=== PATIENT | male | born 1945 | race Caucasian/White ===

== ENCOUNTER 2018-03-19 11:58 | Inpatient (IN) | payer MEDICARE, OTHER ==
[2018-03-19] MEDS ORDERED: HEPARIN SODIUM,PORCINE 5,000 UNIT/ML 1 ML VIAL IV PRN (12:05)
[2018-03-19] MEDS ORDERED: NITROGLYCERIN-D5W PMX 50 MG in DEXTROSE/WATER 1 250ML.BAG IV ONE ×2 (12:06→13:22)
[2018-03-19] MEDS ORDERED: HEPARIN SOD,PORK IN 0.45% NACL 25,000 UNIT in 0.45% NACL 1 500ML.BAG IV SCH (12:15)
[2018-03-19] MEDS ORDERED: MORPHINE SULFATE 4 MG/ML SYRINGE IV PRN (12:24)
[2018-03-19] MEDS ORDERED: NALOXONE 0.4 MG/ML 1 ML VIAL IV PRN (12:24)
--- NOTE | 2018-03-19 12:28 | ED ---
General Adult HPI - General Chief complaint: Chest Pain Stated complaint: Chest pain Time Seen by Provider: 03/19/18 12:01 Source: patient, EMS, RN notes reviewed, old records reviewed Mode of arrival: EMS Limitations: no limitations - History of Present Illness Initial comments: 72-year-old male presenting as transfer from outside hospital with non-ST segment elevated TX. Patient has had intermittent chest pain over the past several weeks, this pain became more severe over the past 12 hours. Was associated with right shoulder pain. Pain was 10 out of 10 at the time of presentation to the outside hospital. Laboratory studies did reveal elevated troponin is 0.95. Patient was initiated on heparin and nitroglycerin and transferred for cardiology evaluation. Patient does have ongoing pain in the time my evaluation, 4 out of 10. No nausea. No history of CAD. Patient has history of diabetes and hypertension. He is a nonsmoker. - Related Data Allergies Allergy/AdvReac Type Severity Reaction Status Date / Time No Known Allergies Allergy Verified 03/19/18 12:11 Review of Systems ROS Statement: Those systems with pertinent positive or pertinent negative responses have been documented in the HPI. ROS Other: All systems not noted in ROS Statement are negative. Past Medical History Past Medical History: Diabetes Mellitus, Hyperlipidemia History of Any Multi-Drug Resistant Organisms: None Reported Past Psychological History: No Psychological Hx Reported Smoking Status: Former smoker Past Alcohol Use History: None Reported Past Drug Use History: None Reported General Exam Limitations: no limitations General appearance: alert, in no apparent distress Head exam: Present: atraumatic, normocephalic Eye exam: Present: normal appearance, PERRL ENT exam: Present: normal exam Neck exam: Present: normal inspection. Absent: tenderness, meningismus Respiratory exam: Present: normal lung sounds bilaterally. Absent: respiratory distress, wheezes Cardiovascular Exam: Present: regular rate, normal rhythm GI/Abdominal exam: Present: soft. Absent: distended, tenderness, guarding Extremities exam: Present: normal inspection, full ROM, normal capillary refill. Absent: calf tenderness Neurological exam: Present: alert, oriented X3, CN II-XII intact. Absent: motor sensory deficit Psychiatric exam: Present: normal affect, normal mood Skin exam: Present: warm, dry, intact. Absent: cyanosis, diaphoretic Course Vital Signs 03/19/18 03/19/18 12:08 12:12 Temperature 97.9 F Pulse Rate 75 Pulse Rate [ 65 Manager Contract ] Respiratory 18 Rate Blood Pressure 166/95 O2 Sat by Pulse 97 Oximetry EKG Findings - EKG Comments: EKG Findings:: EKG: Normal sinus rhythm, left axis deviation, no ST segment elevation ventricular rate 75 WV interval 180, QRS duration 100 QTC 437. Biphasic T wave in V2. Medical Decision Making - Medical Decision Making 72-year-old male presenting with non-ST segment elevated TX from outside hospital. Patient is continued on nitroglycerin and heparin. Repeat blood testing is obtained in the emergency department, including CBC, BMP, and repeat troponin. These laboratory studies are pending. Case discussed with admitting physician. Case discussed with cardiology Dr. Nayak, will evaluate patient in the emergency department. Critical Care Time Critical Care Time: Yes Total Critical Care Time: 35 Disposition Clinical Impression: NSTEMI (non-ST elevated myocardial infarction) Disposition: ADMITTED IP TO THIS [facility] Condition: Stable Is patient prescribed a controlled substance at d/c from ED?: No Referrals: Baljit Shafer MD [Primary Care Provider] - 1-2 days Time of Disposition: 12:31 Decision to Admit Reason: Admit from EC Decision Date: 03/19/18 Decision Time: 12:31
[2018-03-19 12:52] LABS: Basophils % (A) 0 %; Eosinophils # (A) 0.1 k/uL (0-0.7); Eosinophils % (A) 1 %; HCT 40.1 % (39.0-53.0); HGB 13.7 gm/dL (13.0-17.5); Lymphocytes # (A) 1.3 k/uL (1.0-4.8); Lymphocytes % (A) 17 %; MCH 33.7 pg (25.0-35.0); MCHC 34.2 g/dL (31.0-37.0); MCV 98.4 fL (80.0-100.0); Mean Platelet Volume 7.7; Monocytes # (A) 0.4 k/uL (0-1.0); Monocytes % (A) 5 %; Neutrophils # (A) 5.8 k/uL (1.3-7.7); Neutrophils % (A) 75 %; Platelet Count 159 k/uL (150-450); RBC 4.08 m/uL (4.30-5.90); RDW 12.1 % (11.5-15.5); WBC 7.8 k/uL (3.8-10.6)
[2018-03-19] MEDS ORDERED: ALPRAZolam 0.5 MG TAB PO PRN (13:06)
[2018-03-19] MEDS ORDERED: ASPIRIN 325 MG TAB PO STA (13:06)
[2018-03-19] MEDS ORDERED: ALPRAZolam 0.25 MG TAB PO PRN (13:06)
[2018-03-19] MEDS ORDERED: NITROGLYCERIN SL TABS 0.4 MG TAB SUBLINGUAL PRN (13:06)
[2018-03-19] MEDS ORDERED: ATORVASTATIN 80 MG TAB PO STA (13:06)
[2018-03-19] MEDS ORDERED: LIDOCAINE 1% INJ 10MG/ML (20 ML MDV) SQ ONE (13:17)
[2018-03-19 13:18] LABS: Potassium 5.5 mmol/L (3.5-5.1)
[2018-03-19] MEDS ORDERED: IV FLUID CONTINUATION 1,000 ML IV ONE (13:18)
[2018-03-19 13:19] LABS: INR 1.2 (<1.2); Prothrombin Time 11.7 sec (9.0-12.0)
[2018-03-19] MEDS ORDERED: VERAPAMIL SYRINGE (5 MG/10 ML) INTRAARTER ONE (13:19)
[2018-03-19 13:27] LABS: Partial Thromboplastin Time >200.0 sec (22.0-30.0)
[2018-03-19] MEDS ORDERED: IOPAMIDOL-370 125ML BTL INJ ONE (13:30)
[2018-03-19] MEDS ORDERED: RX INFO: IV CONTRAST WAS GIVEN 1 EACH MISC MISCELLANE PRN (13:40)
[2018-03-19] MEDS ORDERED: SODIUM CHLORIDE 0.9% 1,000 ML IV SCH (13:45)
[2018-03-19 13:52] LABS: Creatine Kinase MB 4.2 ng/mL (0.0-2.4)
[2018-03-19 14:03] LABS: Troponin I 1.58 ng/mL (0.000-0.034)
[2018-03-19 14:17] LABS: Glucose,Whole Blood 201 mg/dL (75-99)
--- NOTE | 2018-03-19 14:36 | XR ---
EXAMINATION TYPE: XR chest 1V portable DATE OF EXAM: 03/19/2018 HISTORY: Shortness of breath. COMPARISON: Outside study from 03/19/2018 TECHNIQUE: Single view of the chest is submitted. FINDINGS: Demonstrated are scattered senescent parenchymal change. There is no evidence for focal infiltrate. The heart is stable. Prominence of the paratracheal stripe may reflect underlying adenopathy. Degenerative changes are seen of the dorsal spine. IMPRESSION: 1. Chronic changes without evidence for acute pulmonary disease. 2.Prominence of the paratracheal stripe may reflect underlying adenopathy.
[2018-03-19 14:56] LABS: INR 1.1 (<1.2); Partial Thromboplastin Time 28.2 sec (22.0-30.0); Prothrombin Time 10.3 sec (9.0-12.0)
[2018-03-19 15:02] LABS: Albumin 3.7 g/dL (3.5-5.0); Calcium 8.7 mg/dL (8.4-10.2); Magnesium 1.4 mg/dL (1.6-2.3); Potassium 4.8 mmol/L (3.5-5.1); Total Bilirubin 0.6 mg/dL (0.2-1.3); Total Protein 6.8 g/dL (6.3-8.2)
[2018-03-19 15:05] LABS: Basophils % (A) 0 %; Eosinophils # (A) 0.1 k/uL (0-0.7); Eosinophils % (A) 1 %; HCT 38.3 % (39.0-53.0); HGB 12.6 gm/dL (13.0-17.5); Lymphocytes # (A) 1.5 k/uL (1.0-4.8); Lymphocytes % (A) 22 %; MCH 32.6 pg (25.0-35.0); MCHC 32.9 g/dL (31.0-37.0); MCV 99.2 fL (80.0-100.0); Mean Platelet Volume 7.2; Monocytes # (A) 0.4 k/uL (0-1.0); Monocytes % (A) 5 %; Neutrophils % (A) 70 %; Platelet Count 160 k/uL (150-450); RBC 3.86 m/uL (4.30-5.90); RDW 12.1 % (11.5-15.5); WBC 7.1 k/uL (3.8-10.6)
--- NOTE | 2018-03-19 15:07 | P.GSCN ---
History of Present Illness Consult date: 03/19/18 Reason for Consult: Disease, surgical recommendations. Requesting physician: Benny Nayak History of present illness: This is a 72-year-old gentleman who follows with Dr. Trent Shafer on an outpatient basis. He has a previous medical history of insulin dependent diabetes mellitus, hypertension, hypertriglyceridemia, kidney stones, previous tobacco dependence, near daily EtOH use, and vasectomy. Over the previous few weeks he has been having intermittent chest pain, mostly with eating which he attributed to heartburn and with activity. It was relieved with rest. Last night however he began to have this chest pain with radiation to both his arms, shortness of breath, nausea, diaphoresis, dizziness. He rated the pain and a 10 out of 10 at its worst. It remained unrelieved even with rest and he presented to [facility]. An EKG was completed which demonstrated sinus rhythm. There was elevation in his troponins and the patient was ruled in non-STEMI. He was started on IV heparin and nitro and transported to [facility] for evaluation and treatment. He was taken to the cardiac catheterization lab by Dr. Nayak. The catheterization demonstrated RCA stenosis of 70%, circumflex stenosis 90%, proximal LAD stenosis 99%, mid LAD stenosis 90%, and decreased LV function with an ejection fraction 35%. Dr. Parra from cardiothoracic surgery was consulted for urgent surgical revascularization. Of note, upon further questioning the patient does state that his activity has decreased over the previous 2 years secondary to increasing shortness of breath as well as "old age". Review of Systems Review of systems was completed and was negative except as noted. - Cardiovascular Reports as per HPI, Reports chest pain, Reports decreased exercise tolerance, Reports dyspnea on exertion, Reports high blood pressure Past Medical History Past Medical History: Coronary Artery Disease (CAD), Diabetes Mellitus, Hyperlipidemia, Hypertension History of Any Multi-Drug Resistant Organisms: None Reported Additional Past Surgical History / Comment(s): Vasectomy Past Anesthesia/Blood Transfusion Reactions: No Reported Reaction Past Psychological History: No Psychological Hx Reported Smoking Status: Former smoker Past Alcohol Use History: Occasional Additional Past Alcohol Use History / Comment(s): Patient states he drinks almost daily, has never gone through withdrawal Past Drug Use History: None Reported Medications and Allergies Home Medications Medication Instructions Recorded Confirmed Type Atorvastatin [Lipitor] 40 mg PO HS 03/19/18 03/19/18 History Insulin Aspart [NovoLOG Flexpen] 20 units SQ DAILY 03/19/18 03/19/18 History Insulin Detemir [Levemir Flextouch] 45 units SQ HS 03/19/18 03/19/18 History Lisinopril 40 mg PO DAILY 03/19/18 03/19/18 History Triamcinolone 0.1% Cream [Kenalog 1 applicatio TOPICAL BID 03/19/18 03/19/18 History 0.1% Cream] Triamterene/Hydrochlorothiazid 1 tab PO DAILY 03/19/18 03/19/18 History [Triamterene-Hctz 37.5-25 mg Tb] metFORMIN HCL [metFORMIN HCL ER] 1,000 mg PO BID 03/19/18 03/19/18 History Allergies Allergy/AdvReac Type Severity Reaction Status Date / Time No Known Allergies Allergy Verified 03/19/18 14:12 Surgical - Exam Vital Signs Temp Pulse Resp BP Pulse Ox 97.9 F 75 18 166/95 97 03/19/18 12:08 03/19/18 12:08 03/19/18 12:08 03/19/18 12:08 03/19/18 12:08 - General Complains of chest pain, 2 out of 10. well developed, well nourished, no distress - Eyes PERRL, normal ocular movement - ENT no hearing loss, poor halfway - Neck no masses, no bruits, trachea midline - Respiratory Lungs sounds diminished bilaterally. Respirations even, nonlabored. Currently on 3 L nasal cannula with oxygen saturation 94%. No chest wall deformities. - Cardiovascular S1, S2 present. Regular rate and rhythm, sinus rhythm on telemetry. Palpable peripheral pulses bilaterally. No edema present. No calf pain or tenderness noted. Left radial Brenton's test negative. Right radial heart catheterization site without edema, T band in place. - Abdomen Abdomen: soft, non tender, bowel sounds - Genitourinary Deferred - Rectum Deferred - Integumentary no rash, no growths, no abnormal pigmentation - Neurologic normal coordination, normal sensation - Musculoskeletal normal gait, normal posture - Psychiatric oriented to time, oriented to person, oriented to place, speech is normal, memory intact Results - Labs 03/19/18 12:14 03/19/18 12:14 Abnormal Lab Results - Last 24 Hours (Table) 03/19/18 03/19/18 03/19/18 Range/Units 12:14 12:14 12:14 RBC 4.08 L (4.30-5.90) m/uL INR (<1.2) APTT (22.0-30.0) sec Sodium 136 L (137-145) mmol/L Potassium 5.5 H (3.5-5.1) mmol/L Carbon Dioxide 18 L (22-30) mmol/L Glucose 202 H (74-99) mg/dL POC Glucose (mg/dL) (75-99) mg/dL CK-MB (CK-2) 4.2 H (0.0-2.4) ng/mL Troponin I 1.580 H* (0.000-0.034) ng/mL 03/19/18 03/19/18 Range/Units 12:14 13:56 RBC (4.30-5.90) m/uL INR 1.2 H (<1.2) APTT >200.0 H* (22.0-30.0) sec Sodium (137-145) mmol/L Potassium (3.5-5.1) mmol/L Carbon Dioxide (22-30) mmol/L Glucose (74-99) mg/dL POC Glucose (mg/dL) 201 H (75-99) mg/dL CK-MB (CK-2) (0.0-2.4) ng/mL Troponin I (0.000-0.034) ng/mL Diabetes panel 03/19/18 Range/Units 12:14 Sodium 136 L (137-145) mmol/L Potassium 5.5 H (3.5-5.1) mmol/L Chloride 106 (98-107) mmol/L Carbon Dioxide 18 L (22-30) mmol/L BUN 20 (9-20) mg/dL Creatinine 1.18 (0.66-1.25) mg/dL Glucose 202 H (74-99) mg/dL Calcium 9.0 (8.4-10.2) mg/dL Calcium panel 03/19/18 Range/Units 12:14 Calcium 9.0 (8.4-10.2) mg/dL Pituitary panel 03/19/18 Range/Units 12:14 Sodium 136 L (137-145) mmol/L Potassium 5.5 H (3.5-5.1) mmol/L Chloride 106 (98-107) mmol/L Carbon Dioxide 18 L (22-30) mmol/L BUN 20 (9-20) mg/dL Creatinine 1.18 (0.66-1.25) mg/dL Glucose 202 H (74-99) mg/dL Calcium 9.0 (8.4-10.2) mg/dL Adrenal panel 03/19/18 Range/Units 12:14 Sodium 136 L (137-145) mmol/L Potassium 5.5 H (3.5-5.1) mmol/L Chloride 106 (98-107) mmol/L Carbon Dioxide 18 L (22-30) mmol/L BUN 20 (9-20) mg/dL Creatinine 1.18 (0.66-1.25) mg/dL Glucose 202 H (74-99) mg/dL Calcium 9.0 (8.4-10.2) mg/dL - Imaging EKG: image reviewed Additional studies: Heart catheterization films reviewed. Assessment and Plan (1) Coronary artery disease Current Visit: Yes Status: Chronic Code(s): I25.10 - ATHSCL HEART DISEASE OF [place] CORONARY ARTERY W/O ANG PCTRS SNOMED Code(s): 40409417 (2) Diabetes mellitus Current Visit: Yes Status: Chronic Code(s): E11.9 - TYPE 2 DIABETES MELLITUS WITHOUT COMPLICATIONS SNOMED Code(s): 45591076 (3) Hypertension Current Visit: Yes Status: Chronic Code(s): I10 - ESSENTIAL (PRIMARY) HYPERTENSION SNOMED Code(s): 33663146 (4) Hyperlipidemia Current Visit: Yes Status: Chronic Code(s): E78.5 - HYPERLIPIDEMIA, UNSPECIFIED SNOMED Code(s): 88567238 (5) Tobacco dependence in remission Current Visit: No Status: Resolved Code(s): F17.201 - NICOTINE DEPENDENCE, UNSPECIFIED, IN REMISSION SNOMED Code(s): 602024346 (6) NSTEMI (non-ST elevated myocardial infarction) Current Visit: Yes Status: Acute Code(s): I21.4 - NON-ST ELEVATION (NSTEMI) MYOCARDIAL INFARCTION SNOMED Code(s): 750915900 Plan: The patient was seen and examined at the bedside along with family. Chart/ diagnostics were reviewed. Case will be discussed in detail with Dr. Parra. Preoperative testing was initiated. Preoperative teaching was initiated with the patient and his family. Risks and benefits were discussed in detail, all questions were answered. We will calculate STS risk score once testing has been completed. At this time continue aspirin, statin, beta nica, IV heparin and IV nitro. More recommendations to follow. Thank you Dr. Nayak for this consult. We look forward to working with you in the care of your patient. Time with Patient: Greater than 30
--- NOTE | 2018-03-19 15:30 | P.CNPUL ---
History of Present Illness Consult date: 03/19/18 Requesting physician: Rinku Nixon Reason for consult: chest pain Chief complaint: Chest pain, non-ST segment elevated MA, multivessel CAD History of present illness: This is a 72-year-old white male patient of Dr. Shafer, who was transferred from [facility], where he went for evaluation of severe intermittent chest pain that has been sent for last several weeks. The chest pain became progressively worse, was associated with right shoulder pain. Lab work showed elevated troponins, he was diagnosed with non-ST elevated MA, EKG showed normal sinus rhythm with left axis deviation, and evidence of septal infarct of undetermined age. Past medical history is significant for diabetes mellitus type 2, hypertension, hyperlipidemia, previous nicotine dependence, in remission , daily EtOH use. Patient denies any chronic history of lung disease, but he carries a [id number] smoking history, of 3 packs a day for 20 years. He quit smoking 40 years ago. Not on oxygen at his baseline. Patient was transported to [facility] and he underwent cardiac catheterization by Dr. Nayak which revealed multivessel coronary artery disease, with RCA stenosis of 70%, circumflex stenosis of 90%, proximal LAD with 99% stenosis, mid LAD of 90% and decreased LV function with an ejection fraction of 35%. CT surgery has been consulted and urgent surgical revascularization was recommended. We're consulted in regards to pulmonary/critical care management. Review of Systems All systems: negative Constitutional: Denies chills, Denies fever Eyes: denies blurred vision, denies pain Ears, nose, mouth and throat: Denies headache, Denies sore throat Cardiovascular: Reports chest pain, Denies shortness of breath Respiratory: Denies cough Gastrointestinal: Denies abdominal pain, Denies diarrhea, Denies nausea, Denies vomiting Musculoskeletal: Denies myalgias Integumentary: Denies pruritus, Denies rash Neurological: Denies numbness, Denies weakness Psychiatric: Denies anxiety, Denies depression Endocrine: Denies fatigue, Denies weight change Past Medical History Past Medical History: Coronary Artery Disease (CAD), Diabetes Mellitus, Hyperlipidemia, Hypertension Additional Past Medical History / Comment(s): IDDM type II History of Any Multi-Drug Resistant Organisms: None Reported Past Surgical History: Heart Catheterization Additional Past Surgical History / Comment(s): Vasectomy Past Anesthesia/Blood Transfusion Reactions: No Reported Reaction Past Psychological History: No Psychological Hx Reported Additional Psychological History / Comment(s): Pt resides with his spouse. Heis independent. Smoking Status: Former smoker Past Alcohol Use History: Occasional Additional Past Alcohol Use History / Comment(s): Patient states he drinks almost daily-3 or 4 beers, has never gone through withdrawal. He started smoking in 1 and quit in 1977 Past Drug Use History: None Reported - Past Family History Father Family Medical History: Cancer Additional Family Medical History / Comment(s): Father of lung cancer with metastasis Mother Family Medical History: No Reported History Additional Family Medical History / Comment(s): Mother was healthy and lived to be 86 or 87yrs. Medications and Allergies Home Medications Medication Instructions Recorded Confirmed Type Atorvastatin [Lipitor] 40 mg PO HS 03/19/18 03/19/18 History Insulin Aspart [NovoLOG Flexpen] 20 units SQ DAILY 03/19/18 03/19/18 History Insulin Detemir [Levemir Flextouch] 45 units SQ HS 03/19/18 03/19/18 History Lisinopril 40 mg PO DAILY 03/19/18 03/19/18 History Triamcinolone 0.1% Cream [Kenalog 1 applicatio TOPICAL BID 03/19/18 03/19/18 History 0.1% Cream] Triamterene/Hydrochlorothiazid 1 tab PO DAILY 03/19/18 03/19/18 History [Triamterene-Hctz 37.5-25 mg Tb] metFORMIN HCL [metFORMIN HCL ER] 1,000 mg PO BID 03/19/18 03/19/18 History Allergies Allergy/AdvReac Type Severity Reaction Status Date / Time No Known Allergies Allergy Verified 03/19/18 14:12 Physical Exam Vitals: Vital Signs Temp Pulse Pulse Resp BP Pulse Ox 03/19/18 14:45 81 12 125/82 95 03/19/18 14:30 81 19 132/76 95 03/19/18 14:17 81 13 137/83 96 03/19/18 13:00 65 18 159/98 97 03/19/18 12:12 65 03/19/18 12:08 97.9 F 75 18 166/95 97 Intake and Output 03/19/18 03/19/18 03/19/18 06:59 14:59 22:59 Intake Total 105.1 100 Output Total 0 Balance 105.1 100 Intake: IV 103 100 Sodium Chloride 0.9% 1, 100 000 ml @ 100 mls/hr IV . Q10H [facility] Rx#:[id number] Intake, IV Titration 2.1 Amount Nitroglycerin-D5w Pmx 50 2.1 mg In Dextrose/Water 1 250ml.bag @ 5 MCG/MIN 1.5 mls/hr IV .Q24H [facility] Rx#: [id number] Output: Urine 0 Other: Weight 104.326 kg GENERAL EXAM: Alert, active, comfortable in no apparent distress. HEAD: Normocephalic/atraumatic. EYES: Normal reaction of pupils, equal size. Conjunctiva pink, sclera white. NOSE: Clear with pink turbinates. THROAT: No erythema or exudates. NECK: No masses, no JVD, no thyroid enlargement, no adenopathy. CHEST: No chest wall deformity. Symmetrical expansion. LUNGS: Equal air entry with no crackles, wheeze, rhonchi or dullness. CVS: Regular rate and rhythm, normal S1 and S2, no gallops, no murmurs, no rubs ABDOMEN: Soft, nontender. No hepatosplenomegaly, normal bowel sounds, no guarding or rigidity. EXTREMITIES: No clubbing, no edema, no cyanosis, 2+ pulses and upper and lower extremities. MUSCULOSKELETAL: Muscle strength and tone normal. Right radial puncture is clean dry and intact, soft, TR band is on SPINE: No scoliosis or deformity SKIN: No rashes CENTRAL NERVOUS SYSTEM: Alert and oriented -3. No focal deficits, tone is normal in all 4 extremities. PSYCHIATRIC: Alert and oriented -3. Appropriate affect. Intact judgment and insight. Results - Laboratory Findings CBC and BMP: 03/19/18 12:14 03/19/18 14:07 PT/INR, D-dimer PT 10.3 sec (9.0-12.0) 03/19/18 14:13 INR 1.1 (<1.2) 03/19/18 14:13 Abnormal lab findings: Abnormal Labs 03/19/18 03/19/18 03/19/18 12:14 12:14 12:14 RBC 4.08 L INR APTT Sodium 136 L Potassium 5.5 H Carbon Dioxide 18 L Glucose 202 H POC Glucose (mg/dL) Magnesium CK-MB (CK-2) 4.2 H Troponin I 1.580 H* Triglycerides 03/19/18 03/19/18 03/19/18 12:14 13:56 14:07 RBC INR 1.2 H APTT >200.0 H* Sodium 136 L Potassium Carbon Dioxide 20 L Glucose 174 H POC Glucose (mg/dL) 201 H Magnesium 1.4 L CK-MB (CK-2) Troponin I Triglycerides 246 H - Diagnostic Findings Chest x-ray: report reviewed, image reviewed Additional studies: EKG reviewed Assessment and Plan Plan: Assessment: #1. Non-ST elevated MA #2. Multivessel coronary artery disease, patient underwent cardiac catheterization which showed RCA stenosis of 70%, circumflex was 90%, proximal LAD of 99%, mid LAD of 90% #3. Ischemic cardiomyopathy, cardiac as showed LV function with an ejection fraction of 35% #4. Diabetes mellitus type 2 #5. Hypertension, hyperlipidemia #6. Previous history of nicotine dependence, patient carries [id number] smoking history, quit smoking 40 years ago, but prior to that smoked for 20 years 3 packs a day #7. Daily EtOH use Plan: We will obtain a bedside PFT. Patient's chest x-ray has been reviewed by Dr. Nixon, and was negative for any acute pulmonary process. Patient is currently on nitroglycerin drip, at 20 mics per minute, denies any chest pain, or shortness of breath. Hemodynamically stable. He is undergoing evaluation for urgent revascularization. He denies any chronic history of pulmonary disease. We will follow the patient in the postop period. Patient is increased surgical risk, based on his presentation, chronic comorbid conditions. Continue to follow I performed a history & physical examination of the patient and discussed their management with my nurse practitioner, Rosa Rm. I reviewed the nurse practitioner's note and agree with the documented findings and plan of care. Lung sounds are clear. The findings and the impression was discussed with the patient. I attest to the documentation by the nurse practitioner. Time with Patient: Greater than 30
--- NOTE | 2018-03-19 15:44 | ECHOF ---
Referral Reason:mi MEASUREMENTS -------- HEIGHT: 152.4 cm WEIGHT: 104.3 kg BP: 125/82 IVSd: 1.2 cm (0.6 - 1.1) LVIDd: 2.7 cm (3.9 - 5.3) LVPWd: 1.0 cm (0.6 - 1.1) IVSs: 1.1 cm LVIDs: 2.6 cm LVPWs: 1.0 cm LAESV Index (A-L): 21.25 ml/m Ao Diam: 3.0 cm (2.0 - 3.7) AV Cusp: 1.3 cm (1.5 - 2.6) LA Diam: 2.8 cm (2.7 - 3.8) MV EXCURSION: 18.438 mm (> 18.000) MV EF SLOPE: 95 mm/s (70 - 150) EPSS: 3.5 cm MV E Heraclio: 0.40 m/s MV DecT: 240 ms MV A Heraclio: 0.71 m/s MV E/A Ratio: 0.56 RAP: 5.00 mmHg RVSP: 10.90 mmHg FINDINGS -------- Sinus rhythm. This was a techncally difficult study with suboptimal views, , Lumason utilized for enhancement of im ages. The left ventricular size is normal. There is mild concentric left ventricular hypertrophy. Overa ll left ventricular systolic function is moderate-severely impaired with, an EF between 30 - 35 %. Apical septum LV wall motion is hypokinetic. Anterseptal Hypokinesis Inferior Hypokinesis [place] Hypokinesis. The right ventricle is normal in size. The left atrial size is normal. The right atrial size is normal. 5.0mg OF Lumason UTLIZED: 2 OR MORE WALL SEGMENTS NOT VISUALIZED. There is mild aortic valve sclerosis. There is no evidence of aortic regurgitation. Mild mitral regurgitation is present. Mild tricuspid regurgitation present. There is no evidence of pulmonary hypertension. The right v entricular systolic pressure, as measured by Doppler, is 10.90mmHg. There is no pulmonic regurgitation present. The aortic root size is normal. There is no pericardial effusion. CONCLUSIONS -------- 1. This was a techncally difficult study with suboptimal views, , Lumason utilized for enhancement of images. 2. The left ventricular size is normal. 3. There is mild concentric left ventricular hypertrophy. 4. Overall left ventricular systolic function is moderate-severely impaired with, an EF between 30 - 35 %. 5. Apical septum LV wall motion is hypokinetic. 6. Anterseptal Hypokinesis 7. Inferior Hypokinesis 8. [place] Hypokinesis. 9. The right ventricle is normal in size. 10. The left atrial size is normal. 11. The right atrial size is normal. 12. 5.0mg OF Lumason UTLIZED: 2 OR MORE WALL SEGMENTS NOT VISUALIZED. 13. There is mild aortic valve sclerosis. 14. Mild mitral regurgitation is present. 15. Mild tricuspid regurgitation present. 16. There is no evidence of pulmonary hypertension. 17. The right ventricular systolic pressure, as measured by Doppler, is 10.90mmHg. 18. There is no pulmonic regurgitation present. 19. The aortic root size is normal. 20. There is no pericardial effusion. OPERATING ROOM TECHNICIAN: Hedy Rose RDCS
[2018-03-19 15:59] LABS: Appearance,Urine Clear (Clear); Bilirubin,Urine Negative (Negative); Blood,Urine Negative (Negative); Color,Urine Light Yellow; Glucose,Urine (UA) 1+ (Negative); Ketones,Urine 1+ (Negative); Leukocyte Esterase,Urine Negative (Negative); Nitrite,Urine Negative (Negative); PH, Urine 5.5 (5.0-8.0); Protein,Urine Negative (Negative); Specific Gravity,Urine 1.036 (1.001-1.035); Urobilinogen,Urine <2.0 mg/dL (<2.0)
[2018-03-19] MEDS: PANTOPRAZOLE 40 MG/10 ML VIAL IV SCH (16:01)
[2018-03-19] MEDS: MAGNESIUM SULFATE-D5W PMX 1 GM in DEXTROSE/WATER 1 100ML.BAG IVPB SCH ×2 (16:01→16:53)
--- NOTE | 2018-03-19 16:03 | P.HPIM ---
History of Present Illness H&P Date: 03/19/18 The patient is a 72 yo M with the PMH of HTN, DM, HLD, alcohol abuse, hx of significant smoking (3 PPD x 20 years, quit 40 years ago), and kidney stones who initially presented to [facility] for intermittent chest pain. The patient c/o intermittent L shoulder pressure-like pain occurring over past few weeks which would radiate to the chest and then to R shoulder w/ associated nausea, diaphoresis, and SOB, exacerbated by exertion and relieved w/ rest. He also endorsed a burning component to the sub-sternal pain post-prandially which he attributed to heartburn. He further notes gradually declining exercise tolerance which he attribute to old age. The patient was dx w/ NSTEMI at [place] w/ unremarkable EKG and Troponin elevation of 0.94, started on Heparin and Nitro infusions, and was transferred to [facility] for further cardiology evaluation. In the ED, the patient had an extensive w/u w/ Troponin level 1.580, Na 136, K 5.5, and WBC 7.8. EKG showed normal sinus rhythm @ 75 bpm w/ left axis deviation and poor R-wave progression along w/ TWI in V1-V2. CXR showed scattered parenchymal changes w/ prominence of paratracheal stripe, reflecting possibly underlying adenopathy. Cardiology evaluated the patient and underwent Cardiac catheterization by Dr Nayak which showed 70% stenosis of RCA, 90% stenosis circumflex, 99% stenosis pLAD, and 90% stenosis of mLAD w/ EF 35%. At time of my examination, the patient notes that his pain is almost completely resolved and is a 1/10, substernal, burning-like, w/ no associated symptoms. He denied nausea, vomiting, SOB, palpitations, cough, fever, chills, recent travel , sick contacts, or lower extremity swelling. Review of Systems Pertinent positives and negatives as discussed in HPI, a complete review of systems was performed and all other systems are negative. Past Medical History Past Medical History: Coronary Artery Disease (CAD), Diabetes Mellitus, Hyperlipidemia, Hypertension Additional Past Medical History / Comment(s): IDDM type II History of Any Multi-Drug Resistant Organisms: None Reported Past Surgical History: Heart Catheterization Additional Past Surgical History / Comment(s): Vasectomy Past Anesthesia/Blood Transfusion Reactions: No Reported Reaction Past Psychological History: No Psychological Hx Reported Additional Psychological History / Comment(s): Pt resides with his spouse. Heis independent. Smoking Status: Former smoker Past Alcohol Use History: Occasional Additional Past Alcohol Use History / Comment(s): Patient states he drinks almost daily-3 or 4 beers, has never gone through withdrawal. He started smoking in 1961 and quit in 1977 Past Drug Use History: None Reported - Past Family History Father Family Medical History: Cancer Additional Family Medical History / Comment(s): Father of lung cancer with metastasis Mother Family Medical History: No Reported History Additional Family Medical History / Comment(s): Mother was healthy and lived to be 86 or 87yrs. Medications and Allergies Home Medications Medication Instructions Recorded Confirmed Type Atorvastatin [Lipitor] 40 mg PO HS 03/19/18 03/19/18 History Insulin Aspart [NovoLOG Flexpen] 20 units SQ DAILY 03/19/18 03/19/18 History Insulin Detemir [Levemir Flextouch] 45 units SQ HS 03/19/18 03/19/18 History Lisinopril 40 mg PO DAILY 03/19/18 03/19/18 History Triamcinolone 0.1% Cream [Kenalog 1 applicatio TOPICAL BID 03/19/18 03/19/18 History 0.1% Cream] Triamterene/Hydrochlorothiazid 1 tab PO DAILY 03/19/18 03/19/18 History [Triamterene-Hctz 37.5-25 mg Tb] metFORMIN HCL [metFORMIN HCL ER] 1,000 mg PO BID 03/19/18 03/19/18 History Allergies Allergy/AdvReac Type Severity Reaction Status Date / Time No Known Allergies Allergy Verified 03/19/18 14:12 Physical Exam Vitals: Vital Signs Temp Pulse Pulse Resp BP Pulse Ox 03/19/18 14:45 81 12 125/82 95 03/19/18 14:30 81 19 132/76 95 03/19/18 14:17 81 13 137/83 96 03/19/18 13:00 65 18 159/98 97 03/19/18 12:12 65 03/19/18 12:08 97.9 F 75 18 166/95 97 Intake and Output 03/19/18 03/19/18 03/19/18 06:59 14:59 22:59 Intake Total 105.1 100 Output Total 0 Balance 105.1 100 Intake: IV 103 100 Sodium Chloride 0.9% 1, 100 000 ml @ 100 mls/hr IV . Q10H [facility] Rx#:[id number] Intake, IV Titration 2.1 Amount Nitroglycerin-D5w Pmx 50 2.1 mg In Dextrose/Water 1 250ml.bag @ 5 MCG/MIN 1.5 mls/hr IV .Q24H [facility] Rx#: [id number] Output: Urine 0 Other: Weight 104.326 kg General: [non toxic], [no distress], [appears at stated age], [Obese M] Derm: [no unusual rashes/lesions] [no unusual ecchymoses], [warm], [dry] Head: [atraumatic], [normocephalic], [symmetric] Eyes: [EOMI], [no lid lag], [anicteric sclera], [pupils equal round reactive to light] ENT: [Nose and ears atraumatic], [no thrush], [no pharyngeal erythema] Neck: [No thyromegaly], [no cervical lymphadenopathy], [trachea midline], [ supple] Mouth: [no lip lesion], [mucus membranes moist] Cardiovascular: [S1S2 reg], [no murmur], [positive posterior tibial pulse bilateral], [no edema], [capillary refill less than 2 seconds] Lungs: [Mild crackles at bases sanjeev, no ronchi or coarse breath sounds appreciated], [no accessory muscle use] Abdominal: [soft], [ nontender to palpation], [no guarding], [no appreciable organomegaly], [normal bowel sounds] Ext: [no gross muscle atrophy], [muscle strength 5 out of 5 in all 4 extremities grossly], [no contractures], Neuro: [ CN II-XI grossly intact], [light touch intact all 4 extremities], [ finger to nose within normal limits], Psych: [Alert], [oriented], [appropriate affect] Results CBC & Chem 7: 03/19/18 14:07 03/19/18 14:07 Labs: Abnormal Lab Results - Last 24 Hours (Table) 03/19/18 03/19/18 03/19/18 Range/Units 12:14 12:14 12:14 RBC 4.08 L (4.30-5.90) m/uL Hgb (13.0-17.5) gm/dL Hct (39.0-53.0) % INR (<1.2) APTT (22.0-30.0) sec Sodium 136 L (137-145) mmol/L Potassium 5.5 H (3.5-5.1) mmol/L Carbon Dioxide 18 L (22-30) mmol/L Glucose 202 H (74-99) mg/dL POC Glucose (mg/dL) (75-99) mg/dL Magnesium (1.6-2.3) mg/dL CK-MB (CK-2) 4.2 H (0.0-2.4) ng/mL Troponin I 1.580 H* (0.000-0.034) ng/mL Triglycerides (<150) mg/dL 03/19/18 03/19/18 03/19/18 Range/Units 12:14 13:56 14:07 RBC 3.86 L (4.30-5.90) m/uL Hgb 12.6 L (13.0-17.5) gm/dL Hct 38.3 L (39.0-53.0) % INR 1.2 H (<1.2) APTT >200.0 H* (22.0-30.0) sec Sodium (137-145) mmol/L Potassium (3.5-5.1) mmol/L Carbon Dioxide (22-30) mmol/L Glucose (74-99) mg/dL POC Glucose (mg/dL) 201 H (75-99) mg/dL Magnesium (1.6-2.3) mg/dL CK-MB (CK-2) (0.0-2.4) ng/mL Troponin I (0.000-0.034) ng/mL Triglycerides (<150) mg/dL 03/19/18 Range/Units 14:07 RBC (4.30-5.90) m/uL Hgb (13.0-17.5) gm/dL Hct (39.0-53.0) % INR (<1.2) APTT (22.0-30.0) sec Sodium 136 L (137-145) mmol/L Potassium (3.5-5.1) mmol/L Carbon Dioxide 20 L (22-30) mmol/L Glucose 174 H (74-99) mg/dL POC Glucose (mg/dL) (75-99) mg/dL Magnesium 1.4 L (1.6-2.3) mg/dL CK-MB (CK-2) (0.0-2.4) ng/mL Troponin I (0.000-0.034) ng/mL Triglycerides 246 H (<150) mg/dL Thrombosis Risk Factor Assmnt - Choose All That Apply Any of the Below Risk Factors Present?: Yes Each Factor Represents 1 point: Acute NM, Obesity (BMI >25) Other Risk Factors: Yes Each Risk Factor Represents 3 Points: Age 75 years or older Thrombosis Risk Factor Assessment Total Risk Factor Score: 5 Thrombosis Risk Factor Assessment Level: High Risk Assessment and Plan Plan: CAD w/ multi-vessel disease on cardiac cath w/ ischemic cardiomyopathy, NSTEMI - Scheduled for Cardiac bypass surgery - As per Cardiothoracic surgery - C/w Aspirin 325 mg qd, Lipitor 80 mg qd - C/w Heparin and Nitro infusions Diabetes Mellitus Type 2 - C/w Insulin sliding scale - C/w Levemir 10 U qhs (patient takes 45 U qhs at home) HTN - Currently on Lisinopril 5 mg qd. Will hold remaining home meds since patient on Nitro drip. HLD - C/w Lipitor 80 mg qhs (home dose: 40 mg qd) Tobacco abuse - Nicotine patch Alcohol abuse - Monitor for signs of withdrawal, CIWA The patient is admitted with an anticipated greater than 2 midnight stay for evaluation of NSTEMI Surrogate decision-maker: CODE STATUS:Full-code Discussed with: Patient, , daughter Anticipated discharge date: 03/23/[address]: Home A total of 60 minutes was spent on the care of this complex patient more than 50 % of the time was spent in counseling and care coordination.
[2018-03-19 16:48] LABS: Glucose,Whole Blood 184 mg/dL (75-99)
[2018-03-19] MEDS: INSULIN ASPART 100 UNIT/ML 1 ML 10 ML VIAL SQ SCH ×2 (16:54→21:19)
[2018-03-19] MEDS ORDERED: Magnesium Replacement Protocol 1 EACH MISC MISCELLANE PRN (17:05)
[2018-03-19] MEDS ORDERED: Potassium Replacement Protocol 1 EACH MISC MISCELLANE PRN (17:06)
[2018-03-19] MEDS ORDERED: MD COMMUNICATION TO PHARMACY 1 EACH MISC PO ONE ×4 (17:37)
--- NOTE | 2018-03-19 18:31 | CONS ---
CONSULTATION Mr. Leigh is a 72-year-old male who was transferred from [facility] after being admitted with symptoms of chest discomfort. He has been having the discomfort on and off for the last 2 weeks, but today the discomfort was persistent and quite severe. Patient is not very active physically. He has dyspnea on exertion but no prior documented history of obstructive coronary artery disease. He has no history of peripheral edema. No dizziness. No palpitation. No syncope. No clear PND or orthopnea. His coronary risk factors are remarkable for remote history of smoking. He has history of hypertension and diabetes mellitus. REVIEW OF SYSTEMS: RESPIRATORY SYSTEM: He has no recent wheezing. No cough. No history of documented obstructive lung disease. GI SYSTEM: No recent GI bleed. No peptic ulcer disease. SYSTEM: No dysuria or hematuria. NERVOUS SYSTEM: No history of stroke or seizure. MEDICATIONS: His medications at home included insulin. PHYSICAL EXAMINATION: He is a 72-year-old male, alert, oriented, in no apparent distress. Blood pressure 120/70 with a heart rate in the 70s. HEAD: Normocephalic. Eyes: Sclerae anicteric. NECK: Good carotid upstroke. No jugular venous distention. LUNGS: Clear to auscultation. HEART: Regular rate and rhythm. S1, S2. No S3. No S4. No murmur or rub. ABDOMEN: Soft, nontender. Positive bowel sounds. No megaly. EXTREMITIES: No edema. Intact distal pulses. LAB DATA: EKG is sinus mechanism, rate of 75, left axis deviation, QS in V1 to V2 with poor R- wave progression consistent with anteroseptal myocardial infarction. His troponin is 0.95, potassium 4.7. BUN and creatinine are 21 and 1.3. IMPRESSION: 1. Acute episode of chest discomfort with troponin elevation consistent with non-ST- segment-elevation myocardial infarction. 2. Hyperlipidemia. 3. History of hypertension. RECOMMENDATIONS: I have recommended proceeding with coronary angiography to assess his status and guide his treatment. The rationale behind the procedure, its risks and complications were discussed with the patient, who is in full understanding and agreement. Thank you for this consult. Will follow with you. MMODL / IJN: [id number] /
--- NOTE | 2018-03-19 19:46 | CC ---
CARDIAC CATHETERIZATION REPORT Mr. Leigh is a 72-year-old male with known history of hypertension, hyperlipidemia, history of diabetes mellitus, who presented to [facility] with symptoms of chest discomfort going on for 2 weeks on and off, worse today. He was found to have mild elevation of troponin. In view of that, he was transferred to [facility]. In view of his presentation and his symptoms, recommendation was made regarding cardiac catheterization. The procedure, its risks and complications were discussed with the patient, who was in full understanding and agreement. PROCEDURE: Patient was brought to the fish hatchery laborer in a fasting, semi-sedated state after receiving fentanyl and Benadryl and achieving a moderate conscious sedated state. Using Xylocaine anesthesia and Seldinger technique, a 6-St Lucian sheath was introduced in the right radial artery. Selective right and left angiography was performed using a 5- [place] Lucian 3-1/2 bend right and left Janina catheters. Multiple views were taken of the coronary arteries, including hemiaxial views. Following that, a 5-St Lucian tight pigtail catheter was introduced in the left ventricle and a 30-degree CHEN view of the left ventricle was obtained. Following that, catheter and sheath were removed. Hemostasis was obtained with deployment of a TR band. There was no immediate complication. Patient was returned to his room in stable condition. Of note, the patient received heparin in the emergency room upon his arrival and he received intra-arterial verapamil. FINDINGS: FLUOROSCOPY: There was severe calcification of all the coronary arteries. LEFT MAIN: This is a large-sized vessel trifurcating into left circumflex, left anterior descending artery and ramus intermedius. Left main coronary artery has no evidence of high-grade stenosis. LEFT ANTERIOR DESCENDING ARTERY: This is a large-sized vessel reaching toward the apex with a wrap around the apex segment giving rise to a small diagonal branch. The left anterior descending artery at the ostium has a 95% to 99% stenosis and a heavily calcified segment in the mid distal segment. There is another area of stenosis of about 60%. The rest of the vessel has no high-grade stenosis. RAMUS INTERMEDIUS: This is a large-sized vessel bifurcating; has about a 60% to 70% plaque in the mid segment without any evidence of high-grade stenosis. LEFT CIRCUMFLEX: This is a nondominant vessel giving rise to 4 obtuse marginal branches. In the mid segment after the takeoff of the first obtuse marginal branch, there is a long diffuse area of stenosis up to 85%. The rest of the vessel has no high- grade stenosis. RIGHT CORONARY ARTERY: This is a dominant vessel bifurcating distally into PDA and posterolateral segment and branches. The right coronary artery in the proximal segment has an eccentric 70% plaque. There is another plaque of about 60% distally prior to the bifurcation. The rest of the vessel has intimal disease without any evidence of high-grade stenosis. LEFT VENTRICULOGRAM: Left ventriculogram was performed in 30-degree CHEN view and revealed anteroapical severe hypokinesis to akinesis. Ejection fraction is 35%. There was no significant mitral regurgitation. HEMODYNAMICS: There was no gradient across the aortic valve. The left ventricular end- diastolic pressure was 20 mmHg. CONCLUSION: 1. Heavily calcified coronary arteries. 2. Severe triple-vessel coronary artery disease. 3. Severely impaired left ventricular systolic function. RECOMMENDATIONS: In view of findings and anatomy, I have recommended proceeding with coronary artery bypass grafting. Those findings and recommendation were discussed with the patient and his family, who are in full understanding and agreement. DURATION OF PROCEDURE: 18 minutes. JAVID / NIESHAN: [id number] /
[2018-03-19 20:03] LABS: Creatine Kinase MB 33.1 ng/mL (0.0-2.4)
[2018-03-19 20:04] LABS: Hepatitis A Antibody IgM Non-Reactive (Non-Reactive); Hepatitis B Core IgM Non-Reactive (Non-Reactive)
[2018-03-19 20:05] LABS: Troponin I 19.7 ng/mL (0.000-0.034)
[2018-03-19 20:16] LABS: Hemoglobin A1C 8.1 % (4.0-6.0)
[2018-03-19 20:56] LABS: Glucose,Whole Blood 262 mg/dL (75-99)
[2018-03-19] MEDS ORDERED: INSULIN DETEMIR 100 UNIT/ML 10 ML VIAL SQ SCH (21:00)
[2018-03-19] MEDS ORDERED: LISINOPRIL 5 MG TAB PO SCH (21:00)
[2018-03-19] MEDS: MUPIROCIN 2% OINT 22 GM TUBE TOPICAL SCH (21:20)
[2018-03-19] MEDS: METOPROLOL TARTRATE 25 MG TAB PO SCH (21:20)
--- NOTE | 2018-03-19 21:32 | US ---
EXAMINATION TYPE: US carotid duplex BILAT DATE OF EXAM: 03/19/2018 COMPARISON: NONE CLINICAL HISTORY: preop cardiac surgery. Pre op cardiac surgery EXAM MEASUREMENTS: RIGHT: Peak Systolic Velocity (PSV) cm/sec ----- Right CCA: 122.4 ----- Right ICA: 61.6 ----- Right ECA: 109.3 ICA/CCA ratio: 0.5 RIGHT: End Diastole cm/sec ----- Right CCA: 12.4 ----- Right ICA: 18.7 ----- Right ECA: 13.5 LEFT: Peak Systolic Velocity (PSV) cm/sec ----- Left CCA: 79.8 ----- Left ICA: 85.3 ----- Left ECA: 96.2 ICA/CCA ratio: 1.1 LEFT: End Diastole cm/sec ----- Left CCA: 14.9 ----- Left ICA: 21.0 ----- Left ECA: 0.0 VERTEBRALS (direction of flow): Right Vertebral: Antegrade Left Vertebral: Antegrade Rhythm: Normal Bilateral intimal thickening, plaque bilateral bulb greater on the left, no elevated velocities, no s ignificant stenosis. IMPRESSION: There is antegrade flow in the vertebral arteries. The images and measurements suggest 2 5-40% stenosis in both internal carotid arteries. Criteria for Assigning % of Stenosis / Diameter reduction (Estimation based on the indirect measurements of the internal carotid artery velocities (ICA PSV). 1. Normal (no stenosis)=ICA PSV < 125 cm/s: ratio < 2.0: ICA EDV<40 cm/s. 2. Less than 50% stenosis=ICA PSV < 125 cm/s: ratio < 2.0: ICA EDV<40 cm/s. 3. 50 to 69% stenosis=ICA PSV of 125 to 230 cm/s: ration 2.0 ? 4.0: ICA EDV 40-100 cm/s. 4. Greater than 70% stenosis to near occlusion= ICA PSV > 230 cm/s: ratio > 4.0: ICA EDV > 100 cm/s. 5. Near occlusion= ICA PSV velocities may be low or undetectable: variable ratio and ICA EDV. 6. Total occlusion=unable to detect flow.
[2018-03-20 01:21] LABS: Creatine Kinase MB 27.4 ng/mL (0.0-2.4)
[2018-03-20 01:24] LABS: Troponin I 21.2 ng/mL (0.000-0.034)
[2018-03-20] MEDS ORDERED: METOPROLOL TARTRATE 12.5 MG TAB PO ONE (05:00)
[2018-03-20] MEDS ORDERED: ceFAZolin 2 GM in SODIUM CHLORIDE 0.9% 30 ML IVPB ONE (05:00)
[2018-03-20] MEDS ORDERED: NITROGLYCERIN-D5W PMX 50 MG in DEXTROSE/WATER 1 250ML.BAG IV ONE (05:00)
[2018-03-20] MEDS ORDERED: DEXTROSE 5% IN WATER 1,000 ML with POTASSIUM CHLORIDE 110 MEQ, MAGNESIUM SULFATE 16 MEQ... IV SCH ×5 (05:00)
[2018-03-20] MEDS ORDERED: NITROGLYCERIN-D5W PMX 25 MG/250 ML BTL IV ONE (05:00)
[2018-03-20] MEDS ORDERED: HEPARIN SODIUM,PORCINE 5,000 UNIT in SODIUM CHLORIDE 0.9% 500 ML 500 ML IV ONE (05:00)
[2018-03-20] MEDS ORDERED: ceFAZolin 1,000 MG in SODIUM CHLORIDE 0.9% IRRIGATIO 1,000 ML IRRIGATION ONE (05:00)
[2018-03-20] MEDS ORDERED: ALBUMIN HUMAN 5% 500 ML in EMPTY BAG 1 BAG IVPB ONE ×6 (05:00)
[2018-03-20] MEDS ORDERED: ceFAZolin 2,000 MG in SODIUM CHLORIDE 0.9% 30 ML IVPB ONE (05:00)
[2018-03-20] MEDS ORDERED: MANNITOL 25% 12.5 GM/50 ML VIAL IV ONE ×2 (05:00)
[2018-03-20] MEDS ORDERED: CHLORHEXIDINE GLUCONATE 15 ML CUP MUCOUS MEM ONE (05:00)
[2018-03-20] MEDS ORDERED: PROTAMINE SULFATE 250 MG in EMPTY BAG 1 BAG IV ONE (05:00)
[2018-03-20] MEDS ORDERED: PROPOFOL 1,000 MG in EMPTY BAG 1 BAG IV ONE (05:00)
[2018-03-20] MEDS ORDERED: ATORVASTATIN 10 MG TAB PO ONE (05:00)
[2018-03-20] MEDS ORDERED: PHENYLEPHRINE-0.9% NACL SYG 1 MG/10 ML SYRINGE IV ONE ×4 (05:00)
[2018-03-20] MEDS ORDERED: PROTAMINE SULFATE 10 MG/ML 25 ML VIAL IV ONE ×2 (05:00→08:17)
[2018-03-20] MEDS ORDERED: SODIUM BICARB 8.4% 50 ML SYR (1 MEQ/ML) IV ONE (05:00)
[2018-03-20] MEDS ORDERED: TRANEXAMIC ACID 2,000 MG in SODIUM CHLORIDE 0.9% 180 ML IV ONE ×2 (05:00→09:15)
[2018-03-20] MEDS ORDERED: ASPIRIN 325 MG TAB PO ONE (05:00)
[2018-03-20] MEDS ORDERED: HEPARIN SODIUM 1,000 UN/ML (10ML VL) IV ONE (05:00)
[2018-03-20] MEDS ORDERED: INSULIN REGULAR 100 UNIT in SODIUM CHLORIDE 0.9% 100 ML IV ONE ×2 (05:00→10:45)
[2018-03-20] MEDS ORDERED: PHENYLEPHRINE 40 MG in SODIUM CHLORIDE 0.9% 250 ML IV ONE (05:00)
[2018-03-20] MEDS ORDERED: PAPAVERINE 360 MG in SODIUM CHLORIDE 0.9% 90 ML IV ONE ×2 (05:00→09:18)
[2018-03-20] MEDS ORDERED: LACTATED RINGERS 1,000 ML IV SCH (05:00)
[2018-03-20] MEDS ORDERED: CALCIUM CHLORIDE 100 MG/ML 10 ML SYRINGE IVP ONE (05:00)
[2018-03-20] MEDS ORDERED: NOREPINEPHRINE 4 MG in SODIUM CHLORIDE 0.9% 250 ML IV SCH (05:00)
[2018-03-20] MEDS ORDERED: ALBUMIN HUMAN 25% 50 ML in EMPTY BAG 1 BAG IVPB ONE (05:00)
[2018-03-20] MEDS ORDERED: DEXTROSE 5% IN WATER 1,000 ML with POTASSIUM CHLORIDE 25 MEQ, SODIUM CHLORIDE 2.5MEQ/ML... IV SCH ×6 (05:00)
[2018-03-20] MEDS ORDERED: MAGNESIUM SULFATE SYG 4.06 MEQ/ML SYRINGE IV ONE (05:00)
[2018-03-20 05:28] LABS: Basophils % (A) 0 %; Eosinophils # (A) 0.3 k/uL (0-0.7); Eosinophils % (A) 4 %; HCT 35.8 % (39.0-53.0); HGB 11.7 gm/dL (13.0-17.5); Lymphocytes # (A) 1.4 k/uL (1.0-4.8); Lymphocytes % (A) 19 %; MCH 32.8 pg (25.0-35.0); MCHC 32.6 g/dL (31.0-37.0); MCV 100.3 fL (80.0-100.0); Mean Platelet Volume 7.2; Monocytes # (A) 0.5 k/uL (0-1.0); Monocytes % (A) 7 %; Neutrophils % (A) 67 %; Platelet Count 155 k/uL (150-450); RBC 3.57 m/uL (4.30-5.90); RDW 12.2 % (11.5-15.5); WBC 7.4 k/uL (3.8-10.6)
[2018-03-20 05:38] LABS: Calcium 8.8 mg/dL (8.4-10.2); Magnesium 1.8 mg/dL (1.6-2.3); Potassium 4.5 mmol/L (3.5-5.1)
[2018-03-20 05:50] LABS: Creatine Kinase MB 19.8 ng/mL (0.0-2.4)
[2018-03-20 06:07] LABS: Troponin I 17.5 ng/mL (0.000-0.034)
--- NOTE | 2018-03-20 07:45 | PN ---
PROGRESS NOTE Mr. Leigh is a 72-year-old male who presented with [id number] elevation myocardial infarction, underwent cardiac catheterization, was found to have severely calcified coronary artery with severe triple-vessel coronary disease. He is doing well. This morning, he has no further chest pain. His breathing has been stable. He denies any dizziness. He is scheduled to undergo coronary artery bypass grafting. His left ventricular systolic function showed a severely impaired left ventricular systolic function. He continued be on the IV nitroglycerin, aspirin once a day, Lipitor 80 mg daily, metoprolol tartrate 25 mg twice a day. PHYSICAL EXAMINATION: Blood pressure 126/70 with the heart rate in the 70s. LUNGS: Clear. HEART: Regular rate and rhythm. S1, S2. No S3. No rub appreciated. ABDOMEN: Soft, nontender. EXTREMITIES: No edema. Right radial pulse intact. LAB DATA: Lab data revealed a peak troponin of 21.2, BUN and creatinine 16 and 1.22, hemoglobin of 11.7, white blood cell of 7.4. IMPRESSION: 1. [id number] elevation myocardial infarction with severe triple-vessel coronary artery disease. 2. Severe ischemic cardiomyopathy, hopefully hibernating myocardium. 3. Hypertension. 4. Diabetes mellitus. 5. Hyperlipidemia. RECOMMENDATION: Patient will proceed with coronary artery bypass grafting today. We will continue his medical regimen. MMODL / NIESHAN: [id number] / MERLINE
[2018-03-20] MEDS ORDERED: LIDOCAINE 2% SYG (PF) 100 MG/5 ML ONE (08:17)
[2018-03-20] MEDS ORDERED: POTASSIUM CHLORIDE OPEN HEART 20 MEQ/50 ML BAG IVPB ONE (08:17)
[2018-03-20] MEDS ORDERED: SODIUM CHLORIDE 0.9% IRRIG 1,000 ML BTL IRRIGATION ONE (08:17)
[2018-03-20] MEDS ORDERED: PROPOFOL 10 MG/ML 20 ML VIAL IV ONE (08:17)
[2018-03-20] MEDS ORDERED: MAGNESIUM SULFATE 4 MEQ/ML 10ML VIAL ONE (08:17)
[2018-03-20] MEDS ORDERED: SUCCINYLCHOLINE CHLORIDE 100 MG/5 ML SYR IV ONE (08:17)
[2018-03-20] MEDS ORDERED: SODIUM CHLORIDE 0.9% 250 ML BAG ONE (08:17)
[2018-03-20] MEDS ORDERED: HEPARIN SODIUM,PORCINE 10,000 UNIT/ML 1 ML VIAL ONE (08:17)
[2018-03-20] MEDS ORDERED: ELECTROLYTE-R (PH 7.4) 1,000 ML IV.SOLN IV ONE (08:17)
[2018-03-20] MEDS ORDERED: TRANEXAMIC ACID 1,000 MG/10 ML VIAL ONE (08:17)
[2018-03-20] MEDS ORDERED: MIDAZOLAM 2 MG/2 ML VIAL ONE (08:17)
[2018-03-20] MEDS ORDERED: fentaNYL (PF) 50 MCG/ML 2 ML AMP ONE (08:17)
[2018-03-20] MEDS ORDERED: ALBUMIN HUMAN 5% 500 ML VIAL IVPB ONE (08:17)
[2018-03-20] MEDS ORDERED: VECURONIUM 10 MG VIAL IV ONE (08:17)
[2018-03-20] MEDS ORDERED: fentaNYL (PF) 50 MCG/ML 50 ML VIAL ONE (08:17)
[2018-03-20] MEDS ORDERED: CALCIUM CHLORIDE 100 MG/ML 10 ML SYRINGE ONE (08:17)
[2018-03-20 08:56] LABS: ABG Base Excess -1.1 mmol/L; ABG HCO3 22 mmol/L (21-25); ABG Oxygen Saturation 98.6 % (94-97); ABG PCO2 33 mmHg (35-45); ABG PH 7.44 (7.35-7.45); ABG PO2 115 mmHg (83-108); ABG Potassium Whole Blood 4.8 mmol/L (3.4-4.5); ABG Sodium Whole Blood 136 mmol/L (135-146); ABG TCO2 23 mmol/L (19-24)
[2018-03-20] MEDS ORDERED: ATORVASTATIN 80 MG TAB PO SCH (09:00)
[2018-03-20] MEDS ORDERED: INSULIN DETEMIR 100 UNIT/ML 10 ML VIAL SQ SCH (09:00)
[2018-03-20] MEDS ORDERED: ASPIRIN 81 MG PO SCH (09:00)
[2018-03-20] MEDS: CLEVIDIPINE BUTYRATE 25 MG in EMPTY BAG 1 BAG IV ONE ×3 (09:02→17:21)
[2018-03-20] MEDS: INSULIN ASPART 100 UNIT/ML 1 ML 10 ML VIAL SQ SCH ×2 (09:06→12:29)
[2018-03-20] MEDS: METOPROLOL TARTRATE 25 MG TAB PO SCH (09:06)
[2018-03-20] MEDS: MUPIROCIN 2% OINT 22 GM TUBE TOPICAL SCH (09:06)
[2018-03-20] MEDS: PANTOPRAZOLE 40 MG/10 ML VIAL IV SCH (09:07)
[2018-03-20] MEDS ORDERED: SODIUM CHLORIDE 0.9% 50 ML with ceFAZolin 2,000 MG IV ONE ×2 (09:14)
[2018-03-20] MEDS ORDERED: ceFAZolin 1,000 MG in SODIUM CHLORIDE 0.9% 1,000 ML IRRIGATION ONE ×4 (09:15)
[2018-03-20] MEDS ORDERED: SODIUM CHLORIDE 0.9% 500 ML 500 ML with HEPARIN SODIUM,PORCINE 5,000 UNIT IV ONE ×2 (09:17)
--- NOTE | 2018-03-20 09:54 | XR ---
EXAMINATION TYPE: XR chest 1V DATE OF EXAM: 03/20/2018 COMPARISON: 03/19/2018 INDICATION: Presurgical evaluation TECHNIQUE: Single frontal view of the chest is obtained. FINDINGS: The heart size is normal. The pulmonary vasculature is normal. The lungs are clear. IMPRESSION: 1. No acute pulmonary process.
[2018-03-20 10:16] LABS: ABG Base Excess -2.9 mmol/L; ABG HCO3 24 mmol/L (21-25); ABG Oxygen Saturation 99.1 % (94-97); ABG PCO2 48 mmHg (35-45); ABG PO2 178 mmHg (83-108); ABG Potassium Whole Blood 4.7 mmol/L (3.4-4.5); ABG Sodium Whole Blood 137 mmol/L (135-146); ABG TCO2 25 mmol/L (19-24)
[2018-03-20 10:58] LABS: ABG Base Excess 0.8 mmol/L; ABG HCO3 27 mmol/L (21-25); ABG Oxygen Saturation 99.7 % (94-97); ABG PCO2 50 mmHg (35-45); ABG PH 7.34 (7.35-7.45); ABG PO2 277 mmHg (83-108); ABG Potassium Whole Blood 3.9 mmol/L (3.4-4.5); ABG Sodium Whole Blood 137 mmol/L (135-146); ABG TCO2 29 mmol/L (19-24)
[2018-03-20 11:16] LABS: ABG Base Excess 0.2 mmol/L; ABG HCO3 25 mmol/L (21-25); ABG Oxygen Saturation 99.8 % (94-97); ABG PCO2 42 mmHg (35-45); ABG PH 7.39 (7.35-7.45); ABG PO2 378 mmHg (83-108); ABG Potassium Whole Blood 4.6 mmol/L (3.4-4.5); ABG Sodium Whole Blood 135 mmol/L (135-146); ABG TCO2 27 mmol/L (19-24)
[2018-03-20 11:44] LABS: ABG HCO3 24 mmol/L (21-25); ABG Oxygen Saturation 99.8 % (94-97); ABG PCO2 37 mmHg (35-45); ABG PH 7.42 (7.35-7.45); ABG PO2 269 mmHg (83-108); ABG Potassium Whole Blood 4.1 mmol/L (3.4-4.5); ABG Sodium Whole Blood 136 mmol/L (135-146); ABG TCO2 26 mmol/L (19-24)
[2018-03-20 12:20] LABS: ABG Base Excess -0.1 mmol/L; ABG HCO3 25 mmol/L (21-25); ABG Oxygen Saturation 99.4 % (94-97); ABG PCO2 40 mmHg (35-45); ABG PO2 197 mmHg (83-108); ABG Potassium Whole Blood 4.4 mmol/L (3.4-4.5); ABG Sodium Whole Blood 135 mmol/L (135-146); ABG TCO2 26 mmol/L (19-24)
[2018-03-20 13:27] LABS: ABG Base Excess -0.2 mmol/L; ABG HCO3 25 mmol/L (21-25); ABG Oxygen Saturation 97.5 % (94-97); ABG PCO2 44 mmHg (35-45); ABG PH 7.37 (7.35-7.45); ABG PO2 98 mmHg (83-108); ABG Potassium Whole Blood 3.6 mmol/L (3.4-4.5); ABG Sodium Whole Blood 138 mmol/L (135-146); ABG TCO2 27 mmol/L (19-24)
[2018-03-20] MEDS ORDERED: CALCIUM CHLORIDE 1,000 MG in SODIUM CHLORIDE 0.9% 100 ML IV PRN (14:24)
[2018-03-20] MEDS ORDERED: Phosphorus Replacement Protoco 1 EACH MISC MISCELLANE PRN (14:24)
[2018-03-20] MEDS ORDERED: METOCLOPRAMIDE 5 MG/ML 2 ML VIAL IVP PRN (14:24)
[2018-03-20] MEDS ORDERED: Magnesium Replacement Protocol 1 EACH MISC MISCELLANE PRN (14:24)
[2018-03-20] MEDS ORDERED: INSULIN REGULAR 100 UNIT in SODIUM CHLORIDE 0.9% 100 ML IV SCH (14:24)
[2018-03-20] MEDS ORDERED: PROPOFOL 1,000 MG in EMPTY BAG 1 BAG IV SCH (14:24)
[2018-03-20] MEDS ORDERED: NITROGLYCERIN-D5W PMX 50 MG in DEXTROSE/WATER 1 250ML.BAG IV SCH (14:24)
[2018-03-20] MEDS ORDERED: AMIODARONE 450 MG in DEXTROSE 5% IN WATER 250 ML IV PRN ×2 (14:24)
[2018-03-20] MEDS ORDERED: ONDANSETRON 4 MG/2 ML VIAL IVP PRN (14:24)
[2018-03-20] MEDS ORDERED: IPRATROPIUM-ALBUTEROL 3 ML NEB INHALATION PRN (14:24)
[2018-03-20] MEDS ORDERED: Potassium Replacement Protocol 1 EACH MISC MISCELLANE PRN (14:24)
[2018-03-20] MEDS ORDERED: DEXTROSE 5% IN WATER 100 ML with AMIODARONE 150 MG IV PRN (14:24)
--- NOTE | 2018-03-20 15:09 | P.PN ---
Subjective Progress Note Date: 03/20/18 Principal diagnosis: ICU management, routine postoperative ventilator management Progress note dated 03/20/2018 This is a 72-year-old male seen yesterday in consultation. He has a history of non-ST segment elevation myocardial infarction, multivessel coronary artery disease, ischemic cardiomyopathy, diabetes mellitus, hypertension, hyperlipidemia, and a [id number] history of tobacco use. He also apparently has a history of daily alcohol use. The patient went to the operating room this morning for a LYNN to LAD, SVG to the ramus, and an SVG to RCA. Patient on mechanical ventilator with vent settings SIMV 12, TV 500, FiO2 100%, and PEEP of 10. Will follow rapid wean protocol when patient alert and following commands. Patient has 2 mediastinal chest tubes and one left pleural chest tube intact and draining minimal sanguineous drainage. Patient currently on lactated Ringer at 50 mL an hour, nitroglycerin drip at 5 mcgs per minute, norepinephrine 2 mcgs per minute, and propofol 15 mics per kilogram per minute. Patient's current cardiac index is 2.1 and cardiac output 4.0. Patient appears hemodynamically stable at this time. Awaiting chest x-rays and ABG for review. Objective - Vital Signs Vital signs: Vital Signs Temp 98.7 F 03/20/18 05:00 Pulse 76 03/20/18 06:00 Resp 17 03/20/18 06:00 BP 126/74 03/20/18 06:00 Pulse Ox 95 03/20/18 06:00 Intake & Output 03/19/18 03/20/18 03/20/18 18:59 06:59 18:59 Intake Total 705.1 430 153 Output Total 1450 1900 1600 Balance -744.9 -1470 -1447 Weight 108 kg 106.4 kg Intake: IV 703 430 153 Magnesium Sulfate-D5w Pmx 200 1 gm In Dextrose/Water 1 100ml.bag @ 100 mls/hr IVPB Q1H VENESSA Rx#: [id number] Sodium Chloride 0.9% 1, 400 430 000 ml @ 100 mls/hr IV . Q10H VENESSA Rx#:[id number] Intake, IV Titration 2.1 Amount Nitroglycerin-D5w Pmx 50 2.1 mg In Dextrose/Water 1 250ml.bag @ 5 MCG/MIN 1.5 mls/hr IV .Q24H ONE Rx#: [id number] Output: Urine 1450 1900 600 Estimated Blood Loss 1000 Other: Voiding Method Urinal Urinal # Voids 1 1 - Exam No acute distress, sedated, with an orally placed endotracheal tube and NG tube. The patient appears stable on mechanical ventilator. HEENT examination is grossly unremarkable. Mucous membranes are moist. Neck supple. Full range of motion. No adenopathy thyromegaly or neck vein distention. Cardiovascular examination reveals regular rhythm rate. S1-S2 normal. No S3 or S4. No discernible murmur noted. Distant cardiac rub noted. Lungs reveal bilaterally equal breath sounds. There are scattered coarse rhonchi and wheezes. No crackles.. Abdomen soft bowel sounds are hypoactive. No masses. Extremities are intact. No cyanosis clubbing or edema. Pulses are palpable. Skin is without rash or lesion. Neurologic examination cannot be assessed at this time. - Labs CBC & Chem 7: 03/20/18 05:03 03/20/18 05:03 Labs: Abnormal Lab Results - Last 24 Hours (Table) 03/19/18 03/19/18 03/19/18 Range/Units 14:07 14:07 14:07 RBC 3.86 L (4.30-5.90) m/uL Hgb 12.6 L (13.0-17.5) gm/dL Hct 38.3 L (39.0-53.0) % MCV (80.0-100.0) fL ABG pH (7.35-7.45) ABG pCO2 (35-45) mmHg ABG pO2 (83-108) mmHg ABG HCO3 (21-25) mmol/L ABG Total CO2 (19-24) mmol/L ABG O2 Saturation (94-97) % ABG Hematocrit (34.0-46.0) % ABG Potassium (3.4-4.5) mmol/L ABG Ionized Calcium (4.5-5.3) mg/dL ABG Glucose (75-99) mg/dL ABG Lactic Acid (0.5-1.6) mmol/L Hemoglobin (13.0-17.5) gm/dL Sodium 136 L (137-145) mmol/L Carbon Dioxide 20 L (22-30) mmol/L Glucose 174 H (74-99) mg/dL POC Glucose (mg/dL) (75-99) mg/dL Hemoglobin A1c 8.1 H (4.0-6.0) % Magnesium 1.4 L (1.6-2.3) mg/dL Total Creatine Kinase (55-170) U/L CK-MB (CK-2) (0.0-2.4) ng/mL Troponin I (0.000-0.034) ng/mL Triglycerides 246 H (<150) mg/dL Arterial Blood Potassium (3.4-4.5) mmol/L Arterial Blood Glucose (75-99) mg/dL Ur Specific Lissie (1.001-1.035) Urine Glucose (UA) (Negative) Urine Ketones (Negative) Crossmatch 03/19/18 03/19/18 03/19/18 Range/Units 14:07 15:20 16:46 RBC (4.30-5.90) m/uL Hgb (13.0-17.5) gm/dL Hct (39.0-53.0) % MCV (80.0-100.0) fL ABG pH (7.35-7.45) ABG pCO2 (35-45) mmHg ABG pO2 (83-108) mmHg ABG HCO3 (21-25) mmol/L ABG Total CO2 (19-24) mmol/L ABG O2 Saturation (94-97) % ABG Hematocrit (34.0-46.0) % ABG Potassium (3.4-4.5) mmol/L ABG Ionized Calcium (4.5-5.3) mg/dL ABG Glucose (75-99) mg/dL ABG Lactic Acid (0.5-1.6) mmol/L Hemoglobin (13.0-17.5) gm/dL Sodium (137-145) mmol/L Carbon Dioxide (22-30) mmol/L Glucose (74-99) mg/dL POC Glucose (mg/dL) 184 H (75-99) mg/dL Hemoglobin A1c (4.0-6.0) % Magnesium (1.6-2.3) mg/dL Total Creatine Kinase (55-170) U/L CK-MB (CK-2) (0.0-2.4) ng/mL Troponin I (0.000-0.034) ng/mL Triglycerides (<150) mg/dL Arterial Blood Potassium (3.4-4.5) mmol/L Arterial Blood Glucose (75-99) mg/dL Ur Specific Lissie 1.036 H (1.001-1.035) Urine Glucose (UA) 1+ H (Negative) Urine Ketones 1+ H (Negative) Crossmatch See Detail 03/19/18 03/19/18 03/20/18 Range/Units 19:12 20:54 00:19 RBC (4.30-5.90) m/uL Hgb (13.0-17.5) gm/dL Hct (39.0-53.0) % MCV (80.0-100.0) fL ABG pH (7.35-7.45) ABG pCO2 (35-45) mmHg ABG pO2 (83-108) mmHg ABG HCO3 (21-25) mmol/L ABG Total CO2 (19-24) mmol/L ABG O2 Saturation (94-97) % ABG Hematocrit (34.0-46.0) % ABG Potassium (3.4-4.5) mmol/L ABG Ionized Calcium (4.5-5.3) mg/dL ABG Glucose (75-99) mg/dL ABG Lactic Acid (0.5-1.6) mmol/L Hemoglobin (13.0-17.5) gm/dL Sodium (137-145) mmol/L Carbon Dioxide (22-30) mmol/L Glucose (74-99) mg/dL POC Glucose (mg/dL) 262 H (75-99) mg/dL Hemoglobin A1c (4.0-6.0) % Magnesium (1.6-2.3) mg/dL Total Creatine Kinase 719 H 686 H (55-170) U/L CK-MB (CK-2) 33.1 H 27.4 H (0.0-2.4) ng/mL Troponin I 19.700 H* 21.200 H* (0.000-0.034) ng/mL Triglycerides (<150) mg/dL Arterial Blood Potassium (3.4-4.5) mmol/L Arterial Blood Glucose (75-99) mg/dL Ur Specific Lissie (1.001-1.035) Urine Glucose (UA) (Negative) Urine Ketones (Negative) Crossmatch 03/20/18 03/20/18 03/20/18 Range/Units 05:03 05:03 05:03 RBC 3.57 L (4.30-5.90) m/uL Hgb 11.7 L (13.0-17.5) gm/dL Hct 35.8 L (39.0-53.0) % MCV 100.3 H (80.0-100.0) fL ABG pH (7.35-7.45) ABG pCO2 (35-45) mmHg ABG pO2 (83-108) mmHg ABG HCO3 (21-25) mmol/L ABG Total CO2 (19-24) mmol/L ABG O2 Saturation (94-97) % ABG Hematocrit (34.0-46.0) % ABG Potassium (3.4-4.5) mmol/L ABG Ionized Calcium (4.5-5.3) mg/dL ABG Glucose (75-99) mg/dL ABG Lactic Acid (0.5-1.6) mmol/L Hemoglobin (13.0-17.5) gm/dL Sodium 136 L (137-145) mmol/L Carbon Dioxide (22-30) mmol/L Glucose 209 H (74-99) mg/dL POC Glucose (mg/dL) (75-99) mg/dL Hemoglobin A1c (4.0-6.0) % Magnesium (1.6-2.3) mg/dL Total Creatine Kinase 574 H (55-170) U/L CK-MB (CK-2) 19.8 H (0.0-2.4) ng/mL Troponin I 17.500 H* (0.000-0.034) ng/mL Triglycerides (<150) mg/dL Arterial Blood Potassium (3.4-4.5) mmol/L Arterial Blood Glucose (75-99) mg/dL Ur Specific Lissie (1.001-1.035) Urine Glucose (UA) (Negative) Urine Ketones (Negative) Crossmatch 03/20/18 03/20/18 03/20/18 Range/Units 08:54 10:13 10:56 RBC (4.30-5.90) m/uL Hgb (13.0-17.5) gm/dL Hct (39.0-53.0) % MCV (80.0-100.0) fL ABG pH 7.30 L 7.34 L (7.35-7.45) ABG pCO2 33 L 48 H 50 H (35-45) mmHg ABG pO2 115 H 178 H 277 H (83-108) mmHg ABG HCO3 27 H (21-25) mmol/L ABG Total CO2 25 H 29 H (19-24) mmol/L ABG O2 Saturation 98.6 H 99.1 H 99.7 H (94-97) % ABG Hematocrit 27 L (34.0-46.0) % ABG Potassium 4.8 H 4.7 H (3.4-4.5) mmol/L ABG Ionized Calcium 4.3 L (4.5-5.3) mg/dL ABG Glucose 216 H 191 H 148 H (75-99) mg/dL ABG Lactic Acid (0.5-1.6) mmol/L Hemoglobin 11.8 L 11.3 L 8.8 L (13.0-17.5) gm/dL Sodium (137-145) mmol/L Carbon Dioxide (22-30) mmol/L Glucose (74-99) mg/dL POC Glucose (mg/dL) (75-99) mg/dL Hemoglobin A1c (4.0-6.0) % Magnesium (1.6-2.3) mg/dL Total Creatine Kinase (55-170) U/L CK-MB (CK-2) (0.0-2.4) ng/mL Troponin I (0.000-0.034) ng/mL Triglycerides (<150) mg/dL Arterial Blood Potassium 4.8 H 4.7 H (3.4-4.5) mmol/L Arterial Blood Glucose 216 H 191 H 148 H (75-99) mg/dL Ur Specific Lissie (1.001-1.035) Urine Glucose (UA) (Negative) Urine Ketones (Negative) Crossmatch 03/20/18 03/20/18 03/20/18 Range/Units 11:14 11:42 12:17 RBC (4.30-5.90) m/uL Hgb (13.0-17.5) gm/dL Hct (39.0-53.0) % MCV (80.0-100.0) fL ABG pH (7.35-7.45) ABG pCO2 (35-45) mmHg ABG pO2 378 H 269 H 197 H (83-108) mmHg ABG HCO3 (21-25) mmol/L ABG Total CO2 27 H 26 H 26 H (19-24) mmol/L ABG O2 Saturation 99.8 H 99.8 H 99.4 H (94-97) % ABG Hematocrit 24 L 25 L 25 L (34.0-46.0) % ABG Potassium 4.6 H (3.4-4.5) mmol/L ABG Ionized Calcium 4.3 L 4.3 L 4.0 L (4.5-5.3) mg/dL ABG Glucose 209 H 197 H 221 H (75-99) mg/dL ABG Lactic Acid 1.8 H 2.0 H 2.2 H* (0.5-1.6) mmol/L Hemoglobin 7.9 L 8.3 L 8.0 L (13.0-17.5) gm/dL Sodium (137-145) mmol/L Carbon Dioxide (22-30) mmol/L Glucose (74-99) mg/dL POC Glucose (mg/dL) (75-99) mg/dL Hemoglobin A1c (4.0-6.0) % Magnesium (1.6-2.3) mg/dL Total Creatine Kinase (55-170) U/L CK-MB (CK-2) (0.0-2.4) ng/mL Troponin I (0.000-0.034) ng/mL Triglycerides (<150) mg/dL Arterial Blood Potassium 4.6 H (3.4-4.5) mmol/L Arterial Blood Glucose 209 H 197 H 221 H (75-99) mg/dL Ur Specific Lissie (1.001-1.035) Urine Glucose (UA) (Negative) Urine Ketones (Negative) Crossmatch 03/20/18 Range/Units 13:25 RBC (4.30-5.90) m/uL Hgb (13.0-17.5) gm/dL Hct (39.0-53.0) % MCV (80.0-100.0) fL ABG pH (7.35-7.45) ABG pCO2 (35-45) mmHg ABG pO2 (83-108) mmHg ABG HCO3 (21-25) mmol/L ABG Total CO2 27 H (19-24) mmol/L ABG O2 Saturation 97.5 H (94-97) % ABG Hematocrit 28 L (34.0-46.0) % ABG Potassium (3.4-4.5) mmol/L ABG Ionized Calcium (4.5-5.3) mg/dL ABG Glucose 149 H (75-99) mg/dL ABG Lactic Acid 2.0 H (0.5-1.6) mmol/L Hemoglobin 9.0 L (13.0-17.5) gm/dL Sodium (137-145) mmol/L Carbon Dioxide (22-30) mmol/L Glucose (74-99) mg/dL POC Glucose (mg/dL) (75-99) mg/dL Hemoglobin A1c (4.0-6.0) % Magnesium (1.6-2.3) mg/dL Total Creatine Kinase (55-170) U/L CK-MB (CK-2) (0.0-2.4) ng/mL Troponin I (0.000-0.034) ng/mL Triglycerides (<150) mg/dL Arterial Blood Potassium (3.4-4.5) mmol/L Arterial Blood Glucose 149 H (75-99) mg/dL Ur Specific Lissie (1.001-1.035) Urine Glucose (UA) (Negative) Urine Ketones (Negative) Crossmatch Microbiology - Last 24 Hours (Table) 03/19/18 15:53 Urine Culture - Preliminary Urine,Clean Catch 03/19/18 15:20 Nasal Screen MRSA/MSSA - Preliminary Nasal Swab Assessment and Plan Assessment: Assessment #1 coronary artery disease, postop day 0, CABG 3. #2 routine postoperative ventilatory management. #3 non-ST elevated [place] #4 ischemic cardiomyopathy, LV function with EF 35%. #5 hypertension, hyperlipidemia. #6 history of nicotine dependence, rule out COPD. #7 daily EtOH use. Plan: Plan dated 03/20/2018 Awaiting chest x-ray and ABG to review. We will continue DuoNeb every 4 hours [id number]. We will proceed with rapid weaning protocol once patient is following commands. We will continue to monitor vital signs, urine output, and readiness to wean. Time with Patient: Greater than 30
[2018-03-20 15:11] LABS: Glucose,Whole Blood 107 mg/dL (75-99)
[2018-03-20] MEDS: IPRATROPIUM-ALBUTEROL 3 ML NEB INHALATION SCH ×3 (15:11→20:19)
--- NOTE | 2018-03-20 15:12 | XR ---
EXAMINATION TYPE: XR chest 1V portable DATE OF EXAM: 03/20/2018 COMPARISON: 03/20/2018 earlier exam INDICATION: Post cardiac surgery TECHNIQUE: Single frontal view of the chest is obtained. FINDINGS: The heart size is mildly prominent. The pulmonary vasculature is normal. The lungs are clear. There is been placement of an endotracheal tube with the tip above the emmanuel. Nasogastric tube trans verses the thorax. Mediastinal tube is present. Emmet-Heaven catheter is present with the tip in the devante n pulmonary artery. Left-sided chest tube is present. No pneumothorax is evident. IMPRESSION: 1. No acute pulmonary process. 2. Postsurgical changes. 3. Multiple lines and catheters discussed above
[2018-03-20] MEDS: LACTATED RINGERS 1,000 ML IV SCH (15:27)
[2018-03-20 15:38] LABS: ABG Base Excess 0.3 mmol/L; ABG HCO3 26 mmol/L (21-25); ABG PCO2 46 mmHg (35-45); ABG PH 7.35 (7.35-7.45); ABG PO2 381 mmHg (83-108); ABG TCO2 27 mmol/L (19-24)
[2018-03-20] MEDS: CLEVIDIPINE BUTYRATE 25 MG in EMPTY BAG 1 BAG IV SCH (15:48)
[2018-03-20 16:23] LABS: Glucose,Whole Blood 150 mg/dL (75-99)
[2018-03-20 16:32] LABS: INR 1.2 (<1.2); Partial Thromboplastin Time 30.1 sec (22.0-30.0); Prothrombin Time 11.3 sec (9.0-12.0)
[2018-03-20] MEDS: ceFAZolin IN SWFI 2 GM/20 ML SYRINGE IVP SCH ×2 (16:35→23:36)
[2018-03-20 16:48] LABS: Albumin 2.9 g/dL (3.5-5.0); Calcium 7.9 mg/dL (8.4-10.2); Magnesium 2.5 mg/dL (1.6-2.3); Potassium 4.5 mmol/L (3.5-5.1); Total Bilirubin 0.4 mg/dL (0.2-1.3); Total Protein 5.2 g/dL (6.3-8.2)
[2018-03-20 17:16] LABS: Basophils % (A) 0 %; Eosinophils # (A) 0.1 k/uL (0-0.7); Eosinophils % (A) 1 %; HCT 27.4 % (39.0-53.0); Lymphocytes # (A) 0.9 k/uL (1.0-4.8); Lymphocytes % (A) 16 %; MCH 33.9 pg (25.0-35.0); MCV 99.7 fL (80.0-100.0); Mean Platelet Volume 7.5; Monocytes # (A) 0.4 k/uL (0-1.0); Monocytes % (A) 7 %; Neutrophils # (A) 4.5 k/uL (1.3-7.7); Neutrophils % (A) 74 %; Platelet Count 100 k/uL (150-450); RBC 2.75 m/uL (4.30-5.90); RDW 12.4 % (11.5-15.5)
[2018-03-20 17:19] LABS: HGB 9.3 gm/dL (13.0-17.5)
[2018-03-20 17:25] LABS: Glucose,Whole Blood 206 mg/dL (75-99)
[2018-03-20] MEDS ORDERED: DEXMEDETOMIDINE/0.9% NACL(PMX) 400 MCG in EMPTY BAG 1 BAG IV SCH (17:45)
[2018-03-20 18:15] LABS: Basophils % (A) 0 %; Eosinophils % (A) 0 %; HCT 28.6 % (39.0-53.0); HGB 9.9 gm/dL (13.0-17.5); Lymphocytes # (A) 0.4 k/uL (1.0-4.8); Lymphocytes % (A) 6 %; MCH 34.9 pg (25.0-35.0); MCHC 34.5 g/dL (31.0-37.0); MCV 101.2 fL (80.0-100.0); Mean Platelet Volume 7.2; Monocytes # (A) 0.3 k/uL (0-1.0); Monocytes % (A) 4 %; Neutrophils # (A) 6.4 k/uL (1.3-7.7); Neutrophils % (A) 88 %; Platelet Count 114 k/uL (150-450); RBC 2.83 m/uL (4.30-5.90); RDW 12.4 % (11.5-15.5); WBC 7.3 k/uL (3.8-10.6)
[2018-03-20 18:16] LABS: Glucose,Whole Blood 196 mg/dL (75-99)
[2018-03-20] MEDS: ACETAMINOPHEN IV (For NPO) 1,000 MG in EMPTY BAG 1 BAG IVPB SCH ×2 (18:21→23:58)
[2018-03-20] MEDS: ALBUMIN HUMAN 5% 250 ML in EMPTY BAG 1 BAG IVPB PRN ×2 (19:09→19:43)
[2018-03-20 19:18] LABS: Glucose,Whole Blood 173 mg/dL (75-99)
[2018-03-20 20:19] LABS: Glucose,Whole Blood 155 mg/dL (75-99)
[2018-03-20] MEDS ORDERED: NOREPINEPHRINE 16 MG in SODIUM CHLORIDE 0.9% 250 ML IV SCH (20:30)
[2018-03-20] MEDS ORDERED: METOPROLOL TARTRATE 25 MG TAB PO ONE (21:00)
[2018-03-20 21:02] LABS: Basophils % (A) 0 %; Eosinophils % (A) 0 %; HCT 24.3 % (39.0-53.0); Lymphocytes # (A) 0.3 k/uL (1.0-4.8); Lymphocytes % (A) 5 %; MCH 33.9 pg (25.0-35.0); MCV 99.7 fL (80.0-100.0); Mean Platelet Volume 9.1; Monocytes # (A) 0.3 k/uL (0-1.0); Monocytes % (A) 6 %; Neutrophils % (A) 88 %; RBC 2.44 m/uL (4.30-5.90); RDW 12.4 % (11.5-15.5); WBC 5.7 k/uL (3.8-10.6)
[2018-03-20 21:08] LABS: HGB 8.3 gm/dL (13.0-17.5)
[2018-03-20 21:29] LABS: Glucose,Whole Blood 142 mg/dL (75-99)
[2018-03-20 21:47] LABS: Polychromasia Present
[2018-03-20 21:48] LABS: Platelet Count 88 k/uL (150-450)
[2018-03-20] MEDS: HEPARIN SODIUM,PORCINE 5,000 UNIT/ML 1 ML VIAL SQ SCH ×2 (21:58→23:14)
[2018-03-20 21:59] LABS: Glucose,Whole Blood 143 mg/dL (75-99)
[2018-03-20] MEDS: MUPIROCIN 2% OINT 22 GM TUBE NASAL SCH (22:05)
[2018-03-20 22:58] LABS: Glucose,Whole Blood 130 mg/dL (75-99)
[2018-03-20 23:04] LABS: ABG Base Excess 0.7 mmol/L; ABG HCO3 25 mmol/L (21-25); ABG Oxygen Saturation 99.4 % (94-97); ABG PCO2 41 mmHg (35-45); ABG PH 7.41 (7.35-7.45); ABG PO2 136 mmHg (83-108); ABG TCO2 27 mmol/L (19-24)
[2018-03-20] MEDS ORDERED: MORPHINE SULFATE 2 MG/ML SYRINGE IVP PRN (23:21)
[2018-03-20] MEDS ORDERED: MORPHINE SULFATE 2 MG/ML SYRINGE ONE (23:23)
--- NOTE | 2018-03-20 23:45 | OP ---
OPERATIVE REPORT DATE OF SURGERY: 03/20/2018. PREOPERATIVE DIAGNOSIS: Coronary artery disease. POSTOPERATIVE DIAGNOSIS: Coronary artery disease. PROCEDURE PERFORMED: 1. Coronary bypass grafting x3 vessels (left internal mammary artery to left anterior descending artery, saphenous vein graft to ramus artery, saphenous vein graft to distal right coronary artery). 2. Endoscopic vein harvest bilateral greater saphenous vein. 3. Epiaortic ultrasound. 4. Transesophageal echocardiogram. SURGEON: Jaiden Parra MD. DIRECTOR [employer]CHOOL OF NURSING: 1. KOLBY Chauhan. 2. Daniel Purcell NP. ANESTHESIA: General. SPECIMEN: None. COMPLICATION: None. INDICATION: The patient is a 72-year-old male with a history of multiple medical problems including diabetes mellitus, hyperlipidemia, hypertension, daily alcohol use, and a history of tobacco use who presented to the hospital with intermittent chest pain. Workup revealed a non ST elevation myocardial infarction. Cardiac catheterization revealed multivessel coronary disease including a 99% proximal LAD stenosis. Coronary artery bypass is recommended. The risks, benefits, alternatives to this procedure were discussed at length with the patient and his daughter. All the questions were answered. Consent was obtained. FINDINGS: The left internal mammary artery was good, brisk flow. The saphenous vein was an adequate conduit. The LAD measured 1.3 mm and contained diffuse disease. The posterior descending artery and posterolateral branch of the right coronary artery were extremely small and not amenable for bypass. The distal right coronary artery contained diffuse calcific plaque. The ramus artery measured 1.5 mm. DESCRIPTION OF PROCEDURE: The patient was taken to the operating room, placed supine on the operating table. After induction of general anesthesia, he was prepped and draped in the usual sterile fashion. Preoperative transesophageal echocardiogram revealed ejection fraction about 30%. There was no significant valvular disease. A median sternotomy was performed. The left internal mammary artery was harvested in a standard fashion taking care to clip all branches. Of note, the chest wall and mediastinum contained a large amount of fatty tissue. Intravenous heparin was administered and the vessel was transected distally revealing brisk flow. Simultaneously greater saphenous vein was harvested from the left lower extremity. This vein was uniform in size but was small in diameter. Additional vein was harvested from the right thigh. It was similar in its size. I felt the vein was adequate for use. Both veins were taken out using endoscopic technique. All branches were tied. A pericardial cradle was created. The ascending aorta was palpated. There was no significant calcific plaque noted. Epiaortic ultrasound was then performed on the ascending aorta. Again, there was no significant calcific plaque noted. An arterial cannula was placed in the distal ascending aorta. A venous cannula placed through the right atrial appendage directed into the IVC. Both antegrade and retrograde catheters were placed as well. The patient was then placed on cardiopulmonary bypass with good decompression of the heart. The cross-clamp was applied. Cardioplegia was noted in both antegrade and retrograde fashion to achieve arrest of the heart. Of note, cardioplegia was delivered every 15 to 20 minutes while the patient remained under crossclamp. We began by inspecting the inferior wall. The PDA and posterior lateral branch of the right coronary were both identified. Both vessels were diminutive in size and not amenable for bypass. The right coronary artery was palpated deep within the fat. It was dissected free. It contained diffuse calcific disease. A soft spot amenable for bypass was chosen. Using the saphenous vein in a reverse fashion, end-to-side anastomosis was created. This performed a running 7-0 Prolene suture. The graft was intact and had good flow. Next, lateral inspected. The distal OM artery was extremely small, not amenable for bypass. The ramus artery was identified. It was dissected free. An arteriotomy was created. This vessel accepted a 1.5 mm probe. Using saphenous vein in a reverse fashion, an end-to-side anastomosis was created. This was performed a running 7-0 Prolene suture. The graft was hemostatic and had good flow. Finally, the LAD was identified deep within the fat on the anterior surface of the heart. A small arteriotomy was created. This vessel accepted a 1 mm probe. It appeared to be narrow throughout its course after probing the vessel. Using the left internal mammary artery, an end-to-side anastomosis was created. This was performed using a running 8-0 Prolene suture. The graft was hemostatic. The mammary pedicle was then tacked on the anterior surface of the heart. Attention was then turned to the proximal anastomoses. These were performed in end-to- side fashion using running 6-0 Prolene sutures to the ascending aorta. 1 L of warm blood was delivered in retrograde fashion. Both lidocaine and magnesium were administered as well. The cross-clamp was removed. The vein grafts de-aired in the standard fashion. Temporary atrial ventricular pacing wires were placed and brought through the skin. The retrograde catheter was removed. The patient was then weaned off cardiopulmonary bypass. He with the addition of low-dose milrinone and low-dose Levophed. Followup transesophageal cardiogram revealed improvement of the left ventricular ejection fraction. No change in valvular pathology. Protamine was administered. No adverse reactions. The remaining cannulas were then removed. All surgical sites were inspected, appeared to be hemostatic. Reinforcement sutures were placed as needed. The mediastinum was then copiously irrigated with warm saline solution. Soft tissues reapproximated of the ascending aorta as well as of the apex of the heart. Straight 32-Greek chest tubes were placed and directed into the left pleural space and mediastinum. These were all secured to the skin using sutures. The sternum was thick in nature. The bone was reapproximated using stainless steel wires in a [id number] fashion. At completion of the closure, the sternum was well aligned. The remainder of the wound was closed in layers. Sterile dressing was applied. The patient appeared to tolerate the procedure well. No immediate complications. He returned to the ICU in critical but stable condition. MMODL / IJN: [id number] /
[2018-03-21 00:06] LABS: Glucose,Whole Blood 141 mg/dL (75-99)
[2018-03-21 01:03] LABS: Glucose,Whole Blood 141 mg/dL (75-99)
[2018-03-21 02:06] LABS: Glucose,Whole Blood 138 mg/dL (75-99)
[2018-03-21 03:14] LABS: Glucose,Whole Blood 128 mg/dL (75-99)
[2018-03-21 04:07] LABS: Glucose,Whole Blood 126 mg/dL (75-99)
[2018-03-21 04:26] LABS: Basophils % (A) 0 %; Eosinophils % (A) 0 %; HCT 24.7 % (39.0-53.0); HGB 8.4 gm/dL (13.0-17.5); Lymphocytes # (A) 0.8 k/uL (1.0-4.8); Lymphocytes % (A) 14 %; MCH 33.9 pg (25.0-35.0); MCHC 33.9 g/dL (31.0-37.0); MCV 100.1 fL (80.0-100.0); Mean Platelet Volume 8.8; Monocytes # (A) 0.4 k/uL (0-1.0); Monocytes % (A) 7 %; Neutrophils # (A) 4.3 k/uL (1.3-7.7); Neutrophils % (A) 78 %; RBC 2.47 m/uL (4.30-5.90); RDW 12.3 % (11.5-15.5); WBC 5.5 k/uL (3.8-10.6)
[2018-03-21 04:35] LABS: Platelet Count 88 k/uL (150-450)
[2018-03-21 04:40] LABS: Ionized Calcium 4.6 mg/dL (4.5-5.3)
[2018-03-21 04:48] LABS: Potassium 4.4 mmol/L (3.5-5.1); Total Bilirubin 0.3 mg/dL (0.2-1.3); Total Protein 5.3 g/dL (6.3-8.2)
[2018-03-21 04:51] LABS: INR 1.2 (<1.2); Partial Thromboplastin Time 29.6 sec (22.0-30.0); Prothrombin Time 11.4 sec (9.0-12.0)
[2018-03-21 05:05] LABS: Glucose,Whole Blood 129 mg/dL (75-99)
[2018-03-21] MEDS: ACETAMINOPHEN IV (For NPO) 1,000 MG in EMPTY BAG 1 BAG IVPB SCH ×3 (06:02→17:37)
[2018-03-21 06:11] LABS: Glucose,Whole Blood 152 mg/dL (75-99)
[2018-03-21] MEDS: ALBUMIN HUMAN 5% 250 ML in EMPTY BAG 1 BAG IVPB PRN (06:26)
[2018-03-21 06:58] LABS: Glucose,Whole Blood 143 mg/dL (75-99)
[2018-03-21] MEDS: IPRATROPIUM-ALBUTEROL 3 ML NEB INHALATION SCH ×4 (07:21→19:32)
--- NOTE | 2018-03-21 07:31 | XR ---
EXAMINATION TYPE: XR chest 1V portable DATE OF EXAM: 03/21/2018 COMPARISON: 03/20/2018 HISTORY: SOB, Follow Up FINDINGS: Endotracheal and NG tubes have been removed. The remaining Indwelling tubes and catheters are unchang ed. No change in bibasilar opacities. Stable appearance of the cardio-mediastinal structures at this time. Pleural effusion unchanged. IMPRESSION: 1. Stable portable chest. Clinical correlation and follow up until resolution is recommended.
--- NOTE | 2018-03-21 07:52 | PN ---
PROGRESS NOTE Mr. Leigh is a 72-year-old male who presented with [id number] elevation myocardial infarction, was found to have severe triple-vessel coronary disease, underwent coronary artery bypass grafting yesterday with a LYNN to the LAD, saphenous vein graft to ramus intermedius, saphenous vein graft to the right coronary artery. He is extubated, sitting up in the chair, feeling well. He is denying any chest pain except incisional pain. He is in sinus mechanism. Hemodynamically, he is stable. He has no evidence of ventricular ectopic activity. He continues to be on an aspirin once a day, Lipitor 80 mg daily, Plavix 75 mg daily, metoprolol tartrate 12.5 mg twice a day. PHYSICAL EXAMINATION: Blood pressure is 112/40 with the heart rate in the 90s. LUNGS: With mild decrease in breath sounds, no wheezes. HEART: Regular rate and rhythm. S1, S2. No S3. No rub appreciated. ABDOMEN: Soft, nontender. Positive bowel sounds. No organomegaly. EXTREMITIES: No edema. LAB DATA: revealed no infiltrate. BUN and creatinine 12 and 1.04. Potassium 4.4. Hemoglobin of 8.4. IMPRESSION: 1. Status post coronary artery bypass grafting stable. 2. Ischemic cardiomyopathy. 3. Hyperlipidemia. 4. History of hypertension. 5. Diabetes mellitus. RECOMMENDATION: From the cardiac standpoint, we will continue present therapy. Once his blood pressure stabilized, I will add an ASIA inhibitor to his regimen, adjust the dose of beta nica because of his cardiomyopathy. He will continue incentive spirometry. MMODL / IJN: [id number] /
[2018-03-21 08:28] LABS: Glucose,Whole Blood 133 mg/dL (75-99)
[2018-03-21] MEDS ORDERED: PANTOPRAZOLE 40 MG/10 ML VIAL IVP SCH (09:00)
--- NOTE | 2018-03-21 09:01 | P.PN ---
Subjective Progress Note Date: 03/21/18 Principal diagnosis: Coronary artery disease, status post three-vessel coronary artery bypass grafting, postop day 1 This is a 72-year-old white male patient of Dr. Shafer, who was transferred from [facility], where he went for evaluation of severe intermittent chest pain that has been sent for last several weeks. The chest pain became progressively worse, was associated with right shoulder pain. Lab work showed elevated troponins, he was diagnosed with non-ST elevated PR, EKG showed normal sinus rhythm with left axis deviation, and evidence of septal infarct of undetermined age. Past medical history is significant for diabetes mellitus type 2, hypertension, hyperlipidemia, previous nicotine dependence, in remission , daily EtOH use. Patient denies any chronic history of lung disease, but he carries a [id number] smoking history, of 3 packs a day for 20 years. He quit smoking 40 years ago. Not on oxygen at his baseline. Patient was transported to [facility] and he underwent cardiac catheterization by Dr. Nayak which revealed multivessel coronary artery disease, with RCA stenosis of 70%, circumflex stenosis of 90%, proximal LAD with 99% stenosis, mid LAD of 90% and decreased LV function with an ejection fraction of 35%. CT surgery has been consulted and urgent surgical revascularization was recommended. We're consulted in regards to pulmonary/critical care management. Progress note dated 03/20/2018 This is a 72-year-old male seen yesterday in consultation. He has a history of non-ST segment elevation myocardial infarction, multivessel coronary artery disease, ischemic cardiomyopathy, diabetes mellitus, hypertension, hyperlipidemia, and a [id number] history of tobacco use. He also apparently has a history of daily alcohol use. The patient went to the operating room this morning for a LYNN to LAD, SVG to the ramus, and an SVG to RCA. Patient on mechanical ventilator with vent settings SIMV 12, TV 500, FiO2 100%, and PEEP of 10. Will follow rapid wean protocol when patient alert and following commands. Patient has 2 mediastinal chest tubes and one left pleural chest tube intact and draining minimal sanguineous drainage. Patient currently on lactated Ringer at 50 mL an hour, nitroglycerin drip at 5 mcgs per minute, norepinephrine 2 mcgs per minute, and propofol 15 mics per kilogram per minute. Patient's current cardiac index is 2.1 and cardiac output 4.0. Patient appears hemodynamically stable at this time. Awaiting chest x-rays and ABG for review. On 03/21/2018 patient seen in follow-up in the intensive care unit, this is postop day day 1, status post three-vessel coronary artery bypass grafting, and patient had LYNN to LAD, SVG to the RCA and SVG to the ramus. He was extubated at 2317 last night, 8 hours and 17 minutes after OR exit time. When initial weaning was attempted patient was agitated, and he had to be placed on Precedex for short at a time, and subsequently was successfully extubated. This morning he sitting up in the recliner, he is in no acute distress, he is awake and alert , oriented 3, currently on 2 L per nasal cannula, warranting on his incentive spirometry, maintenance IV fluids is LR at 50 ML per hour, insulin is at 2.5 units per hour. No other drips. Cardiac output and cardiac index of 5.8 and 2.6. Lung sounds are positive for some scattered crackles, wheezes. Today's chest x-ray has been reviewed, shows left lower lobe atelectasis. His labs have been reviewed, diabetes he is 5.5, hemoglobin is 8.4, INR is 1.2, sodium was 136, the rest of electrolytes and renal profile are within normal limits. Patient has 2 mediastinal and left pleural chest tubes with small amount of serosanguineous output, to continuous wall suction. He is nonoliguric. Got a set of AV epicardial wires that are currently not connected to the pacemaker, patient has not required pacemaker support. He is in sinus mechanism. With a rate of 90 BPM. Objective - Vital Signs Vital signs: Vital Signs Temp 98.1 F 03/21/18 04:00 Pulse 89 03/21/18 07:36 Resp 10 L 03/21/18 07:00 BP 107/62 03/21/18 07:00 Pulse Ox 97 03/21/18 07:00 Intake & Output 03/20/18 03/21/18 03/21/18 18:59 06:59 18:59 Intake Total 885.537 4806.842 59 Output Total 2370 914 45 Balance -1728.926 866.842 14 Weight 107.6 kg Intake: IV 153 569 59 CO/CI 120 Lactated Ringers 1,000 ml 350 50 @ 50 mls/hr IV .Q20H [facility] Rx#:[id number] pressure bag 99 9 Intake, IV Titration 791.831 1791.842 Amount ACETAMINOPHEN IV (For NPO 100 100 ) 1,000 mg In Empty Bag 1 bag @ 400 mls/hr IVPB Q6HR [facility] Rx#:[id number] Albumin Human 5% 500 ml 750 In Empty Bag 1 bag @ 250 mls/hr IVPB ONCE ONE Rx#: [id number] Clevidipine Butyrate 25 13.233 7.583 mg In Empty Bag 1 bag @ 1 MG/HR 2 mls/hr IV .Q24H [facility] Rx#:[id number] Clevidipine Butyrate 25 60.767 mg In Empty Bag 1 bag @ 1 MG/HR 2 mls/hr IV .Q24H [facility] Rx#:[id number] Dexmedetomidine/0.9% NaCl 16.552 20.083 (Pmx) 400 mcg In Empty Bag 1 bag @ Titrate IV . Q0M [facility] Rx#:[id number] Insulin Regular 100 unit 5.858 34.627 In Sodium Chloride 0.9% 100 ml @ Per Protocol IV .Q0M [facility] Rx#:[id number] Lactated Ringers 1,000 ml 200 250 @ 50 mls/hr IV .Q20H [facility] Rx#:[id number] Nitroglycerin-D5w Pmx 50 1.5 mg In Dextrose/Water 1 250ml.bag @ 5 MCG/MIN 1.5 mls/hr IV .Q24H [facility] Rx#: [id number] Nitroglycerin-D5w Pmx 50 4.5 1.5 mg In Dextrose/Water 1 250ml.bag @ 5 MCG/MIN 1.5 mls/hr IV .Q24H [facility] Rx#: [id number] Norepinephrine 16 mg In 28.049 Sodium Chloride 0.9% 250 ml @ Titrate IV .Q0M [facility] Rx#:[id number] Propofol 1,000 mg In 18.7 Empty Bag 1 bag @ Titrate IV .Q0M [facility] Rx#: [id number] Propofol 1,000 mg In 66.964 Empty Bag 1 bag @ Titrate IV .Q0M [facility] Rx#: [id number] TPN/PPN 20 CO/CI 20 Output: Chest Tube Drainage 195 204 0 Chest Tube Bilateral 150 127 0 Mediastinal lt pleural 45 77 0 Urine 1175 710 45 Estimated Blood Loss 1000 Other: Voiding Method Indwelling Catheter Indwelling Catheter ABP, PAP, CO, CI - Last Documented Arterial Blood Pressure 112/43 Pulmonary Artery Pressure 28/8 Cardiac Output 5.8 Cardiac Index 2.6 - Exam GENERAL EXAM: Alert, pleasant 72-year-old white male, comfortable in no apparent distress. Sitting up in the recliner, he has a heart harness on HEAD: Normocephalic/atraumatic. EYES: Normal reaction of pupils, equal size. Conjunctiva pink, sclera white. NOSE: Clear with pink turbinates. THROAT: No erythema or exudates. NECK: No masses, no JVD, no thyroid enlargement, no adenopathy. CHEST: No chest wall deformity. Symmetrical expansion. Midsternal incision is clean dry and intact, approximated, sternum is stable, 2 mediastinal and left pleural chest tube are in place, with small amount of serosanguineous drainage in the Pleur-evac, no air leak noted. Epicardial wires are not connected to the external pacemaker, patient's intrinsic rhythm is sinus rhythm with a rate of 80-90 BPM. LUNGS: Equal air entry with diffuse crackles CVS: Regular rate and rhythm, normal S1 and S2, no gallops, no murmurs, no rubs ABDOMEN: Soft, nontender. No hepatosplenomegaly, normal bowel sounds, no guarding or rigidity. EXTREMITIES: No clubbing, no cyanosis, 2+ pulses and upper and lower extremities. Mild nonpitting edema noted in upper and lower extremities. Bilateral lower extremities are a prescription, and SCDs on, DESTINY drain is in place in left lower extremity, patent, and draining small amount of serosanguineous drainage MUSCULOSKELETAL: Muscle strength and tone normal. Right radial puncture is clean dry and intact, soft. SPINE: No scoliosis or deformity SKIN: No rashes CENTRAL NERVOUS SYSTEM: Alert and oriented -3. No focal deficits, tone is normal in all 4 extremities. PSYCHIATRIC: Alert and oriented -3. Appropriate affect. Intact judgment and insight. - Labs CBC & Chem 7: 03/21/18 04:05 03/21/18 04:05 Labs: Abnormal Lab Results - Last 24 Hours (Table) 03/19/18 03/20/18 03/20/18 Range/Units 14:07 08:54 10:13 RBC (4.30-5.90) m/uL Hgb (13.0-17.5) gm/dL Hct (39.0-53.0) % MCV (80.0-100.0) fL Plt Count (150-450) k/uL Lymphocytes # (1.0-4.8) k/uL INR (<1.2) APTT (22.0-30.0) sec ABG pH 7.30 L (7.35-7.45) ABG pCO2 33 L 48 H (35-45) mmHg ABG pO2 115 H 178 H (83-108) mmHg ABG HCO3 (21-25) mmol/L ABG Total CO2 25 H (19-24) mmol/L ABG O2 Saturation 98.6 H 99.1 H (94-97) % ABG Hematocrit (34.0-46.0) % ABG Potassium 4.8 H 4.7 H (3.4-4.5) mmol/L ABG Ionized Calcium (4.5-5.3) mg/dL ABG Glucose 216 H 191 H (75-99) mg/dL ABG Lactic Acid (0.5-1.6) mmol/L Hemoglobin 11.8 L 11.3 L (13.0-17.5) gm/dL Sodium (137-145) mmol/L Chloride (98-107) mmol/L Glucose (74-99) mg/dL POC Glucose (mg/dL) (75-99) mg/dL Calcium (8.4-10.2) mg/dL Magnesium (1.6-2.3) mg/dL AST (17-59) U/L Total Protein (6.3-8.2) g/dL Albumin (3.5-5.0) g/dL Arterial Blood Potassium 4.8 H 4.7 H (3.4-4.5) mmol/L Arterial Blood Glucose 216 H 191 H (75-99) mg/dL Crossmatch See Detail 03/20/18 03/20/18 03/20/18 Range/Units 10:56 11:14 11:42 RBC (4.30-5.90) m/uL Hgb (13.0-17.5) gm/dL Hct (39.0-53.0) % MCV (80.0-100.0) fL Plt Count (150-450) k/uL Lymphocytes # (1.0-4.8) k/uL INR (<1.2) APTT (22.0-30.0) sec ABG pH 7.34 L (7.35-7.45) ABG pCO2 50 H (35-45) mmHg ABG pO2 277 H 378 H 269 H (83-108) mmHg ABG HCO3 27 H (21-25) mmol/L ABG Total CO2 29 H 27 H 26 H (19-24) mmol/L ABG O2 Saturation 99.7 H 99.8 H 99.8 H (94-97) % ABG Hematocrit 27 L 24 L 25 L (34.0-46.0) % ABG Potassium 4.6 H (3.4-4.5) mmol/L ABG Ionized Calcium 4.3 L 4.3 L 4.3 L (4.5-5.3) mg/dL ABG Glucose 148 H 209 H 197 H (75-99) mg/dL ABG Lactic Acid 1.8 H 2.0 H (0.5-1.6) mmol/L Hemoglobin 8.8 L 7.9 L 8.3 L (13.0-17.5) gm/dL Sodium (137-145) mmol/L Chloride (98-107) mmol/L Glucose (74-99) mg/dL POC Glucose (mg/dL) (75-99) mg/dL Calcium (8.4-10.2) mg/dL Magnesium (1.6-2.3) mg/dL AST (17-59) U/L Total Protein (6.3-8.2) g/dL Albumin (3.5-5.0) g/dL Arterial Blood Potassium 4.6 H (3.4-4.5) mmol/L Arterial Blood Glucose 148 H 209 H 197 H (75-99) mg/dL Crossmatch 03/20/18 03/20/18 03/20/18 Range/Units 12:17 13:25 15:07 RBC (4.30-5.90) m/uL Hgb (13.0-17.5) gm/dL Hct (39.0-53.0) % MCV (80.0-100.0) fL Plt Count (150-450) k/uL Lymphocytes # (1.0-4.8) k/uL INR (<1.2) APTT (22.0-30.0) sec ABG pH (7.35-7.45) ABG pCO2 (35-45) mmHg ABG pO2 197 H (83-108) mmHg ABG HCO3 (21-25) mmol/L ABG Total CO2 26 H 27 H (19-24) mmol/L ABG O2 Saturation 99.4 H 97.5 H (94-97) % ABG Hematocrit 25 L 28 L (34.0-46.0) % ABG Potassium (3.4-4.5) mmol/L ABG Ionized Calcium 4.0 L (4.5-5.3) mg/dL ABG Glucose 221 H 149 H (75-99) mg/dL ABG Lactic Acid 2.2 H* 2.0 H (0.5-1.6) mmol/L Hemoglobin 8.0 L 9.0 L (13.0-17.5) gm/dL Sodium (137-145) mmol/L Chloride (98-107) mmol/L Glucose (74-99) mg/dL POC Glucose (mg/dL) 107 H (75-99) mg/dL Calcium (8.4-10.2) mg/dL Magnesium (1.6-2.3) mg/dL AST (17-59) U/L Total Protein (6.3-8.2) g/dL Albumin (3.5-5.0) g/dL Arterial Blood Potassium (3.4-4.5) mmol/L Arterial Blood Glucose 221 H 149 H (75-99) mg/dL Crossmatch 03/20/18 03/20/18 03/20/18 Range/Units 15:14 15:14 15:14 RBC 2.75 L (4.30-5.90) m/uL Hgb 9.3 L D (13.0-17.5) gm/dL Hct 27.4 L (39.0-53.0) % MCV (80.0-100.0) fL Plt Count 100 L (150-450) k/uL Lymphocytes # 0.9 L (1.0-4.8) k/uL INR 1.2 H (<1.2) APTT 30.1 H (22.0-30.0) sec ABG pH (7.35-7.45) ABG pCO2 (35-45) mmHg ABG pO2 (83-108) mmHg ABG HCO3 (21-25) mmol/L ABG Total CO2 (19-24) mmol/L ABG O2 Saturation (94-97) % ABG Hematocrit (34.0-46.0) % ABG Potassium (3.4-4.5) mmol/L ABG Ionized Calcium (4.5-5.3) mg/dL ABG Glucose (75-99) mg/dL ABG Lactic Acid (0.5-1.6) mmol/L Hemoglobin (13.0-17.5) gm/dL Sodium (137-145) mmol/L Chloride 108 H (98-107) mmol/L Glucose 103 H (74-99) mg/dL POC Glucose (mg/dL) (75-99) mg/dL Calcium 7.9 L (8.4-10.2) mg/dL Magnesium 2.5 H (1.6-2.3) mg/dL AST 76 H (17-59) U/L Total Protein 5.2 L (6.3-8.2) g/dL Albumin 2.9 L (3.5-5.0) g/dL Arterial Blood Potassium (3.4-4.5) mmol/L Arterial Blood Glucose (75-99) mg/dL Crossmatch 03/20/18 03/20/18 03/20/18 Range/Units 15:35 16:07 17:11 RBC (4.30-5.90) m/uL Hgb (13.0-17.5) gm/dL Hct (39.0-53.0) % MCV (80.0-100.0) fL Plt Count (150-450) k/uL Lymphocytes # (1.0-4.8) k/uL INR (<1.2) APTT (22.0-30.0) sec ABG pH (7.35-7.45) ABG pCO2 46 H (35-45) mmHg ABG pO2 381 H (83-108) mmHg ABG HCO3 26 H (21-25) mmol/L ABG Total CO2 27 H (19-24) mmol/L ABG O2 Saturation 100.0 H (94-97) % ABG Hematocrit (34.0-46.0) % ABG Potassium (3.4-4.5) mmol/L ABG Ionized Calcium (4.5-5.3) mg/dL ABG Glucose (75-99) mg/dL ABG Lactic Acid (0.5-1.6) mmol/L Hemoglobin (13.0-17.5) gm/dL Sodium (137-145) mmol/L Chloride (98-107) mmol/L Glucose (74-99) mg/dL POC Glucose (mg/dL) 150 H 206 H (75-99) mg/dL Calcium (8.4-10.2) mg/dL Magnesium (1.6-2.3) mg/dL AST (17-59) U/L Total Protein (6.3-8.2) g/dL Albumin (3.5-5.0) g/dL Arterial Blood Potassium (3.4-4.5) mmol/L Arterial Blood Glucose (75-99) mg/dL Crossmatch 03/20/18 03/20/18 03/20/18 Range/Units 18:00 18:02 19:15 RBC 2.83 L (4.30-5.90) m/uL Hgb 9.9 L (13.0-17.5) gm/dL Hct 28.6 L (39.0-53.0) % MCV 101.2 H (80.0-100.0) fL Plt Count 114 L (150-450) k/uL Lymphocytes # 0.4 L (1.0-4.8) k/uL INR (<1.2) APTT (22.0-30.0) sec ABG pH (7.35-7.45) ABG pCO2 (35-45) mmHg ABG pO2 (83-108) mmHg ABG HCO3 (21-25) mmol/L ABG Total CO2 (19-24) mmol/L ABG O2 Saturation (94-97) % ABG Hematocrit (34.0-46.0) % ABG Potassium (3.4-4.5) mmol/L ABG Ionized Calcium (4.5-5.3) mg/dL ABG Glucose (75-99) mg/dL ABG Lactic Acid (0.5-1.6) mmol/L Hemoglobin (13.0-17.5) gm/dL Sodium (137-145) mmol/L Chloride (98-107) mmol/L Glucose (74-99) mg/dL POC Glucose (mg/dL) 196 H 173 H (75-99) mg/dL Calcium (8.4-10.2) mg/dL Magnesium (1.6-2.3) mg/dL AST (17-59) U/L Total Protein (6.3-8.2) g/dL Albumin (3.5-5.0) g/dL Arterial Blood Potassium (3.4-4.5) mmol/L Arterial Blood Glucose (75-99) mg/dL Crossmatch 03/20/18 03/20/18 03/20/18 Range/Units 20:05 20:45 21:03 RBC 2.44 L (4.30-5.90) m/uL Hgb 8.3 L D (13.0-17.5) gm/dL Hct 24.3 L (39.0-53.0) % MCV (80.0-100.0) fL Plt Count 88 L (150-450) k/uL Lymphocytes # 0.3 L (1.0-4.8) k/uL INR (<1.2) APTT (22.0-30.0) sec ABG pH (7.35-7.45) ABG pCO2 (35-45) mmHg ABG pO2 (83-108) mmHg ABG HCO3 (21-25) mmol/L ABG Total CO2 (19-24) mmol/L ABG O2 Saturation (94-97) % ABG Hematocrit (34.0-46.0) % ABG Potassium (3.4-4.5) mmol/L ABG Ionized Calcium (4.5-5.3) mg/dL ABG Glucose (75-99) mg/dL ABG Lactic Acid (0.5-1.6) mmol/L Hemoglobin (13.0-17.5) gm/dL Sodium (137-145) mmol/L Chloride (98-107) mmol/L Glucose (74-99) mg/dL POC Glucose (mg/dL) 155 H 142 H (75-99) mg/dL Calcium (8.4-10.2) mg/dL Magnesium (1.6-2.3) mg/dL AST (17-59) U/L Total Protein (6.3-8.2) g/dL Albumin (3.5-5.0) g/dL Arterial Blood Potassium (3.4-4.5) mmol/L Arterial Blood Glucose (75-99) mg/dL Crossmatch 03/20/18 03/20/18 03/20/18 Range/Units 21:56 22:54 23:02 RBC (4.30-5.90) m/uL Hgb (13.0-17.5) gm/dL Hct (39.0-53.0) % MCV (80.0-100.0) fL Plt Count (150-450) k/uL Lymphocytes # (1.0-4.8) k/uL INR (<1.2) APTT (22.0-30.0) sec ABG pH (7.35-7.45) ABG pCO2 (35-45) mmHg ABG pO2 136 H (83-108) mmHg ABG HCO3 (21-25) mmol/L ABG Total CO2 27 H (19-24) mmol/L ABG O2 Saturation 99.4 H (94-97) % ABG Hematocrit (34.0-46.0) % ABG Potassium (3.4-4.5) mmol/L ABG Ionized Calcium (4.5-5.3) mg/dL ABG Glucose (75-99) mg/dL ABG Lactic Acid (0.5-1.6) mmol/L Hemoglobin (13.0-17.5) gm/dL Sodium (137-145) mmol/L Chloride (98-107) mmol/L Glucose (74-99) mg/dL POC Glucose (mg/dL) 143 H 130 H (75-99) mg/dL Calcium (8.4-10.2) mg/dL Magnesium (1.6-2.3) mg/dL AST (17-59) U/L Total Protein (6.3-8.2) g/dL Albumin (3.5-5.0) g/dL Arterial Blood Potassium (3.4-4.5) mmol/L Arterial Blood Glucose (75-99) mg/dL Crossmatch 03/21/18 03/21/18 03/21/18 Range/Units 00:03 00:59 02:03 RBC (4.30-5.90) m/uL Hgb (13.0-17.5) gm/dL Hct (39.0-53.0) % MCV (80.0-100.0) fL Plt Count (150-450) k/uL Lymphocytes # (1.0-4.8) k/uL INR (<1.2) APTT (22.0-30.0) sec ABG pH (7.35-7.45) ABG pCO2 (35-45) mmHg ABG pO2 (83-108) mmHg ABG HCO3 (21-25) mmol/L ABG Total CO2 (19-24) mmol/L ABG O2 Saturation (94-97) % ABG Hematocrit (34.0-46.0) % ABG Potassium (3.4-4.5) mmol/L ABG Ionized Calcium (4.5-5.3) mg/dL ABG Glucose (75-99) mg/dL ABG Lactic Acid (0.5-1.6) mmol/L Hemoglobin (13.0-17.5) gm/dL Sodium (137-145) mmol/L Chloride (98-107) mmol/L Glucose (74-99) mg/dL POC Glucose (mg/dL) 141 H 141 H 138 H (75-99) mg/dL Calcium (8.4-10.2) mg/dL Magnesium (1.6-2.3) mg/dL AST (17-59) U/L Total Protein (6.3-8.2) g/dL Albumin (3.5-5.0) g/dL Arterial Blood Potassium (3.4-4.5) mmol/L Arterial Blood Glucose (75-99) mg/dL Crossmatch 03/21/18 03/21/18 03/21/18 Range/Units 03:00 04:05 04:05 RBC 2.47 L (4.30-5.90) m/uL Hgb 8.4 L (13.0-17.5) gm/dL Hct 24.7 L (39.0-53.0) % MCV 100.1 H (80.0-100.0) fL Plt Count 88 L (150-450) k/uL Lymphocytes # 0.8 L (1.0-4.8) k/uL INR 1.2 H (<1.2) APTT (22.0-30.0) sec ABG pH (7.35-7.45) ABG pCO2 (35-45) mmHg ABG pO2 (83-108) mmHg ABG HCO3 (21-25) mmol/L ABG Total CO2 (19-24) mmol/L ABG O2 Saturation (94-97) % ABG Hematocrit (34.0-46.0) % ABG Potassium (3.4-4.5) mmol/L ABG Ionized Calcium (4.5-5.3) mg/dL ABG Glucose (75-99) mg/dL ABG Lactic Acid (0.5-1.6) mmol/L Hemoglobin (13.0-17.5) gm/dL Sodium (137-145) mmol/L Chloride (98-107) mmol/L Glucose (74-99) mg/dL POC Glucose (mg/dL) 128 H (75-99) mg/dL Calcium (8.4-10.2) mg/dL Magnesium (1.6-2.3) mg/dL AST (17-59) U/L Total Protein (6.3-8.2) g/dL Albumin (3.5-5.0) g/dL Arterial Blood Potassium (3.4-4.5) mmol/L Arterial Blood Glucose (75-99) mg/dL Crossmatch 03/21/18 03/21/18 03/21/18 Range/Units 04:05 04:05 05:02 RBC (4.30-5.90) m/uL Hgb (13.0-17.5) gm/dL Hct (39.0-53.0) % MCV (80.0-100.0) fL Plt Count (150-450) k/uL Lymphocytes # (1.0-4.8) k/uL INR (<1.2) APTT (22.0-30.0) sec ABG pH (7.35-7.45) ABG pCO2 (35-45) mmHg ABG pO2 (83-108) mmHg ABG HCO3 (21-25) mmol/L ABG Total CO2 (19-24) mmol/L ABG O2 Saturation (94-97) % ABG Hematocrit (34.0-46.0) % ABG Potassium (3.4-4.5) mmol/L ABG Ionized Calcium (4.5-5.3) mg/dL ABG Glucose (75-99) mg/dL ABG Lactic Acid (0.5-1.6) mmol/L Hemoglobin (13.0-17.5) gm/dL Sodium 136 L (137-145) mmol/L Chloride (98-107) mmol/L Glucose 119 H (74-99) mg/dL POC Glucose (mg/dL) 126 H 129 H (75-99) mg/dL Calcium 8.0 L (8.4-10.2) mg/dL Magnesium (1.6-2.3) mg/dL AST 65 H (17-59) U/L Total Protein 5.3 L (6.3-8.2) g/dL Albumin 3.0 L (3.5-5.0) g/dL Arterial Blood Potassium (3.4-4.5) mmol/L Arterial Blood Glucose (75-99) mg/dL Crossmatch 03/21/18 03/21/18 03/21/18 Range/Units 06:08 06:55 08:02 RBC (4.30-5.90) m/uL Hgb (13.0-17.5) gm/dL Hct (39.0-53.0) % MCV (80.0-100.0) fL Plt Count (150-450) k/uL Lymphocytes # (1.0-4.8) k/uL INR (<1.2) APTT (22.0-30.0) sec ABG pH (7.35-7.45) ABG pCO2 (35-45) mmHg ABG pO2 (83-108) mmHg ABG HCO3 (21-25) mmol/L ABG Total CO2 (19-24) mmol/L ABG O2 Saturation (94-97) % ABG Hematocrit (34.0-46.0) % ABG Potassium (3.4-4.5) mmol/L ABG Ionized Calcium (4.5-5.3) mg/dL ABG Glucose (75-99) mg/dL ABG Lactic Acid (0.5-1.6) mmol/L Hemoglobin (13.0-17.5) gm/dL Sodium (137-145) mmol/L Chloride (98-107) mmol/L Glucose (74-99) mg/dL POC Glucose (mg/dL) 152 H 143 H 133 H (75-99) mg/dL Calcium (8.4-10.2) mg/dL Magnesium (1.6-2.3) mg/dL AST (17-59) U/L Total Protein (6.3-8.2) g/dL Albumin (3.5-5.0) g/dL Arterial Blood Potassium (3.4-4.5) mmol/L Arterial Blood Glucose (75-99) mg/dL Crossmatch Microbiology - Last 24 Hours (Table) 03/19/18 15:53 Urine Culture - Final Urine,Clean Catch 03/19/18 15:20 Nasal Screen MRSA/MSSA - Final Nasal Swab Staphylococcus aureus,Not MRSA Assessment and Plan Plan: Assessment: #1. Non-ST elevated PR #2. Multivessel coronary artery disease, patient underwent cardiac catheterization which showed RCA stenosis of 70%, circumflex was 90%, proximal LAD of 99%, mid LAD of 90%, status post three-vessel coronary artery bypass grafting, with LYNN to LAD, SVG to the RCA, and SVG to the ramus, postop day 1 #3. Ischemic cardiomyopathy, ejection fraction of 35% #4. Diabetes mellitus type 2 #5. Hypertension, hyperlipidemia #6. Previous history of nicotine dependence, patient carries [id number] smoking history, quit smoking 40 years ago, but prior to that smoked for 20 years 3 packs a day #7. Daily EtOH use Plan: Continue incentive spirometry use, deep breathing and coughing, today's chest x- ray was been reviewed by Dr. Nixon, just showed left lower lobe atelectasis. Hemodynamically stable, maintain pain control. We'll continue close monitoring in the intensive care unit. I performed a history & physical examination of the patient and discussed their management with my nurse practitioner, Rosa Rm. I reviewed the nurse practitioner's note and agree with the documented findings and plan of care. Lung sounds are few crackles. The findings and the impression was discussed with the patient. I attest to the documentation by the nurse practitioner. Time with Patient: Greater than 30
[2018-03-21 09:04] LABS: Glucose,Whole Blood 120 mg/dL (75-99)
[2018-03-21] MEDS: KETOROLAC 30 MG/ML 1 ML VIAL IVP SCH ×4 (09:10→23:33)
[2018-03-21] MEDS: CLOPIDOGREL 75 MG TAB PO SCH (09:10)
[2018-03-21] MEDS: ASPIRIN 325 MG TAB PO SCH (09:10)
[2018-03-21] MEDS: ATORVASTATIN 80 MG TAB PO SCH (09:10)
[2018-03-21] MEDS: METOPROLOL TARTRATE 12.5 MG TAB PO SCH ×2 (09:11→20:24)
[2018-03-21] MEDS: HEPARIN SODIUM,PORCINE 5,000 UNIT/ML 1 ML VIAL SQ SCH ×3 (09:11→23:33)
[2018-03-21] MEDS: ceFAZolin IN SWFI 2 GM/20 ML SYRINGE IVP SCH (09:12)
[2018-03-21] MEDS: MUPIROCIN 2% OINT 22 GM TUBE NASAL SCH ×2 (09:12→20:24)
[2018-03-21] MEDS: BENZOCAINE/MENTHOL LOZENG 1 EACH LOZENGE MUCOUS MEM PRN (09:22)
--- NOTE | 2018-03-21 10:34 | P.PN ---
Subjective Progress Note Date: 03/21/18 Principal diagnosis: Coronary artery disease, current non-STEMI. Previous medical history of uncontrolled insulin-dependent diabetes mellitus with preoperative hemoglobin A1c 8.1%, hypertension, hypertriglyceridemia, obesity, kidney stones, previous tobacco dependence, mild COPD with preoperative FEV1 72% of predicted, near daily EtOH use, and vasectomy. POD #1 urgent coronary bypass grafting 3 vessels, left internal mammary artery to the left anterior descending artery, reverse saphenous vein graft to the ramus artery, reverse saphenous vein graft to the distal right coronary artery. Endoscopic vein harvest bilateral greater saphenous veins. Epi-aortic ultrasound. Intraoperative transesophageal echocardiogram. Postoperative acute blood loss anemia, an expected postprocedure condition. The patient is currently sitting up in a recliner in no acute distress. He was successfully extubated last night at 23:18. He remains in normal sinus rhythm, he is hemodynamically stable on no inotropes or pressors. He does complain of postsurgical pain, denies shortness of breath. No new complaints. Objective - Vital Signs Vital signs: Vital Signs Temp 98.1 F 03/21/18 04:00 Pulse 89 03/21/18 07:36 Resp 10 L 03/21/18 07:00 BP 107/62 03/21/18 07:00 Pulse Ox 97 03/21/18 07:00 Intake & Output 03/20/18 03/21/18 03/21/18 18:59 06:59 18:59 Intake Total 766.979 9480.842 59 Output Total 2370 914 45 Balance -1728.926 866.842 14 Weight 107.6 kg Intake: IV 153 569 59 CO/CI 120 Lactated Ringers 1,000 ml 350 50 @ 50 mls/hr IV .Q20H [facility] Rx#:[id number] pressure bag 99 9 Intake, IV Titration 453.718 0361.842 Amount ACETAMINOPHEN IV (For NPO 100 100 ) 1,000 mg In Empty Bag 1 bag @ 400 mls/hr IVPB Q6HR [facility] Rx#:[id number] Albumin Human 5% 500 ml 750 In Empty Bag 1 bag @ 250 mls/hr IVPB ONCE [facility] Rx#: [id number] Clevidipine Butyrate 25 13.233 7.583 mg In Empty Bag 1 bag @ 1 MG/HR 2 mls/hr IV .Q24H [facility] Rx#:[id number] Clevidipine Butyrate 25 60.767 mg In Empty Bag 1 bag @ 1 MG/HR 2 mls/hr IV .Q24H [facility] Rx#:[id number] Dexmedetomidine/0.9% NaCl 16.552 20.083 (Pmx) 400 mcg In Empty Bag 1 bag @ Titrate IV . Q0M [facility] Rx#:[id number] Insulin Regular 100 unit 5.858 34.627 In Sodium Chloride 0.9% 100 ml @ Per Protocol IV .Q0M [facility] Rx#:[id number] Lactated Ringers 1,000 ml 200 250 @ 50 mls/hr IV .Q20H [facility] Rx#:[id number] Nitroglycerin-D5w Pmx 50 1.5 mg In Dextrose/Water 1 250ml.bag @ 5 MCG/MIN 1.5 mls/hr IV .Q24H [facility] Rx#: [id number] Nitroglycerin-D5w Pmx 50 4.5 1.5 mg In Dextrose/Water 1 250ml.bag @ 5 MCG/MIN 1.5 mls/hr IV .Q24H [facility] Rx#: [id number] Norepinephrine 16 mg In 28.049 Sodium Chloride 0.9% 250 ml @ Titrate IV .Q0M [facility] Rx#:[id number] Propofol 1,000 mg In 18.7 Empty Bag 1 bag @ Titrate IV .Q0M [facility] Rx#: [id number] Propofol 1,000 mg In 66.964 Empty Bag 1 bag @ Titrate IV .Q0M [facility] Rx#: [id number] TPN/PPN 20 CO/CI 20 Output: Chest Tube Drainage 195 204 0 Chest Tube Bilateral 150 127 0 Mediastinal lt pleural 45 77 0 Urine 1175 710 45 Estimated Blood Loss 1000 Other: Voiding Method Indwelling Catheter Indwelling Catheter ABP, PAP, CO, CI - Last Documented Arterial Blood Pressure 112/43 Pulmonary Artery Pressure 28/8 Cardiac Output 5.8 Cardiac Index 2.6 - Constitutional General appearance: Present: cooperative, no acute distress, obese - Respiratory Details: Lungs sounds diminished bilaterally. Respirations even, nonlabored. Currently on 2 L nasal cannula with oxygen saturation 97%. Unable to use incentive spirometry at this time. Weak cough. Mediastinal chest tube to continuous wall suction, 85 mL serous and was drainage overnight, 300 mL since surgery. Left pleural chest tube to continuous wall suction, 55 mL serosanguineous drainage overnight, 110 mL since surgery. No air leaks present. - Cardiovascular Details: S1, S2 present. Regular rate and rhythm, sinus rhythm on telemetry. Sternum stable. A/V epicardial pacemaker wires present, grounded. Palpable peripheral pulses bilaterally. No edema present. No calf pain or tenderness noted. Right internal jugular [place], right radial arterial line present. Last CO /CI 5.8/2.6 on no inotropes or pressors. Heart hugger in place with patient not using appropriately, antiembolism stockings, SCDs present. - Gastrointestinal Gastrointestinal Comment(s): Abdomen soft, nontender, nondistended. Hypoactive bowel sounds present 4 quadrants. Tolerating liquids. Negative flatus. - Genitourinary Genitourinary Comment(s): Valdovinos present draining clear, yellow urine. Outputs 45-90 mL/h overnight, 480 mL last 8 hours. - Integumentary Integumentary Comment(s): Skin is warm and dry with evidence of good perfusion. Anterior chest incision well approximated and covered with dry intact dressing. Bilateral lower extremity EVH sites well approximated. - Neurologic Neurologic: Present: CNII-XII intact - Musculoskeletal Musculoskeletal: Present: generalized weakness, strength equal bilaterally - Psychiatric Psychiatric: Present: A&O x's 3, appropriate affect, intact judgment & insight - Allied health notes Allied health notes reviewed: nursing - Labs CBC & Chem 7: 03/21/18 04:05 03/21/18 04:05 Labs: Abnormal Lab Results - Last 24 Hours (Table) 03/19/18 03/20/18 03/20/18 Range/Units 14:07 08:54 10:13 RBC (4.30-5.90) m/uL Hgb (13.0-17.5) gm/dL Hct (39.0-53.0) % MCV (80.0-100.0) fL Plt Count (150-450) k/uL Lymphocytes # (1.0-4.8) k/uL INR (<1.2) APTT (22.0-30.0) sec ABG pH 7.30 L (7.35-7.45) ABG pCO2 33 L 48 H (35-45) mmHg ABG pO2 115 H 178 H (83-108) mmHg ABG HCO3 (21-25) mmol/L ABG Total CO2 25 H (19-24) mmol/L ABG O2 Saturation 98.6 H 99.1 H (94-97) % ABG Hematocrit (34.0-46.0) % ABG Potassium 4.8 H 4.7 H (3.4-4.5) mmol/L ABG Ionized Calcium (4.5-5.3) mg/dL ABG Glucose 216 H 191 H (75-99) mg/dL ABG Lactic Acid (0.5-1.6) mmol/L Hemoglobin 11.8 L 11.3 L (13.0-17.5) gm/dL Sodium (137-145) mmol/L Chloride (98-107) mmol/L Glucose (74-99) mg/dL POC Glucose (mg/dL) (75-99) mg/dL Calcium (8.4-10.2) mg/dL Magnesium (1.6-2.3) mg/dL AST (17-59) U/L Total Protein (6.3-8.2) g/dL Albumin (3.5-5.0) g/dL Arterial Blood Potassium 4.8 H 4.7 H (3.4-4.5) mmol/L Arterial Blood Glucose 216 H 191 H (75-99) mg/dL Crossmatch See Detail 03/20/18 03/20/18 03/20/18 Range/Units 10:56 11:14 11:42 RBC (4.30-5.90) m/uL Hgb (13.0-17.5) gm/dL Hct (39.0-53.0) % MCV (80.0-100.0) fL Plt Count (150-450) k/uL Lymphocytes # (1.0-4.8) k/uL INR (<1.2) APTT (22.0-30.0) sec ABG pH 7.34 L (7.35-7.45) ABG pCO2 50 H (35-45) mmHg ABG pO2 277 H 378 H 269 H (83-108) mmHg ABG HCO3 27 H (21-25) mmol/L ABG Total CO2 29 H 27 H 26 H (19-24) mmol/L ABG O2 Saturation 99.7 H 99.8 H 99.8 H (94-97) % ABG Hematocrit 27 L 24 L 25 L (34.0-46.0) % ABG Potassium 4.6 H (3.4-4.5) mmol/L ABG Ionized Calcium 4.3 L 4.3 L 4.3 L (4.5-5.3) mg/dL ABG Glucose 148 H 209 H 197 H (75-99) mg/dL ABG Lactic Acid 1.8 H 2.0 H (0.5-1.6) mmol/L Hemoglobin 8.8 L 7.9 L 8.3 L (13.0-17.5) gm/dL Sodium (137-145) mmol/L Chloride (98-107) mmol/L Glucose (74-99) mg/dL POC Glucose (mg/dL) (75-99) mg/dL Calcium (8.4-10.2) mg/dL Magnesium (1.6-2.3) mg/dL AST (17-59) U/L Total Protein (6.3-8.2) g/dL Albumin (3.5-5.0) g/dL Arterial Blood Potassium 4.6 H (3.4-4.5) mmol/L Arterial Blood Glucose 148 H 209 H 197 H (75-99) mg/dL Crossmatch 03/20/18 03/20/18 03/20/18 Range/Units 12:17 13:25 15:07 RBC (4.30-5.90) m/uL Hgb (13.0-17.5) gm/dL Hct (39.0-53.0) % MCV (80.0-100.0) fL Plt Count (150-450) k/uL Lymphocytes # (1.0-4.8) k/uL INR (<1.2) APTT (22.0-30.0) sec ABG pH (7.35-7.45) ABG pCO2 (35-45) mmHg ABG pO2 197 H (83-108) mmHg ABG HCO3 (21-25) mmol/L ABG Total CO2 26 H 27 H (19-24) mmol/L ABG O2 Saturation 99.4 H 97.5 H (94-97) % ABG Hematocrit 25 L 28 L (34.0-46.0) % ABG Potassium (3.4-4.5) mmol/L ABG Ionized Calcium 4.0 L (4.5-5.3) mg/dL ABG Glucose 221 H 149 H (75-99) mg/dL ABG Lactic Acid 2.2 H* 2.0 H (0.5-1.6) mmol/L Hemoglobin 8.0 L 9.0 L (13.0-17.5) gm/dL Sodium (137-145) mmol/L Chloride (98-107) mmol/L Glucose (74-99) mg/dL POC Glucose (mg/dL) 107 H (75-99) mg/dL Calcium (8.4-10.2) mg/dL Magnesium (1.6-2.3) mg/dL AST (17-59) U/L Total Protein (6.3-8.2) g/dL Albumin (3.5-5.0) g/dL Arterial Blood Potassium (3.4-4.5) mmol/L Arterial Blood Glucose 221 H 149 H (75-99) mg/dL Crossmatch 03/20/18 03/20/18 03/20/18 Range/Units 15:14 15:14 15:14 RBC 2.75 L (4.30-5.90) m/uL Hgb 9.3 L D (13.0-17.5) gm/dL Hct 27.4 L (39.0-53.0) % MCV (80.0-100.0) fL Plt Count 100 L (150-450) k/uL Lymphocytes # 0.9 L (1.0-4.8) k/uL INR 1.2 H (<1.2) APTT 30.1 H (22.0-30.0) sec ABG pH (7.35-7.45) ABG pCO2 (35-45) mmHg ABG pO2 (83-108) mmHg ABG HCO3 (21-25) mmol/L ABG Total CO2 (19-24) mmol/L ABG O2 Saturation (94-97) % ABG Hematocrit (34.0-46.0) % ABG Potassium (3.4-4.5) mmol/L ABG Ionized Calcium (4.5-5.3) mg/dL ABG Glucose (75-99) mg/dL ABG Lactic Acid (0.5-1.6) mmol/L Hemoglobin (13.0-17.5) gm/dL Sodium (137-145) mmol/L Chloride 108 H (98-107) mmol/L Glucose 103 H (74-99) mg/dL POC Glucose (mg/dL) (75-99) mg/dL Calcium 7.9 L (8.4-10.2) mg/dL Magnesium 2.5 H (1.6-2.3) mg/dL AST 76 H (17-59) U/L Total Protein 5.2 L (6.3-8.2) g/dL Albumin 2.9 L (3.5-5.0) g/dL Arterial Blood Potassium (3.4-4.5) mmol/L Arterial Blood Glucose (75-99) mg/dL Crossmatch 03/20/18 03/20/18 03/20/18 Range/Units 15:35 16:07 17:11 RBC (4.30-5.90) m/uL Hgb (13.0-17.5) gm/dL Hct (39.0-53.0) % MCV (80.0-100.0) fL Plt Count (150-450) k/uL Lymphocytes # (1.0-4.8) k/uL INR (<1.2) APTT (22.0-30.0) sec ABG pH (7.35-7.45) ABG pCO2 46 H (35-45) mmHg ABG pO2 381 H (83-108) mmHg ABG HCO3 26 H (21-25) mmol/L ABG Total CO2 27 H (19-24) mmol/L ABG O2 Saturation 100.0 H (94-97) % ABG Hematocrit (34.0-46.0) % ABG Potassium (3.4-4.5) mmol/L ABG Ionized Calcium (4.5-5.3) mg/dL ABG Glucose (75-99) mg/dL ABG Lactic Acid (0.5-1.6) mmol/L Hemoglobin (13.0-17.5) gm/dL Sodium (137-145) mmol/L Chloride (98-107) mmol/L Glucose (74-99) mg/dL POC Glucose (mg/dL) 150 H 206 H (75-99) mg/dL Calcium (8.4-10.2) mg/dL Magnesium (1.6-2.3) mg/dL AST (17-59) U/L Total Protein (6.3-8.2) g/dL Albumin (3.5-5.0) g/dL Arterial Blood Potassium (3.4-4.5) mmol/L Arterial Blood Glucose (75-99) mg/dL Crossmatch 03/20/18 03/20/18 03/20/18 Range/Units 18:00 18:02 19:15 RBC 2.83 L (4.30-5.90) m/uL Hgb 9.9 L (13.0-17.5) gm/dL Hct 28.6 L (39.0-53.0) % MCV 101.2 H (80.0-100.0) fL Plt Count 114 L (150-450) k/uL Lymphocytes # 0.4 L (1.0-4.8) k/uL INR (<1.2) APTT (22.0-30.0) sec ABG pH (7.35-7.45) ABG pCO2 (35-45) mmHg ABG pO2 (83-108) mmHg ABG HCO3 (21-25) mmol/L ABG Total CO2 (19-24) mmol/L ABG O2 Saturation (94-97) % ABG Hematocrit (34.0-46.0) % ABG Potassium (3.4-4.5) mmol/L ABG Ionized Calcium (4.5-5.3) mg/dL ABG Glucose (75-99) mg/dL ABG Lactic Acid (0.5-1.6) mmol/L Hemoglobin (13.0-17.5) gm/dL Sodium (137-145) mmol/L Chloride (98-107) mmol/L Glucose (74-99) mg/dL POC Glucose (mg/dL) 196 H 173 H (75-99) mg/dL Calcium (8.4-10.2) mg/dL Magnesium (1.6-2.3) mg/dL AST (17-59) U/L Total Protein (6.3-8.2) g/dL Albumin (3.5-5.0) g/dL Arterial Blood Potassium (3.4-4.5) mmol/L Arterial Blood Glucose (75-99) mg/dL Crossmatch 03/20/18 03/20/18 03/20/18 Range/Units 20:05 20:45 21:03 RBC 2.44 L (4.30-5.90) m/uL Hgb 8.3 L D (13.0-17.5) gm/dL Hct 24.3 L (39.0-53.0) % MCV (80.0-100.0) fL Plt Count 88 L (150-450) k/uL Lymphocytes # 0.3 L (1.0-4.8) k/uL INR (<1.2) APTT (22.0-30.0) sec ABG pH (7.35-7.45) ABG pCO2 (35-45) mmHg ABG pO2 (83-108) mmHg ABG HCO3 (21-25) mmol/L ABG Total CO2 (19-24) mmol/L ABG O2 Saturation (94-97) % ABG Hematocrit (34.0-46.0) % ABG Potassium (3.4-4.5) mmol/L ABG Ionized Calcium (4.5-5.3) mg/dL ABG Glucose (75-99) mg/dL ABG Lactic Acid (0.5-1.6) mmol/L Hemoglobin (13.0-17.5) gm/dL Sodium (137-145) mmol/L Chloride (98-107) mmol/L Glucose (74-99) mg/dL POC Glucose (mg/dL) 155 H 142 H (75-99) mg/dL Calcium (8.4-10.2) mg/dL Magnesium (1.6-2.3) mg/dL AST (17-59) U/L Total Protein (6.3-8.2) g/dL Albumin (3.5-5.0) g/dL Arterial Blood Potassium (3.4-4.5) mmol/L Arterial Blood Glucose (75-99) mg/dL Crossmatch 03/20/18 03/20/18 03/20/18 Range/Units 21:56 22:54 23:02 RBC (4.30-5.90) m/uL Hgb (13.0-17.5) gm/dL Hct (39.0-53.0) % MCV (80.0-100.0) fL Plt Count (150-450) k/uL Lymphocytes # (1.0-4.8) k/uL INR (<1.2) APTT (22.0-30.0) sec ABG pH (7.35-7.45) ABG pCO2 (35-45) mmHg ABG pO2 136 H (83-108) mmHg ABG HCO3 (21-25) mmol/L ABG Total CO2 27 H (19-24) mmol/L ABG O2 Saturation 99.4 H (94-97) % ABG Hematocrit (34.0-46.0) % ABG Potassium (3.4-4.5) mmol/L ABG Ionized Calcium (4.5-5.3) mg/dL ABG Glucose (75-99) mg/dL ABG Lactic Acid (0.5-1.6) mmol/L Hemoglobin (13.0-17.5) gm/dL Sodium (137-145) mmol/L Chloride (98-107) mmol/L Glucose (74-99) mg/dL POC Glucose (mg/dL) 143 H 130 H (75-99) mg/dL Calcium (8.4-10.2) mg/dL Magnesium (1.6-2.3) mg/dL AST (17-59) U/L Total Protein (6.3-8.2) g/dL Albumin (3.5-5.0) g/dL Arterial Blood Potassium (3.4-4.5) mmol/L Arterial Blood Glucose (75-99) mg/dL Crossmatch 03/21/18 03/21/18 03/21/18 Range/Units 00:03 00:59 02:03 RBC (4.30-5.90) m/uL Hgb (13.0-17.5) gm/dL Hct (39.0-53.0) % MCV (80.0-100.0) fL Plt Count (150-450) k/uL Lymphocytes # (1.0-4.8) k/uL INR (<1.2) APTT (22.0-30.0) sec ABG pH (7.35-7.45) ABG pCO2 (35-45) mmHg ABG pO2 (83-108) mmHg ABG HCO3 (21-25) mmol/L ABG Total CO2 (19-24) mmol/L ABG O2 Saturation (94-97) % ABG Hematocrit (34.0-46.0) % ABG Potassium (3.4-4.5) mmol/L ABG Ionized Calcium (4.5-5.3) mg/dL ABG Glucose (75-99) mg/dL ABG Lactic Acid (0.5-1.6) mmol/L Hemoglobin (13.0-17.5) gm/dL Sodium (137-145) mmol/L Chloride (98-107) mmol/L Glucose (74-99) mg/dL POC Glucose (mg/dL) 141 H 141 H 138 H (75-99) mg/dL Calcium (8.4-10.2) mg/dL Magnesium (1.6-2.3) mg/dL AST (17-59) U/L Total Protein (6.3-8.2) g/dL Albumin (3.5-5.0) g/dL Arterial Blood Potassium (3.4-4.5) mmol/L Arterial Blood Glucose (75-99) mg/dL Crossmatch 03/21/18 03/21/18 03/21/18 Range/Units 03:00 04:05 04:05 RBC 2.47 L (4.30-5.90) m/uL Hgb 8.4 L (13.0-17.5) gm/dL Hct 24.7 L (39.0-53.0) % MCV 100.1 H (80.0-100.0) fL Plt Count 88 L (150-450) k/uL Lymphocytes # 0.8 L (1.0-4.8) k/uL INR 1.2 H (<1.2) APTT (22.0-30.0) sec ABG pH (7.35-7.45) ABG pCO2 (35-45) mmHg ABG pO2 (83-108) mmHg ABG HCO3 (21-25) mmol/L ABG Total CO2 (19-24) mmol/L ABG O2 Saturation (94-97) % ABG Hematocrit (34.0-46.0) % ABG Potassium (3.4-4.5) mmol/L ABG Ionized Calcium (4.5-5.3) mg/dL ABG Glucose (75-99) mg/dL ABG Lactic Acid (0.5-1.6) mmol/L Hemoglobin (13.0-17.5) gm/dL Sodium (137-145) mmol/L Chloride (98-107) mmol/L Glucose (74-99) mg/dL POC Glucose (mg/dL) 128 H (75-99) mg/dL Calcium (8.4-10.2) mg/dL Magnesium (1.6-2.3) mg/dL AST (17-59) U/L Total Protein (6.3-8.2) g/dL Albumin (3.5-5.0) g/dL Arterial Blood Potassium (3.4-4.5) mmol/L Arterial Blood Glucose (75-99) mg/dL Crossmatch 03/21/18 03/21/18 03/21/18 Range/Units 04:05 04:05 05:02 RBC (4.30-5.90) m/uL Hgb (13.0-17.5) gm/dL Hct (39.0-53.0) % MCV (80.0-100.0) fL Plt Count (150-450) k/uL Lymphocytes # (1.0-4.8) k/uL INR (<1.2) APTT (22.0-30.0) sec ABG pH (7.35-7.45) ABG pCO2 (35-45) mmHg ABG pO2 (83-108) mmHg ABG HCO3 (21-25) mmol/L ABG Total CO2 (19-24) mmol/L ABG O2 Saturation (94-97) % ABG Hematocrit (34.0-46.0) % ABG Potassium (3.4-4.5) mmol/L ABG Ionized Calcium (4.5-5.3) mg/dL ABG Glucose (75-99) mg/dL ABG Lactic Acid (0.5-1.6) mmol/L Hemoglobin (13.0-17.5) gm/dL Sodium 136 L (137-145) mmol/L Chloride (98-107) mmol/L Glucose 119 H (74-99) mg/dL POC Glucose (mg/dL) 126 H 129 H (75-99) mg/dL Calcium 8.0 L (8.4-10.2) mg/dL Magnesium (1.6-2.3) mg/dL AST 65 H (17-59) U/L Total Protein 5.3 L (6.3-8.2) g/dL Albumin 3.0 L (3.5-5.0) g/dL Arterial Blood Potassium (3.4-4.5) mmol/L Arterial Blood Glucose (75-99) mg/dL Crossmatch 03/21/18 03/21/18 03/21/18 Range/Units 06:08 06:55 08:02 RBC (4.30-5.90) m/uL Hgb (13.0-17.5) gm/dL Hct (39.0-53.0) % MCV (80.0-100.0) fL Plt Count (150-450) k/uL Lymphocytes # (1.0-4.8) k/uL INR (<1.2) APTT (22.0-30.0) sec ABG pH (7.35-7.45) ABG pCO2 (35-45) mmHg ABG pO2 (83-108) mmHg ABG HCO3 (21-25) mmol/L ABG Total CO2 (19-24) mmol/L ABG O2 Saturation (94-97) % ABG Hematocrit (34.0-46.0) % ABG Potassium (3.4-4.5) mmol/L ABG Ionized Calcium (4.5-5.3) mg/dL ABG Glucose (75-99) mg/dL ABG Lactic Acid (0.5-1.6) mmol/L Hemoglobin (13.0-17.5) gm/dL Sodium (137-145) mmol/L Chloride (98-107) mmol/L Glucose (74-99) mg/dL POC Glucose (mg/dL) 152 H 143 H 133 H (75-99) mg/dL Calcium (8.4-10.2) mg/dL Magnesium (1.6-2.3) mg/dL AST (17-59) U/L Total Protein (6.3-8.2) g/dL Albumin (3.5-5.0) g/dL Arterial Blood Potassium (3.4-4.5) mmol/L Arterial Blood Glucose (75-99) mg/dL Crossmatch 03/21/18 Range/Units 09:01 RBC (4.30-5.90) m/uL Hgb (13.0-17.5) gm/dL Hct (39.0-53.0) % MCV (80.0-100.0) fL Plt Count (150-450) k/uL Lymphocytes # (1.0-4.8) k/uL INR (<1.2) APTT (22.0-30.0) sec ABG pH (7.35-7.45) ABG pCO2 (35-45) mmHg ABG pO2 (83-108) mmHg ABG HCO3 (21-25) mmol/L ABG Total CO2 (19-24) mmol/L ABG O2 Saturation (94-97) % ABG Hematocrit (34.0-46.0) % ABG Potassium (3.4-4.5) mmol/L ABG Ionized Calcium (4.5-5.3) mg/dL ABG Glucose (75-99) mg/dL ABG Lactic Acid (0.5-1.6) mmol/L Hemoglobin (13.0-17.5) gm/dL Sodium (137-145) mmol/L Chloride (98-107) mmol/L Glucose (74-99) mg/dL POC Glucose (mg/dL) 120 H (75-99) mg/dL Calcium (8.4-10.2) mg/dL Magnesium (1.6-2.3) mg/dL AST (17-59) U/L Total Protein (6.3-8.2) g/dL Albumin (3.5-5.0) g/dL Arterial Blood Potassium (3.4-4.5) mmol/L Arterial Blood Glucose (75-99) mg/dL Crossmatch Microbiology - Last 24 Hours (Table) 03/19/18 15:53 Urine Culture - Final Urine,Clean Catch 03/19/18 15:20 Nasal Screen MRSA/MSSA - Final Nasal Swab Staphylococcus aureus,Not MRSA - Imaging and Cardiology Chest x-ray: report reviewed, image reviewed Assessment and Plan (1) NSTEMI (non-ST elevated myocardial infarction) Current Visit: Yes Status: Acute Code(s): I21.4 - NON-ST ELEVATION (NSTEMI) MYOCARDIAL INFARCTION SNOMED Code(s): 163446734 (2) Coronary artery disease Current Visit: Yes Status: Chronic Code(s): I25.10 - ATHSCL HEART DISEASE OF [place] CORONARY ARTERY W/O ANG PCTRS SNOMED Code(s): 11607481 (3) Hypertension Current Visit: Yes Status: Chronic Code(s): I10 - ESSENTIAL (PRIMARY) HYPERTENSION SNOMED Code(s): 50216713 (4) Hyperlipidemia Current Visit: Yes Status: Chronic Code(s): E78.5 - HYPERLIPIDEMIA, UNSPECIFIED SNOMED Code(s): 76927162 (5) COPD (chronic obstructive pulmonary disease) Current Visit: Yes Status: Chronic Code(s): J44.9 - CHRONIC OBSTRUCTIVE PULMONARY DISEASE, UNSPECIFIED SNOMED Code(s): 26564349 (6) Tobacco dependence in remission Current Visit: No Status: Resolved Code(s): F17.201 - NICOTINE DEPENDENCE, UNSPECIFIED, IN REMISSION SNOMED Code(s): 747055527 (7) EtOH dependence Current Visit: Yes Status: Chronic Code(s): F10.20 - ALCOHOL DEPENDENCE, UNCOMPLICATED SNOMED Code(s): 94229361 (8) Diabetes mellitus Current Visit: Yes Status: Chronic Code(s): E11.9 - TYPE 2 DIABETES MELLITUS WITHOUT COMPLICATIONS SNOMED Code(s): 16970749 (9) Obesity (BMI 30-39.9) Current Visit: Yes Status: Chronic Code(s): E66.9 - OBESITY, UNSPECIFIED SNOMED Code(s): 264459188 Plan: 1. Continue aspirin, statin, Plavix, beta nica. Will increase beta nica therapy as tolerated. Discontinue nitro drip. 2. Wean O2 as tolerated. Encourage incentive spirometry 10 times every hour while awake. 3. Increase activity, ambulate as tolerated. PT/OT/cardiac rehab following. 4. Will discontinue mediastinal chest tube. 5. Discontinue [place]. Correct [place] to continuous CVP monitoring. 6. Will monitor daily labs and x-rays. 7. Bronchodilators per pulmonology. 8. Insulin management per primary care service. 9. Pain management with current medication regimen. Will add Toradol. 10. Will add CIWA protocol and monitor for alcohol withdrawal. 11. More recommendations to follow. Time with Patient: Greater than 30
[2018-03-21] MEDS ORDERED: LORazepam 2 MG/ML INJ IV PRN ×3 (10:35)
[2018-03-21] MEDS: THIAMINE 100 MG TAB PO SCH ×2 (11:41→17:36)
[2018-03-21] MEDS: MULTIVITAMINS, THERA 1 EACH TAB PO SCH (11:41)
[2018-03-21] MEDS: INSULIN ASPART 100 UNIT/ML 1 ML 10 ML VIAL SQ SCH ×3 (11:44→20:28)
[2018-03-21 11:57] LABS: Glucose,Whole Blood 166 mg/dL (75-99)
[2018-03-21] MEDS: LACTATED RINGERS 1,000 ML IV SCH ×2 (13:32→20:31)
[2018-03-21] MEDS ORDERED: HYDROcodone/APAP 5-325MG 1 EACH TAB PO PRN (14:17)
[2018-03-21] MEDS ORDERED: MAGNESIUM HYDROXIDE 2,400 MG/10 ML CUP PO PRN (14:18)
[2018-03-21] MEDS ORDERED: BISACODYL 10 MG SUPP RECTAL PRN (14:18)
--- NOTE | 2018-03-21 14:53 | P.VSCSTY ---
Greater Saphenous Vein Mapping This is bilateral lower extremity greater saphenous vein mapping. Date of service 03/19/2018 Vein quality and ultrasound appearance no obvious wall changes or thrombosis is seen. Vein size groin right 6.8 x 7.3 groin left 5.9 x 6.5 High thigh right 7.5 x 6.6 high thigh left 5.2 x 5.1 Mid thigh right 4.1 x 4.2 mid thigh left 2.6 x 2.6 Above-knee right 2.1 x 1.7 above- knee left 2.2 x 1.9 Below knee right 2.0 x 1.4 below-knee left to 0.1 x 2.1 Mid calf right [] mid calf left 1.8 x 1.4 Ankle right [] ankle left to 0.1 x 1.6 Impression some usable vein in both eyes. Bilateral lower legs probably too small for use as conduit. Lesser saphenous veins are too small for use as conduit..
[2018-03-21 17:09] LABS: Glucose,Whole Blood 213 mg/dL (75-99)
--- NOTE | 2018-03-21 19:03 | P.PN ---
Subjective Progress Note Date: 03/21/18 Principal diagnosis: chest pain Patient is a 72-year-old male past medical history of hypertension, diabetes, dyslipidemia, alcohol use, and significant prior smoking history who presented initially to the [facility] with intermittent chest pain. He was admitted to our facility for further evaluation. He underwent a cardiac catheterization by Dr. Nayak showed a 70% stenosis of RCA, 90% stenosis of the circumflex, and 99% stenosis of the proximal LAD associated with 90% stenosis of the mid LAD and an EF of 35%. The patient ultimately underwent triple vessel cardiac bypass surgery on 03/20. Patient seen and examined at bedside. He complains of chest discomfort at the incisional site. He still having decreased appetite. No nausea, no vomiting, no shortness of breath. Overall just feeling ill. We discussed his current insulin regimen. He states that he normally takes Levemir 45 units at night and NovoLog 20 units once daily in the evening. He reports no hypoglycemic events at home. Objective - Vital Signs Vital signs: Vital Signs Temp 98.3 F 03/21/18 12:00 Pulse 90 03/21/18 16:51 Resp 19 03/21/18 12:00 BP 110/63 03/21/18 11:30 Pulse Ox 96 03/21/18 12:00 Intake & Output 03/20/18 03/21/18 03/21/18 18:59 06:59 18:59 Intake Total 230.169 1674.842 324.208 Output Total 2370 914 115 Balance -1728.926 866.842 209.208 Weight 107.6 kg Intake: IV 153 569 319 ACETAMINOPHEN IV (For NPO 100 ) 1,000 mg In Empty Bag 1 bag @ 400 mls/hr IVPB Q6HR [facility] Rx#:[id number] CO/CI 120 Lactated Ringers 1,000 ml 350 180 @ 20 mls/hr IV .Q24H [facility] Rx#:[id number] pressure bag 99 39 Intake, IV Titration 610.931 2730.842 5.208 Amount ACETAMINOPHEN IV (For NPO 100 100 ) 1,000 mg In Empty Bag 1 bag @ 400 mls/hr IVPB Q6HR [facility] Rx#:[id number] Albumin Human 5% 500 ml 750 In Empty Bag 1 bag @ 250 mls/hr IVPB ONCE [facility] Rx#: [id number] Clevidipine Butyrate 25 13.233 7.583 mg In Empty Bag 1 bag @ 1 MG/HR 2 mls/hr IV .Q24H [facility] Rx#:[id number] Clevidipine Butyrate 25 60.767 mg In Empty Bag 1 bag @ 1 MG/HR 2 mls/hr IV .Q24H [facility] Rx#:[id number] Dexmedetomidine/0.9% NaCl 16.552 20.083 (Pmx) 400 mcg In Empty Bag 1 bag @ Titrate IV . Q0M [facility] Rx#:[id number] Insulin Regular 100 unit 5.858 34.627 5.208 In Sodium Chloride 0.9% 100 ml @ Per Protocol IV .Q0M [facility] Rx#:[id number] Lactated Ringers 1,000 ml 200 250 @ 20 mls/hr IV .Q24H [facility] Rx#:[id number] Nitroglycerin-D5w Pmx 50 1.5 mg In Dextrose/Water 1 250ml.bag @ 5 MCG/MIN 1.5 mls/hr IV .Q24H [facility] Rx#: [id number] Nitroglycerin-D5w Pmx 50 4.5 1.5 mg In Dextrose/Water 1 250ml.bag @ 5 MCG/MIN 1.5 mls/hr IV .Q24H [facility] Rx#: [id number] Norepinephrine 16 mg In 28.049 Sodium Chloride 0.9% 250 ml @ Titrate IV .Q0M [facility] Rx#:[id number] Propofol 1,000 mg In 18.7 Empty Bag 1 bag @ Titrate IV .Q0M [facility] Rx#: [id number] Propofol 1,000 mg In 66.964 Empty Bag 1 bag @ Titrate IV .Q0M [facility] Rx#: [id number] TPN/PPN 20 CO/CI 20 Output: Chest Tube Drainage 195 204 70 Chest Tube Bilateral 150 127 20 Mediastinal lt pleural 45 77 50 Urine 1175 710 45 Estimated Blood Loss 1000 Other: Voiding Method Indwelling Catheter Indwelling Catheter ABP, PAP, CO, CI - Last Documented Arterial Blood Pressure 106/47 Pulmonary Artery Pressure 35/10 Cardiac Output 5.8 Cardiac Index 2.6 - Exam General: Ill-appearing, mild distress, appears at stated age Derm: warm, dry Head: atraumatic, normocephalic, symmetric Eyes: EOMI, no lid lag, anicteric sclera Mouth: no lip lesion, mucus membranes moist Cardiovascular: S1S2 reg, no murmur, positive posterior tibial pulse bilateral, Lungs: Breath sounds bilateral bases, no rhonchi, no rales , no accessory muscle use, mediastinal and chest tubes in place Abdominal: soft, nontender to palpation, no guarding, no appreciable organomegaly Ext: no gross muscle atrophy, no edema, no contractures Neuro: CN II-XI grossly intact, no focal neuro deficits Psych: Alert, oriented, appropriate affect - Labs CBC & Chem 7: 03/21/18 04:05 03/21/18 04:05 Labs: Abnormal Lab Results - Last 24 Hours (Table) 03/19/18 03/20/18 03/20/18 Range/Units 14:07 19:15 20:05 RBC (4.30-5.90) m/uL Hgb (13.0-17.5) gm/dL Hct (39.0-53.0) % MCV (80.0-100.0) fL Plt Count (150-450) k/uL Lymphocytes # (1.0-4.8) k/uL INR (<1.2) ABG pO2 (83-108) mmHg ABG Total CO2 (19-24) mmol/L ABG O2 Saturation (94-97) % Sodium (137-145) mmol/L Glucose (74-99) mg/dL POC Glucose (mg/dL) 173 H 155 H (75-99) mg/dL Calcium (8.4-10.2) mg/dL AST (17-59) U/L Total Protein (6.3-8.2) g/dL Albumin (3.5-5.0) g/dL Crossmatch See Detail 03/20/18 03/20/18 03/20/18 Range/Units 20:45 21:03 21:56 RBC 2.44 L (4.30-5.90) m/uL Hgb 8.3 L D (13.0-17.5) gm/dL Hct 24.3 L (39.0-53.0) % MCV (80.0-100.0) fL Plt Count 88 L (150-450) k/uL Lymphocytes # 0.3 L (1.0-4.8) k/uL INR (<1.2) ABG pO2 (83-108) mmHg ABG Total CO2 (19-24) mmol/L ABG O2 Saturation (94-97) % Sodium (137-145) mmol/L Glucose (74-99) mg/dL POC Glucose (mg/dL) 142 H 143 H (75-99) mg/dL Calcium (8.4-10.2) mg/dL AST (17-59) U/L Total Protein (6.3-8.2) g/dL Albumin (3.5-5.0) g/dL Crossmatch 03/20/18 03/20/18 03/21/18 Range/Units 22:54 23:02 00:03 RBC (4.30-5.90) m/uL Hgb (13.0-17.5) gm/dL Hct (39.0-53.0) % MCV (80.0-100.0) fL Plt Count (150-450) k/uL Lymphocytes # (1.0-4.8) k/uL INR (<1.2) ABG pO2 136 H (83-108) mmHg ABG Total CO2 27 H (19-24) mmol/L ABG O2 Saturation 99.4 H (94-97) % Sodium (137-145) mmol/L Glucose (74-99) mg/dL POC Glucose (mg/dL) 130 H 141 H (75-99) mg/dL Calcium (8.4-10.2) mg/dL AST (17-59) U/L Total Protein (6.3-8.2) g/dL Albumin (3.5-5.0) g/dL Crossmatch 03/21/18 03/21/18 03/21/18 Range/Units 00:59 02:03 03:00 RBC (4.30-5.90) m/uL Hgb (13.0-17.5) gm/dL Hct (39.0-53.0) % MCV (80.0-100.0) fL Plt Count (150-450) k/uL Lymphocytes # (1.0-4.8) k/uL INR (<1.2) ABG pO2 (83-108) mmHg ABG Total CO2 (19-24) mmol/L ABG O2 Saturation (94-97) % Sodium (137-145) mmol/L Glucose (74-99) mg/dL POC Glucose (mg/dL) 141 H 138 H 128 H (75-99) mg/dL Calcium (8.4-10.2) mg/dL AST (17-59) U/L Total Protein (6.3-8.2) g/dL Albumin (3.5-5.0) g/dL Crossmatch 03/21/18 03/21/18 03/21/18 Range/Units 04:05 04:05 04:05 RBC 2.47 L (4.30-5.90) m/uL Hgb 8.4 L (13.0-17.5) gm/dL Hct 24.7 L (39.0-53.0) % MCV 100.1 H (80.0-100.0) fL Plt Count 88 L (150-450) k/uL Lymphocytes # 0.8 L (1.0-4.8) k/uL INR 1.2 H (<1.2) ABG pO2 (83-108) mmHg ABG Total CO2 (19-24) mmol/L ABG O2 Saturation (94-97) % Sodium 136 L (137-145) mmol/L Glucose 119 H (74-99) mg/dL POC Glucose (mg/dL) (75-99) mg/dL Calcium 8.0 L (8.4-10.2) mg/dL AST 65 H (17-59) U/L Total Protein 5.3 L (6.3-8.2) g/dL Albumin 3.0 L (3.5-5.0) g/dL Crossmatch 03/21/18 03/21/18 03/21/18 Range/Units 04:05 05:02 06:08 RBC (4.30-5.90) m/uL Hgb (13.0-17.5) gm/dL Hct (39.0-53.0) % MCV (80.0-100.0) fL Plt Count (150-450) k/uL Lymphocytes # (1.0-4.8) k/uL INR (<1.2) ABG pO2 (83-108) mmHg ABG Total CO2 (19-24) mmol/L ABG O2 Saturation (94-97) % Sodium (137-145) mmol/L Glucose (74-99) mg/dL POC Glucose (mg/dL) 126 H 129 H 152 H (75-99) mg/dL Calcium (8.4-10.2) mg/dL AST (17-59) U/L Total Protein (6.3-8.2) g/dL Albumin (3.5-5.0) g/dL Crossmatch 03/21/18 03/21/18 03/21/18 Range/Units 06:55 08:02 09:01 RBC (4.30-5.90) m/uL Hgb (13.0-17.5) gm/dL Hct (39.0-53.0) % MCV (80.0-100.0) fL Plt Count (150-450) k/uL Lymphocytes # (1.0-4.8) k/uL INR (<1.2) ABG pO2 (83-108) mmHg ABG Total CO2 (19-24) mmol/L ABG O2 Saturation (94-97) % Sodium (137-145) mmol/L Glucose (74-99) mg/dL POC Glucose (mg/dL) 143 H 133 H 120 H (75-99) mg/dL Calcium (8.4-10.2) mg/dL AST (17-59) U/L Total Protein (6.3-8.2) g/dL Albumin (3.5-5.0) g/dL Crossmatch 03/21/18 03/21/18 Range/Units 11:43 17:06 RBC (4.30-5.90) m/uL Hgb (13.0-17.5) gm/dL Hct (39.0-53.0) % MCV (80.0-100.0) fL Plt Count (150-450) k/uL Lymphocytes # (1.0-4.8) k/uL INR (<1.2) ABG pO2 (83-108) mmHg ABG Total CO2 (19-24) mmol/L ABG O2 Saturation (94-97) % Sodium (137-145) mmol/L Glucose (74-99) mg/dL POC Glucose (mg/dL) 166 H 213 H (75-99) mg/dL Calcium (8.4-10.2) mg/dL AST (17-59) U/L Total Protein (6.3-8.2) g/dL Albumin (3.5-5.0) g/dL Crossmatch Microbiology - Last 24 Hours (Table) 03/19/18 15:53 Urine Culture - Final Urine,Clean Catch 03/19/18 15:20 Nasal Screen MRSA/MSSA - Final Nasal Swab Staphylococcus aureus,Not MRSA Assessment and Plan Assessment: Non-STEMI, atherosclerotic coronary artery disease -Management per cardiovascular team -On aspirin, Plavix, statin, and beta nica -Pain control -PT/OT -Cardiology recommendations Diabetes mellitus type 2, insulin requiring -Continue to hold metformin -Transition off of insulin drip and onto sliding scale, add back half of his normal Levemir dose secondary to decreased appetite -Change Accu-Cheks to every before meals, at bedtime, and 2 AM -Hemoglobin A1c 8.1. -We will need adjustment to his home insulin regimen prior to discharge, would benefit from continual outpatient endocrinology evaluation Hypertension, controlled -Management as per cardiology and cardiovascular thoracic Dyslipidemia -Continue statin COPD -Without exacerbation -Continue with scheduled and when necessary bronchodilators Alcohol dependency -On CIVT protocol -Thiamine supplementation DVT prophylaxis: Heparin Discussed with: Patient, nursing, Gracy Patterson [employer] TECH[employer]OLOGIST A total of 45 minutes was spent on the care of this complex patient more than 50 % of the time was spent in counseling and care coordination.
[2018-03-21] MEDS: CLEVIDIPINE BUTYRATE 25 MG in EMPTY BAG 1 BAG IV SCH (19:29)
[2018-03-21 19:54] LABS: Glucose,Whole Blood 251 mg/dL (75-99)
[2018-03-21] MEDS: SENNOSIDES-DOCUSATE SODIUM 1 EACH TAB PO SCH (20:24)
[2018-03-21] MEDS ORDERED: INSULIN DETEMIR 100 UNIT/ML 10 ML VIAL SQ SCH ×2 (21:00)
[2018-03-21] MEDS: HYDROcodone/APAP 5-325MG 1 EACH TAB PO PRN (23:33)
[2018-03-22 04:57] LABS: Basophils % (A) 0 %; Eosinophils # (A) 0.2 k/uL (0-0.7); Eosinophils % (A) 3 %; HCT 23.5 % (39.0-53.0); HGB 8.1 gm/dL (13.0-17.5); Lymphocytes # (A) 0.8 k/uL (1.0-4.8); Lymphocytes % (A) 15 %; MCH 35.2 pg (25.0-35.0); MCHC 34.6 g/dL (31.0-37.0); MCV 101.7 fL (80.0-100.0); Mean Platelet Volume 8.8; Monocytes # (A) 0.3 k/uL (0-1.0); Monocytes % (A) 6 %; Neutrophils % (A) 73 %; RBC 2.31 m/uL (4.30-5.90); RDW 12.4 % (11.5-15.5); WBC 5.4 k/uL (3.8-10.6)
[2018-03-22 05:06] LABS: Platelet Count 94 k/uL (150-450)
[2018-03-22 05:09] LABS: Ionized Calcium 4.6 mg/dL (4.5-5.3)
[2018-03-22 05:18] LABS: Albumin 2.8 g/dL (3.5-5.0); Potassium 4.2 mmol/L (3.5-5.1); Total Bilirubin 0.4 mg/dL (0.2-1.3); Total Protein 5.2 g/dL (6.3-8.2)
--- NOTE | 2018-03-22 06:13 | XR ---
EXAMINATION TYPE: XR chest 1V portable DATE OF EXAM: 03/22/2018 CLINICAL HISTORY: Post open cardiac surgery progress study. TECHNIQUE: Single AP portable upright view of the chest is obtained. COMPARISON: Chest x-ray from one day earlier and older studies. FINDINGS: There is interval removal of right internal jugular [place] catheter. Cordis sheath alfredo ins in place. There is stable left apical chest tube. There is interval removal of mediastinal draina ge catheter. Post CABG changes with mediastinal clips and sternal wires remains present. Cardiac silhouette size i s stable and enlarged. Diffuse tracheal narrowing is redemonstrated. There is persistent left greater than right bibasilar atelectasis and/or infiltrate with suspected tiny bilateral pleural effusions. No sizable pneumothorax is noted. Osseous structures are intact. IMPRESSION: Interval removal of [place] catheter and mediastinal drainage catheter. Other findings stable as there is cardiomegaly with left greater than right bibasilar atelectasis and/or infiltrate and tiny bilateral pleural effusions all redemonstrated.
[2018-03-22] MEDS: KETOROLAC 30 MG/ML 1 ML VIAL IVP SCH (06:49)
[2018-03-22] MEDS: PANTOPRAZOLE 40 MG TABLET PO SCH (06:57)
--- NOTE | 2018-03-22 07:23 | P.PN ---
Subjective Progress Note Date: 03/22/18 Principal diagnosis: Coronary artery disease, status post three-vessel coronary artery bypass grafting, postop day 1 This is a 72-year-old white male patient of Dr. Shafer, who was transferred from [facility], where he went for evaluation of severe intermittent chest pain that has been sent for last several weeks. The chest pain became progressively worse, was associated with right shoulder pain. Lab work showed elevated troponins, he was diagnosed with non-ST elevated HI, EKG showed normal sinus rhythm with left axis deviation, and evidence of septal infarct of undetermined age. Past medical history is significant for diabetes mellitus type 2, hypertension, hyperlipidemia, previous nicotine dependence, in remission , daily EtOH use. Patient denies any chronic history of lung disease, but he carries a [id number] smoking history, of 3 packs a day for 20 years. He quit smoking 40 years ago. Not on oxygen at his baseline. Patient was transported to [facility] and he underwent cardiac catheterization by Dr. Nayak which revealed multivessel coronary artery disease, with RCA stenosis of 70%, circumflex stenosis of 90%, proximal LAD with 99% stenosis, mid LAD of 90% and decreased LV function with an ejection fraction of 35%. CT surgery has been consulted and urgent surgical revascularization was recommended. We're consulted in regards to pulmonary/critical care management. Progress note dated 03/20/2018 This is a 72-year-old male seen yesterday in consultation. He has a history of non-ST segment elevation myocardial infarction, multivessel coronary artery disease, ischemic cardiomyopathy, diabetes mellitus, hypertension, hyperlipidemia, and a [id number] history of tobacco use. He also apparently has a history of daily alcohol use. The patient went to the operating room this morning for a LYNN to LAD, SVG to the ramus, and an SVG to RCA. Patient on mechanical ventilator with vent settings SIMV 12, TV 500, FiO2 100%, and PEEP of 10. Will follow rapid wean protocol when patient alert and following commands. Patient has 2 mediastinal chest tubes and one left pleural chest tube intact and draining minimal sanguineous drainage. Patient currently on lactated Ringer at 50 mL an hour, nitroglycerin drip at 5 mcgs per minute, norepinephrine 2 mcgs per minute, and propofol 15 mics per kilogram per minute. Patient's current cardiac index is 2.1 and cardiac output 4.0. Patient appears hemodynamically stable at this time. Awaiting chest x-rays and ABG for review. On 03/21/2018 patient seen in follow-up in the intensive care unit, this is postop day day 1, status post three-vessel coronary artery bypass grafting, and patient had LYNN to LAD, SVG to the RCA and SVG to the ramus. He was extubated at 2317 last night, 8 hours and 17 minutes after OR exit time. When initial weaning was attempted patient was agitated, and he had to be placed on Precedex for short at a time, and subsequently was successfully extubated. This morning he sitting up in the recliner, he is in no acute distress, he is awake and alert , oriented 3, currently on 2 L per nasal cannula, warranting on his incentive spirometry, maintenance IV fluids is LR at 50 ML per hour, insulin is at 2.5 units per hour. No other drips. Cardiac output and cardiac index of 5.8 and 2.6. Lung sounds are positive for some scattered crackles, wheezes. Today's chest x-ray has been reviewed, shows left lower lobe atelectasis. His labs have been reviewed, diabetes he is 5.5, hemoglobin is 8.4, INR is 1.2, sodium was 136, the rest of electrolytes and renal profile are within normal limits. Patient has 2 mediastinal and left pleural chest tubes with small amount of serosanguineous output, to continuous wall suction. He is nonoliguric. Got a set of AV epicardial wires that are currently not connected to the pacemaker, patient has not required pacemaker support. He is in sinus mechanism. With a rate of 90 BPM. On 2017 patient seen in follow-up in the intensive care unit, he sitting up in the recliner, early on room air, he is awake and alert, oriented 3, denies any acute distress, he states his pain is under control, he is in sinus mechanism, at a rate of 98 DPM. His maintenance IV fluids as lactated Ringer's at a rate of 30 ML per hour, no other drips. This is postop day 3 three-vessel coronary artery bypass grafting, patient is doing well, his incentive spirometer effort is 1500 ML. His PA catheter and 2 mediastinal chest tubes were discontinued yesterday. His chest x-ray has been reviewed by Dr. Mendez, showed cardiomegaly and basilar atelectasis. No other acute pulmonary process. Today's blood work was reviewed, WBC is 5.4, hemoglobin is 8.1, sodium is 136, pressor electrolytes are within normal limits, BUN is 18 and creatinine is 1.48. Objective - Vital Signs Vital signs: Vital Signs Temp 98.7 F 03/22/18 04:00 Pulse 98 03/22/18 06:00 Resp 13 03/22/18 06:00 BP 117/69 03/22/18 06:30 Pulse Ox 93 L 03/22/18 06:00 Intake & Output 03/21/18 03/22/18 03/22/18 18:59 06:59 18:59 Intake Total 786.208 286 Output Total 480 310 Balance 306.208 -24 Weight 107.6 kg 111.6 kg Intake: IV 541 286 ACETAMINOPHEN IV (For NPO 200 ) 1,000 mg In Empty Bag 1 bag @ 400 mls/hr IVPB Q6HR [facility] Rx#:[id number] Lactated Ringers 1,000 ml 260 220 @ 20 mls/hr IV .Q24H [facility] Rx#:[id number] pressure bag 81 66 Intake, IV Titration 5.208 Amount Insulin Regular 100 unit 5.208 In Sodium Chloride 0.9% 100 ml @ Per Protocol IV .Q0M [facility] Rx#:[id number] Oral 240 Output: Chest Tube Drainage 140 20 Chest Tube Bilateral 20 Mediastinal lt pleural 120 20 Urine 340 290 Other: Voiding Method Indwelling Catheter Indwelling Catheter # Voids 1 1 ABP, PAP, CO, CI - Last Documented Arterial Blood Pressure 147/35 Pulmonary Artery Pressure 35/10 Cardiac Output 5.8 Cardiac Index 2.6 - Exam GENERAL EXAM: Alert, pleasant 72-year-old white male, comfortable in no apparent distress. Sitting up in the recliner, he has a heart harness on HEAD: Normocephalic/atraumatic. EYES: Normal reaction of pupils, equal size. Conjunctiva pink, sclera white. NOSE: Clear with pink turbinates. THROAT: No erythema or exudates. NECK: No masses, no JVD, no thyroid enlargement, no adenopathy. CHEST: No chest wall deformity. Symmetrical expansion. Midsternal incision is clean dry and intact, approximated, sternum is stable, interval removal of 2 mediastinal chest tubes and left pleural chest tube remains in place, with small amount of serosanguineous drainage in the Pleur-evac, no air leak noted. Epicardial wires are not connected to the external pacemaker, patient's intrinsic rhythm is sinus rhythm with a rate of 80-90 BPM. LUNGS: Diminished breath sounds bilaterally, crackles, no wheezes or rhonchi noted CVS: Regular rate and rhythm, normal S1 and S2, no gallops, no murmurs, no rubs ABDOMEN: Soft, nontender. No hepatosplenomegaly, normal bowel sounds, no guarding or rigidity. EXTREMITIES: No clubbing, no cyanosis, 2+ pulses and upper and lower extremities. Mild nonpitting edema noted in upper and lower extremities. Bilateral lower extremities are a prescription, and SCDs on, DESTINY drain is in place in left lower extremity, patent, and draining small amount of serosanguineous drainage MUSCULOSKELETAL: Muscle strength and tone normal. Right radial puncture is clean dry and intact, soft. SPINE: No scoliosis or deformity SKIN: No rashes CENTRAL NERVOUS SYSTEM: Alert and oriented -3. No focal deficits, tone is normal in all 4 extremities. PSYCHIATRIC: Alert and oriented -3. Appropriate affect. Intact judgment and insight. - Labs CBC & Chem 7: 03/22/18 04:50 03/22/18 04:50 Labs: Abnormal Lab Results - Last 24 Hours (Table) 03/21/18 03/21/18 03/21/18 Range/Units 08:02 09:01 11:43 RBC (4.30-5.90) m/uL Hgb (13.0-17.5) gm/dL Hct (39.0-53.0) % MCV (80.0-100.0) fL MCH (25.0-35.0) pg Plt Count (150-450) k/uL Lymphocytes # (1.0-4.8) k/uL Sodium (137-145) mmol/L Creatinine (0.66-1.25) mg/dL Glucose (74-99) mg/dL POC Glucose (mg/dL) 133 H 120 H 166 H (75-99) mg/dL Calcium (8.4-10.2) mg/dL Total Protein (6.3-8.2) g/dL Albumin (3.5-5.0) g/dL 03/21/18 03/21/18 03/22/18 Range/Units 17:06 19:33 04:50 RBC (4.30-5.90) m/uL Hgb (13.0-17.5) gm/dL Hct (39.0-53.0) % MCV (80.0-100.0) fL MCH (25.0-35.0) pg Plt Count (150-450) k/uL Lymphocytes # (1.0-4.8) k/uL Sodium 136 L (137-145) mmol/L Creatinine 1.48 H (0.66-1.25) mg/dL Glucose 183 H (74-99) mg/dL POC Glucose (mg/dL) 213 H 251 H (75-99) mg/dL Calcium 8.0 L (8.4-10.2) mg/dL Total Protein 5.2 L (6.3-8.2) g/dL Albumin 2.8 L (3.5-5.0) g/dL 03/22/18 Range/Units 04:50 RBC 2.31 L (4.30-5.90) m/uL Hgb 8.1 L (13.0-17.5) gm/dL Hct 23.5 L (39.0-53.0) % MCV 101.7 H (80.0-100.0) fL MCH 35.2 H (25.0-35.0) pg Plt Count 94 L (150-450) k/uL Lymphocytes # 0.8 L (1.0-4.8) k/uL Sodium (137-145) mmol/L Creatinine (0.66-1.25) mg/dL Glucose (74-99) mg/dL POC Glucose (mg/dL) (75-99) mg/dL Calcium (8.4-10.2) mg/dL Total Protein (6.3-8.2) g/dL Albumin (3.5-5.0) g/dL Microbiology - Last 24 Hours (Table) 03/19/18 15:53 Urine Culture - Final Urine,Clean Catch Assessment and Plan Plan: Assessment: #1. Non-ST elevated HI #2. Multivessel coronary artery disease, patient underwent cardiac catheterization which showed RCA stenosis of 70%, circumflex was 90%, proximal LAD of 99%, mid LAD of 90%, status post three-vessel coronary artery bypass grafting, with LYNN to LAD, SVG to the RCA, and SVG to the ramus, postop day 3 #3. Postoperative acute blood loss anemia, an expected outcome of cardiothoracic surgery #4. Acute klidney injury #5. Ischemic cardiomyopathy, ejection fraction of 35% #6. Diabetes mellitus type 2 #7. Hypertension, hyperlipidemia #8. Previous history of nicotine dependence, patient carries [id number] smoking history, quit smoking 40 years ago, but prior to that smoked for 20 years 3 packs a day #9. Daily EtOH use Plan: It is chest x-ray has been reviewed by Dr. Nixon, shows some bibasilar atelectasis, cardiomegaly, no other acute pulmonary process, continue encouraging the deep breathing and coughing, incentive spirometry, ambulation. Patient is doing well, hemodynamically stable. Maintain pain control. There has been slight worsening of patient's renal profile. continue to follow I performed a history & physical examination of the patient and discussed their management with my nurse practitioner, Rosa Rm. I reviewed the nurse practitioner's note and agree with the documented findings and plan of care. Lung sounds are diminished. The findings and the impression was discussed with the patient. I attest to the documentation by the nurse practitioner. Time with Patient: Greater than 30
[2018-03-22 07:43] LABS: Glucose,Whole Blood 206 mg/dL (75-99)
[2018-03-22] MEDS: INSULIN ASPART 100 UNIT/ML 1 ML 10 ML VIAL SQ SCH ×4 (07:44→20:26)
--- NOTE | 2018-03-22 08:14 | PN ---
PROGRESS NOTE Mr. Leigh is a 72-year-old male who has underwent coronary bypass grafting after presenting with non ST-segment elevation myocardial infarction. He is doing well this morning. Hemodynamically stable. His blood pressure is stable. He is in sinus mechanism. He has some soreness in the chest and a sore throat, but no anginal pain. His urine output has been stable. There is no evidence of tachycardia or bradycardia. He continues to be on aspirin once a day, Lipitor 80 mg daily, metoprolol tartrate 12.5 mg twice a day. PHYSICAL EXAMINATION: Blood pressure 129/70 with a heart rate in the 90s. LUNGS: Clear with a few crackles at the bases. HEART: Regular rate and rhythm. 0S1, S2. No S3. No rub appreciated. ABDOMEN: Soft nontender. EXTREMITIES: No edema. LAB: BUN creatinine of 18 1.48, hemoglobin of 8.1. IMPRESSION: 1. Status post bypass grafting, stable. 2. Ischemic cardiomyopathy. 3. Hyperlipidemia. 4. Hypertension. 5. History of diabetes mellitus. RECOMMENDATION: Will follow his renal function. Depending on that, ASIA inhibitor will be adjusted in his regimen because of the cardiomyopathy. Depending on his heart rate and blood pressure, the dose of the dose of his beta nica will be further adjusted. MMODL / IJN: [id number] /
[2018-03-22] MEDS: ATORVASTATIN 80 MG TAB PO SCH (08:45)
[2018-03-22] MEDS: CLOPIDOGREL 75 MG TAB PO SCH (08:45)
[2018-03-22] MEDS: ASPIRIN 325 MG TAB PO SCH (08:46)
[2018-03-22] MEDS: METOPROLOL TARTRATE 25 MG TAB PO SCH ×2 (08:46→20:26)
[2018-03-22] MEDS: HEPARIN SODIUM,PORCINE 5,000 UNIT/ML 1 ML VIAL SQ SCH ×2 (08:46→19:27)
[2018-03-22] MEDS: MUPIROCIN 2% OINT 22 GM TUBE NASAL SCH ×2 (08:46→20:29)
[2018-03-22] MEDS: IPRATROPIUM-ALBUTEROL 3 ML NEB INHALATION SCH ×4 (09:30→19:53)
[2018-03-22] MEDS ORDERED: ATROPINE SULFATE 0.1 MG/ML 10ML SYRINGE ONE (09:37)
[2018-03-22] MEDS ORDERED: FUROSEMIDE 10 MG/ML 2 ML VIAL IV ONE (09:44)
[2018-03-22 10:11] LABS: Glucose,Whole Blood 293 mg/dL (75-99)
[2018-03-22] MEDS ORDERED: INSULIN ASPART 100 UNIT/ML 1 ML 10 ML VIAL SQ ONE (10:30)
[2018-03-22] MEDS ORDERED: INSULIN DETEMIR 100 UNIT/ML 10 ML VIAL SQ ONE (10:45)
[2018-03-22 11:26] VITALS: BMI 35.3
[2018-03-22] MEDS: MULTIVITAMINS, THERA 1 EACH TAB PO SCH (11:56)
[2018-03-22] MEDS: THIAMINE 100 MG TAB PO SCH ×2 (11:56→19:27)
[2018-03-22 11:58] LABS: Glucose,Whole Blood 224 mg/dL (75-99)
--- NOTE | 2018-03-22 12:26 | P.PN ---
Subjective Progress Note Date: 03/22/18 Principal diagnosis: Coronary artery disease, current non-STEMI. Previous medical history of uncontrolled insulin-dependent diabetes mellitus with preoperative hemoglobin A1c 8.1%, hypertension, hypertriglyceridemia, obesity, kidney stones, previous tobacco dependence, mild COPD with preoperative FEV1 72% of predicted, near daily EtOH use, and vasectomy. POD #2 urgent coronary bypass grafting 3 vessels, left internal mammary artery to the left anterior descending artery, reverse saphenous vein graft to the ramus artery, reverse saphenous vein graft to the distal right coronary artery. Endoscopic vein harvest bilateral greater saphenous veins. Epi-aortic ultrasound. Intraoperative transesophageal echocardiogram. Postoperative acute blood loss anemia, an expected postprocedure condition. The patient is currently sitting up in a recliner in no acute distress. He remains in normal sinus rhythm, he is hemodynamically stable on no inotropes or pressors. He states his pain is much better controlled, denies shortness of breath. No new complaints. Objective - Vital Signs Vital signs: Vital Signs Temp 97.7 F 03/22/18 08:00 Pulse 84 03/22/18 10:48 Resp 24 03/22/18 10:30 BP 104/62 03/22/18 10:30 Pulse Ox 97 03/22/18 10:30 Intake & Output 03/21/18 03/22/18 03/22/18 18:59 06:59 18:59 Intake Total 786.208 286 318 Output Total 480 460 165 Balance 306.208 -174 153 Weight 107.6 kg 111.6 kg 111.6 kg Intake: IV 541 286 78 ACETAMINOPHEN IV (For NPO 200 ) 1,000 mg In Empty Bag 1 bag @ 400 mls/hr IVPB Q6HR [facility] Rx#:[id number] Lactated Ringers 1,000 ml 260 220 60 @ 20 mls/hr IV .Q24H [facility] Rx#:[id number] pressure bag 81 66 18 Intake, IV Titration 5.208 Amount Insulin Regular 100 unit 5.208 In Sodium Chloride 0.9% 100 ml @ Per Protocol IV .Q0M [facility] Rx#:[id number] Oral 240 240 Output: Chest Tube Drainage 140 170 70 Chest Tube Bilateral 20 Mediastinal lt pleural 120 170 70 Urine 340 290 95 Other: Voiding Method Indwelling Catheter Indwelling Catheter # Voids 1 1 ABP, PAP, CO, CI - Last Documented Arterial Blood Pressure 118/48 Pulmonary Artery Pressure 35/10 Cardiac Output 5.8 Cardiac Index 2.6 - Constitutional General appearance: Present: cooperative, no acute distress, obese - Respiratory Details: Lungs sounds diminished bilaterally. Respirations even, nonlabored. Currently on room air with oxygen saturation 92%. Able to achieve 1500 mL on his incentive spirometry. Weak cough. Left pleural chest tube to continuous wall suction, 140 mL serosanguineous drainage overnight, 290 mL in the last 24 hours. No air leaks present. - Cardiovascular Details: S1, S2 present. Regular rate and rhythm, sinus rhythm on telemetry. Sternum stable. A/V epicardial pacemaker wires present, grounded. Palpable peripheral pulses bilaterally. No edema present. No calf pain or tenderness noted. Right internal jugular Cordis, right radial arterial line present. Heart hugger in place with patient using appropriately, antiembolism stockings, SCDs present. - Gastrointestinal Gastrointestinal Comment(s): Abdomen soft, nontender, nondistended. Hypoactive bowel sounds present 4 quadrants. Tolerating diet. Negative flatus. - Genitourinary Genitourinary Comment(s): Valdovinos discontinued this morning. Patient due to void. - Integumentary Integumentary Comment(s): Skin is warm and dry with evidence of good perfusion. Anterior chest incision well approximated and covered with dry intact dressing. Bilateral lower extremity EVH sites well approximated. - Neurologic Neurologic: Present: CNII-XII intact - Musculoskeletal Musculoskeletal: Present: gait normal, strength equal bilaterally - Psychiatric Psychiatric: Present: A&O x's 3, appropriate affect, intact judgment & insight - Allied health notes Allied health notes reviewed: nursing - Labs CBC & Chem 7: 03/22/18 04:50 03/22/18 04:50 Labs: Abnormal Lab Results - Last 24 Hours (Table) 03/21/18 03/21/18 03/21/18 Range/Units 11:43 17:06 19:33 RBC (4.30-5.90) m/uL Hgb (13.0-17.5) gm/dL Hct (39.0-53.0) % MCV (80.0-100.0) fL MCH (25.0-35.0) pg Plt Count (150-450) k/uL Lymphocytes # (1.0-4.8) k/uL Sodium (137-145) mmol/L Creatinine (0.66-1.25) mg/dL Glucose (74-99) mg/dL POC Glucose (mg/dL) 166 H 213 H 251 H (75-99) mg/dL Calcium (8.4-10.2) mg/dL Total Protein (6.3-8.2) g/dL Albumin (3.5-5.0) g/dL 03/22/18 03/22/18 03/22/18 Range/Units 04:50 04:50 07:29 RBC 2.31 L (4.30-5.90) m/uL Hgb 8.1 L (13.0-17.5) gm/dL Hct 23.5 L (39.0-53.0) % MCV 101.7 H (80.0-100.0) fL MCH 35.2 H (25.0-35.0) pg Plt Count 94 L (150-450) k/uL Lymphocytes # 0.8 L (1.0-4.8) k/uL Sodium 136 L (137-145) mmol/L Creatinine 1.48 H (0.66-1.25) mg/dL Glucose 183 H (74-99) mg/dL POC Glucose (mg/dL) 206 H (75-99) mg/dL Calcium 8.0 L (8.4-10.2) mg/dL Total Protein 5.2 L (6.3-8.2) g/dL Albumin 2.8 L (3.5-5.0) g/dL 03/22/18 Range/Units 09:56 RBC (4.30-5.90) m/uL Hgb (13.0-17.5) gm/dL Hct (39.0-53.0) % MCV (80.0-100.0) fL MCH (25.0-35.0) pg Plt Count (150-450) k/uL Lymphocytes # (1.0-4.8) k/uL Sodium (137-145) mmol/L Creatinine (0.66-1.25) mg/dL Glucose (74-99) mg/dL POC Glucose (mg/dL) 293 H (75-99) mg/dL Calcium (8.4-10.2) mg/dL Total Protein (6.3-8.2) g/dL Albumin (3.5-5.0) g/dL - Imaging and Cardiology Chest x-ray: report reviewed, image reviewed Assessment and Plan (1) NSTEMI (non-ST elevated myocardial infarction) Current Visit: Yes Status: Acute Code(s): I21.4 - NON-ST ELEVATION (NSTEMI) MYOCARDIAL INFARCTION SNOMED Code(s): 172518701 (2) Coronary artery disease Current Visit: Yes Status: Chronic Code(s): I25.10 - ATHSCL HEART DISEASE OF [place] CORONARY ARTERY W/O ANG PCTRS SNOMED Code(s): 66320361 (3) Hypertension Current Visit: Yes Status: Chronic Code(s): I10 - ESSENTIAL (PRIMARY) HYPERTENSION SNOMED Code(s): 53175729 (4) Hyperlipidemia Current Visit: Yes Status: Chronic Code(s): E78.5 - HYPERLIPIDEMIA, UNSPECIFIED SNOMED Code(s): 66167182 (5) COPD (chronic obstructive pulmonary disease) Current Visit: Yes Status: Chronic Code(s): J44.9 - CHRONIC OBSTRUCTIVE PULMONARY DISEASE, UNSPECIFIED SNOMED Code(s): 18143982 (6) Tobacco dependence in remission Current Visit: No Status: Resolved Code(s): F17.201 - NICOTINE DEPENDENCE, UNSPECIFIED, IN REMISSION SNOMED Code(s): 316355082 (7) EtOH dependence Current Visit: Yes Status: Chronic Code(s): F10.20 - ALCOHOL DEPENDENCE, UNCOMPLICATED SNOMED Code(s): 50656361 (8) Diabetes mellitus Current Visit: Yes Status: Chronic Code(s): E11.9 - TYPE 2 DIABETES MELLITUS WITHOUT COMPLICATIONS SNOMED Code(s): 76758200 (9) Obesity (BMI 30-39.9) Current Visit: Yes Status: Chronic Code(s): E66.9 - OBESITY, UNSPECIFIED SNOMED Code(s): 440034818 Plan: 1. Continue aspirin, statin, Plavix, beta nica. Will increase beta nica therapy as tolerated. Will add ASIA inhibitor when able. 2. Encourage incentive spirometry 10 times every hour while awake. 3. Increase activity, ambulate as tolerated. PT/OT/cardiac rehab following. 4. Will discontinue left pleural chest tube. 5. Discontinue Cordis, arterial line. 6. Will monitor daily labs and x-rays. 7. Bronchodilators per pulmonology. 8. Insulin management per primary care service. 9. Pain management with current medication regimen. 10. Continue CIWA protocol and monitor for alcohol withdrawal. 11. Will place transfer orders for 3 S. cardiac stepdown unit. 12. More recommendations to follow. Time with Patient: Greater than 30
--- NOTE | 2018-03-22 14:48 | P.PN ---
Subjective Progress Note Date: 03/22/18 Principal diagnosis: chest pain Patient is a 72-year-old male past medical history of hypertension, diabetes, dyslipidemia, alcohol use, and significant prior smoking history who presented initially to the [facility] with intermittent chest pain. He was admitted to our facility for further evaluation. He underwent a cardiac catheterization by Dr. Nayak showed a 70% stenosis of RCA, 90% stenosis of the circumflex, and 99% stenosis of the proximal LAD associated with 90% stenosis of the mid LAD and an EF of 35%. The patient ultimately underwent triple vessel cardiac bypass surgery on 03/20. He was able to be aspirated after the procedure and has done well. Patient seen and examined at bedside. His pain is better controlled than yesterday. No nausea or vomiting. Overall is feeling better. No shortness of breath but feels like he can't take a deep breath still. We discussed his diet and his diabetic medications. He is still not fully hungry but sugars have been increasing. I again explained to him that his A1c needs to be lowered his regimen will need to be modified on discharge. I also let him know his creatinine was slightly elevated today and we'll need to modify his pain regimen a slightly. Objective - Vital Signs Vital signs: Vital Signs Temp 98.3 F 03/22/18 12:00 Pulse 93 03/22/18 14:00 Resp 24 03/22/18 14:00 BP 118/59 03/22/18 14:00 Pulse Ox 92 L 03/22/18 14:00 Intake & Output 03/21/18 03/22/18 03/22/18 18:59 06:59 18:59 Intake Total 786.208 286 558 Output Total 480 460 165 Balance 306.208 -174 393 Weight 107.6 kg 111.6 kg 111.6 kg Intake: IV 541 286 78 ACETAMINOPHEN IV (For NPO 200 ) 1,000 mg In Empty Bag 1 bag @ 400 mls/hr IVPB Q6HR [facility] Rx#:[id number] Lactated Ringers 1,000 ml 260 220 60 @ 20 mls/hr IV .Q24H [facility] Rx#:[id number] pressure bag 81 66 18 Intake, IV Titration 5.208 0 Amount Insulin Regular 100 unit 5.208 In Sodium Chloride 0.9% 100 ml @ Per Protocol IV .Q0M [facility] Rx#:[id number] Lactated Ringers 1,000 ml 0 @ 20 mls/hr IV .Q24H [facility] Rx#:[id number] Oral 240 480 Output: Chest Tube Drainage 140 170 70 Chest Tube Bilateral 20 Mediastinal lt pleural 120 170 70 Urine 340 290 95 Other: Voiding Method Indwelling Catheter Indwelling Catheter Indwelling Catheter # Voids 1 1 1 ABP, PAP, CO, CI - Last Documented Arterial Blood Pressure 118/48 Pulmonary Artery Pressure 35/10 Cardiac Output 5.8 Cardiac Index 2.6 - Exam General: Ill-appearing, no distress, appears at stated age Derm: warm, dry Head: atraumatic, normocephalic, symmetric Eyes: EOMI, no lid lag, anicteric sclera Mouth: no lip lesion, mucus membranes moist Cardiovascular: S1S2 reg, no murmur, positive posterior tibial pulse bilateral, Lungs: Breath sounds decreased bilateral bases, no rhonchi, no rales , no accessory muscle use, left chest tube in place Abdominal: soft, nontender to palpation, no guarding, no appreciable organomegaly Ext: no gross muscle atrophy, trace edema, no contractures Neuro: CN II-XI grossly intact, no focal neuro deficits Psych: Alert, oriented, appropriate affect - Labs CBC & Chem 7: 03/22/18 04:50 03/22/18 04:50 Labs: Abnormal Lab Results - Last 24 Hours (Table) 03/21/18 03/21/18 03/22/18 Range/Units 17:06 19:33 04:50 RBC (4.30-5.90) m/uL Hgb (13.0-17.5) gm/dL Hct (39.0-53.0) % MCV (80.0-100.0) fL MCH (25.0-35.0) pg Plt Count (150-450) k/uL Lymphocytes # (1.0-4.8) k/uL Sodium 136 L (137-145) mmol/L Creatinine 1.48 H (0.66-1.25) mg/dL Glucose 183 H (74-99) mg/dL POC Glucose (mg/dL) 213 H 251 H (75-99) mg/dL Calcium 8.0 L (8.4-10.2) mg/dL Total Protein 5.2 L (6.3-8.2) g/dL Albumin 2.8 L (3.5-5.0) g/dL 03/22/18 03/22/18 03/22/18 Range/Units 04:50 07:29 09:56 RBC 2.31 L (4.30-5.90) m/uL Hgb 8.1 L (13.0-17.5) gm/dL Hct 23.5 L (39.0-53.0) % MCV 101.7 H (80.0-100.0) fL MCH 35.2 H (25.0-35.0) pg Plt Count 94 L (150-450) k/uL Lymphocytes # 0.8 L (1.0-4.8) k/uL Sodium (137-145) mmol/L Creatinine (0.66-1.25) mg/dL Glucose (74-99) mg/dL POC Glucose (mg/dL) 206 H 293 H (75-99) mg/dL Calcium (8.4-10.2) mg/dL Total Protein (6.3-8.2) g/dL Albumin (3.5-5.0) g/dL 03/22/18 Range/Units 11:55 RBC (4.30-5.90) m/uL Hgb (13.0-17.5) gm/dL Hct (39.0-53.0) % MCV (80.0-100.0) fL MCH (25.0-35.0) pg Plt Count (150-450) k/uL Lymphocytes # (1.0-4.8) k/uL Sodium (137-145) mmol/L Creatinine (0.66-1.25) mg/dL Glucose (74-99) mg/dL POC Glucose (mg/dL) 224 H (75-99) mg/dL Calcium (8.4-10.2) mg/dL Total Protein (6.3-8.2) g/dL Albumin (3.5-5.0) g/dL Assessment and Plan Assessment: Non-STEMI, atherosclerotic coronary artery disease -Management per cardiovascular team -On aspirin, Plavix, statin, and beta nica -Pain control -PT/OT -Cardiology recommendations Elevated Creatinine - stop toradol - repeat BMP in AM - Hold off on starting lisinopril today - avoid additional nephrotoxic agents Anticipated acute blood loss anemia and thrombocytopenia - stable no indication for transfusion - Follow CBC in AM - Consider Iron testing as outpatient Diabetes mellitus type 2, insulin requiring -Continue to hold metformin -Transition off of insulin drip and onto sliding scale, add back half of his normal Levemir dose secondary to decreased appetite -Change Accu-Cheks to every before meals, at bedtime, and 2 AM -Hemoglobin A1c 8.1. -We will need adjustment to his home insulin regimen prior to discharge, would benefit from continual outpatient endocrinology evaluation Hypertension, controlled -Management as per cardiology and cardiovascular thoracic Dyslipidemia -Continue statin COPD -Without exacerbation -Continue with scheduled and when necessary bronchodilators Alcohol dependency -On [facility] protocol -Thiamine supplementation DVT prophylaxis: Heparin Discussed with: Patient, nursing, Gracy Patterson NP A total of 25 minutes was spent on the care of this complex patient more than 50 % of the time was spent in counseling and care coordination.
[2018-03-22 17:07] LABS: Glucose,Whole Blood 210 mg/dL (75-99)
[2018-03-22] MEDS: HYDROcodone/APAP 5-325MG 1 EACH TAB PO PRN (20:25)
[2018-03-22] MEDS: BENZOCAINE/MENTHOL LOZENG 1 EACH LOZENGE MUCOUS MEM PRN (20:25)
[2018-03-22] MEDS: SENNOSIDES-DOCUSATE SODIUM 1 EACH TAB PO SCH (20:26)
[2018-03-22 20:38] LABS: Glucose,Whole Blood 255 mg/dL (75-99)
[2018-03-22] MEDS ORDERED: INSULIN DETEMIR 100 UNIT/ML 10 ML VIAL SQ SCH (21:00)
[2018-03-23] MEDS: HEPARIN SODIUM,PORCINE 5,000 UNIT/ML 1 ML VIAL SQ SCH ×3 (00:36→16:10)
[2018-03-23 03:05] LABS: Glucose,Whole Blood 129 mg/dL (75-99)
[2018-03-23] MEDS: BENZOCAINE/MENTHOL LOZENG 1 EACH LOZENGE MUCOUS MEM PRN (05:07)
[2018-03-23 06:08] LABS: Basophils % (A) 0 %; Eosinophils # (A) 0.3 k/uL (0-0.7); Eosinophils % (A) 5 %; HCT 25.9 % (39.0-53.0); HGB 8.5 gm/dL (13.0-17.5); Lymphocytes # (A) 1.3 k/uL (1.0-4.8); Lymphocytes % (A) 21 %; MCH 33.6 pg (25.0-35.0); MCHC 32.8 g/dL (31.0-37.0); MCV 102.5 fL (80.0-100.0); Macrocytosis Slight; Mean Platelet Volume 8.2; Monocytes # (A) 0.4 k/uL (0-1.0); Monocytes % (A) 6 %; Neutrophils # (A) 4.1 k/uL (1.3-7.7); Neutrophils % (A) 65 %; RBC 2.53 m/uL (4.30-5.90); RDW 12.4 % (11.5-15.5); WBC 6.3 k/uL (3.8-10.6)
[2018-03-23 06:12] LABS: Platelet Count 147 k/uL (150-450)
[2018-03-23 06:39] LABS: Glucose,Whole Blood 151 mg/dL (75-99)
[2018-03-23 06:39] LABS: Albumin 2.9 g/dL (3.5-5.0); Calcium 8.3 mg/dL (8.4-10.2); Potassium 3.9 mmol/L (3.5-5.1); Total Bilirubin 0.5 mg/dL (0.2-1.3); Total Protein 5.6 g/dL (6.3-8.2)
[2018-03-23] MEDS: PANTOPRAZOLE 40 MG TABLET PO SCH (06:39)
[2018-03-23] MEDS: INSULIN ASPART 100 UNIT/ML 1 ML 10 ML VIAL SQ SCH ×6 (06:39→21:19)
--- NOTE | 2018-03-23 07:21 | XR ---
EXAMINATION TYPE: XR chest 2V DATE OF EXAM: 03/23/2018 COMPARISON: 03/22/2018 INDICATION: Post cardiac surgery TECHNIQUE: Frontal and lateral views of the chest are obtained. FINDINGS: The heart size is mildly prominent. The pulmonary vasculature is normal. Bibasilar streak atelectasis is present. Minimal right pleural effusion is likely present. Right-side d sheath has been removed. Sternotomy wires are in the midline. IMPRESSION: 1. Developing small right pleural effusion. 2. Developing bibasilar streak atelectasis.
[2018-03-23] MEDS ORDERED: POTASSIUM CHLORIDE ER 20 MEQ TAB.ER PO ONE (08:00)
--- NOTE | 2018-03-23 08:17 | PN ---
PROGRESS NOTE Mr. Leigh is a 72-year-old male who presented with xih-[id number] elevation myocardial infarction underwent cardiac catheterization and subsequently coronary artery bypass grafting. He is awake and alert, sitting up in the chair, feeling well. He has continued to be in sinus mechanism. He had no symptoms of chest discomfort. No dizziness. No palpitation. He continued be on Plavix 75 mg daily, aspirin once a day, metoprolol tartrate 25 mg twice a day. PHYSICAL EXAMINATION: Blood pressure 144/60 with the heart rate in the 80s. LUNGS: With few crackles, no wheezes. HEART: Regular rate and rhythm. S1, S2. No S3. No rub. ABDOMEN: Soft, nontender. EXTREMITIES: No significant edema. LAB DATA: Lab data revealed BUN and creatinine 19 and 1.34. Hemoglobin of 8.5. IMPRESSION: 1. Status post coronary artery bypass grafting, stable. 2. Ischemic cardiomyopathy, could be hibernating myocardium. 3. Hyperlipidemia. 4. Hypertension. 5. Diabetes mellitus. RECOMMENDATION: From the cardiac standpoint, I will add a low-dose of ASIA inhibitor because of his cardiomyopathy. Continue on the beta nica. Continue to follow his renal function closely. Increase his level of activity gradually and depending on his progress, further recommendation will be made. MMODL / IJN: [id number] /
--- NOTE | 2018-03-23 09:32 | P.PN ---
Subjective Progress Note Date: 03/23/18 Principal diagnosis: Coronary artery disease, status post three-vessel coronary artery bypass grafting, postop day 1 This is a 72-year-old white male patient of Dr. Shafer, who was transferred from [facility], where he went for evaluation of severe intermittent chest pain that has been sent for last several weeks. The chest pain became progressively worse, was associated with right shoulder pain. Lab work showed elevated troponins, he was diagnosed with non-ST elevated NH, EKG showed normal sinus rhythm with left axis deviation, and evidence of septal infarct of undetermined age. Past medical history is significant for diabetes mellitus type 2, hypertension, hyperlipidemia, previous nicotine dependence, in remission , daily EtOH use. Patient denies any chronic history of lung disease, but he carries a [id number] smoking history, of 3 packs a day for 20 years. He quit smoking 40 years ago. Not on oxygen at his baseline. Patient was transported to [facility] and he underwent cardiac catheterization by Dr. Nayak which revealed multivessel coronary artery disease, with RCA stenosis of 70%, circumflex stenosis of 90%, proximal LAD with 99% stenosis, mid LAD of 90% and decreased LV function with an ejection fraction of 35%. CT surgery has been consulted and urgent surgical revascularization was recommended. We're consulted in regards to pulmonary/critical care management. Progress note dated 03/20/2018 This is a 72-year-old male seen yesterday in consultation. He has a history of non-ST segment elevation myocardial infarction, multivessel coronary artery disease, ischemic cardiomyopathy, diabetes mellitus, hypertension, hyperlipidemia, and a 93-[id number]-sycv history of tobacco use. He also apparently has a history of daily alcohol use. The patient went to the operating room this morning for a LYNN to LAD, SVG to the ramus, and an SVG to RCA. Patient on mechanical ventilator with vent settings SIMV 12, TV 500, FiO2 100%, and PEEP of 10. Will follow rapid wean protocol when patient alert and following commands. Patient has 2 mediastinal chest tubes and one left pleural chest tube intact and draining minimal sanguineous drainage. Patient currently on lactated Ringer at 50 mL an hour, nitroglycerin drip at 5 mcgs per minute, norepinephrine 2 mcgs per minute, and propofol 15 mics per kilogram per minute. Patient's current cardiac index is 2.1 and cardiac output 4.0. Patient appears hemodynamically stable at this time. Awaiting chest x-rays and ABG for review. On 03/21/2018 patient seen in follow-up in the intensive care unit, this is postop day day 1, status post three-vessel coronary artery bypass grafting, and patient had LYNN to LAD, SVG to the RCA and SVG to the ramus. He was extubated at 2317 last night, 8 hours and 17 minutes after OR exit time. When initial weaning was attempted patient was agitated, and he had to be placed on Precedex for short at a time, and subsequently was successfully extubated. This morning he sitting up in the recliner, he is in no acute distress, he is awake and alert , oriented 3, currently on 2 L per nasal cannula, warranting on his incentive spirometry, maintenance IV fluids is LR at 50 ML per hour, insulin is at 2.5 units per hour. No other drips. Cardiac output and cardiac index of 5.8 and 2.6. Lung sounds are positive for some scattered crackles, wheezes. Today's chest x-ray has been reviewed, shows left lower lobe atelectasis. His labs have been reviewed, diabetes he is 5.5, hemoglobin is 8.4, INR is 1.2, sodium was 136, the rest of electrolytes and renal profile are within normal limits. Patient has 2 mediastinal and left pleural chest tubes with small amount of serosanguineous output, to continuous wall suction. He is nonoliguric. Got a set of AV epicardial wires that are currently not connected to the pacemaker, patient has not required pacemaker support. He is in sinus mechanism. With a rate of 90 BPM. On 03/22/2018 patient seen in follow-up in the intensive care unit, he sitting up in the recliner, early on room air, he is awake and alert, oriented 3, denies any acute distress, he states his pain is under control, he is in sinus mechanism, at a rate of 98 DPM. His maintenance IV fluids as lactated Ringer's at a rate of 30 ML per hour, no other drips. This is postop day 3 three-vessel coronary artery bypass grafting, patient is doing well, his incentive spirometer effort is 1500 ML. His PA catheter and 2 mediastinal chest tubes were discontinued yesterday. His chest x-ray has been reviewed by Dr. Mendez, showed cardiomegaly and basilar atelectasis. No other acute pulmonary process. Today's blood work was reviewed, WBC is 5.4, hemoglobin is 8.1, sodium is 136 , pressor electrolytes are within normal limits, BUN is 18 and creatinine is 1.48. On 03/23/2018 patient seen in follow-up in the intensive care unit, he is a selective overflow, suspicious postop day 4, post three-vessel coronary artery bypass grafting, patient doing well, room air pulse ox 96%, hemodynamically stable, no fever, no chills, no shortness of breath, his pain is well controlled. Showed small right pleural effusion, and bibasilar streaky atelectasis. Patient's nasal swab was positive for MSSA, and patient is on Bactrim intranasally. Urine culture was negative. Patient is working incentive spirometry, lung sounds are clear to auscultation, his chest tubes have been discontinued, epicardial wires are grown up. Today's labs have been reviewed, WBC 6.3, hemoglobin is 8.5, electrolytes are within normal limits, BUN is 19, creatinine is 1.34, renal profile is slightly improved. Objective - Vital Signs Vital signs: Vital Signs Temp 98.7 F 03/23/18 00:00 Pulse 85 03/23/18 06:00 Resp 18 03/23/18 06:00 BP 144/63 03/23/18 06:00 Pulse Ox 94 L 03/22/18 18:00 Intake & Output 03/22/18 03/23/18 03/23/18 18:59 06:59 18:59 Intake Total 798 100 780 Output Total 165 800 Balance 633 -700 780 Weight 111.6 kg 113 kg Intake: IV 78 Lactated Ringers 1,000 ml 60 @ 20 mls/hr IV .Q24H VENESSA Rx#:[id number] pressure bag 18 Intake, IV Titration 0 Amount Lactated Ringers 1,000 ml 0 @ 20 mls/hr IV .Q24H VENESSA Rx#:[id number] Oral 720 100 780 Output: Chest Tube Drainage 70 lt pleural 70 Urine 95 800 Other: Voiding Method Indwelling Catheter # Voids 1 ABP, PAP, CO, CI - Last Documented Arterial Blood Pressure 118/48 Pulmonary Artery Pressure 35/10 Cardiac Output 5.8 Cardiac Index 2.6 - Exam GENERAL EXAM: Alert, pleasant 72-year-old white male, comfortable in no apparent distress. Sitting up in the recliner, he has a heart harness on HEAD: Normocephalic/atraumatic. EYES: Normal reaction of pupils, equal size. Conjunctiva pink, sclera white. NOSE: Clear with pink turbinates. THROAT: No erythema or exudates. NECK: No masses, no JVD, no thyroid enlargement, no adenopathy. CHEST: No chest wall deformity. Symmetrical expansion. Midsternal incision is clean dry and intact, approximated, sternum is stable, interval removal of 2 mediastinal chest tubes and left pleural chest tube epicardial wires are grounded LUNGS: Diminished breath sounds bilaterally, no crackles, no wheezes or rhonchi noted CVS: Regular rate and rhythm, normal S1 and S2, no gallops, no murmurs, no rubs ABDOMEN: Soft, nontender. No hepatosplenomegaly, normal bowel sounds, no guarding or rigidity. EXTREMITIES: No clubbing, no cyanosis, 2+ pulses and upper and lower extremities. Mild nonpitting edema noted in upper and lower extremities. Bilateral lower extremities are a prescription, and SCDs on, DESTINY drain is in place in left lower extremity, patent, and draining small amount of serosanguineous drainage MUSCULOSKELETAL: Muscle strength and tone normal. Right radial puncture is clean dry and intact, soft. SPINE: No scoliosis or deformity SKIN: No rashes CENTRAL NERVOUS SYSTEM: Alert and oriented -3. No focal deficits, tone is normal in all 4 extremities. PSYCHIATRIC: Alert and oriented -3. Appropriate affect. Intact judgment and insight. - Labs CBC & Chem 7: 03/23/18 05:55 03/23/18 05:55 Labs: Abnormal Lab Results - Last 24 Hours (Table) 03/22/18 03/22/18 03/22/18 Range/Units 09:56 11:55 17:03 RBC (4.30-5.90) m/uL Hgb (13.0-17.5) gm/dL Hct (39.0-53.0) % MCV (80.0-100.0) fL Plt Count (150-450) k/uL Creatinine (0.66-1.25) mg/dL Glucose (74-99) mg/dL POC Glucose (mg/dL) 293 H 224 H 210 H (75-99) mg/dL Calcium (8.4-10.2) mg/dL Total Protein (6.3-8.2) g/dL Albumin (3.5-5.0) g/dL 03/22/18 03/23/18 03/23/18 Range/Units 20:12 02:39 05:55 RBC (4.30-5.90) m/uL Hgb (13.0-17.5) gm/dL Hct (39.0-53.0) % MCV (80.0-100.0) fL Plt Count (150-450) k/uL Creatinine 1.34 H (0.66-1.25) mg/dL Glucose 130 H (74-99) mg/dL POC Glucose (mg/dL) 255 H 129 H (75-99) mg/dL Calcium 8.3 L (8.4-10.2) mg/dL Total Protein 5.6 L (6.3-8.2) g/dL Albumin 2.9 L (3.5-5.0) g/dL 03/23/18 03/23/18 Range/Units 05:55 06:36 RBC 2.53 L (4.30-5.90) m/uL Hgb 8.5 L (13.0-17.5) gm/dL Hct 25.9 L (39.0-53.0) % MCV 102.5 H (80.0-100.0) fL Plt Count 147 L D (150-450) k/uL Creatinine (0.66-1.25) mg/dL Glucose (74-99) mg/dL POC Glucose (mg/dL) 151 H (75-99) mg/dL Calcium (8.4-10.2) mg/dL Total Protein (6.3-8.2) g/dL Albumin (3.5-5.0) g/dL Assessment and Plan Plan: Assessment: #1. Non-ST elevated NH #2. Multivessel coronary artery disease, patient underwent cardiac catheterization which showed RCA stenosis of 70%, circumflex was 90%, proximal LAD of 99%, mid LAD of 90%, status post three-vessel coronary artery bypass grafting, with LYNN to LAD, SVG to the RCA, and SVG to the ramus, postop day 4 #3. Postoperative acute blood loss anemia, an expected outcome of cardiothoracic surgery #4. Acute klidney injury #5. Ischemic cardiomyopathy, ejection fraction of 35% #6. Diabetes mellitus type 2 #7. Hypertension, hyperlipidemia #8. Previous history of nicotine dependence, patient carries [id number] smoking history, quit smoking 40 years ago, but prior to that smoked for 20 years 3 packs a day #9. Daily EtOH use Plan: Chest x-ray has been reviewed by Dr. Nixon, shows small right pleural effusion, and bibasilar atelectasis, continue encouraging incentive spirometry use, deep breathing and coughing, ambulation. Patient is doing well, hemodynamically stable, chest tubes have been discontinued, will profile is improving, no fever , no chills, his pain is well controlled, are essentially clear to auscultation , issues overnight. Patient anticipated to transfer to [facility] care today. I performed a history & physical examination of the patient and discussed their management with my nurse practitioner, Rosa Rm. I reviewed the nurse practitioner's note and agree with the documented findings and plan of care. Lung sounds are diminished. The findings and the impression was discussed with the patient. I attest to the documentation by the nurse practitioner. Time with Patient: Less than 30
[2018-03-23] MEDS: CLOPIDOGREL 75 MG TAB PO SCH (09:37)
[2018-03-23] MEDS: ATORVASTATIN 80 MG TAB PO SCH (09:37)
[2018-03-23] MEDS: METOPROLOL TARTRATE 25 MG TAB PO SCH ×2 (09:37→21:18)
[2018-03-23] MEDS: TAMSULOSIN 0.4 MG CAP.ER.24H PO SCH (09:37)
[2018-03-23] MEDS: LISINOPRIL 2.5 MG TAB PO SCH (09:37)
[2018-03-23] MEDS: ASPIRIN 325 MG TAB PO SCH (09:37)
[2018-03-23] MEDS: MUPIROCIN 2% OINT 22 GM TUBE NASAL SCH ×2 (09:38→21:20)
[2018-03-23] MEDS: IPRATROPIUM-ALBUTEROL 3 ML NEB INHALATION SCH ×4 (09:52→20:45)
[2018-03-23] MEDS ORDERED: FUROSEMIDE 10 MG/ML 2 ML VIAL IV ONE (11:28)
[2018-03-23] MEDS: MULTIVITAMINS, THERA 1 EACH TAB PO SCH (11:53)
[2018-03-23] MEDS: THIAMINE 100 MG TAB PO SCH ×2 (11:53→16:10)
[2018-03-23] MEDS: KETOROLAC 30 MG/ML 1 ML VIAL IVP SCH ×2 (11:53→17:20)
[2018-03-23 12:15] LABS: Glucose,Whole Blood 206 mg/dL (75-99)
--- NOTE | 2018-03-23 14:21 | P.PN ---
Subjective Progress Note Date: 03/23/18 Principal diagnosis: chest pain Patient is a 72-year-old male past medical history of hypertension, diabetes, dyslipidemia, alcohol use, and significant prior smoking history who presented initially to the [facility] with intermittent chest pain. He was admitted to our facility for further evaluation. He underwent a cardiac catheterization by Dr. Nayak showed a 70% stenosis of RCA, 90% stenosis of the circumflex, and 99% stenosis of the proximal LAD associated with 90% stenosis of the mid LAD and an EF of 35%. The patient ultimately underwent triple vessel cardiac bypass surgery on 03/20. He was able to be extubated after the procedure and has done well. We have been having difficulties controlling his sugars. Patient seen and examined at bedside. Chest pain is getting better, breathing is still slightly heavy but more manageable, no nausea, still no bowel movement , complains about food. Did go up and ambulate yesterday. Again discussed with patient need for home health care and he is reluctant. Objective - Vital Signs Vital signs: Vital Signs Temp 98.7 F 03/23/18 00:00 Pulse 85 03/23/18 06:00 Resp 18 03/23/18 06:00 BP 144/63 03/23/18 06:00 Pulse Ox 94 L 03/22/18 18:00 Intake & Output 03/22/18 03/23/18 03/23/18 18:59 06:59 18:59 Intake Total 245 710 9342 Output Total 165 800 0 Balance 633 -700 1020 Weight 111.6 kg 113 kg Intake: IV 78 Lactated Ringers 1,000 ml 60 @ 20 mls/hr IV .Q24H VENESSA Rx#:[id number] pressure bag 18 Intake, IV Titration 0 Amount Lactated Ringers 1,000 ml 0 @ 20 mls/hr IV .Q24H VENESSA Rx#:[id number] Oral 548 265 7963 Output: Chest Tube Drainage 70 lt pleural 70 Urine 95 800 0 Other: Voiding Method Indwelling Catheter # Voids 1 ABP, PAP, CO, CI - Last Documented Arterial Blood Pressure 118/48 Pulmonary Artery Pressure 35/10 Cardiac Output 5.8 Cardiac Index 2.6 - Exam General: non toxic, no distress, appears at stated age Derm: warm, dry Head: atraumatic, normocephalic, symmetric Eyes: EOMI, no lid lag, anicteric sclera Mouth: no lip lesion, mucus membranes moist Cardiovascular: S1S2 reg, no murmur, positive posterior tibial pulse bilateral, Lungs: Breath sounds decreased bilateral bases, no rhonchi, no rales , no accessory muscle use, Abdominal: soft, nontender to palpation, no guarding, no appreciable organomegaly Ext: no gross muscle atrophy, trace edema, no contractures Neuro: CN II-XI grossly intact, no focal neuro deficits Psych: Alert, oriented, appropriate affect - Labs CBC & Chem 7: 03/23/18 05:55 03/23/18 05:55 Labs: Abnormal Lab Results - Last 24 Hours (Table) 03/22/18 03/22/18 03/22/18 Range/Units 09:56 11:55 17:03 RBC (4.30-5.90) m/uL Hgb (13.0-17.5) gm/dL Hct (39.0-53.0) % MCV (80.0-100.0) fL Plt Count (150-450) k/uL Creatinine (0.66-1.25) mg/dL Glucose (74-99) mg/dL POC Glucose (mg/dL) 293 H 224 H 210 H (75-99) mg/dL Calcium (8.4-10.2) mg/dL Total Protein (6.3-8.2) g/dL Albumin (3.5-5.0) g/dL 03/22/18 03/23/18 03/23/18 Range/Units 20:12 02:39 05:55 RBC (4.30-5.90) m/uL Hgb (13.0-17.5) gm/dL Hct (39.0-53.0) % MCV (80.0-100.0) fL Plt Count (150-450) k/uL Creatinine 1.34 H (0.66-1.25) mg/dL Glucose 130 H (74-99) mg/dL POC Glucose (mg/dL) 255 H 129 H (75-99) mg/dL Calcium 8.3 L (8.4-10.2) mg/dL Total Protein 5.6 L (6.3-8.2) g/dL Albumin 2.9 L (3.5-5.0) g/dL 03/23/18 03/23/18 Range/Units 05:55 06:36 RBC 2.53 L (4.30-5.90) m/uL Hgb 8.5 L (13.0-17.5) gm/dL Hct 25.9 L (39.0-53.0) % MCV 102.5 H (80.0-100.0) fL Plt Count 147 L D (150-450) k/uL Creatinine (0.66-1.25) mg/dL Glucose (74-99) mg/dL POC Glucose (mg/dL) 151 H (75-99) mg/dL Calcium (8.4-10.2) mg/dL Total Protein (6.3-8.2) g/dL Albumin (3.5-5.0) g/dL Assessment and Plan Assessment: Non-STEMI, atherosclerotic coronary artery disease -Management per cardiovascular team -On aspirin, Plavix, statin, and beta nica -Pain control -PT/OT -Cardiology recommendations Elevated Creatinine - repeat BMP in AM - Hold off on starting lisinopril today - avoid additional nephrotoxic agents Anticipated acute blood loss anemia and thrombocytopenia, improved - stable no indication for transfusion - Follow CBC in AM - Consider Iron testing as outpatient Diabetes mellitus type 2, insulin requiring -Continue to hold metformin -Levemir 42 units tonight, and add fixed dose to his sliding scale -Accu-Cheks to every before meals, at bedtime, and 2 AM -Hemoglobin A1c 8.1. -We will need adjustment to his home insulin regimen prior to discharge, would benefit from continual outpatient endocrinology evaluation Hypertension, controlled -Management as per cardiology and cardiovascular thoracic Dyslipidemia -Continue statin COPD -Without exacerbation -Continue with scheduled and when necessary bronchodilators Alcohol dependency -On [facility] protocol -Thiamine supplementation DVT prophylaxis: Heparin Discussed with: Patient, nursing A total of 25 minutes was spent on the care of this complex patient more than 50 % of the time was spent in counseling and care coordination.
--- NOTE | 2018-03-23 16:56 | P.PN ---
Subjective Progress Note Date: 03/23/18 Principal diagnosis: Coronary artery disease, current non-STEMI. Previous medical history of uncontrolled insulin-dependent diabetes mellitus with preoperative hemoglobin A1c 8.1%, hypertension, hypertriglyceridemia, obesity, kidney stones, previous tobacco dependence, mild COPD with preoperative FEV1 72% of predicted, near daily EtOH use, and vasectomy. POD #3 urgent coronary bypass grafting 3 vessels, left internal mammary artery to the left anterior descending artery, a reverse greater saphenous vein graft to the ramus coronary artery, a reverse greater saphenous vein graft to the distal right coronary artery. Endoscopic vein harvest bilateral greater saphenous veins. Epi-aortic ultrasound. Intraoperative transesophageal echocardiogram. Postoperative acute blood loss anemia, an expected postprocedure condition. The patient is currently sitting up in a recliner in no acute distress. Currently he denies any complaints of pain or shortness of breath. The patient' s nurse reports that he did have some urinary retention throughout the night and was straight cathed for 800 mL of urine this morning. The patient also reports that he does have some frequency during the evenings at home. No new complaints. Objective - Vital Signs Vital signs: Vital Signs Temp 98.4 F 03/23/18 16:00 Pulse 88 03/23/18 16:03 Resp 14 03/23/18 16:00 BP 100/61 03/23/18 16:00 Pulse Ox 95 03/23/18 16:00 Intake & Output 03/22/18 03/23/18 03/23/18 18:59 06:59 18:59 Intake Total 822 532 3621 Output Total 250 275 0860 Balance 633 -700 490 Weight 111.6 kg 113 kg Intake: IV 78 Lactated Ringers 1,000 ml 60 @ 20 mls/hr IV .Q24H VENESSA Rx#:[id number] pressure bag 18 Intake, IV Titration 0 Amount Lactated Ringers 1,000 ml 0 @ 20 mls/hr IV .Q24H VENESSA Rx#:[id number] Oral 386 591 6512 Output: Chest Tube Drainage 70 lt pleural 70 Urine 95 800 1050 Other: Voiding Method Indwelling Catheter # Voids 1 1 ABP, PAP, CO, CI - Last Documented Arterial Blood Pressure 118/48 Pulmonary Artery Pressure 35/10 Cardiac Output 5.8 Cardiac Index 2.6 - Constitutional General appearance: Present: cooperative, no acute distress, obese - Respiratory Details: Lung sounds are essentially clear throughout, diminished to his bilateral bases. Respirations are symmetrical and nonlabored. Oxygen saturation are 96% on room air. He is achieving 1500 mL on his incentive spirometry with encouragement. - Cardiovascular Details: Regular rhythm and rate. S1 and S2 present, negative for S3, gallop or murmur. Sternum is stable. Bedside telemetry showing normal sinus rhythm heart rate 83. Heart hugger is in place and he is demonstrating appropriate use. Atrial and ventricular epicardial pacemaker wires in place and grounded. Knee-high RAYMUNDO hose and Sequential compression devices in place to his bilateral lower extremities. - Gastrointestinal Gastrointestinal Comment(s): Abdomen is soft, nontender and nondistended. Hypoactive bowel sounds all 4 abdominal quadrants. Tolerating oral intake. Passing flatus. - Genitourinary Genitourinary Comment(s): Urinary retention. Straight cathed for 800 mL clear yellow urine. - Integumentary Integumentary Comment(s): Skin is warm and dry. No clubbing or cyanosis present. Midline sternal incision clean dry and approximated. No drainage or redness present. Bilateral lower extremity EVH sites clean dry and approximated. Ecchymosis to his bilateral thighs soft to touch and nontender. - Neurologic Neurologic: Present: CNII-XII intact - Musculoskeletal Musculoskeletal: Present: gait normal, strength equal bilaterally - Psychiatric Psychiatric: Present: A&O x's 3, appropriate affect, intact judgment & insight - Allied health notes Allied health notes reviewed: nursing - Labs CBC & Chem 7: 03/23/18 05:55 03/23/18 05:55 Labs: Abnormal Lab Results - Last 24 Hours (Table) 03/22/18 03/22/18 03/23/18 Range/Units 17:03 20:12 02:39 RBC (4.30-5.90) m/uL Hgb (13.0-17.5) gm/dL Hct (39.0-53.0) % MCV (80.0-100.0) fL Plt Count (150-450) k/uL Creatinine (0.66-1.25) mg/dL Glucose (74-99) mg/dL POC Glucose (mg/dL) 210 H 255 H 129 H (75-99) mg/dL Calcium (8.4-10.2) mg/dL Total Protein (6.3-8.2) g/dL Albumin (3.5-5.0) g/dL 03/23/18 03/23/18 03/23/18 Range/Units 05:55 05:55 06:36 RBC 2.53 L (4.30-5.90) m/uL Hgb 8.5 L (13.0-17.5) gm/dL Hct 25.9 L (39.0-53.0) % MCV 102.5 H (80.0-100.0) fL Plt Count 147 L D (150-450) k/uL Creatinine 1.34 H (0.66-1.25) mg/dL Glucose 130 H (74-99) mg/dL POC Glucose (mg/dL) 151 H (75-99) mg/dL Calcium 8.3 L (8.4-10.2) mg/dL Total Protein 5.6 L (6.3-8.2) g/dL Albumin 2.9 L (3.5-5.0) g/dL 03/23/18 Range/Units 12:14 RBC (4.30-5.90) m/uL Hgb (13.0-17.5) gm/dL Hct (39.0-53.0) % MCV (80.0-100.0) fL Plt Count (150-450) k/uL Creatinine (0.66-1.25) mg/dL Glucose (74-99) mg/dL POC Glucose (mg/dL) 206 H (75-99) mg/dL Calcium (8.4-10.2) mg/dL Total Protein (6.3-8.2) g/dL Albumin (3.5-5.0) g/dL - Imaging and Cardiology Chest x-ray: report reviewed, image reviewed Assessment and Plan (1) NSTEMI (non-ST elevated myocardial infarction) Current Visit: Yes Status: Acute Code(s): I21.4 - NON-ST ELEVATION (NSTEMI) MYOCARDIAL INFARCTION SNOMED Code(s): 689535290 (2) COPD (chronic obstructive pulmonary disease) Current Visit: Yes Status: Chronic Code(s): J44.9 - CHRONIC OBSTRUCTIVE PULMONARY DISEASE, UNSPECIFIED SNOMED Code(s): 08758997 (3) Coronary artery disease Current Visit: Yes Status: Chronic Code(s): I25.10 - ATHSCL HEART DISEASE OF [place] CORONARY ARTERY W/O ANG PCTRS SNOMED Code(s): 82646982 (4) Diabetes mellitus Current Visit: Yes Status: Chronic Code(s): E11.9 - TYPE 2 DIABETES MELLITUS WITHOUT COMPLICATIONS SNOMED Code(s): 08494583 (5) EtOH dependence Current Visit: Yes Status: Chronic Code(s): F10.20 - ALCOHOL DEPENDENCE, UNCOMPLICATED SNOMED Code(s): 24326229 (6) Hyperlipidemia Current Visit: Yes Status: Chronic Code(s): E78.5 - HYPERLIPIDEMIA, UNSPECIFIED SNOMED Code(s): 56461893 (7) Hypertension Current Visit: Yes Status: Chronic Code(s): I10 - ESSENTIAL (PRIMARY) HYPERTENSION SNOMED Code(s): 68161686 (8) Obesity (BMI 30-39.9) Current Visit: Yes Status: Chronic Code(s): E66.9 - OBESITY, UNSPECIFIED SNOMED Code(s): 929590081 (9) Tobacco dependence in remission Current Visit: No Status: Resolved Code(s): F17.201 - NICOTINE DEPENDENCE, UNSPECIFIED, IN REMISSION SNOMED Code(s): 569073160 (10) Postoperative urinary retention Current Visit: Yes Status: Acute Code(s): N99.89 - OTH POSTPROCEDURAL COMPLICATIONS AND DISORDERS OF SYS; R33.8 - OTHER RETENTION OF URINE SNOMED Code(s): 323088761 Plan: 1. Continue aspirin, statin, Plavix, beta nica. Will increase beta nica therapy as tolerated. WE will add ASIA inhibitor when able. 2. Encourage incentive spirometry 10 times every hour while awake. 3. Increase activity, ambulate as tolerated. PT/OT/cardiac rehab following. 4. Will pull atrial and ventricular epicardial pacemaker wires. Bed rest for 1 hour post pacemaker wire removal. 5. We will start the patient on Flomax 0.4 mg by mouth daily for urinary retention. 6. Will monitor daily labs and chest x-rays. 7. Bronchodilators per pulmonology management. 8. Insulin management per primary care service. 9. Pain management with current medication regimen. We will add Toradol to his pain management regimen. 10. Continue CIWA protocol and monitor for alcohol withdrawal. 11. Transfer to 3 S. cardiac stepdown unit when there is a bed available. 12. Lasix 20 mg IV [address] Valdovinos catheter for further urinary retention. He may need a urology consult if further urinary retention. 14. More recommendations to follow based on patient's clinical course. Time with Patient: Greater than 30
[2018-03-23 17:16] LABS: Glucose,Whole Blood 228 mg/dL (75-99)
[2018-03-23] MEDS: INSULIN DETEMIR 100 UNIT/ML 10 ML VIAL SQ SCH (21:18)
[2018-03-23] MEDS: SENNOSIDES-DOCUSATE SODIUM 1 EACH TAB PO SCH (21:18)
[2018-03-23 21:29] LABS: Glucose,Whole Blood 310 mg/dL (75-99)
[2018-03-24 02:23] LABS: Glucose,Whole Blood 141 mg/dL (75-99)
[2018-03-24] MEDS: HEPARIN SODIUM,PORCINE 5,000 UNIT/ML 1 ML VIAL SQ SCH ×3 (02:37→15:59)
[2018-03-24] MEDS: KETOROLAC 30 MG/ML 1 ML VIAL IVP SCH ×2 (02:37→06:09)
[2018-03-24 05:17] LABS: Basophils % (A) 0 %; Eosinophils # (A) 0.3 k/uL (0-0.7); Eosinophils % (A) 6 %; HCT 23.9 % (39.0-53.0); HGB 8.2 gm/dL (13.0-17.5); Lymphocytes # (A) 1.5 k/uL (1.0-4.8); Lymphocytes % (A) 26 %; MCH 34.4 pg (25.0-35.0); MCHC 34.2 g/dL (31.0-37.0); MCV 100.4 fL (80.0-100.0); Mean Platelet Volume 7.5; Monocytes # (A) 0.4 k/uL (0-1.0); Monocytes % (A) 6 %; Neutrophils # (A) 3.4 k/uL (1.3-7.7); Neutrophils % (A) 59 %; Platelet Count 179 k/uL (150-450); RBC 2.38 m/uL (4.30-5.90); RDW 12.2 % (11.5-15.5); WBC 5.8 k/uL (3.8-10.6)
[2018-03-24 05:25] LABS: Albumin 2.7 g/dL (3.5-5.0); Calcium 8.2 mg/dL (8.4-10.2); Potassium 3.8 mmol/L (3.5-5.1); Total Bilirubin 0.5 mg/dL (0.2-1.3); Total Protein 5.3 g/dL (6.3-8.2)
[2018-03-24] MEDS: BENZOCAINE/MENTHOL LOZENG 1 EACH LOZENGE MUCOUS MEM PRN ×2 (06:03→18:57)
--- NOTE | 2018-03-24 06:20 | XR ---
EXAMINATION TYPE: XR chest 2V DATE OF EXAM: 03/24/2018 HISTORY: post cardiac surgery. REFERENCE: Previous study dated 03/23/2018. FINDINGS: Lung volumes are prominent. The heart is enlarged. There is continuing bibasilar atelectasi s. I could not exclude small effusions. IMPRESSION: 1. MILD CARDIOMEGALY. 2. BIBASILAR AIRSPACE DISEASE. 3. I COULD NOT EXCLUDE SMALL, BILATERAL EFFUSIONS.
[2018-03-24] MEDS ORDERED: POTASSIUM CHLORIDE ER 20 MEQ TAB.ER PO SCH (07:00)
[2018-03-24] MEDS: PANTOPRAZOLE 40 MG TABLET PO SCH (07:21)
[2018-03-24 07:28] LABS: Glucose,Whole Blood 113 mg/dL (75-99)
[2018-03-24] MEDS: INSULIN ASPART 100 UNIT/ML 1 ML 10 ML VIAL SQ SCH ×6 (07:32→21:21)
[2018-03-24] MEDS: IPRATROPIUM-ALBUTEROL 3 ML NEB INHALATION SCH ×4 (07:53→20:26)
[2018-03-24] MEDS: LISINOPRIL 2.5 MG TAB PO SCH (09:11)
[2018-03-24] MEDS: ASPIRIN 325 MG TAB PO SCH (09:11)
[2018-03-24] MEDS: ATORVASTATIN 80 MG TAB PO SCH (09:11)
[2018-03-24] MEDS: TAMSULOSIN 0.4 MG CAP.ER.24H PO SCH (09:11)
[2018-03-24] MEDS: METOPROLOL TARTRATE 25 MG TAB PO SCH ×2 (09:11→21:20)
[2018-03-24] MEDS: CLOPIDOGREL 75 MG TAB PO SCH (09:11)
[2018-03-24 10:01] LABS: Glucose,Whole Blood 244 mg/dL (75-99)
--- NOTE | 2018-03-24 10:39 | P.PN ---
Subjective Progress Note Date: 03/24/18 Principal diagnosis: Coronary artery disease, status post three-vessel coronary bypass grafting This is a 72-year-old white male patient of Dr. Shafer, who was transferred from [facility], where he went for evaluation of severe intermittent chest pain that has been sent for last several weeks. The chest pain became progressively worse, was associated with right shoulder pain. Lab work showed elevated troponins, he was diagnosed with non-ST elevated NC, EKG showed normal sinus rhythm with left axis deviation, and evidence of septal infarct of undetermined age. Past medical history is significant for diabetes mellitus type 2, hypertension, hyperlipidemia, previous nicotine dependence, in remission , daily EtOH use. Patient denies any chronic history of lung disease, but he carries a [id number] smoking history, of 3 packs a day for 20 years. He quit smoking 40 years ago. Not on oxygen at his baseline. Patient was transported to [facility] and he underwent cardiac catheterization by Dr. Nayak which revealed multivessel coronary artery disease, with RCA stenosis of 70%, circumflex stenosis of 90%, proximal LAD with 99% stenosis, mid LAD of 90% and decreased LV function with an ejection fraction of 35%. CT surgery has been consulted and urgent surgical revascularization was recommended. We're consulted in regards to pulmonary/critical care management. Progress note dated 03/20/2018 This is a 72-year-old male seen yesterday in consultation. He has a history of non-ST segment elevation myocardial infarction, multivessel coronary artery disease, ischemic cardiomyopathy, diabetes mellitus, hypertension, hyperlipidemia, and a 95-[id number] history of tobacco use. He also apparently has a history of daily alcohol use. The patient went to the operating room this morning for a LYNN to LAD, SVG to the ramus, and an SVG to RCA. Patient on mechanical ventilator with vent settings SIMV 12, TV 500, FiO2 100%, and PEEP of 10. Will follow rapid wean protocol when patient alert and following commands. Patient has 2 mediastinal chest tubes and one left pleural chest tube intact and draining minimal sanguineous drainage. Patient currently on lactated Ringer at 50 mL an hour, nitroglycerin drip at 5 mcgs per minute, norepinephrine 2 mcgs per minute, and propofol 15 mics per kilogram per minute. Patient's current cardiac index is 2.1 and cardiac output 4.0. Patient appears hemodynamically stable at this time. Awaiting chest x-rays and ABG for review. On 03/21/2018 patient seen in follow-up in the intensive care unit, this is postop day day 1, status post three-vessel coronary artery bypass grafting, and patient had LYNN to LAD, SVG to the RCA and SVG to the ramus. He was extubated at 2317 last night, 8 hours and 17 minutes after OR exit time. When initial weaning was attempted patient was agitated, and he had to be placed on Precedex for short at a time, and subsequently was successfully extubated. This morning he sitting up in the recliner, he is in no acute distress, he is awake and alert , oriented 3, currently on 2 L per nasal cannula, warranting on his incentive spirometry, maintenance IV fluids is LR at 50 ML per hour, insulin is at 2.5 units per hour. No other drips. Cardiac output and cardiac index of 5.8 and 2.6. Lung sounds are positive for some scattered crackles, wheezes. Today's chest x-ray has been reviewed, shows left lower lobe atelectasis. His labs have been reviewed, diabetes he is 5.5, hemoglobin is 8.4, INR is 1.2, sodium was 136, the rest of electrolytes and renal profile are within normal limits. Patient has 2 mediastinal and left pleural chest tubes with small amount of serosanguineous output, to continuous wall suction. He is nonoliguric. Got a set of AV epicardial wires that are currently not connected to the pacemaker, patient has not required pacemaker support. He is in sinus mechanism. With a rate of 90 BPM. On 03/22/2018 patient seen in follow-up in the intensive care unit, he sitting up in the recliner, early on room air, he is awake and alert, oriented 3, denies any acute distress, he states his pain is under control, he is in sinus mechanism, at a rate of 98 DPM. His maintenance IV fluids as lactated Ringer's at a rate of 30 ML per hour, no other drips. This is postop day 3 three-vessel coronary artery bypass grafting, patient is doing well, his incentive spirometer effort is 1500 ML. His PA catheter and 2 mediastinal chest tubes were discontinued yesterday. His chest x-ray has been reviewed by Dr. Mendez, showed cardiomegaly and basilar atelectasis. No other acute pulmonary process. Today's blood work was reviewed, WBC is 5.4, hemoglobin is 8.1, sodium is 136 , pressor electrolytes are within normal limits, BUN is 18 and creatinine is 1.48. On 03/23/2018 patient seen in follow-up in the intensive care unit, he is a selective overflow, suspicious postop day 4, post three-vessel coronary artery bypass grafting, patient doing well, room air pulse ox 96%, hemodynamically stable, no fever, no chills, no shortness of breath, his pain is well controlled. Showed small right pleural effusion, and bibasilar streaky atelectasis. Patient's nasal swab was positive for MSSA, and patient is on Bactrim intranasally. Urine culture was negative. Patient is working incentive spirometry, lung sounds are clear to auscultation, his chest tubes have been discontinued, epicardial wires are grown up. Today's labs have been reviewed, WBC 6.3, hemoglobin is 8.5, electrolytes are within normal limits, BUN is 19, creatinine is 1.34, renal profile is slightly improved. The patient is seen today 03/24/2018 in follow-up in the intensive care unit. He is currently resting quite comfortably in bed. He is awake and alert in no acute distress. He denies any shortness of breath, cough or congestion. He is maintaining good O2 saturations in the mid 90s on room air. He's been afebrile. Hemodynamically stable. No IVs currently. Chest x-ray shows some atelectasis of the lung bases. He continues to work well with the incentive spirometer. White count 5.8. Hemoglobin 8.2. Creatinine 1.40. Objective - Vital Signs Vital signs: Vital Signs Temp 98.0 F 03/24/18 08:00 Pulse 96 03/24/18 08:10 Resp 14 03/24/18 08:00 BP 119/58 03/24/18 08:00 Pulse Ox 95 03/24/18 08:00 Intake & Output 03/23/18 03/24/18 03/24/18 18:59 06:59 18:59 Intake Total 1895 705 Output Total 1050 Balance 845 705 Weight 111.2 kg Intake: Oral 1895 705 Output: Urine 1050 Other: Voiding Method Indwelling Catheter Toilet Urinal # Voids 1 1 # Bowel Movements 1 ABP, PAP, CO, CI - Last Documented Arterial Blood Pressure 118/48 Pulmonary Artery Pressure 35/10 Cardiac Output 5.8 Cardiac Index 2.6 - Exam GENERAL EXAM: Alert, pleasant 72-year-old white male, comfortable in no apparent distress. HEAD: Normocephalic/atraumatic. EYES: Normal reaction of pupils, equal size. Conjunctiva pink, sclera white. NOSE: Clear with pink turbinates. THROAT: No erythema or exudates. NECK: No masses, no JVD, no thyroid enlargement, no adenopathy. CHEST: No chest wall deformity. Symmetrical expansion. Midsternal incision is clean dry and intact, approximated, sternum is stable LUNGS: Diminished breath sounds bilaterally, faint crackles in the posterior bases CVS: Regular rate and rhythm, normal S1 and S2, no gallops, no murmurs, no rubs ABDOMEN: Soft, nontender. No hepatosplenomegaly, normal bowel sounds, no guarding or rigidity. EXTREMITIES: No clubbing, no cyanosis, 2+ pulses and upper and lower extremities. Mild nonpitting edema noted in upper and lower extremities. Bilateral lower extremities are a prescription, and SCDs on. MUSCULOSKELETAL: Muscle strength and tone normal. Right radial puncture is clean dry and intact, soft. SPINE: No scoliosis or deformity SKIN: No rashes CENTRAL NERVOUS SYSTEM: Alert and oriented -3. No focal deficits, tone is normal in all 4 extremities. PSYCHIATRIC: Alert and oriented -3. Appropriate affect. Intact judgment and insight. - Labs CBC & Chem 7: 03/24/18 04:41 03/24/18 04:41 Labs: Abnormal Lab Results - Last 24 Hours (Table) 03/23/18 03/23/18 03/23/18 Range/Units 12:14 17:05 21:09 RBC (4.30-5.90) m/uL Hgb (13.0-17.5) gm/dL Hct (39.0-53.0) % MCV (80.0-100.0) fL Sodium (137-145) mmol/L BUN (9-20) mg/dL Creatinine (0.66-1.25) mg/dL Glucose (74-99) mg/dL POC Glucose (mg/dL) 206 H 228 H 310 H (75-99) mg/dL Calcium (8.4-10.2) mg/dL Total Protein (6.3-8.2) g/dL Albumin (3.5-5.0) g/dL 03/24/18 03/24/18 03/24/18 Range/Units 02:21 04:41 04:41 RBC 2.38 L (4.30-5.90) m/uL Hgb 8.2 L (13.0-17.5) gm/dL Hct 23.9 L (39.0-53.0) % MCV 100.4 H (80.0-100.0) fL Sodium 134 L (137-145) mmol/L BUN 23 H (9-20) mg/dL Creatinine 1.40 H (0.66-1.25) mg/dL Glucose 113 H (74-99) mg/dL POC Glucose (mg/dL) 141 H (75-99) mg/dL Calcium 8.2 L (8.4-10.2) mg/dL Total Protein 5.3 L (6.3-8.2) g/dL Albumin 2.7 L (3.5-5.0) g/dL 03/24/18 03/24/18 Range/Units 07:01 09:58 RBC (4.30-5.90) m/uL Hgb (13.0-17.5) gm/dL Hct (39.0-53.0) % MCV (80.0-100.0) fL Sodium (137-145) mmol/L BUN (9-20) mg/dL Creatinine (0.66-1.25) mg/dL Glucose (74-99) mg/dL POC Glucose (mg/dL) 113 H 244 H (75-99) mg/dL Calcium (8.4-10.2) mg/dL Total Protein (6.3-8.2) g/dL Albumin (3.5-5.0) g/dL Assessment and Plan Assessment: Assessment: #1. Non-ST elevated NC #2. Multivessel coronary artery disease, patient underwent cardiac catheterization which showed RCA stenosis of 70%, circumflex was 90%, proximal LAD of 99%, mid LAD of 90%, status post three-vessel coronary artery bypass grafting, with LYNN to LAD, SVG to the RCA, and SVG to the ramus. #3. Postoperative acute blood loss anemia, an expected outcome of cardiothoracic surgery, current hemoglobin 8.2. #4. Acute klidney injury, current creatinine 1.40. #5. Ischemic cardiomyopathy, ejection fraction of 35% #6. Diabetes mellitus type 2 #7. Hypertension, hyperlipidemia #8. Previous history of nicotine dependence, patient carries [id number] smoking history, quit smoking 40 years ago, but prior to that smoked for 20 years 3 packs a day #9. Daily EtOH use Plan: The patient was seen and evaluated by Dr. Nixon. Chest x-ray and labs reviewed. He is currently stable from the pulmonary and critical care standpoint. He is working well with the incentive spirometer. The plan is for probable discharge to home tomorrow. We'll increase his activity as tolerated. We'll continue to follow. I, the cosigning physician, performed a history & physical examination of the patient. Lungs sounds with faint crackles in the posterior bases. Maintaining good O2 saturations in the 90s on room air. I discussed the assessment and plan of care with my nurse practitioner, Katia Parikh. I attest to the above note as dictated by her.
[2018-03-24] MEDS ORDERED: ACETAMINOPHEN TAB 325 MG TAB PO PRN ×2 (11:47)
--- NOTE | 2018-03-24 11:58 | P.PN ---
Subjective Progress Note Date: 03/24/18 Principal diagnosis: Coronary artery disease, current non-STEMI. Previous medical history of uncontrolled insulin-dependent diabetes mellitus with preoperative hemoglobin A1c 8.1%, hypertension, hypertriglyceridemia, obesity, kidney stones, previous tobacco dependence, mild COPD with preoperative FEV1 72% of predicted, near daily EtOH use, and vasectomy. POD #4 urgent coronary bypass grafting 3 vessels, left internal mammary artery to the left anterior descending artery, reverse saphenous vein graft to the ramus artery, reverse saphenous vein graft to the distal right coronary artery. Endoscopic vein harvest bilateral greater saphenous veins. Epi-aortic ultrasound. Intraoperative transesophageal echocardiogram. Postoperative acute blood loss anemia, an expected postprocedure condition. The patient is currently sitting up in a recliner in no acute distress. He remains in normal sinus rhythm, he is hemodynamically stable on no inotropes or pressors. He states his pain is well-controlled and he is not taking any narcotic pain medication, denies shortness of breath. No new complaints. He has ambulated in the hallway without difficulty. Objective - Vital Signs Vital signs: Vital Signs Temp 98.0 F 03/24/18 08:00 Pulse 96 03/24/18 08:10 Resp 14 03/24/18 08:00 BP 119/58 03/24/18 08:00 Pulse Ox 95 03/24/18 08:00 Intake & Output 03/23/18 03/24/18 03/24/18 18:59 06:59 18:59 Intake Total 1895 705 115 Output Total 1050 Balance 845 705 115 Weight 111.2 kg Intake: Oral 1895 705 115 Output: Urine 1050 Other: Voiding Method Indwelling Catheter Toilet Urinal # Voids 1 1 0 # Bowel Movements 1 ABP, PAP, CO, CI - Last Documented Arterial Blood Pressure 118/48 Pulmonary Artery Pressure 35/10 Cardiac Output 5.8 Cardiac Index 2.6 - Constitutional General appearance: Present: cooperative, no acute distress, obese - Respiratory Details: Lungs sounds diminished bilaterally. Respirations even, nonlabored. Currently on room air with oxygen saturation 95%. Able to achieve 3867-9907 mL on his incentive spirometry. Strong cough. - Cardiovascular Details: S1, S2 present. Regular rate and rhythm, sinus rhythm on telemetry. Sternum stable. Palpable peripheral pulses bilaterally. No edema present. No calf pain or tenderness noted. Heart hugger in place with patient using appropriately, antiembolism stockings, SCDs present. - Gastrointestinal Gastrointestinal Comment(s): Abdomen soft, nontender, nondistended. Active bowel sounds present 4 quadrants. Tolerating diet. Positive bowel movement yesterday. - Genitourinary Genitourinary Comment(s): Patient was voiding yesterday, however he has not voided since 10 PM last night. Bladder scan continues to demonstrate less than 300 mL, patient does not feel the sensation that he needs to void. - Integumentary Integumentary Comment(s): Skin is warm and dry with evidence of good perfusion. Anterior chest incision well approximated and covered with dry intact dressing. Bilateral lower extremity EVH sites well approximated. - Neurologic Neurologic: Present: CNII-XII intact - Musculoskeletal Musculoskeletal: Present: gait normal, strength equal bilaterally - Psychiatric Psychiatric: Present: A&O x's 3, appropriate affect, intact judgment & insight - Allied health notes Allied health notes reviewed: nursing - Labs CBC & Chem 7: 03/24/18 04:41 03/24/18 04:41 Labs: Abnormal Lab Results - Last 24 Hours (Table) 03/23/18 03/23/18 03/23/18 Range/Units 12:14 17:05 21:09 RBC (4.30-5.90) m/uL Hgb (13.0-17.5) gm/dL Hct (39.0-53.0) % MCV (80.0-100.0) fL Sodium (137-145) mmol/L BUN (9-20) mg/dL Creatinine (0.66-1.25) mg/dL Glucose (74-99) mg/dL POC Glucose (mg/dL) 206 H 228 H 310 H (75-99) mg/dL Calcium (8.4-10.2) mg/dL Total Protein (6.3-8.2) g/dL Albumin (3.5-5.0) g/dL 03/24/18 03/24/18 03/24/18 Range/Units 02:21 04:41 04:41 RBC 2.38 L (4.30-5.90) m/uL Hgb 8.2 L (13.0-17.5) gm/dL Hct 23.9 L (39.0-53.0) % MCV 100.4 H (80.0-100.0) fL Sodium 134 L (137-145) mmol/L BUN 23 H (9-20) mg/dL Creatinine 1.40 H (0.66-1.25) mg/dL Glucose 113 H (74-99) mg/dL POC Glucose (mg/dL) 141 H (75-99) mg/dL Calcium 8.2 L (8.4-10.2) mg/dL Total Protein 5.3 L (6.3-8.2) g/dL Albumin 2.7 L (3.5-5.0) g/dL 03/24/18 03/24/18 Range/Units 07:01 09:58 RBC (4.30-5.90) m/uL Hgb (13.0-17.5) gm/dL Hct (39.0-53.0) % MCV (80.0-100.0) fL Sodium (137-145) mmol/L BUN (9-20) mg/dL Creatinine (0.66-1.25) mg/dL Glucose (74-99) mg/dL POC Glucose (mg/dL) 113 H 244 H (75-99) mg/dL Calcium (8.4-10.2) mg/dL Total Protein (6.3-8.2) g/dL Albumin (3.5-5.0) g/dL - Imaging and Cardiology Chest x-ray: report reviewed, image reviewed Assessment and Plan (1) NSTEMI (non-ST elevated myocardial infarction) Current Visit: Yes Status: Acute Code(s): I21.4 - NON-ST ELEVATION (NSTEMI) MYOCARDIAL INFARCTION SNOMED Code(s): 470986160 (2) Coronary artery disease Current Visit: Yes Status: Chronic Code(s): I25.10 - ATHSCL HEART DISEASE OF [place] CORONARY ARTERY W/O ANG PCTRS SNOMED Code(s): 29300883 (3) Hypertension Current Visit: Yes Status: Chronic Code(s): I10 - ESSENTIAL (PRIMARY) HYPERTENSION SNOMED Code(s): 50825127 (4) Hyperlipidemia Current Visit: Yes Status: Chronic Code(s): E78.5 - HYPERLIPIDEMIA, UNSPECIFIED SNOMED Code(s): 79026264 (5) COPD (chronic obstructive pulmonary disease) Current Visit: Yes Status: Chronic Code(s): J44.9 - CHRONIC OBSTRUCTIVE PULMONARY DISEASE, UNSPECIFIED SNOMED Code(s): 80504629 (6) Tobacco dependence in remission Current Visit: No Status: Resolved Code(s): F17.201 - NICOTINE DEPENDENCE, UNSPECIFIED, IN REMISSION SNOMED Code(s): 964597364 (7) EtOH dependence Current Visit: Yes Status: Chronic Code(s): F10.20 - ALCOHOL DEPENDENCE, UNCOMPLICATED SNOMED Code(s): 40116695 (8) Diabetes mellitus Current Visit: Yes Status: Chronic Code(s): E11.9 - TYPE 2 DIABETES MELLITUS WITHOUT COMPLICATIONS SNOMED Code(s): 16824280 (9) Obesity (BMI 30-39.9) Current Visit: Yes Status: Chronic Code(s): E66.9 - OBESITY, UNSPECIFIED SNOMED Code(s): 694905560 Plan: 1. Continue aspirin, statin, Plavix, beta nica, Durga. Will increase beta nica therapy as tolerated. 2. Encourage incentive spirometry 10 times every hour while awake. 3. Increase activity, ambulate as tolerated. PT/OT/cardiac rehab following. 4. Will straight cath times one. If output greater than 400 Will leave Valdovinos catheter and consult urology. Patient did receive a second dose of Flomax this morning. 5. Will monitor daily labs and x-rays. 6. Bronchodilators per pulmonology. 7. Insulin management per primary care service. 8. Pain management with current medication regimen. Toradol discontinued. 9. Continue CIWA protocol and monitor for alcohol withdrawal. 10. Transfer orders for 3 S. cardiac stepdown unit, May transfer when bed available. 11. Discharge planning in progress. Anticipate discharge to home tomorrow versus Monday with home care. 12. More recommendations to follow. Time with Patient: Greater than 30
[2018-03-24] MEDS: THIAMINE 100 MG TAB PO SCH ×2 (12:04→17:23)
[2018-03-24] MEDS: MULTIVITAMINS, THERA 1 EACH TAB PO SCH (12:05)
[2018-03-24 12:11] LABS: Glucose,Whole Blood 218 mg/dL (75-99)
[2018-03-24] MEDS ORDERED: INSULIN ASPART 100 UNIT/ML 1 ML 10 ML VIAL SQ SCH (12:30)
--- NOTE | 2018-03-24 14:30 | P.PN ---
Subjective Progress Note Date: 03/24/18 Principal diagnosis: chest pain Patient is a 72-year-old male past medical history of hypertension, diabetes, dyslipidemia, alcohol use, and significant prior smoking history who presented initially to the [facility] with intermittent chest pain. He was admitted to our facility for further evaluation. He underwent a cardiac catheterization by Dr. Nayak showed a 70% stenosis of RCA, 90% stenosis of the circumflex, and 99% stenosis of the proximal LAD associated with 90% stenosis of the mid LAD and an EF of 35%. The patient ultimately underwent triple vessel cardiac bypass surgery on 03/20. He was able to be extubated after the procedure and has done well. We have been having difficulties controlling his sugars. Has been having difficulty with urinary retention. Patient seen and examined at bedside. States his pain is well controlled. Still slightly short of breath when up and moving around. No nausea or vomiting. States his appetite is coming back. Still not having the urge to be. Nurse present at bedside and updated. Discussed with patient that he will have to go home on a multidose insulin regimen. We are going to attempt to convert him to fixed dose insulin at home. Objective - Vital Signs Vital signs: Vital Signs Temp 98.2 F 03/24/18 12:00 Pulse 91 03/24/18 12:00 Resp 14 03/24/18 12:00 BP 127/69 03/24/18 12:00 Pulse Ox 97 03/24/18 12:00 Intake & Output 03/23/18 03/24/18 03/24/18 18:59 06:59 18:59 Intake Total 1895 705 115 Output Total 1050 Balance 845 705 115 Weight 111.2 kg Intake: Oral 1895 705 115 Output: Urine 1050 Other: Voiding Method Indwelling Catheter Toilet Urinal # Voids 1 1 0 # Bowel Movements 1 ABP, PAP, CO, CI - Last Documented Arterial Blood Pressure 118/48 Pulmonary Artery Pressure 35/10 Cardiac Output 5.8 Cardiac Index 2.6 - Exam General: non toxic, no distress, appears at stated age Derm: warm, dry Head: atraumatic, normocephalic, symmetric Eyes: EOMI, no lid lag, anicteric sclera Mouth: no lip lesion, mucus membranes moist Cardiovascular: S1S2 reg, no murmur, positive posterior tibial pulse bilateral, Lungs: Breath sounds decreased bilateral bases, no rhonchi, no rales , no accessory muscle use, Abdominal: soft, nontender to palpation, no guarding, no appreciable organomegaly Ext: no gross muscle atrophy, no edema, no contractures Neuro: CN II-XI grossly intact, no focal neuro deficits Psych: Alert, oriented, appropriate affect - Labs CBC & Chem 7: 03/24/18 04:41 03/24/18 04:41 Labs: Abnormal Lab Results - Last 24 Hours (Table) 03/23/18 03/23/18 03/24/18 Range/Units 17:05 21:09 02:21 RBC (4.30-5.90) m/uL Hgb (13.0-17.5) gm/dL Hct (39.0-53.0) % MCV (80.0-100.0) fL Sodium (137-145) mmol/L BUN (9-20) mg/dL Creatinine (0.66-1.25) mg/dL Glucose (74-99) mg/dL POC Glucose (mg/dL) 228 H 310 H 141 H (75-99) mg/dL Calcium (8.4-10.2) mg/dL Total Protein (6.3-8.2) g/dL Albumin (3.5-5.0) g/dL 03/24/18 03/24/18 03/24/18 Range/Units 04:41 04:41 07:01 RBC 2.38 L (4.30-5.90) m/uL Hgb 8.2 L (13.0-17.5) gm/dL Hct 23.9 L (39.0-53.0) % MCV 100.4 H (80.0-100.0) fL Sodium 134 L (137-145) mmol/L BUN 23 H (9-20) mg/dL Creatinine 1.40 H (0.66-1.25) mg/dL Glucose 113 H (74-99) mg/dL POC Glucose (mg/dL) 113 H (75-99) mg/dL Calcium 8.2 L (8.4-10.2) mg/dL Total Protein 5.3 L (6.3-8.2) g/dL Albumin 2.7 L (3.5-5.0) g/dL 03/24/18 03/24/18 Range/Units 09:58 11:57 RBC (4.30-5.90) m/uL Hgb (13.0-17.5) gm/dL Hct (39.0-53.0) % MCV (80.0-100.0) fL Sodium (137-145) mmol/L BUN (9-20) mg/dL Creatinine (0.66-1.25) mg/dL Glucose (74-99) mg/dL POC Glucose (mg/dL) 244 H 218 H (75-99) mg/dL Calcium (8.4-10.2) mg/dL Total Protein (6.3-8.2) g/dL Albumin (3.5-5.0) g/dL Assessment and Plan Assessment: Non-STEMI, atherosclerotic coronary artery disease -Management per cardiovascular team -On aspirin, Plavix, statin, ACEI and beta nica -Pain control -PT/OT -Cardiology recommendations Elevated Creatinine - repeat BMP in AM - avoid additional nephrotoxic agents Anticipated acute blood loss anemia- stable - stable no indication for transfusion - Follow CBC in AM - Consider Iron testing as outpatient Diabetes mellitus type 2, insulin requiring -Continue to hold metformin -Levemir 42 units tonight, increase fixed dose, sliding scale -Accu-Cheks to every before meals, at bedtime, and 2 AM -Hemoglobin A1c 8.1. -We will need adjustment to his home insulin regimen prior to discharge, would benefit from continual outpatient endocrinology evaluation Hypertension, controlled -Management as per cardiology and cardiovascular thoracic Dyslipidemia -Continue statin COPD -Without exacerbation -Continue with scheduled and when necessary bronchodilators Alcohol dependency -On [facility] protocol -Thiamine supplementation thrombocytopenia- resolved DVT prophylaxis: Heparin Discussed with: Patient, nursing A total of 25 minutes was spent on the care of this complex patient more than 50 % of the time was spent in counseling and care coordination.
[2018-03-24 17:33] LABS: Glucose,Whole Blood 204 mg/dL (75-99)
[2018-03-24 20:43] LABS: Glucose,Whole Blood 315 mg/dL (75-99)
[2018-03-24] MEDS: INSULIN DETEMIR 100 UNIT/ML 10 ML VIAL SQ SCH (21:20)
[2018-03-24] MEDS: SENNOSIDES-DOCUSATE SODIUM 1 EACH TAB PO SCH (21:20)
[2018-03-25] MEDS: HEPARIN SODIUM,PORCINE 5,000 UNIT/ML 1 ML VIAL SQ SCH ×3 (00:06→18:04)
[2018-03-25] MEDS: INSULIN ASPART 100 UNIT/ML 1 ML 10 ML VIAL SQ SCH ×7 (01:32→21:23)
[2018-03-25 01:56] LABS: Glucose,Whole Blood 158 mg/dL (75-99)
[2018-03-25 06:13] LABS: Glucose,Whole Blood 132 mg/dL (75-99)
[2018-03-25 06:34] LABS: Basophils % (A) 0 %; Eosinophils # (A) 0.3 k/uL (0-0.7); Eosinophils % (A) 6 %; HCT 27.2 % (39.0-53.0); HGB 8.7 gm/dL (13.0-17.5); Lymphocytes # (A) 1.5 k/uL (1.0-4.8); Lymphocytes % (A) 27 %; MCH 32.2 pg (25.0-35.0); MCHC 31.8 g/dL (31.0-37.0); MCV 101.4 fL (80.0-100.0); Mean Platelet Volume 7.1; Monocytes # (A) 0.5 k/uL (0-1.0); Monocytes % (A) 9 %; Neutrophils # (A) 3.1 k/uL (1.3-7.7); Neutrophils % (A) 54 %; Platelet Count 239 k/uL (150-450); RBC 2.69 m/uL (4.30-5.90); RDW 12.4 % (11.5-15.5); WBC 5.6 k/uL (3.8-10.6)
[2018-03-25 06:40] LABS: Albumin 3.2 g/dL (3.5-5.0); Calcium 8.7 mg/dL (8.4-10.2); Magnesium 1.9 mg/dL (1.6-2.3); Potassium 4.4 mmol/L (3.5-5.1); Total Bilirubin 0.6 mg/dL (0.2-1.3)
--- NOTE | 2018-03-25 06:44 | XR ---
EXAMINATION TYPE: XR chest 2V DATE OF EXAM: 03/25/2018 HISTORY: post cardiac surgery. REFERENCE: Previous study dated 03/24/2018. FINDINGS: The heart is mildly enlarged. There is platelike atelectasis at the left lung base. There i s a small left effusion. IMPRESSION: NO SIGNIFICANT INTERVAL CHANGE IN THE APPEARANCE OF THE CHEST.
[2018-03-25] MEDS: PANTOPRAZOLE 40 MG TABLET PO SCH (07:18)
--- NOTE | 2018-03-25 08:03 | P.PN ---
Subjective Progress Note Date: 03/25/18 Principal diagnosis: Coronary artery disease, current non-STEMI. Previous medical history of uncontrolled insulin-dependent diabetes mellitus with preoperative hemoglobin A1c 8.1%, hypertension, hypertriglyceridemia, obesity, kidney stones, previous tobacco dependence, mild COPD with preoperative FEV1 72% of predicted, near daily EtOH use, and vasectomy. POD #5 urgent coronary bypass grafting 3 vessels, left internal mammary artery to the left anterior descending artery, reverse saphenous vein graft to the ramus artery, reverse saphenous vein graft to the distal right coronary artery. Endoscopic vein harvest bilateral greater saphenous veins. Epi-aortic ultrasound. Intraoperative transesophageal echocardiogram. Postoperative acute blood loss anemia, an expected postprocedure condition. Postoperative urinary retention requiring reinsertion of Valdovinos, an unexpected outcome. The patient is currently sitting up in a recliner in no acute distress. He remains in normal sinus rhythm, he is hemodynamically stable. He states he did have some incisional pain last night but did not ask for pain medication, denies shortness of breath. No new complaints. He has ambulated in the hallway without difficulty. He did have urinary retention despite multiple attempts at voiding, Valdovinos was reinserted and consult was placed to urology. Objective - Vital Signs Vital signs: Vital Signs Temp 99.2 F 03/25/18 00:30 Pulse 94 03/25/18 03:52 Resp 18 03/25/18 03:52 BP 125/66 03/25/18 03:52 Pulse Ox 98 03/25/18 03:52 Intake & Output 03/24/18 03/25/18 03/25/18 18:59 06:59 18:59 Intake Total 630 380 Output Total 1165 1525 Balance -535 -1145 Weight 105.9 kg Intake: Oral 630 380 Output: Urine 1165 1525 Other: Voiding Method Indwelling Catheter Indwelling Catheter # Voids 0 ABP, PAP, CO, CI - Last Documented Arterial Blood Pressure 118/48 Pulmonary Artery Pressure 35/10 Cardiac Output 5.8 Cardiac Index 2.6 - Constitutional General appearance: Present: cooperative, no acute distress, obese - Respiratory Details: Lungs sounds diminished bilaterally. Respirations even, nonlabored. Currently on room air with oxygen saturation 98%. Able to achieve 2000 mL on his incentive spirometry. Strong cough. - Cardiovascular Details: S1, S2 present. Regular rate and rhythm, sinus rhythm on telemetry. Sternum stable. Palpable peripheral pulses bilaterally. No edema present. No calf pain or tenderness noted. Heart hugger in place with patient using appropriately, antiembolism stockings, SCDs present. - Gastrointestinal Gastrointestinal Comment(s): Abdomen soft, nontender, nondistended. Active bowel sounds present 4 quadrants. Tolerating diet. Positive bowel movement 03/23. - Genitourinary Genitourinary Comment(s): Valdovinos present, drained 1200 mL overnight. - Integumentary Integumentary Comment(s): Skin is warm and dry with evidence of good perfusion. Anterior chest incision well approximated and covered with dry intact dressing. Bilateral lower extremity EVH sites well approximated. - Neurologic Neurologic: Present: CNII-XII intact - Musculoskeletal Musculoskeletal: Present: gait normal, strength equal bilaterally - Psychiatric Psychiatric: Present: A&O x's 3, appropriate affect, intact judgment & insight - Allied health notes Allied health notes reviewed: nursing - Labs CBC & Chem 7: 03/25/18 05:47 03/25/18 05:47 Labs: Abnormal Lab Results - Last 24 Hours (Table) 03/24/18 03/24/18 03/24/18 Range/Units 09:58 11:57 17:08 RBC (4.30-5.90) m/uL Hgb (13.0-17.5) gm/dL Hct (39.0-53.0) % MCV (80.0-100.0) fL Creatinine (0.66-1.25) mg/dL Glucose (74-99) mg/dL POC Glucose (mg/dL) 244 H 218 H 204 H (75-99) mg/dL Total Protein (6.3-8.2) g/dL Albumin (3.5-5.0) g/dL 03/24/18 03/25/18 03/25/18 Range/Units 20:40 01:54 05:47 RBC 2.69 L (4.30-5.90) m/uL Hgb 8.7 L (13.0-17.5) gm/dL Hct 27.2 L (39.0-53.0) % MCV 101.4 H (80.0-100.0) fL Creatinine (0.66-1.25) mg/dL Glucose (74-99) mg/dL POC Glucose (mg/dL) 315 H 158 H (75-99) mg/dL Total Protein (6.3-8.2) g/dL Albumin (3.5-5.0) g/dL 03/25/18 03/25/18 Range/Units 05:47 06:12 RBC (4.30-5.90) m/uL Hgb (13.0-17.5) gm/dL Hct (39.0-53.0) % MCV (80.0-100.0) fL Creatinine 1.26 H (0.66-1.25) mg/dL Glucose 129 H (74-99) mg/dL POC Glucose (mg/dL) 132 H (75-99) mg/dL Total Protein 6.0 L (6.3-8.2) g/dL Albumin 3.2 L (3.5-5.0) g/dL - Imaging and Cardiology Chest x-ray: report reviewed, image reviewed Assessment and Plan (1) NSTEMI (non-ST elevated myocardial infarction) Current Visit: Yes Status: Acute Code(s): I21.4 - NON-ST ELEVATION (NSTEMI) MYOCARDIAL INFARCTION SNOMED Code(s): 222758880 (2) Coronary artery disease Current Visit: Yes Status: Chronic Code(s): I25.10 - ATHSCL HEART DISEASE OF [place] CORONARY ARTERY W/O ANG PCTRS SNOMED Code(s): 60198310 (3) Hypertension Current Visit: Yes Status: Chronic Code(s): I10 - ESSENTIAL (PRIMARY) HYPERTENSION SNOMED Code(s): 95905702 (4) Hyperlipidemia Current Visit: Yes Status: Chronic Code(s): E78.5 - HYPERLIPIDEMIA, UNSPECIFIED SNOMED Code(s): 02094210 (5) COPD (chronic obstructive pulmonary disease) Current Visit: Yes Status: Chronic Code(s): J44.9 - CHRONIC OBSTRUCTIVE PULMONARY DISEASE, UNSPECIFIED SNOMED Code(s): 31035122 (6) Tobacco dependence in remission Current Visit: No Status: Resolved Code(s): F17.201 - NICOTINE DEPENDENCE, UNSPECIFIED, IN REMISSION SNOMED Code(s): 786152118 (7) EtOH dependence Current Visit: Yes Status: Chronic Code(s): F10.20 - ALCOHOL DEPENDENCE, UNCOMPLICATED SNOMED Code(s): 46932052 (8) Diabetes mellitus Current Visit: Yes Status: Chronic Code(s): E11.9 - TYPE 2 DIABETES MELLITUS WITHOUT COMPLICATIONS SNOMED Code(s): 74632077 (9) Obesity (BMI 30-39.9) Current Visit: Yes Status: Chronic Code(s): E66.9 - OBESITY, UNSPECIFIED SNOMED Code(s): 324637083 Plan: 1. Continue aspirin, statin, Plavix, beta nica, Durga. Will increase beta nica therapy as tolerated. 2. Encourage incentive spirometry 10 times every hour while awake. 3. Increase activity, ambulate as tolerated. PT/OT/cardiac rehab following. 4. Continue Valdovinos, change to a leg bag. Continue Flomax. Will have patient follow up with urology outpatient, trial remove Valdovinos in one week. 5. Bronchodilators per pulmonology. 6. Insulin management per primary care service. 7. Pain management with current medication regimen. 8. Discharge planning in progress. Anticipate discharge to home today with home care. 9. More recommendations to follow. Time with Patient: Greater than 30
[2018-03-25] MEDS: CLOPIDOGREL 75 MG TAB PO SCH (08:28)
[2018-03-25] MEDS: LISINOPRIL 2.5 MG TAB PO SCH (08:28)
[2018-03-25] MEDS: ASPIRIN 325 MG TAB PO SCH (08:28)
[2018-03-25] MEDS: METOPROLOL TARTRATE 25 MG TAB PO SCH ×2 (08:28→21:22)
[2018-03-25] MEDS: TAMSULOSIN 0.4 MG CAP.ER.24H PO SCH (08:28)
[2018-03-25] MEDS: ATORVASTATIN 80 MG TAB PO SCH (08:29)
--- NOTE | 2018-03-25 09:21 | P.PN ---
Subjective Progress Note Date: 03/25/18 Principal diagnosis: chest pain Patient is a 72-year-old male past medical history of hypertension, diabetes, dyslipidemia, alcohol use, and significant prior smoking history who presented initially to the [facility] with intermittent chest pain. He was admitted to our facility for further evaluation. He underwent a cardiac catheterization by Dr. Nayak showed a 70% stenosis of RCA, 90% stenosis of the circumflex, and 99% stenosis of the proximal LAD associated with 90% stenosis of the mid LAD and an EF of 35%. The patient ultimately underwent triple vessel cardiac bypass surgery on 03/20. He was able to be extubated after the procedure and has done well. We have been having difficulties controlling his sugars. Has been having difficulty with urinary retention and required cali cath to be restarted and was placed on flomax. Patient seen and examined at bedside. Feeling tired today. No chest pain or shortness of breath. Had some chest discomfort last night which is now resolved. no nausea. No vomiting. At home he uses insulin pens to inject his insulin. Objective - Vital Signs Vital signs: Vital Signs Temp 97.8 F 03/25/18 08:00 Pulse 98 03/25/18 08:00 Resp 18 03/25/18 08:00 BP 146/67 03/25/18 08:00 Pulse Ox 98 03/25/18 08:00 Intake & Output 03/24/18 03/25/18 03/25/18 18:59 06:59 18:59 Intake Total 630 380 Output Total 1165 1525 Balance -535 -1145 Weight 105.9 kg Intake: Oral 630 380 Output: Urine 1165 1525 Other: Voiding Method Indwelling Catheter Indwelling Catheter # Voids 0 ABP, PAP, CO, CI - Last Documented Arterial Blood Pressure 118/48 Pulmonary Artery Pressure 35/10 Cardiac Output 5.8 Cardiac Index 2.6 - Exam General: non toxic, no distress, appears at stated age Derm: warm, dry Head: atraumatic, normocephalic, symmetric Eyes: EOMI, no lid lag, anicteric sclera Mouth: no lip lesion, mucus membranes moist Cardiovascular: S1S2 reg, no murmur, positive posterior tibial pulse bilateral, Lungs: decreased breath bilateral bases, no rhonchi, no rales , no accessory muscle use, Abdominal: soft, nontender to palpation, no guarding, no appreciable organomegaly Ext: no gross muscle atrophy, no edema, no contractures Neuro: CN II-XI grossly intact, no focal neuro deficits Psych: Alert, oriented, appropriate affect - Labs CBC & Chem 7: 03/25/18 05:47 03/25/18 05:47 Labs: Abnormal Lab Results - Last 24 Hours (Table) 03/24/18 03/24/18 03/24/18 Range/Units 09:58 11:57 17:08 RBC (4.30-5.90) m/uL Hgb (13.0-17.5) gm/dL Hct (39.0-53.0) % MCV (80.0-100.0) fL Creatinine (0.66-1.25) mg/dL Glucose (74-99) mg/dL POC Glucose (mg/dL) 244 H 218 H 204 H (75-99) mg/dL Total Protein (6.3-8.2) g/dL Albumin (3.5-5.0) g/dL 03/24/18 03/25/18 03/25/18 Range/Units 20:40 01:54 05:47 RBC 2.69 L (4.30-5.90) m/uL Hgb 8.7 L (13.0-17.5) gm/dL Hct 27.2 L (39.0-53.0) % MCV 101.4 H (80.0-100.0) fL Creatinine (0.66-1.25) mg/dL Glucose (74-99) mg/dL POC Glucose (mg/dL) 315 H 158 H (75-99) mg/dL Total Protein (6.3-8.2) g/dL Albumin (3.5-5.0) g/dL 03/25/18 03/25/18 Range/Units 05:47 06:12 RBC (4.30-5.90) m/uL Hgb (13.0-17.5) gm/dL Hct (39.0-53.0) % MCV (80.0-100.0) fL Creatinine 1.26 H (0.66-1.25) mg/dL Glucose 129 H (74-99) mg/dL POC Glucose (mg/dL) 132 H (75-99) mg/dL Total Protein 6.0 L (6.3-8.2) g/dL Albumin 3.2 L (3.5-5.0) g/dL Assessment and Plan Assessment: Non-STEMI, atherosclerotic coronary artery disease -Management per cardiovascular team -On aspirin, Plavix, statin, ACEI and beta nica -Pain control -PT/OT -Cardiology recommendations Anticipated acute blood loss anemia- stable - outpatient follow-up CBC Diabetes mellitus type 2, insulin requiring -Levemir 45 units, home on novolog 10 with breakfast and lunch and 15 units with dinner -Accu-Cheks to every before meals, at bedtime, and 2 AM -Hemoglobin A1c 8.1. -out patient endocrine evaluation. May benefit from SGLT2 inhibitor ( empagliflozin or invokana) in addition to insulin therapy which have been shown to reduce CV deaths in type 2 DM. However, Insulin likely will need to be drecreased. - Resume metformin on discharge. - Make a log of blood sugars for home health and PCP to review. Hypertension, controlled -Management as per cardiology and cardiovascular thoracic Dyslipidemia -Continue statin COPD -Without exacerbation -Continue with scheduled and when necessary bronchodilators Alcohol dependency -On [facility] protocol -Thiamine supplementation thrombocytopenia- resolved Elevated Creatinine, improved RX for novolog and instruction added to discharge plan. DVT prophylaxis: Heparin Discussed with: Patient, nursing, Gracy Dailey NP A total of 25 minutes was spent on the care of this complex patient more than 50 % of the time was spent in counseling and care coordination.
--- NOTE | 2018-03-25 10:48 | P.GSCN ---
History of Present Illness Consult date: 03/25/18 Reason for Consult: Urinary retention History of present illness: The patient is a 72-year-old male admitted as a transfer from [facility] for evaluation of chest pain which had begun earlier in the day. He underwent emergency coronary arteriogram on 03/19 and was confirmed to have triple-vessel disease. CABG was performed on 03/20. The patient's catheter was removed on 03/22. He was unable to void and was initially in and out cathed for 800 mL. He was started on Flomax 0.4 mg daily. He remained unable to void and a Valdovinos catheter was inserted yesterday. The catheter has remained in place. The patient has no previous history of urinary retention. He usually voids every 1- 3 hours during the day and 2-4 times at night. He complains of urgency and has experienced at least one episode of urge incontinence. He says that he does not strain to void and usually feels he voids completely. His urine flow is not as strong as it was several years ago. He has no history of gross hematuria or urinary tract infection. He says his bowels normally move on a regular basis but he did have some difficulty with constipation following his CABG and has had an enema but is moving his bowels again. Review of Systems - Constitutional Denies fever - Cardiovascular Reports shortness of breath - Gastrointestinal Denies abdominal pain - Genitourinary Reports as per HPI Past Medical History Past Medical History: Coronary Artery Disease (CAD), Diabetes Mellitus, Hyperlipidemia, Hypertension Additional Past Medical History / Comment(s): IDDM type II History of Any Multi-Drug Resistant Organisms: None Reported Past Surgical History: Heart Catheterization (And CABG) Additional Past Surgical History / Comment(s): Vasectomy Past Anesthesia/Blood Transfusion Reactions: No Reported Reaction Past Psychological History: No Psychological Hx Reported Additional Psychological History / Comment(s): Pt resides with his spouse. Heis independent. Smoking Status: Former smoker Past Alcohol Use History: Occasional Additional Past Alcohol Use History / Comment(s): Patient states he drinks almost daily-3 or 4 beers, has never gone through withdrawal. He started smoking in 1961 and quit in 1977 Past Drug Use History: None Reported - Past Family History Father Family Medical History: Cancer Additional Family Medical History / Comment(s): Father of lung cancer with metastasis Mother Family Medical History: No Reported History Additional Family Medical History / Comment(s): Mother was healthy and lived to be 86 or 87yrs. Medications and Allergies Home Medications Medication Instructions Recorded Confirmed Type Insulin Detemir [Levemir Flextouch] 45 units SQ HS 03/19/18 03/19/18 History Triamcinolone 0.1% Cream [Kenalog 1 applicatio TOPICAL BID 03/19/18 03/19/18 History 0.1% Cream] metFORMIN HCL [metFORMIN HCL ER] 1,000 mg PO BID 03/19/18 03/19/18 History Acetaminophen Tab [Tylenol] 325 mg PO Q4HR PRN tab 03/25/18 Rx Acetaminophen Tab [Tylenol] 650 mg PO Q4HR PRN tab 03/25/18 Rx Aspirin 325 mg PO DAILY #30 tab 03/25/18 Rx Atorvastatin [Lipitor] 80 mg PO HS #30 tab 03/25/18 Rx Clopidogrel [Plavix] 75 mg PO DAILY #30 tab 03/25/18 Rx Insulin Aspart [NovoLOG Flexpen] See Protocol SQ TID-W/MEALS #1 box 03/25/18 Rx Lisinopril [Zestril] 2.5 mg PO DAILY #30 tab 03/25/18 Rx Metoprolol Tartrate [Lopressor] 25 mg PO BID #60 tab 03/25/18 Rx Pantoprazole [Protonix] 40 mg PO AC-BRKFST #30 tablet.dr 03/25/18 Rx Sennosides-Docusate Sodium 2 each PO HS PRN tab 03/25/18 Rx [Senokot-S] Tamsulosin [Flomax] 0.4 mg PO PC-BRKFST #30 cap.er.24h 03/25/18 Rx Allergies Allergy/AdvReac Type Severity Reaction Status Date / Time No Known Allergies Allergy Verified 03/19/18 14:12 Surgical - Exam Vital Signs Temp Pulse Resp BP Pulse Ox 97.9 F 75 18 166/95 97 03/19/18 12:08 03/19/18 12:08 03/19/18 12:08 03/19/18 12:08 03/19/18 12:08 - General well developed, well nourished, no distress, obese - ENT no hearing loss - Neck no masses, no lymphadectomy - Respiratory normal respiratory effort - Abdomen Abdomen: soft, non tender, no organomegaly Hernia: none - Genitourinary normal penis with no external lesions, testicles non-tender (A Valdovinos catheter is in place and is draining clear urine.) - Rectum Rectum: normal sphincter tone, no hemorrhoids, other (Prostate is 1-2+ enlarged and benign in consistency) Results - Labs 03/25/18 05:47 03/25/18 05:47 Abnormal Lab Results - Last 24 Hours (Table) 03/24/18 03/24/18 03/24/18 Range/Units 11:57 17:08 20:40 RBC (4.30-5.90) m/uL Hgb (13.0-17.5) gm/dL Hct (39.0-53.0) % MCV (80.0-100.0) fL Creatinine (0.66-1.25) mg/dL Glucose (74-99) mg/dL POC Glucose (mg/dL) 218 H 204 H 315 H (75-99) mg/dL Total Protein (6.3-8.2) g/dL Albumin (3.5-5.0) g/dL 03/25/18 03/25/18 03/25/18 Range/Units 01:54 05:47 05:47 RBC 2.69 L (4.30-5.90) m/uL Hgb 8.7 L (13.0-17.5) gm/dL Hct 27.2 L (39.0-53.0) % MCV 101.4 H (80.0-100.0) fL Creatinine 1.26 H (0.66-1.25) mg/dL Glucose 129 H (74-99) mg/dL POC Glucose (mg/dL) 158 H (75-99) mg/dL Total Protein 6.0 L (6.3-8.2) g/dL Albumin 3.2 L (3.5-5.0) g/dL 03/25/18 Range/Units 06:12 RBC (4.30-5.90) m/uL Hgb (13.0-17.5) gm/dL Hct (39.0-53.0) % MCV (80.0-100.0) fL Creatinine (0.66-1.25) mg/dL Glucose (74-99) mg/dL POC Glucose (mg/dL) 132 H (75-99) mg/dL Total Protein (6.3-8.2) g/dL Albumin (3.5-5.0) g/dL Diabetes panel 03/25/18 Range/Units 05:47 Sodium 138 (137-145) mmol/L Potassium 4.4 (3.5-5.1) mmol/L Chloride 107 (98-107) mmol/L Carbon Dioxide 24 (22-30) mmol/L BUN 19 (9-20) mg/dL Creatinine 1.26 H (0.66-1.25) mg/dL Glucose 129 H (74-99) mg/dL Calcium 8.7 (8.4-10.2) mg/dL AST 26 (17-59) U/L ALT 34 (21-72) U/L Alkaline Phosphatase 60 (38-126) U/L Total Protein 6.0 L (6.3-8.2) g/dL Albumin 3.2 L (3.5-5.0) g/dL Calcium panel 03/25/18 Range/Units 05:47 Calcium 8.7 (8.4-10.2) mg/dL Albumin 3.2 L (3.5-5.0) g/dL Pituitary panel 03/25/18 Range/Units 05:47 Sodium 138 (137-145) mmol/L Potassium 4.4 (3.5-5.1) mmol/L Chloride 107 (98-107) mmol/L Carbon Dioxide 24 (22-30) mmol/L BUN 19 (9-20) mg/dL Creatinine 1.26 H (0.66-1.25) mg/dL Glucose 129 H (74-99) mg/dL Calcium 8.7 (8.4-10.2) mg/dL Adrenal panel 03/25/18 Range/Units 05:47 Sodium 138 (137-145) mmol/L Potassium 4.4 (3.5-5.1) mmol/L Chloride 107 (98-107) mmol/L Carbon Dioxide 24 (22-30) mmol/L BUN 19 (9-20) mg/dL Creatinine 1.26 H (0.66-1.25) mg/dL Glucose 129 H (74-99) mg/dL Calcium 8.7 (8.4-10.2) mg/dL Total Bilirubin 0.6 (0.2-1.3) mg/dL AST 26 (17-59) U/L ALT 34 (21-72) U/L Alkaline Phosphatase 60 (38-126) U/L Total Protein 6.0 L (6.3-8.2) g/dL Albumin 3.2 L (3.5-5.0) g/dL Assessment and Plan (1) Postoperative urinary retention Narrative/Plan: The source of the patient's urinary retention is probably underlying bladder outflow obstruction. The patient was started on Flomax and this should be continued at a dose of 0.4 mg daily. He can be discharged with a Valdovinos catheter. My office will contact him on 03/26 to set up an appointment for follow-up on 03/28 in the afternoon. The patient will remove his Valdovinos catheter 6 hours prior to the appointment. I instructed the patient in Valdovinos catheter removal. Current Visit: Yes Status: Acute Code(s): N99.89 - OTH POSTPROCEDURAL COMPLICATIONS AND DISORDERS OF SYS; R33.8 - OTHER RETENTION OF URINE SNOMED Code(s): 500435177
--- NOTE | 2018-03-25 11:29 | PN ---
PROGRESS NOTE This patient is status post coronary artery bypass surgery x3 vessels. The patient remains stable. He is sitting in a recliner without any respiratory distress. The patient is being ambulated in the hallway without any difficulty and is being maintained in the normal sinus rhythm. Blood pressure is 119/58 mmHg. Temperature is normal. Heart rate is 90 per minute. First and second heart sounds are heard. Lungs reveal good air entry on both sides. Abdomen is soft. The patient's hemoglobin is 8.2. Electrolytes are normal. Creatinine is 1.2. The patient's blood sugar remains still elevated in the range of 200-250. Patient is currently getting insulin. RECOMMENDATIONS: We will continue the current cardiac medications. I would recommend to add Jardiance 10 mg daily in addition to the insulin. MMROBERTL / IJN: [id number] /
[2018-03-25 11:48] LABS: Glucose,Whole Blood 181 mg/dL (75-99)
[2018-03-25] MEDS: IPRATROPIUM-ALBUTEROL 3 ML NEB INHALATION SCH ×4 (11:50→20:52)
[2018-03-25] MEDS ORDERED: INSULIN ASPART 100 UNIT/ML 1 ML 10 ML VIAL SQ SCH (12:30)
[2018-03-25] MEDS: THIAMINE 100 MG TAB PO SCH ×2 (13:03→17:59)
[2018-03-25] MEDS: MULTIVITAMINS, THERA 1 EACH TAB PO SCH (13:03)
--- NOTE | 2018-03-25 14:56 | P.PN ---
Subjective Progress Note Date: 03/25/18 Principal diagnosis: ICU management, routine postoperative ventilator management Progress note dated 03/20/2018 This is a 72-year-old male seen yesterday in consultation. He has a history of non-ST segment elevation myocardial infarction, multivessel coronary artery disease, ischemic cardiomyopathy, diabetes mellitus, hypertension, hyperlipidemia, and a 69-[id number]-[id number] history of tobacco use. He also apparently has a history of daily alcohol use. The patient went to the operating room this morning for a LYNN to LAD, SVG to the ramus, and an SVG to RCA. Patient on mechanical ventilator with vent settings SIMV 12, TV 500, FiO2 100%, and PEEP of 10. Will follow rapid wean protocol when patient alert and following commands. Patient has 2 mediastinal chest tubes and one left pleural chest tube intact and draining minimal sanguineous drainage. Patient currently on lactated Ringer at 50 mL an hour, nitroglycerin drip at 5 mcgs per minute, norepinephrine 2 mcgs per minute, and propofol 15 mics per kilogram per minute. Patient's current cardiac index is 2.1 and cardiac output 4.0. Patient appears hemodynamically stable at this time. Awaiting chest x-rays and ABG for review. Progress note dated 03/25/2018 72-year-old male seen in consultation initially with a non-ST segment elevation myocardial infarction multivessel coronary artery disease ischemic cardiomyopathy diabetes mellitus hypertension hyperlipidemia and a 48-[id number]-[id number] history of tobacco use. The patient underwent a four-vessel bypass grafting. He did well postoperatively. He was eventually moved out to the floor. He did develop some urinary retention which required improved by urology. The patient is doing well from the pulmonary standpoint. Denies any shortness of breath chest tightness wheezing cough phlegm production fever chills nausea vomiting or diarrhea. He is not having any chest pain or chest discomfort either. The chest x-ray is currently stable. Microbiologic screen is positive for non-MRSA staph aureus in the nasal prep. White count is 5.6, hemoglobin 8.7, hematocrit 27.2 and platelet count is normal. Likewise electrolytes are relatively normal. Creatinine is a bit high at 1.26. Objective - Vital Signs Vital signs: Vital Signs Temp 98.1 F 03/25/18 11:56 Pulse 96 03/25/18 12:16 Resp 18 03/25/18 11:56 BP 101/57 11/11/18 11:56 Pulse Ox 97 03/25/18 11:56 Intake & Output 03/24/18 03/25/18 03/25/18 18:59 06:59 18:59 Intake Total 630 380 Output Total 1165 1525 Balance -535 -1145 Weight 105.9 kg Intake: Oral 630 380 Output: Urine 1165 1525 Other: Voiding Method Indwelling Catheter Indwelling Catheter Indwelling Catheter # Voids 0 ABP, PAP, CO, CI - Last Documented Arterial Blood Pressure 118/48 Pulmonary Artery Pressure 35/10 Cardiac Output 5.8 Cardiac Index 2.6 - Labs CBC & Chem 7: 03/25/18 05:47 03/25/18 05:47 Labs: Abnormal Lab Results - Last 24 Hours (Table) 03/24/18 03/24/18 03/25/18 Range/Units 17:08 20:40 01:54 RBC (4.30-5.90) m/uL Hgb (13.0-17.5) gm/dL Hct (39.0-53.0) % MCV (80.0-100.0) fL Creatinine (0.66-1.25) mg/dL Glucose (74-99) mg/dL POC Glucose (mg/dL) 204 H 315 H 158 H (75-99) mg/dL Total Protein (6.3-8.2) g/dL Albumin (3.5-5.0) g/dL 03/25/18 03/25/18 03/25/18 Range/Units 05:47 05:47 06:12 RBC 2.69 L (4.30-5.90) m/uL Hgb 8.7 L (13.0-17.5) gm/dL Hct 27.2 L (39.0-53.0) % MCV 101.4 H (80.0-100.0) fL Creatinine 1.26 H (0.66-1.25) mg/dL Glucose 129 H (74-99) mg/dL POC Glucose (mg/dL) 132 H (75-99) mg/dL Total Protein 6.0 L (6.3-8.2) g/dL Albumin 3.2 L (3.5-5.0) g/dL 03/25/18 Range/Units 11:46 RBC (4.30-5.90) m/uL Hgb (13.0-17.5) gm/dL Hct (39.0-53.0) % MCV (80.0-100.0) fL Creatinine (0.66-1.25) mg/dL Glucose (74-99) mg/dL POC Glucose (mg/dL) 181 H (75-99) mg/dL Total Protein (6.3-8.2) g/dL Albumin (3.5-5.0) g/dL Assessment and Plan Assessment: Assessment #1 coronary artery disease, postop day 4, CABG 3. #2 routine postoperative ventilatory management. #3 non-ST elevated LA #4 ischemic cardiomyopathy, LV function with EF 35%. #5 hypertension, hyperlipidemia. #6 history of nicotine dependence, rule out COPD. #7 daily EtOH use. Plan: Plan dated 03/20/2018 Awaiting chest x-ray and ABG to review. We will continue DuoNeb every 4 hours [id number]. We will proceed with rapid weaning protocol once patient is following commands. We will continue to monitor vital signs, urine output, and readiness to wean. Plan dated 03/25/2018 The patient continues to show improvement. The biggest issue is now related to his urinary retention. He's been weaned off of oxygen therapy. The patient's labs x-rays a medications are all reviewed. Hopefully discharge in the near future. No additional recommendations are made. Prognosis is generally good. We will continue to follow. We will also see him post discharge in the office. Time with Patient: Less than 30
[2018-03-25 16:47] LABS: Glucose,Whole Blood 198 mg/dL (75-99)
[2018-03-25 20:47] LABS: Glucose,Whole Blood 261 mg/dL (75-99)
[2018-03-25] MEDS: SENNOSIDES-DOCUSATE SODIUM 1 EACH TAB PO SCH (21:22)
[2018-03-25] MEDS: INSULIN DETEMIR 100 UNIT/ML 10 ML VIAL SQ SCH (21:23)
[2018-03-26 01:32] VITALS: RESP 18
--- NOTE | 2018-03-26 01:47 | PN ---
PROGRESS NOTE DATE OF SERVICE: 03/25/2018. HISTORY: The patient is status post coronary artery bypass surgery. Patient is doing fairly well. The patient had an episode of dizziness this morning, but is feeling better now. Denies any chest pain or shortness of breath. PHYSICAL EXAM: Blood pressure is 114/63 mmHg. Patient is afebrile. Heart rate is 96 per minute. First and second heart sounds are normal. Lungs are clinically clear to auscultation and percussion. Electrolytes are normal. Creatinine 1.36. ASSESSMENT AND PLAN: The exact etiology of the patient's dizziness is unclear. No dysrhythmias are noted. The patient will be monitored for the next 24 hours. Continue the current medications. MMODL / IJN: [id number] /
[2018-03-26 05:57] LABS: Glucose,Whole Blood 104 mg/dL (75-99)
[2018-03-26] MEDS: INSULIN ASPART 100 UNIT/ML 1 ML 10 ML VIAL SQ SCH ×3 (06:22→13:11)
[2018-03-26] MEDS: PANTOPRAZOLE 40 MG TABLET PO SCH (07:08)
[2018-03-26] MEDS: IPRATROPIUM-ALBUTEROL 3 ML NEB INHALATION SCH ×3 (08:08→16:10)
[2018-03-26 08:43] LABS: HCT 28.8 % (39.0-53.0); HGB 9.5 gm/dL (13.0-17.5); Hypochromasia Slight; MCH 33.3 pg (25.0-35.0); MCHC 32.9 g/dL (31.0-37.0); MCV 101.4 fL (80.0-100.0); Mean Platelet Volume 7.2; Platelet Count 323 k/uL (150-450); RBC 2.84 m/uL (4.30-5.90); RDW 12.5 % (11.5-15.5); WBC 7.6 k/uL (3.8-10.6)
[2018-03-26 08:51] LABS: Calcium 9.1 mg/dL (8.4-10.2); Potassium 4.8 mmol/L (3.5-5.1)
[2018-03-26] MEDS: METOPROLOL TARTRATE 25 MG TAB PO SCH (09:27)
[2018-03-26] MEDS: MULTIVITAMINS, THERA 1 EACH TAB PO SCH (09:27)
[2018-03-26] MEDS: TAMSULOSIN 0.4 MG CAP.ER.24H PO SCH (09:27)
[2018-03-26] MEDS: THIAMINE 100 MG TAB PO SCH (09:27)
[2018-03-26] MEDS: CLOPIDOGREL 75 MG TAB PO SCH (09:27)
[2018-03-26] MEDS: LISINOPRIL 2.5 MG TAB PO SCH (09:27)
[2018-03-26] MEDS: ASPIRIN 325 MG TAB PO SCH (09:27)
[2018-03-26] MEDS: ATORVASTATIN 80 MG TAB PO SCH (09:27)
[2018-03-26] MEDS: HEPARIN SODIUM,PORCINE 5,000 UNIT/ML 1 ML VIAL SQ SCH ×2 (09:27)
--- NOTE | 2018-03-26 10:09 | P.PN ---
Subjective Progress Note Date: 03/26/18 Principal diagnosis: chest pain Patient is a 72-year-old male past medical history of hypertension, diabetes, dyslipidemia, alcohol use, and significant prior smoking history who presented initially to the [facility] with intermittent chest pain. He was admitted to our facility for further evaluation. He underwent a cardiac catheterization by Dr. Nayak showed a 70% stenosis of RCA, 90% stenosis of the circumflex, and 99% stenosis of the proximal LAD associated with 90% stenosis of the mid LAD and an EF of 35%. The patient ultimately underwent triple vessel cardiac bypass surgery on 03/20. He was able to be extubated after the procedure and has done well. We have been having difficulties controlling his sugars. Has been having difficulty with urinary retention and required cali cath to be restarted and was placed on flomax. Seen by urology and plam is for D /C home with cath in place and voiding trial later this week. Patient seen and examined at bedside. Still feeling tired. No chest pain or shortness of breath. No nausea and appetite is back to normal. D/W patient plan for TID with meals inject and levemir 45 at night plus keeping track of sugar . Discussed possibility of coming of some insulin if able but he needs to track closely and consider SGLT2 inhibitor. Objective - Vital Signs Vital signs: Vital Signs Temp 97.6 F 03/26/18 09:32 Pulse 99 03/26/18 09:32 Resp 18 03/26/18 09:32 BP 122/72 03/26/18 09:32 Pulse Ox 97 03/26/18 09:32 Intake & Output 03/25/18 03/26/18 03/26/18 18:59 06:59 18:59 Output Total 1000 5400 Balance -1000 -5400 Weight 104 kg Output: Urine 1000 5400 Other: Voiding Method Indwelling Catheter Indwelling Catheter Indwelling Catheter # Voids 0 ABP, PAP, CO, CI - Last Documented Arterial Blood Pressure 118/48 Pulmonary Artery Pressure 35/10 Cardiac Output 5.8 Cardiac Index 2.6 - Exam General: non toxic, no distress, appears at stated age Derm: warm, dry Head: atraumatic, normocephalic, symmetric Eyes: EOMI, no lid lag, anicteric sclera Mouth: no lip lesion, mucus membranes moist Cardiovascular: S1S2 reg, no murmur, positive posterior tibial pulse bilateral, Lungs: decreased breath bilateral bases, no rhonchi, no rales , no accessory muscle use, Abdominal: soft, nontender to palpation, no guarding, no appreciable organomegaly Ext: no gross muscle atrophy, no edema, no contractures Neuro: CN II-XI grossly intact, no focal neuro deficits Psych: Alert, oriented, appropriate affect - Labs CBC & Chem 7: 03/26/18 08:19 03/26/18 08:19 Labs: Abnormal Lab Results - Last 24 Hours (Table) 03/25/18 03/25/18 03/25/18 Range/Units 11:46 16:41 20:40 RBC (4.30-5.90) m/uL Hgb (13.0-17.5) gm/dL Hct (39.0-53.0) % MCV (80.0-100.0) fL Glucose (74-99) mg/dL POC Glucose (mg/dL) 181 H 198 H 261 H (75-99) mg/dL 03/26/18 03/26/18 03/26/18 Range/Units 05:56 08:19 08:19 RBC 2.84 L (4.30-5.90) m/uL Hgb 9.5 L (13.0-17.5) gm/dL Hct 28.8 L (39.0-53.0) % MCV 101.4 H (80.0-100.0) fL Glucose 128 H (74-99) mg/dL POC Glucose (mg/dL) 104 H (75-99) mg/dL Assessment and Plan Assessment: Non-STEMI, atherosclerotic coronary artery disease with ischemic cardiomyopathy and EF of 30-35% -Management per cardiovascular team -On aspirin, Plavix, statin, ACEI and beta nica -Pain control -PT/OT -Cardiology recommendations Diabetes mellitus type 2, insulin requiring -Levemir 45 units, home on novolog 10 with breakfast and lunch and 15 units with dinner -Accu-Cheks to every before meals, at bedtime, and 2 AM -Hemoglobin A1c 8.1. -out patient endocrine evaluation. May benefit from SGLT2 inhibitor ( empagliflozin or invokana) in addition to insulin therapy which have been shown to reduce CV deaths in type 2 DM. However, Insulin likely will need to be drecreased. - Resume metformin on discharge. - Make a log of blood sugars for home health and PCP to review. Anticipated acute blood loss anemia- stable - outpatient follow-up CBC Hypertension, controlled -Management as per cardiology and cardiovascular thoracic Dyslipidemia -Continue statin COPD -Without exacerbation -Continue with scheduled and when necessary bronchodilators Alcohol dependency -On [facility] protocol -Thiamine supplementation thrombocytopenia- resolved Elevated Creatinine, improved RX for novolog and instruction added to discharge plan. DVT prophylaxis: Heparin Discussed with: Patient, nursing, Gracy Dailey NP A total of 25 minutes was spent on the care of this complex patient more than 50 % of the time was spent in counseling and care coordination.
[2018-03-26 11:23] LABS: Glucose,Whole Blood 196 mg/dL (75-99)
[2018-03-26 12:08] VITALS: BP 119/73; TEMP 97.8
[2018-03-26] MEDS ORDERED: INSULIN ASPART 100 UNIT/ML 1 ML 10 ML VIAL SQ SCH ×2 (12:30→17:30)
--- NOTE | 2018-03-26 14:47 | PN ---
PROGRESS NOTE Mr. Leigh is status post coronary artery bypass surgery. He is doing well. Patient is ambulating in the hallway. He did not had any more episodes of dizziness. The patient's vital signs remained stable. Blood pressure is 119/73 mmHg. First and second heart sounds are normal. The first and second heart sounds are normal. Lungs are clinically clear to auscultation and percussion. The patient's medications are reviewed. Patient is going to be discharged home today. MMODL / IJN: [id number] /
[2018-03-26 16:21] VITALS: PULSE 90
--- NOTE | 2018-03-26 16:37 | P.PN ---
Subjective Progress Note Date: 03/26/18 Principal diagnosis: Coronary artery disease, status post three-vessel coronary artery bypass grafting, postop day 1 This is a 72-year-old white male patient of Dr. Shafer, who was transferred from [facility], where he went for evaluation of severe intermittent chest pain that has been sent for last several weeks. The chest pain became progressively worse, was associated with right shoulder pain. Lab work showed elevated troponins, he was diagnosed with non-ST elevated MN, EKG showed normal sinus rhythm with left axis deviation, and evidence of septal infarct of undetermined age. Past medical history is significant for diabetes mellitus type 2, hypertension, hyperlipidemia, previous nicotine dependence, in remission , daily EtOH use. Patient denies any chronic history of lung disease, but he carries a 98-[id number]-[id number] smoking history, of 3 packs a day for 20 years. He quit smoking 40 years ago. Not on oxygen at his baseline. Patient was transported to [facility] and he underwent cardiac catheterization by Dr. Nayak which revealed multivessel coronary artery disease, with RCA stenosis of 70%, circumflex stenosis of 90%, proximal LAD with 99% stenosis, mid LAD of 90% and decreased LV function with an ejection fraction of 35%. CT surgery has been consulted and urgent surgical revascularization was recommended. We're consulted in regards to pulmonary/critical care management. Progress note dated 03/20/2018 This is a 72-year-old male seen yesterday in consultation. He has a history of non-ST segment elevation myocardial infarction, multivessel coronary artery disease, ischemic cardiomyopathy, diabetes mellitus, hypertension, hyperlipidemia, and a 08-[id number]-wwup history of tobacco use. He also apparently has a history of daily alcohol use. The patient went to the operating room this morning for a LYNN to LAD, SVG to the ramus, and an SVG to RCA. Patient on mechanical ventilator with vent settings SIMV 12, TV 500, FiO2 100%, and PEEP of 10. Will follow rapid wean protocol when patient alert and following commands. Patient has 2 mediastinal chest tubes and one left pleural chest tube intact and draining minimal sanguineous drainage. Patient currently on lactated Ringer at 50 mL an hour, nitroglycerin drip at 5 mcgs per minute, norepinephrine 2 mcgs per minute, and propofol 15 mics per kilogram per minute. Patient's current cardiac index is 2.1 and cardiac output 4.0. Patient appears hemodynamically stable at this time. Awaiting chest x-rays and ABG for review. On 03/21/2018 patient seen in follow-up in the intensive care unit, this is postop day day 1, status post three-vessel coronary artery bypass grafting, and patient had LYNN to LAD, SVG to the RCA and SVG to the ramus. He was extubated at 2317 last night, 8 hours and 17 minutes after OR exit time. When initial weaning was attempted patient was agitated, and he had to be placed on Precedex for short at a time, and subsequently was successfully extubated. This morning he sitting up in the recliner, he is in no acute distress, he is awake and alert , oriented 3, currently on 2 L per nasal cannula, warranting on his incentive spirometry, maintenance IV fluids is LR at 50 ML per hour, insulin is at 2.5 units per hour. No other drips. Cardiac output and cardiac index of 5.8 and 2.6. Lung sounds are positive for some scattered crackles, wheezes. Today's chest x-ray has been reviewed, shows left lower lobe atelectasis. His labs have been reviewed, diabetes he is 5.5, hemoglobin is 8.4, INR is 1.2, sodium was 136, the rest of electrolytes and renal profile are within normal limits. Patient has 2 mediastinal and left pleural chest tubes with small amount of serosanguineous output, to continuous wall suction. He is nonoliguric. Got a set of AV epicardial wires that are currently not connected to the pacemaker, patient has not required pacemaker support. He is in sinus mechanism. With a rate of 90 BPM. On 03/22/2018 patient seen in follow-up in the intensive care unit, he sitting up in the recliner, early on room air, he is awake and alert, oriented 3, denies any acute distress, he states his pain is under control, he is in sinus mechanism, at a rate of 98 DPM. His maintenance IV fluids as lactated Ringer's at a rate of 30 ML per hour, no other drips. This is postop day 3 three-vessel coronary artery bypass grafting, patient is doing well, his incentive spirometer effort is 1500 ML. His PA catheter and 2 mediastinal chest tubes were discontinued yesterday. His chest x-ray has been reviewed by Dr. Mendez, showed cardiomegaly and basilar atelectasis. No other acute pulmonary process. Today's blood work was reviewed, WBC is 5.4, hemoglobin is 8.1, sodium is 136 , pressor electrolytes are within normal limits, BUN is 18 and creatinine is 1.48. On 03/23/2018 patient seen in follow-up in the intensive care unit, he is a selective overflow, suspicious postop day 4, post three-vessel coronary artery bypass grafting, patient doing well, room air pulse ox 96%, hemodynamically stable, no fever, no chills, no shortness of breath, his pain is well controlled. Showed small right pleural effusion, and bibasilar streaky atelectasis. Patient's nasal swab was positive for MSSA, and patient is on Bactrim intranasally. Urine culture was negative. Patient is working incentive spirometry, lung sounds are clear to auscultation, his chest tubes have been discontinued, epicardial wires are grown up. Today's labs have been reviewed, WBC 6.3, hemoglobin is 8.5, electrolytes are within normal limits, BUN is 19, creatinine is 1.34, renal profile is slightly improved. On 03/26/2018 patient seen in follow-up on selective care unit, this is postop day 6 status post three-vessel coronary artery bypass grafting, patient is doing very well, no acute complaints, he is on room air, his pulse ox at 98%, no fever, no chills, hemodynamically stable. Tolerating ambulation, work in his incentive spirometry, his last chest x-ray was done yesterday on 03/25/2018 , and showed some platelike atelectasis at the left lung base, and small left pleural effusion, no other acute pulmonary process. It is lab work has been reviewed, WBC 7.6, hemoglobin is 9.5, electrolytes and renal profile within normal limits. The catheter has remained in place nurse to urinary retention, urology is following. Upon my perspective patient remains stable, and CT surgery is planned on discharging him home today. Objective - Vital Signs Vital signs: Vital Signs Temp 97.8 F 03/26/18 12:00 Pulse 90 03/26/18 16:21 Resp 18 03/26/18 12:00 BP 119/73 03/26/18 12:00 Pulse Ox 98 11/12/18 12:00 Intake & Output 03/25/18 03/26/18 03/26/18 18:59 06:59 18:59 Output Total 1000 5400 Balance -1000 -5400 Weight 104 kg Output: Urine 1000 5400 Other: Voiding Method Indwelling Catheter Indwelling Catheter Indwelling Catheter # Voids 0 ABP, PAP, CO, CI - Last Documented Arterial Blood Pressure 118/48 Pulmonary Artery Pressure 35/10 Cardiac Output 5.8 Cardiac Index 2.6 - Exam GENERAL EXAM: Alert, pleasant 72-year-old white male, comfortable in no apparent distress. Sitting up in the recliner, he has a heart harness on HEAD: Normocephalic/atraumatic. EYES: Normal reaction of pupils, equal size. Conjunctiva pink, sclera white. NOSE: Clear with pink turbinates. THROAT: No erythema or exudates. NECK: No masses, no JVD, no thyroid enlargement, no adenopathy. CHEST: No chest wall deformity. Symmetrical expansion. Midsternal incision is clean dry and intact, approximated, sternum is stable, interval removal of 2 mediastinal chest tubes and left pleural chest tube epicardial wires are grounded LUNGS: Diminished breath sounds bilaterally, no crackles, no wheezes or rhonchi noted CVS: Regular rate and rhythm, normal S1 and S2, no gallops, no murmurs, no rubs ABDOMEN: Soft, nontender. No hepatosplenomegaly, normal bowel sounds, no guarding or rigidity. EXTREMITIES: No clubbing, no cyanosis, 2+ pulses and upper and lower extremities. Mild nonpitting edema noted in upper and lower extremities. Bilateral lower extremities are a prescription, and SCDs on, DESTINY drain is in place in left lower extremity, patent, and draining small amount of serosanguineous drainage MUSCULOSKELETAL: Muscle strength and tone normal. Right radial puncture is clean dry and intact, soft. SPINE: No scoliosis or deformity SKIN: No rashes CENTRAL NERVOUS SYSTEM: Alert and oriented -3. No focal deficits, tone is normal in all 4 extremities. PSYCHIATRIC: Alert and oriented -3. Appropriate affect. Intact judgment and insight. - Labs CBC & Chem 7: 03/26/18 08:19 03/26/18 08:19 Labs: Abnormal Lab Results - Last 24 Hours (Table) 03/25/18 03/25/18 03/26/18 Range/Units 16:41 20:40 05:56 RBC (4.30-5.90) m/uL Hgb (13.0-17.5) gm/dL Hct (39.0-53.0) % MCV (80.0-100.0) fL Glucose (74-99) mg/dL POC Glucose (mg/dL) 198 H 261 H 104 H (75-99) mg/dL 03/26/18 03/26/18 03/26/18 Range/Units 08:19 08:19 11:19 RBC 2.84 L (4.30-5.90) m/uL Hgb 9.5 L (13.0-17.5) gm/dL Hct 28.8 L (39.0-53.0) % MCV 101.4 H (80.0-100.0) fL Glucose 128 H (74-99) mg/dL POC Glucose (mg/dL) 196 H (75-99) mg/dL Assessment and Plan Plan: Assessment: #1. Non-ST elevated MN #2. Multivessel coronary artery disease, patient underwent cardiac catheterization which showed RCA stenosis of 70%, circumflex was 90%, proximal LAD of 99%, mid LAD of 90%, status post three-vessel coronary artery bypass grafting, with LYNN to LAD, SVG to the RCA, and SVG to the ramus, postop day 7 #3. Postoperative acute blood loss anemia, an expected outcome of cardiothoracic surgery #4. Acute klidney injury, improved #5. Ischemic cardiomyopathy, ejection fraction of 35% #6. Diabetes mellitus type 2 #7. Hypertension, hyperlipidemia #8. Previous history of nicotine dependence, patient carries [id number] smoking history, quit smoking 40 years ago, but prior to that smoked for 20 years 3 packs a day #9. Daily EtOH use Plan: Continue encouraging deep breathing and coughing, ambulation, no new chest x- ray today, yesterday's chest x-ray was reviewed by Dr. Randolph, just showed some platelike atelectasis at the left lung base. No other acute pulmonary process. Patient is on room air, tolerating ambulation. Dynamically stable. From pulmonary perspective patient stable for discharge home today. Follow-up after Dr. Nixon in the office and one week I performed a history & physical examination of the patient and discussed their management with my nurse practitioner, Rosa Rm. I reviewed the nurse practitioner's note and agree with the documented findings and plan of care. Lung sounds are diminished. The findings and the impression was discussed with the patient. I attest to the documentation by the nurse practitioner. Time with Patient: Less than 30
--- NOTE | 2018-03-26 16:50 | P.DS ---
Providers Date of admission: 03/19/18 12:24 Expected date of discharge: 03/25/18 Attending physician: Jaiden Parra Consults: 03/19/18 12:24 Consult Physician Routine Consulting Provider: Antoine Arce Consult Reason/Comments: NSTEMI Do you want consulting provider notified?: Yes 03/19/18 13:43 Consult Physician Routine Consulting Provider: Jaiden Parra Consult Reason/Comments: cabg Do you want consulting provider notified?: Already Contacted 03/19/18 13:55 Consult Physician Routine Consulting Provider: Rinku Nixon Consult Reason/Comments: preop open heart Do you want consulting provider notified?: Yes 03/19/18 17:37 Consult to Anesthesia Routine Consulting Provider: Anesthesia,Services Consult Reason/Comments: Cardiac Surgery Pre-Op 03/21/18 08:53 Consult Physician Routine Consulting Provider: Raya Huizar Consult Reason/Comments: med managment Do you want consulting provider notified?: Already Contacted 03/24/18 13:21 Consult Physician Routine Consulting Provider: Kurt Ellsworth Consult Reason/Comments: retention Do you want consulting provider notified?: Yes Primary care physician: Stated None - Discharge Diagnosis(es) (1) NSTEMI (non-ST elevated myocardial infarction) Current Visit: Yes Status: Acute (2) Coronary artery disease Current Visit: Yes Status: Chronic (3) Hypertension Current Visit: Yes Status: Chronic (4) Hyperlipidemia Current Visit: Yes Status: Chronic (5) COPD (chronic obstructive pulmonary disease) Current Visit: Yes Status: Chronic (6) Tobacco dependence in remission Current Visit: No Status: Resolved (7) EtOH dependence Current Visit: Yes Status: Chronic (8) Diabetes mellitus Current Visit: Yes Status: Chronic (9) Obesity (BMI 30-39.9) Current Visit: Yes Status: Chronic Hospital Course: FINAL DIAGNOSIS: 1. Coronary artery disease, non-STEMI 2. Uncontrolled insulin-dependent diabetes mellitus with preoperative hemoglobin A1c 8.1% 3. Hypertension 4. Hypertriglyceridemia 5. Obesity 6. Kidney stones 7. Previous tobacco dependence 8. Mild COPD with preoperative FEV1 72% of predicted 9. Near daily EtOH use 10. Postoperative acute blood loss anemia 11. Postoperative urinary retention requiring reinsertion of Valdovinos PRINCIPAL PROCEDURE: 1. Left heart catheterization 2. Urgent coronary bypass grafting 3 vessels, left internal mammary artery to the left anterior descending artery, reverse saphenous vein graft to the ramus artery, reverse saphenous vein graft to the distal right coronary artery 3. Endoscopic vein harvest bilateral greater saphenous veins 4. Epi-aortic ultrasound 5. Intraoperative transesophageal echocardiogram HISTORY OF PRESENT ILLNESS: This is a 72-year-old gentleman who follows with Dr. Trent Shafer on an outpatient basis. Over the preceding weeks he's been having intermittent chest pain, mostly with eating which he attributed to heartburn, and with activity. It was relieved with rest. Prior to admission he developed chest pain with radiation to both arms, shortness of breath, nausea , diaphoresis, and dizziness which remained unrelieved even with rest and he presented to [facility]. An EKG was completed which demonstrated normal sinus rhythm. There was elevation in his troponins and the patient was ruled in for non-STEMI. He was started on IV heparin and nitroglycerin and transported to [facility] for evaluation and treatment. He was taken to the cardiac catheterization lab by Dr. Nayak which demonstrated RCA stenosis of 70%, circumflex stenosis 90%, proximal LAD stenosis 95%, mid LAD stenosis 90%, and decreased LV function with an ejection fraction of 35%. Dr. Parra from cardiothoracic surgery was consulted. The patient was recommended to undergo urgent myocardial revascularization. The usual perioperative course was discussed in detail with the patient and his family, all risks and benefits were explained, all questions were answered, and consent was obtained to proceed with surgery. He was kept inpatient due to the nature of his disease. HOSPITAL COURSE: The patient was taken to the preoperative area on 03/20/2018, prepared in the usual fashion, and subsequently taken to the operating room where Dr. Parra performed urgent coronary bypass grafting 3 vessels, left internal mammary artery to the left anterior descending artery, reverse saphenous vein graft to the ramus artery, reverse saphenous vein graft to the distal right coronary artery, endoscopic vein harvest bilateral greater saphenous veins, epi-aortic ultrasound, and intraoperative transesophageal echocardiogram. Upon completion of surgery the patient was transferred to the cardiovascular intensive care unit where he was recovered, monitored hemodynamically, and where he progressed to cardiac rehabilitation phase 1. He was extubated, all lines, tubes, and drips were discontinued when appropriate, and he was transferred to 3S cardiac stepdown unit for further monitoring and rehabilitation. He did experience acute blood loss anemia requiring no transfusion as well as postoperative urinary retention requiring reinsertion of his Valdovinos. His oxygen was titrated down, he continued to work with physical and occupational therapy, he was tolerating oral diet, his pain was controlled, and he was ready to be discharged to home with [facility] on postoperative day #6. He received written and verbal instruction regarding his medications, activity restrictions, signs and symptoms requiring physician notification, and follow-up appointments. COMPLICATIONS: The patient experienced postoperative anemia and urinary retention which were treated accordingly. Patient Condition at Discharge: Stable Plan - Discharge Summary Discharge Rx Participant: No New Discharge Prescriptions: New Insulin Aspart [NovoLOG Flexpen] See Protocol SQ TID-W/MEALS #1 box Acetaminophen Tab [Tylenol] 650 mg PO Q4HR PRN tab PRN Reason: Fever and/ or Mild to Mod Pain Acetaminophen Tab [Tylenol] 325 mg PO Q4HR PRN tab PRN Reason: Fever and/ or Mild Pain Aspirin 325 mg PO DAILY #30 tab Clopidogrel [Plavix] 75 mg PO DAILY #30 tab Lisinopril [Zestril] 2.5 mg PO DAILY #30 tab Metoprolol Tartrate [Lopressor] 25 mg PO BID #60 tab Pantoprazole [Protonix] 40 mg PO AC-BRKFST #30 tablet. Sennosidenghia-Docusate Sodium [Senokot-S] 2 each PO HS PRN tab PRN Reason: Constipation Tamsulosin [Flomax] 0.4 mg PO PC-BRKFST #30 cap.er.24h Continue Triamcinolone 0.1% Cream [Kenalog 0.1% Cream] 1 applicatio TOPICAL BID metFORMIN HCL [metFORMIN HCL ER] 1,000 mg PO BID Insulin Detemir [Levemir Flextouch] 45 units SQ HS Changed Atorvastatin [Lipitor] 80 mg PO HS #30 tab Discontinued Triamterene/Hydrochlorothiazid [Triamterene-Hctz 37.5-25 mg Tb] 1 tab PO DAILY Insulin Aspart [NovoLOG Flexpen] 20 units SQ DAILY Lisinopril 40 mg PO DAILY Discharge Medication List Insulin Detemir [Levemir Flextouch] 45 units SQ HS 03/19/18 [History] Triamcinolone 0.1% Cream [Kenalog 0.1% Cream] 1 applicatio TOPICAL BID 03/19/18 [History] metFORMIN HCL [metFORMIN HCL ER] 1,000 mg PO BID 03/19/18 [History] Acetaminophen Tab [Tylenol] 325 mg PO Q4HR PRN tab 03/25/18 [Rx] Acetaminophen Tab [Tylenol] 650 mg PO Q4HR PRN tab 03/25/18 [Rx] Aspirin 325 mg PO DAILY #30 tab 03/25/18 [Rx] Atorvastatin [Lipitor] 80 mg PO HS #30 tab 03/25/18 [Rx] Clopidogrel [Plavix] 75 mg PO DAILY #30 tab 03/25/18 [Rx] Insulin Aspart [NovoLOG Flexpen] See Protocol SQ TID-W/MEALS #1 box 03/25/18 [Rx ] Lisinopril [Zestril] 2.5 mg PO DAILY #30 tab 03/25/18 [Rx] Metoprolol Tartrate [Lopressor] 25 mg PO BID #60 tab 03/25/18 [Rx] Pantoprazole [Protonix] 40 mg PO AC-BRKFST #30 tablet.dr 03/25/18 [Rx] Sennosides-Docusate Sodium [Senokot-S] 2 each PO HS PRN tab 03/25/18 [Rx] Tamsulosin [Flomax] 0.4 mg PO PC-BRKFST #30 cap.er.24h 03/25/18 [Rx] Follow up Appointment(s)/Referral(s): Benny Nayak MD [STAFF PHYSICIAN] - 04/09/18 3:00 pm () Rinku Nixon DO [Doctor of Osteopathic Medicine] - 04/17/18 10:15 am () [facility], [NON-STAFF] - 1-2 Days () Kurt Ellsworth MD [STAFF PHYSICIAN] - 03/28/18 () Blajit Shafer MD [REFERRING] - 04/10/18 2:00 pm () Jaiden Parra MD [STAFF PHYSICIAN] - 04/20/18 3:00 pm () Brianna Monreal MD [STAFF PHYSICIAN] - 04/04/18 9:45 am () Ambulatory/Diagnostic Orders: Complete Blood Count w/diff [LAB.AMB] Time Frame: 3 Days, Location: None Selected Comprehensive Metabolic Panel [LAB.AMB] Time Frame: 3 Days, Location: None Selected Patient Instructions/Handouts: Valdovinos Catheter Placement and Care (DC), What to Do if Your Blood Sugar is Low (ED), How to Check your Blood Sugar (ED) Activity/Diet/Wound Care/Special Instructions: DISCHARGE INSTRUCTIONS: 1. No driving for 4 weeks, or until physician gives their ok. 2. The patient should sleep in their own bed, no medical bed needed. 3. Stairs are not an issue. If the bedroom is upstairs, it is advised that the patient go up at night and down in the morning for the first week. Go slowly, using handrail and take 1 step at a time. 4. RAYMUNDO hose are to be worn for 30 days or until physician discontinues. 5. Heart hugger is to be worn 100% of the time until physician discontinues.( except when showering) 6. No lifting, pushing, or pulling more than 10 pounds for 12 weeks. The physician will advise of any restriction changes. 7. The patient is expected to continue the prescribed walking program. 8. Continue pain control per as needed orders. 9. Continue with incentive spirometry and splinting/heart hugger until otherwise directed by the physician. 10. Must shower daily using liquid antibacterial soap and a separate white washcloth for each individual incision. 11. Routine sternal incision care. No powders, lotions, ointments on incisions. 12. Please call surgeon/DIRECTOR OF OFFICIATING for temp greater than 101 F or purulent drainage from incisions. 13. All prescriptions given by surgeon for 30 days. Refills need to be filled through rn transitional/primary care physician. 14. A Red armband has been placed on the patient. It should be worn for 30 days post surgery and will be removed by the cardiac surgeons. If an ER visit is necessary, please make sure the number on the Red armband is called. 15. NovoLog 10 units with breakfast and lunch, 15 units with dinner. 16. Check blood sugar 3 times daily. Before breakfast, before lunch and 2 hours after dinner, make a log on form provided to bring to your follow-up appointment with Dr. Shafer and Dr. Monreal. HOME HEALTH SERVICES TO PROVIDE: RN SKILLED HOME CARE SERVICES FOR POST-OP SURGICAL PATIENTS WITH THE FOLLOWING: Coronary Artery Bypass Surgery (CABG), Mitral Valve Replacement/ Repair ( MVR), Aortic Valve Replacement/Repair (AVR) RN TO CONTINUE EDUCATION FROM ``ROAD TO A HEALTH HEART PATIENT EDUCATION MANUAL (GIVEN TO PATIENT IN THE HOSPITAL) MEDICATION RECONCILIATION WITH EDUCATION NEEDED ON FIRST HOME VISIT EMPHASIZE IMPORTANCE OF WEARING BREAST SUPPORT/HEART HUGGER ENCOURAGE USE OF INCENTIVE SPIROMETER 10 X EVERY HOUR WHILE AWAKE ENCOURAGE UTILIZATION OF LOWER EXTREMITY COMPRESSION STOCKINGS/RAYMUNDO HOSE and ELEVATE LEGS ABOVE LEVEL OF HEART WHILE AT REST. ENCOURAGE AMBULATION 3-5x/day INCREASING TOLERATES, WHILE AVOID EXTREMES IN TEMPERATURE FREQUENCY: RN TO OPEN THE PATIENT WITHIN 24 HOURS OF DISCHARGE FROM THE HOSPITAL WITH TELEHEALTH INSTALLED AT [facility] [place] RN TO VISIT 2-3 X A WEEK FOR 4 WEEKS ESTABLISHED BY PATIENT NEEDS. Valdovinos catheter to be discontinued one week after discharge for trial void. If patient unable to void he needs to follow up with urology. LABORATORY: CBC, CMP TO BE DRAWN ON THE THIRD DAY HOME, 03/28/2018, (RAN STAT) FAX RESULTS TO [phone]. TELEHEALTH PARAMETERS: WEIGHT: NOTIFY MD OF WEIGHT GAIN OF 2 LBS IN 24 HOURS OR 5 LBS IN ONE WEEK HR: NOTIFY MD OF HR <55 BPM OR HR>100 BPM BP: NOTIFY MD IF BP <90/55 OR BP>140/100 O2 SAT: NOTIFY MD IF PO2<93% ON ROOM AIR SEND TELEHEALTH REPORT TO PHARMACY CARE COORDINATOR AND CARDIOVASCULAR SURGEON THE FIRST WEEK OF CARE AND THEN BI-WEEKLY. PLEASE ADDITIONALLY COMMUNICATE ANY ABNORMALS AND NEW FINDINGS TO THE SURGEONS OFFICE. Per Dr. Ellsworth (plumber gasfitter please add or edit instructions as needed) Office will call Monday to make appointment tentatively for Monday. Catheter needs to be removed 6 hours before the appointment. Instructions to remove catheter: Gather supplies needed. This may be a syringe or scissors. Wash hands. Find smaller tube close to penis not draining into leg bag With syringe, connect to small tube and pull back plunger. Saline, a clear liquid should come out (8-10ml) this is done to deflate the balloon that sits at the top of the bladder. With scissors, carefully cut tube above access hub, below penis, small amount of Saline will come out. The balloon will deflate. Once the solution is removed and the balloon is deflated, the catheter is ready to be removed. Grab tube close to penis. Ask patient to breath in and breath out. Have patient take another breath in and when patient breathes out pull gently with control. If resistance is felt stop. If no resistance, pull out entire tube and dispose of in trash. Wash hands afterwards. Note time catheter was removed. This should be 6 hours before scheduled appointment. Discharge Disposition: HOME WITH HOME HEALTH SERVICES
--- NOTE | 2018-03-26 16:54 | P.PN ---
Subjective Progress Note Date: 03/26/18 Principal diagnosis: Coronary artery disease, current non-STEMI. Previous medical history of uncontrolled insulin-dependent diabetes mellitus with preoperative hemoglobin A1c 8.1%, hypertension, hypertriglyceridemia, obesity, kidney stones, previous tobacco dependence, mild COPD with preoperative FEV1 72% of predicted, near daily EtOH use, and vasectomy. POD #6 urgent coronary bypass grafting 3 vessels, left internal mammary artery to the left anterior descending artery, reverse saphenous vein graft to the ramus artery, reverse saphenous vein graft to the distal right coronary artery. Endoscopic vein harvest bilateral greater saphenous veins. Epi-aortic ultrasound. Intraoperative transesophageal echocardiogram. Postoperative acute blood loss anemia, an expected postprocedure condition. Postoperative urinary retention requiring reinsertion of Valdovinos, an unexpected outcome. The patient is currently sitting up in a recliner in no acute distress. He remains in normal sinus rhythm, he is hemodynamically stable. He states his pain is controlled on current medication regimen, denies shortness of breath. No new complaints. He has ambulated in the hallway without difficulty. Objective - Vital Signs Vital signs: Vital Signs Temp 97.8 F 03/26/18 12:00 Pulse 90 03/26/18 16:21 Resp 18 03/26/18 12:00 BP 119/73 03/26/18 12:00 Pulse Ox 98 03/26/18 12:00 Intake & Output 03/25/18 03/26/18 03/26/18 18:59 06:59 18:59 Output Total 1000 5400 Balance -1000 -5400 Weight 104 kg Output: Urine 1000 5400 Other: Voiding Method Indwelling Catheter Indwelling Catheter Indwelling Catheter # Voids 0 ABP, PAP, CO, CI - Last Documented Arterial Blood Pressure 118/48 Pulmonary Artery Pressure 35/10 Cardiac Output 5.8 Cardiac Index 2.6 - Constitutional General appearance: Present: cooperative, no acute distress, obese - Respiratory Details: Lungs sounds diminished bilaterally. Respirations even, nonlabored. Currently on room air with oxygen saturation 98%. Able to achieve 2000 mL on his incentive spirometry. Strong cough. - Cardiovascular Details: S1, S2 present. Regular rate and rhythm, sinus rhythm on telemetry. Sternum stable. Palpable peripheral pulses bilaterally. No edema present. No calf pain or tenderness noted. Heart hugger in place with patient using appropriately, antiembolism stockings, SCDs present. - Gastrointestinal Gastrointestinal Comment(s): Abdomen soft, nontender, nondistended. Active bowel sounds present 4 quadrants. Tolerating diet. Positive bowel movement. - Genitourinary Genitourinary Comment(s): Valdovinos present draining clear yellow urine. - Integumentary Integumentary Comment(s): Skin is warm and dry with evidence of good perfusion. Anterior chest incision well approximated and covered with dry intact dressing. Bilateral lower extremity EVH sites well approximated. - Neurologic Neurologic: Present: CNII-XII intact - Musculoskeletal Musculoskeletal: Present: gait normal, strength equal bilaterally - Psychiatric Psychiatric: Present: A&O x's 3, appropriate affect, intact judgment & insight - Allied health notes Allied health notes reviewed: nursing - Labs CBC & Chem 7: 03/26/18 08:19 03/26/18 08:19 Labs: Abnormal Lab Results - Last 24 Hours (Table) 03/25/18 03/26/18 03/26/18 Range/Units 20:40 05:56 08:19 RBC 2.84 L (4.30-5.90) m/uL Hgb 9.5 L (13.0-17.5) gm/dL Hct 28.8 L (39.0-53.0) % MCV 101.4 H (80.0-100.0) fL Glucose (74-99) mg/dL POC Glucose (mg/dL) 261 H 104 H (75-99) mg/dL 03/26/18 03/26/18 Range/Units 08:19 11:19 RBC (4.30-5.90) m/uL Hgb (13.0-17.5) gm/dL Hct (39.0-53.0) % MCV (80.0-100.0) fL Glucose 128 H (74-99) mg/dL POC Glucose (mg/dL) 196 H (75-99) mg/dL Assessment and Plan (1) NSTEMI (non-ST elevated myocardial infarction) Current Visit: Yes Status: Acute Code(s): I21.4 - NON-ST ELEVATION (NSTEMI) MYOCARDIAL INFARCTION SNOMED Code(s): 843491208 (2) Coronary artery disease Current Visit: Yes Status: Chronic Code(s): I25.10 - ATHSCL HEART DISEASE OF [place] CORONARY ARTERY W/O ANG PCTRS SNOMED Code(s): 99341323 (3) Hypertension Current Visit: Yes Status: Chronic Code(s): I10 - ESSENTIAL (PRIMARY) HYPERTENSION SNOMED Code(s): 98315442 (4) Hyperlipidemia Current Visit: Yes Status: Chronic Code(s): E78.5 - HYPERLIPIDEMIA, UNSPECIFIED SNOMED Code(s): 19435562 (5) COPD (chronic obstructive pulmonary disease) Current Visit: Yes Status: Chronic Code(s): J44.9 - CHRONIC OBSTRUCTIVE PULMONARY DISEASE, UNSPECIFIED SNOMED Code(s): 16510801 (6) Tobacco dependence in remission Current Visit: No Status: Resolved Code(s): F17.201 - NICOTINE DEPENDENCE, UNSPECIFIED, IN REMISSION SNOMED Code(s): 272283808 (7) EtOH dependence Current Visit: Yes Status: Chronic Code(s): F10.20 - ALCOHOL DEPENDENCE, UNCOMPLICATED SNOMED Code(s): 84827314 (8) Diabetes mellitus Current Visit: Yes Status: Chronic Code(s): E11.9 - TYPE 2 DIABETES MELLITUS WITHOUT COMPLICATIONS SNOMED Code(s): 38202306 (9) Obesity (BMI 30-39.9) Current Visit: Yes Status: Chronic Code(s): E66.9 - OBESITY, UNSPECIFIED SNOMED Code(s): 440120180 Plan: 1. Continue aspirin, statin, Plavix, beta nica, Durga. 2. Encourage incentive spirometry 10 times every hour while awake. 3. Increase activity, ambulate as tolerated. PT/OT/cardiac rehab following. 4. Continue Valdovinos, change to a leg bag. Continue Flomax. Will have patient follow up with urology outpatient, trial remove Valdovinos Monday. 5. Bronchodilators per pulmonology. 6. Insulin management per primary care service. 7. Pain management with current medication regimen. 8. Discharge planning in progress. Anticipate discharge to home today with home care. 9. More recommendations to follow. Time with Patient: Greater than 30
--- NOTE | 2018-03-27 11:36 | CDI ---
Last Revision, April 2017 Documentation Clarification Form Date: 03/27/18 From: Kaitlyn Tevin Carolyn Rojas, Head Of Academic Technology Hours-8:30 am & 5 pm Jaziel Admit Date: 03/19/2018 12:24:00 PM Patient Name: Darryn Leigh Visit Number: [id number] Discharge Date: 03/26/18 ATTENTION: The Clinical Documentation Specialists (CDI) and [facility] Coding Staff appreciate your assistance in clarifying documentation. Please respond to the clarification below the line at the bottom and electronically sign. The CDI & [facility] Coding staff will review the response and follow-up if needed. Please note: Queries are made part of the Legal Health Record. If you have any questions, please contact the author of this message via ITS. Jaiden Palomares MD The patient has diabetes Type II uncontrolled, as indicated in DS. POC glucose: 201, 184, 562, 107, 150, 206, 196, 173, 155, 142, 143, 130, 141, 141, 138, 128, 126, 129, 152, 143, 133, 120, 166, 213, 251, 206, 293, 224, 210, 255, 129, 151, 206, 228, 310, 141, 113, 244, 218, 204, 315, 158, 132, 181, 198, 261, 104, 196 Glucose: 202, 174, 209, 103, 119, 183, 130, 113, 129, 128 Hemoglobin A1c: 8.1 Treatment: Cover with adult NovoLOG sliding scale Per [facility] 2016 - query the provider for clarification whether the patient has hyperglycemia or hypoglycemia so that the appropriate code may be reported - uncontrolled diabetes indicates that the patient's blood sugar is not at an acceptable level, because it is either too high or too low. In order to capture the severity of Illness and necessary documentation specificity, please clarify if Type 2 uncontrolled diabetes is: Hyperglycemia Hypoglycemia Other, please specify Unable to Determine Please continue to document in your progress notes and discharge summary in order to capture severity of illness and risk of mortality. Include clinical findings that support your diagnosis. hyperglycemia MTDD
--- NOTE | 2018-03-27 12:12 | CDI ---
Last Revision, April 2017 Documentation Clarification Form Date: 03/27/2018 11:57:10 AM From: Tonya AntoineRAFAT, CCDS Admit Date: 03/19/2018 12:24:00 PM Patient Name: Darryn Leigh Visit Number: [id number] Discharge Date: 03/26/2018 ATTENTION: The Clinical Documentation Specialists (CDI) and [facility] Coding Staff appreciate your assistance in clarifying documentation. Please respond to the clarification below the line at the bottom and electronically sign. The CDI & [facility] Coding staff will review the response and follow-up if needed. Please note: Queries are made part of the Legal Health Record. If you have any questions, please contact the author of this message via ITS. Kurt Santos MD: Urology was consulted postoperatively for urinary retention status post CABG for triple vessel coronary artery disease. Patients Admitting Diagnosis: Triple vessel coronary artery disease. Post-Operative Diagnosis: Same Patient developed postoperative urinary retention requiring re-insertion of Valdovinos catheter. Per the 03/25 Urology Consult: "Assessment & Plan: Postoperative urinary retention. The source of the patient's urinary retention is probably underlying bladder outflow obstruction. The patient was started on Flomax and this should be continued at a dose of 0.4 mg daily. He can be discharged with a Valdovinos catheter." History/Risk Factors: Kidney stones, Hypertension, DM, Hyperlipidemia, Alcohol Abuse, former smoker. Clinical Indicators: Has known urge incontinence, no history of urinary retention. Postoperatively, catheter was removed 03/22, unable to void, in/out cath for 800 mL, started Flomax, remained unable to void, cath re-inserted. Treatment: Routine postop CABG care including IV abx, IV MagSulfate, IV Heparin , IV Insulin, IV Nitro, IV NaBicarb. Albuterol INH, Valdovinos catheter postop, removed & re-inserted. In order to accurately reflect this patients severity of illness, please clarify if the post-operative diagnosis of urinary retention is: An expected post-procedural or post-surgical condition; Integral to the procedure; Inherent to the procedure; An unexpected post-procedural or post-surgical condition related to surgical care; Other, please specify Unable to determine Unexpected Post op condition related to surgical care MTDD
== END 2018-03-26 17:12 | disposition home health service (06) | DRG 234 ==
LOC: EC 11:58 → 3SCARD 12:24 → 2SICU 13:33 → 3SCARD 03-25 00:23
PROVIDERS: ADMIT Surgery; ATTEND Surgery
PROC: 4A023N7 Measurement of Cardiac Sampling and Pressure, Left Heart, Percutaneous Approach (ICD-10-PCS; 2018-03-19)
PROC: B2111ZZ Fluoroscopy of Multiple Coronary Arteries using Low Osmolar Contrast (ICD-10-PCS; 2018-03-19)
PROC: B2151ZZ Fluoroscopy of Left Heart using Low Osmolar Contrast (ICD-10-PCS; 2018-03-19)
PROC: B54DZZZ Ultrasonography of Bilateral Lower Extremity Veins (ICD-10-PCS; 2018-03-19)
PROC: 021109W Bypass Coronary Artery, Two Arteries from Aorta with Autologous Venous Tissue, Open Approach (ICD-10-PCS; 2018-03-20)
PROC: 06BQ4ZZ Excision of Left Saphenous Vein, Percutaneous Endoscopic Approach (ICD-10-PCS; 2018-03-20)
PROC: 06BP4ZZ Excision of Right Saphenous Vein, Percutaneous Endoscopic Approach (ICD-10-PCS; 2018-03-20)
PROC: B24BZZ4 Ultrasonography of Heart with Aorta, Transesophageal (ICD-10-PCS; 2018-03-20)
PROC: 5A1221Z Performance of Cardiac Output, Continuous (ICD-10-PCS; 2018-03-20)
PROC: B24BZZ3 Ultrasonography of Heart with Aorta, Intravascular (ICD-10-PCS; 2018-03-20)
PROC: 02100Z9 Bypass Coronary Artery, One Artery from Left Internal Mammary, Open Approach (ICD-10-PCS; principal; 2018-03-20 07:30)
DX: I21.4 Non-ST elevation (NSTEMI) myocardial infarction (principal); D62 Acute posthemorrhagic anemia; J98.11 Atelectasis; N17.9 Acute kidney failure, unspecified; I25.5 Ischemic cardiomyopathy; D69.6 Thrombocytopenia, unspecified; E11.65 Type 2 diabetes mellitus with hyperglycemia; J44.9 Chronic obstructive pulmonary disease, unspecified; Z68.32 Body mass index [BMI] 32.0-32.9, adult; I11.9 Hypertensive heart disease without heart failure; E66.9 Obesity, unspecified; N99.89 Other postprocedural complications and disorders of genitourinary system; R33.8 Other retention of urine; N32.0 Bladder-neck obstruction; N39.41 Urge incontinence; N20.0 Calculus of kidney; I25.10 Atherosclerotic heart disease of native coronary artery without angina pectoris; E78.1 Pure hyperglyceridemia; E78.5 Hyperlipidemia, unspecified; K59.00 Constipation, unspecified; M25.511 Pain in right shoulder; F10.20 Alcohol dependence, uncomplicated; Z71.3 Dietary counseling and surveillance; F17.201 Nicotine dependence, unspecified, in remission; Z79.4 Long term (current) use of insulin; Z79.899 Other long term (current) drug therapy; Z87.442 Personal history of urinary calculi; Z98.52 Vasectomy status; Z80.1 Family history of malignant neoplasm of trachea, bronchus and lung
CPT/HCPCS: 36415; 71045; 71046; 80048; 80053; 80061; 80074; 81003; 82330; 82550; 82553; 82805; 83036; 83735; 84100; 84443; 84484; 85025; 85027; 85520; 85610; 85730; 86850; 86891; 86900; 86901; 86920; 87070; 87086; 93005; 93306; 93458; 93880; 93970; 94002; 94150; 94640; 94760; 96365; 96368; 99291

== ENCOUNTER 2018-03-29 21:24 | Inpatient (IN) | payer MEDICARE, OTHER ==
[2018-03-29] MEDS ORDERED: SODIUM CHLORIDE 0.9% 1,000 ML IV STA ×3 (21:31→23:22)
--- NOTE | 2018-03-29 21:49 | ED ---
Weakness HPI - General Chief complaint: Nausea/Vomiting/Diarrhea Stated complaint: Weakness Time Seen by Provider: 03/29/18 21:28 Source: patient, EMS, RN notes reviewed, old records reviewed Mode of arrival: EMS Limitations: no limitations - History of Present Illness Initial comments: This is a 72-year-old male to the ER for evaluation. This patient presents for evaluation in regards to fever pneumonia and weakness. Patient is a heart patient with recent CABG surgery. He states he does not feel well as mild shortness of breath, currently denying any chest pain. Other than his recent hospitalization he has no known sick contacts. Hasn't taken all medications as prescribed. Patient is accepted in transfer MD Complaint: generalized weakness, lack of energy -: days(s) Location: generalized Severity: moderate Severity scale (1-10): 6 Consistency: constant Improves with: rest Worsens with: movement Context: new medication, recent surgery Associated Symptoms: chest pain, fever/chills, myalgias, shortness of breath - Related Data Home Medications Medication Instructions Recorded Confirmed Insulin Detemir [Levemir Flextouch] 45 units SQ HS 03/19/18 03/29/18 metFORMIN HCL [metFORMIN HCL ER] 1,000 mg PO BID 03/19/18 03/29/18 Previous Rx's Medication Instructions Recorded Acetaminophen Tab [Tylenol] 325 mg PO Q4HR PRN tab 03/25/18 Aspirin 325 mg PO DAILY #30 tab 03/25/18 Atorvastatin [Lipitor] 80 mg PO HS #30 tab 03/25/18 Clopidogrel [Plavix] 75 mg PO DAILY #30 tab 03/25/18 Insulin Aspart [NovoLOG Flexpen] See Protocol SQ TID-W/MEALS #1 box 03/25/18 Lisinopril [Zestril] 2.5 mg PO DAILY #30 tab 03/25/18 Metoprolol Tartrate [Lopressor] 25 mg PO BID #60 tab 03/25/18 Pantoprazole [Protonix] 40 mg PO AC-BRKFST #30 tablet. 03/25/18 Sennosides-Docusate Sodium 2 each PO HS PRN tab 03/25/18 [Senokot-S] Tamsulosin [Flomax] 0.4 mg PO PC-BRKFST #30 cap.er.24h 03/25/18 Allergies Allergy/AdvReac Type Severity Reaction Status Date / Time No Known Allergies Allergy Verified 03/29/18 21:46 Review of Systems ROS Statement: Those systems with pertinent positive or pertinent negative responses have been documented in the HPI. ROS Other: All systems not noted in ROS Statement are negative. Past Medical History Past Medical History: Coronary Artery Disease (CAD), Diabetes Mellitus, Hyperlipidemia, Hypertension Additional Past Medical History / Comment(s): IDDM type II History of Any Multi-Drug Resistant Organisms: None Reported Past Surgical History: Coronary Bypass/CABG, Heart Catheterization Additional Past Surgical History / Comment(s): Vasectomy Past Anesthesia/Blood Transfusion Reactions: No Reported Reaction Past Psychological History: No Psychological Hx Reported Smoking Status: Former smoker Past Alcohol Use History: Occasional Past Drug Use History: None Reported - Past Family History Father Family Medical History: Cancer Additional Family Medical History / Comment(s): Father of lung cancer with metastasis Mother Family Medical History: No Reported History Additional Family Medical History / Comment(s): Mother was healthy and lived to be 86 or 87yrs. General Exam Limitations: no limitations General appearance: alert, in no apparent distress Head exam: Present: atraumatic, normocephalic, normal inspection Eye exam: Present: normal appearance, PERRL, EOMI. Absent: scleral icterus, conjunctival injection, periorbital swelling ENT exam: Present: normal exam, mucous membranes moist Neck exam: Present: normal inspection. Absent: tenderness, meningismus, lymphadenopathy Respiratory exam: Present: normal lung sounds bilaterally. Absent: respiratory distress, wheezes, rales, rhonchi, stridor Cardiovascular Exam: Present: regular rate, normal rhythm, normal heart sounds. Absent: systolic murmur, diastolic murmur, rubs, gallop, clicks GI/Abdominal exam: Present: soft, normal bowel sounds. Absent: distended, tenderness, guarding, rebound, rigid Extremities exam: Present: normal inspection, full ROM, normal capillary refill. Absent: tenderness, pedal edema, joint swelling, calf tenderness Back exam: Present: normal inspection Neurological exam: Present: alert, oriented X3, CN II-XII intact Psychiatric exam: Present: normal affect, normal mood Skin exam: Present: warm, dry, intact, normal color. Absent: rash Course Vital Signs 11/15/18 11/15/18 11/15/18 21:29 22:00 23:00 Temperature 99.8 F H Pulse Rate 91 93 Respiratory 16 Rate Blood Pressure 117/52 117/52 120/58 O2 Sat by Pulse 99 99 Oximetry 03/30/18 00:01 Temperature Pulse Rate 97 Respiratory Rate Blood Pressure 114/57 O2 Sat by Pulse Oximetry - Reevaluation(s) Reevaluation #1: 03/30/18 00:26 Medical records thoroughly reviewed, transfer paperwork is reviewed Reevaluation #2: 03/30/18 00:26 Patient is feeling better with fever control here in the ER breathing treatment Medical Decision Making - Medical Decision Making 72 male the ER for evaluation. Patient's postop CABG, will admit for fever CHF , evaluation by cardiothoracic surgery. - Lab Data Result diagrams: 03/29/18 21:43 03/29/18 21:43 Lab Results 03/29/18 03/29/18 03/29/18 Range/Units 21:43 21:43 21:43 WBC 19.3 H (3.8-10.6) k/uL RBC 2.64 L (4.30-5.90) m/uL Hgb 8.5 L (13.0-17.5) gm/dL Hct 26.9 L (39.0-53.0) % MCV 101.8 H (80.0-100.0) fL MCH 32.1 (25.0-35.0) pg MCHC 31.6 (31.0-37.0) g/dL RDW 13.3 (11.5-15.5) % Plt Count 341 (150-450) k/uL Neutrophils % 92 % Lymphocytes % 4 % Monocytes % 3 % Eosinophils % 0 % Basophils % 0 % Neutrophils # 17.7 H (1.3-7.7) k/uL Lymphocytes # 0.7 L (1.0-4.8) k/uL Monocytes # 0.6 (0-1.0) k/uL Eosinophils # 0.0 (0-0.7) k/uL Basophils # 0.0 (0-0.2) k/uL Hypochromasia Slight Macrocytosis Slight PT (9.0-12.0) sec INR (<1.2) APTT (22.0-30.0) sec Sodium 134 L (137-145) mmol/L Potassium 4.7 (3.5-5.1) mmol/L Chloride 108 H (98-107) mmol/L Carbon Dioxide 20 L (22-30) mmol/L Anion Gap 6 mmol/L BUN 14 (9-20) mg/dL Creatinine 1.12 (0.66-1.25) mg/dL Est GFR (CKD-EPI)AfAm 75 (>60 ml/min/1.73 sqM) Est GFR (CKD-EPI)NonAf 65 (>60 ml/min/1.73 sqM) Glucose 207 H (74-99) mg/dL Plasma Lactic Acid Jese (0.7-2.0) mmol/L Calcium 8.1 L (8.4-10.2) mg/dL Phosphorus 3.6 (2.5-4.5) mg/dL Magnesium 1.3 L (1.6-2.3) mg/dL Total Bilirubin 0.7 (0.2-1.3) mg/dL AST 22 (17-59) U/L ALT 29 (21-72) U/L Alkaline Phosphatase 62 (38-126) U/L Total Creatine Kinase 35 L (55-170) U/L CK-MB (CK-2) 0.5 (0.0-2.4) ng/mL CK-MB (CK-2) Rel Index 1.4 Troponin I 0.108 H* (0.000-0.034) ng/mL Total Protein 5.7 L (6.3-8.2) g/dL Albumin 2.8 L (3.5-5.0) g/dL 03/29/18 03/29/18 Range/Units 21:43 21:43 WBC (3.8-10.6) k/uL RBC (4.30-5.90) m/uL Hgb (13.0-17.5) gm/dL Hct (39.0-53.0) % MCV (80.0-100.0) fL MCH (25.0-35.0) pg MCHC (31.0-37.0) g/dL RDW (11.5-15.5) % Plt Count (150-450) k/uL Neutrophils % % Lymphocytes % % Monocytes % % Eosinophils % % Basophils % % Neutrophils # (1.3-7.7) k/uL Lymphocytes # (1.0-4.8) k/uL Monocytes # (0-1.0) k/uL Eosinophils # (0-0.7) k/uL Basophils # (0-0.2) k/uL Hypochromasia Macrocytosis PT 11.8 (9.0-12.0) sec INR 1.2 H (<1.2) APTT 23.8 (22.0-30.0) sec Sodium (137-145) mmol/L Potassium (3.5-5.1) mmol/L Chloride (98-107) mmol/L Carbon Dioxide (22-30) mmol/L Anion Gap mmol/L BUN (9-20) mg/dL Creatinine (0.66-1.25) mg/dL Est GFR (CKD-EPI)AfAm (>60 ml/min/1.73 sqM) Est GFR (CKD-EPI)NonAf (>60 ml/min/1.73 sqM) Glucose (74-99) mg/dL Plasma Lactic Acid Jees 1.1 (0.7-2.0) mmol/L Calcium (8.4-10.2) mg/dL Phosphorus (2.5-4.5) mg/dL Magnesium (1.6-2.3) mg/dL Total Bilirubin (0.2-1.3) mg/dL AST (17-59) U/L ALT (21-72) U/L Alkaline Phosphatase (38-126) U/L Total Creatine Kinase (55-170) U/L CK-MB (CK-2) (0.0-2.4) ng/mL CK-MB (CK-2) Rel Index Troponin I (0.000-0.034) ng/mL Total Protein (6.3-8.2) g/dL Albumin (3.5-5.0) g/dL - Radiology Data Radiology results: report reviewed (Chest x-ray shows positive CHF), image reviewed Critical Care Time Critical Care Time: Yes Total Critical Care Time: 31 Disposition Clinical Impression: Dehydration, NSTEMI (non-ST elevated myocardial infarction), Elevated troponin , CHF (congestive heart failure), Pneumonia Disposition: ADMITTED IP TO THIS HOSP Condition: Fair Is patient prescribed a controlled substance at d/c from ED?: No Referrals: Baljit Shafer MD [Primary Care Provider] - 1-2 days
[2018-03-29 22:12] LABS: Albumin 2.8 g/dL (3.5-5.0); Basophils % (A) 0 %; Calcium 8.1 mg/dL (8.4-10.2); Eosinophils % (A) 0 %; HCT 26.9 % (39.0-53.0); HGB 8.5 gm/dL (13.0-17.5); Hypochromasia Slight; Lymphocytes # (A) 0.7 k/uL (1.0-4.8); Lymphocytes % (A) 4 %; MCH 32.1 pg (25.0-35.0); MCHC 31.6 g/dL (31.0-37.0); MCV 101.8 fL (80.0-100.0); Macrocytosis Slight; Magnesium 1.3 mg/dL (1.6-2.3); Mean Platelet Volume 6.7; Monocytes # (A) 0.6 k/uL (0-1.0); Monocytes % (A) 3 %; Neutrophils # (A) 17.7 k/uL (1.3-7.7); Neutrophils % (A) 92 %; Phosphorus 3.6 mg/dL (2.5-4.5); Platelet Count 341 k/uL (150-450); Potassium 4.7 mmol/L (3.5-5.1); RBC 2.64 m/uL (4.30-5.90); RDW 13.3 % (11.5-15.5); Total Bilirubin 0.7 mg/dL (0.2-1.3); Total Protein 5.7 g/dL (6.3-8.2); WBC 19.3 k/uL (3.8-10.6)
[2018-03-29 22:16] LABS: INR 1.2 (<1.2); Partial Thromboplastin Time 23.8 sec (22.0-30.0); Prothrombin Time 11.8 sec (9.0-12.0)
[2018-03-29 22:22] LABS: Creatine Kinase MB 0.5 ng/mL (0.0-2.4)
[2018-03-29 22:26] LABS: Troponin I 0.108 ng/mL (0.000-0.034)
--- NOTE | 2018-03-29 22:44 | XR ---
EXAMINATION TYPE: XR chest 2V DATE OF EXAM: 03/29/2018 COMPARISON: 03/25/2018 HISTORY: Nausea and weakness TECHNIQUE: Frontal and lateral views of the chest are obtained. FINDINGS: Heart is enlarged. There is no heart failure. There is blunting of the posterior costophre karmyn angles on the lateral view. There are chest leads. Bony thorax is intact. There is some spurring in the thoracic spine. IMPRESSION: Bilateral pleural effusions. No heart failure. Mild cardiomegaly. Pleural fluid increase d slightly compared to old exam.
[2018-03-29] MEDS ORDERED: ACETAMINOPHEN IV (For NPO) 1,000 MG in EMPTY BAG 1 BAG IVPB STA (23:22)
[2018-03-29] MEDS ORDERED: KETOROLAC 30 MG/ML 1 ML VIAL IVP STA (23:22)
[2018-03-30] MEDS: MAGNESIUM SULFATE-D5W PMX 1 GM in DEXTROSE/WATER 1 100ML.BAG IVPB SCH ×4 (00:18→04:45)
[2018-03-30] MEDS ORDERED: LEVOFLOXACIN 750MG-D5W PMX 750 MG in DEXTROSE/WATER 1 150ML.BAG IVPB STA (00:35)
[2018-03-30] MEDS ORDERED: PNEUMONIA PROTOCOL UTILIZED 1 EACH MISC PO PRN (00:35)
[2018-03-30 01:44] VITALS: BMI 33.2
[2018-03-30] MEDS: FUROSEMIDE 10 MG/ML 4 ML VIAL IV SCH ×2 (02:18→14:22)
[2018-03-30 02:59] LABS: Appearance,Urine Turbid (Clear); Bacteria,Urine Few /hpf; Bilirubin,Urine Negative (Negative); Blood,Urine Negative (Negative); Color,Urine Yellow; Glucose,Urine (UA) 1+ (Negative); Hyaline Casts,Urine 4 /lpf (0-2); Ketones,Urine Negative (Negative); Leukocyte Esterase,Urine Small (Negative); Mucus,Urine Rare /hpf; Nitrite,Urine Negative (Negative); PH, Urine 5.5 (5.0-8.0); Protein,Urine Negative (Negative); RBC,Urine 1 /hpf (0-5); Squamous Epithelial Cell,Urine <1 /hpf (0-4); Uric Acid Crystals,Urine Many /hpf; Urobilinogen,Urine <2.0 mg/dL (<2.0); WBC,Urine 3 /hpf (0-5)
[2018-03-30] MEDS ORDERED: LEVOFLOXACIN 750MG-D5W PMX 750 MG in DEXTROSE/WATER 1 150ML.BAG IVPB SCH (03:00)
[2018-03-30 04:55] LABS: HGB 7.5 gm/dL (13.0-17.5); Hypochromasia Slight; MCH 31.8 pg (25.0-35.0); MCHC 31.4 g/dL (31.0-37.0); MCV 101.4 fL (80.0-100.0); Macrocytosis Slight; Mean Platelet Volume 6.9; Platelet Count 318 k/uL (150-450); RBC 2.37 m/uL (4.30-5.90); RDW 13.4 % (11.5-15.5); WBC 19.6 k/uL (3.8-10.6)
[2018-03-30 05:05] LABS: Magnesium 2.1 mg/dL (1.6-2.3); Potassium 4.1 mmol/L (3.5-5.1)
[2018-03-30] MEDS: PIPERACILLIN-TAZOBACTAM 3.375 GM in SODIUM CHLORIDE 0.9% 100 ML IVPB SCH ×3 (08:53→23:42)
[2018-03-30] MEDS: IPRATROPIUM-ALBUTEROL 3 ML NEB INHALATION SCH ×4 (09:02→20:27)
--- NOTE | 2018-03-30 11:49 | CONS ---
CONSULTATION Mr. Leigh is a 72-year-old gentleman who was just recently discharged from the hospital after coronary artery bypass surgery. Patient postop course was relatively uneventful other than the urinary retention. Patient had a Valdovinos catheter removed 2 days ago. He has not been feeling well over the last couple of days. He has been having some fever and chills and he is feeling weak. He is not significantly short of breath. Patient denies any cough with expectoration. HOME MEDICATIONS: Included metformin, insulin, Tylenol, Lipitor, Plavix, Zestril, Protonix, Lopressor, aspirin. PAST MEDICAL HISTORY: Includes recent coronary artery bypass surgery, diabetes, hyperlipidemia, vasectomy. PHYSICAL EXAMINATION: At present reveals a 72-year-old gentleman who is not feeling well. He feels weak. Patient had a temperature 99.8 in the emergency room, this morning patient has a temperature 100. HEENT examination is negative. Neck is supple. Jugular venous pressure is elevated. Heart rate is 94 per minute, oxygen saturation is 96%. Blood pressure is 123/58 mmHg. First and second heart sounds are normal. Lung examinations reveals bilateral diminished air entry. Abdomen is soft. Liver and spleen are not enlarged. Extremities, peripheral pulsations are 1+. Patient's chest x-ray shows evidence of bilateral pleural effusion, underlying pneumonia cannot be entirely excluded. Patient's hemoglobin is 7.5, white count is 8000. Electrolytes are normal, creatinine is 1.38. Three sets of troponins are almost identical. FINAL IMPRESSION: This patient is admitted with fever and weakness, rule out any underlying pneumonia or urinary tract infection. Patient is currently getting Zosyn 3.375 mg q.12 hourly. We will recommend to resume the patient's Lopressor, Restoril, aspirin and Plavix. I will decrease the dose of Lasix to 40 mg per oral daily from tomorrow. We will check the BNP level. MMODL / IJN: [id number] /
[2018-03-30] MEDS ORDERED: BISACODYL 10 MG SUPP RECTAL STA (12:42)
--- NOTE | 2018-03-30 13:14 | P.GSCN ---
History of Present Illness Consult date: 03/30/18 Reason for Consult: Postoperative coronary artery bypass grafting surgery 3 vessels on 03/20/[address] Parra. Requesting physician: Antelmo Vidales History of present illness: This is a 72-year-old gentleman who is followed by Dr. Trent Shafer on an outpatient basis. He is a past medical history significant for multivessel coronary artery disease, recent non-STEMI, uncontrolled insulin dependent diabetes mellitus with a preoperative hemoglobin A1c of 8.1%, hypertension, hyperlipidemia, obesity with a BMI of 33.2 kg/m, history of kidney stones, previous tobacco dependence, COPD with preoperative FEV1 of 72 percent of predicted value, EtOH abuse, history of positive preoperative nasal swab for MSSA and history of postoperative urinary retention requiring insertion of Valdovinos catheter which has been followed by Dr. Ellsworth from urology. The patient presented to [facility] yesterday via EMS following complaints of nausea, lightheadedness and chills. He reports that he has not had a bowel movement in 1 week and that he has not urinated since Monday following his catheter removal. He reports that he has had progressive weakness and lack of appetite over the last 2 days. He denies any fever, shortness of breath, pain, vomiting or diarrhea. At [facility] he underwent a chest x-ray and subsequent computed tomography scan of his chest which demonstrated bilateral pleural effusions and bilateral lobe atelectasis, mild thickening of the urinary bladder with cystitis not excluded and a right renal cyst. A 12-lead EKG was completed which showed normal sinus rhythm with PACs heart rate 86. His lab results showed a WBC count of 19.5, Hgb 9.8, BUN 14 and creatinine 1.2. A UA was obtained and was indicative for urine culture to be sent. His initial blood pressure 113/54, temperature was 99.5F and oxygen saturations were 98% on room air. The patient was subsequently transferred to [facility] for further workup and evaluation. A Valdovinos catheter was placed last evening due to further complaints of urinary retention with a bladder scan showing [address] Lira from cardiothoracic surgery was consulted on the patient due to his recent coronary artery bypass grafting surgery. Review of Systems A 14 point review of systems was completed and was negative except as mentioned in the HPI. Past Medical History Past Medical History: Coronary Artery Disease (CAD), COPD, Diabetes Mellitus, Hyperlipidemia, Hypertension, Myocardial Infarction (non Q-wave), Prostate Disorder Additional Past Medical History / Comment(s): IDDM type II History of Any Multi-Drug Resistant Organisms: None Reported Past Surgical History: Coronary Bypass/CABG, Heart Catheterization Additional Past Surgical History / Comment(s): Vasectomy Past Anesthesia/Blood Transfusion Reactions: No Reported Reaction Past Psychological History: No Psychological Hx Reported Additional Psychological History / Comment(s): Pt resides with his spouse. He was independent prior to CABG procedure. Smoking Status: Former smoker (He started smoking in 1961 and quit in 1977) Past Alcohol Use History: Abuse Additional Past Alcohol Use History / Comment(s): Patient states he drinks daily - 2 or 3 beers, has never gone through withdrawal. Past Drug Use History: None Reported - Past Family History Father Family Medical History: Cancer Additional Family Medical History / Comment(s): Father of lung cancer with metastasis Mother Family Medical History: No Reported History Additional Family Medical History / Comment(s): Mother was healthy and lived to be 86 or 87yrs. Medications and Allergies Home Medications Medication Instructions Recorded Confirmed Type Insulin Detemir [Levemir Flextouch] 45 units SQ HS 03/19/18 03/29/18 History metFORMIN HCL [metFORMIN HCL ER] 1,000 mg PO BID 03/19/18 03/29/18 History Acetaminophen Tab [Tylenol] 325 mg PO Q4HR PRN tab 03/25/18 03/29/18 Rx Aspirin 325 mg PO DAILY #30 tab 03/25/18 03/29/18 Rx Atorvastatin [Lipitor] 80 mg PO HS #30 tab 03/25/18 03/29/18 Rx Clopidogrel [Plavix] 75 mg PO DAILY #30 tab 03/25/18 03/29/18 Rx Insulin Aspart [NovoLOG Flexpen] See Protocol SQ TID-W/MEALS #1 box 03/25/18 Rx Lisinopril [Zestril] 2.5 mg PO DAILY #30 tab 03/25/18 03/29/18 Rx Metoprolol Tartrate [Lopressor] 25 mg PO BID #60 tab 03/25/18 03/29/18 Rx Pantoprazole [Protonix] 40 mg PO RACHEAL #30 03/25/18 03/29/18 Rx Sennosides-Docusate Sodium 2 each PO HS PRN tab 03/25/18 03/29/18 Rx [Senokot-S] Tamsulosin [Flomax] 0.4 mg PO PC-BRKFST #30 cap.er.24h 03/25/18 03/29/18 Rx Allergies Allergy/AdvReac Type Severity Reaction Status Date / Time No Known Allergies Allergy Verified 03/29/18 21:46 Surgical - Exam Vital Signs Temp Pulse Resp BP Pulse Ox 99.8 F H 91 16 117/52 99 03/29/18 21:29 03/29/18 21:29 03/29/18 21:29 03/29/18 21:29 03/29/18 21:29 - General well developed, well nourished, no distress, no pain, obese - Eyes PERRL, normal ocular movement - ENT normal pinna, normal nares, normal mucosa, no hearing loss, no congestion - Neck Neck is supple, no lymphadenopathy. no masses, no bruits, trachea midline, no venous distension - Respiratory Lung sounds are essentially clear throughout, diminished was bilateral bases. Respirations are symmetrical and nonlabored. Oxygen saturation are 98% on 2 L nasal cannula. - Cardiovascular Regular rhythm and rate. S1 and S2 present, negative for S3, gallop or murmur. Sternum is stable. Remote telemetry showing normal sinus rhythm heart rate 92. +1 edema to his bilateral lower extremities. Knee-high RAYMUNDO hose in place to his bilateral lower extremities. - Abdomen Abdomen is soft, nontender and nondistended. Active bowel sounds to all 4 abdominal quadrants. No organomegaly. No guarding or rigidity. - Genitourinary Valdovinos catheter in place for urinary retention. Draining clear yellow urine. 1100 mL output in the last 8 hours. - Rectum Deferred - Integumentary Skin is warm and dry. No clubbing or cyanosis present. Midline sternal incision clean dry and approximated. No drainage or redness present. Bilateral leg EVH sites clean dry and approximated. No drainage or redness present. no rash, no growths, no abnormal pigmentation - Neurologic normal coordination, normal sensation - Musculoskeletal Generalized weakness normal gait, normal posture - Psychiatric oriented to time, oriented to person, oriented to place, speech is normal, memory intact Results - Labs 03/30/18 04:22 03/30/18 04:22 Abnormal Lab Results - Last 24 Hours (Table) 03/29/18 03/29/18 03/29/18 Range/Units 21:43 21:43 21:43 WBC 19.3 H (3.8-10.6) k/uL RBC 2.64 L (4.30-5.90) m/uL Hgb 8.5 L (13.0-17.5) gm/dL Hct 26.9 L (39.0-53.0) % MCV 101.8 H (80.0-100.0) fL Neutrophils # 17.7 H (1.3-7.7) k/uL Lymphocytes # 0.7 L (1.0-4.8) k/uL INR (<1.2) Sodium 134 L (137-145) mmol/L Chloride 108 H (98-107) mmol/L Carbon Dioxide 20 L (22-30) mmol/L Creatinine (0.66-1.25) mg/dL Glucose 207 H (74-99) mg/dL Calcium 8.1 L (8.4-10.2) mg/dL Magnesium 1.3 L (1.6-2.3) mg/dL Total Creatine Kinase 35 L (55-170) U/L Troponin I 0.108 H* (0.000-0.034) ng/mL Total Protein 5.7 L (6.3-8.2) g/dL Albumin 2.8 L (3.5-5.0) g/dL Ur Specific [place] (1.001-1.035) Urine Glucose (UA) (Negative) Ur Leukocyte Esterase (Negative) Uric Acid Crystals (None) /hpf Urine Bacteria (None) /hpf Hyaline Casts (0-2) /lpf Urine Mucus (None) /hpf 03/29/18 03/30/18 03/30/18 Range/Units 21:43 02:25 04:22 WBC (3.8-10.6) k/uL RBC (4.30-5.90) m/uL Hgb (13.0-17.5) gm/dL Hct (39.0-53.0) % MCV (80.0-100.0) fL Neutrophils # (1.3-7.7) k/uL Lymphocytes # (1.0-4.8) k/uL INR 1.2 H (<1.2) Sodium (137-145) mmol/L Chloride (98-107) mmol/L Carbon Dioxide (22-30) mmol/L Creatinine (0.66-1.25) mg/dL Glucose (74-99) mg/dL Calcium (8.4-10.2) mg/dL Magnesium (1.6-2.3) mg/dL Total Creatine Kinase (55-170) U/L Troponin I 0.185 H* (0.000-0.034) ng/mL Total Protein (6.3-8.2) g/dL Albumin (3.5-5.0) g/dL Ur Specific [place] 1.040 H (1.001-1.035) Urine Glucose (UA) 1+ H (Negative) Ur Leukocyte Esterase Small H (Negative) Uric Acid Crystals Many H (None) /hpf Urine Bacteria Few H (None) /hpf Hyaline Casts 4 H (0-2) /lpf Urine Mucus Rare H (None) /hpf 03/30/18 03/30/18 03/30/18 Range/Units 04:22 04:22 09:39 WBC 19.6 H (3.8-10.6) k/uL RBC 2.37 L (4.30-5.90) m/uL Hgb 7.5 L (13.0-17.5) gm/dL Hct 24.0 L (39.0-53.0) % MCV 101.4 H (80.0-100.0) fL Neutrophils # (1.3-7.7) k/uL Lymphocytes # (1.0-4.8) k/uL INR (<1.2) Sodium 133 L (137-145) mmol/L Chloride (98-107) mmol/L Carbon Dioxide 20 L (22-30) mmol/L Creatinine 1.38 H (0.66-1.25) mg/dL Glucose 180 H (74-99) mg/dL Calcium 8.0 L (8.4-10.2) mg/dL Magnesium (1.6-2.3) mg/dL Total Creatine Kinase (55-170) U/L Troponin I 0.141 H* (0.000-0.034) ng/mL Total Protein (6.3-8.2) g/dL Albumin (3.5-5.0) g/dL Ur Specific [place] (1.001-1.035) Urine Glucose (UA) (Negative) Ur Leukocyte Esterase (Negative) Uric Acid Crystals (None) /hpf Urine Bacteria (None) /hpf Hyaline Casts (0-2) /lpf Urine Mucus (None) /hpf Microbiology - Last 24 Hours (Table) 03/30/18 02:25 Urine Culture - Preliminary Urine,Catheterized Diabetes panel 03/29/18 03/30/18 Range/Units 21:43 04:22 Sodium 134 L 133 L (137-145) mmol/L Potassium 4.7 4.1 (3.5-5.1) mmol/L Chloride 108 H 105 (98-107) mmol/L Carbon Dioxide 20 L 20 L (22-30) mmol/L BUN 14 15 (9-20) mg/dL Creatinine 1.12 1.38 H (0.66-1.25) mg/dL Glucose 207 H 180 H (74-99) mg/dL Calcium 8.1 L 8.0 L (8.4-10.2) mg/dL AST 22 (17-59) U/L ALT 29 (21-72) U/L Alkaline Phosphatase 62 (38-126) U/L Total Protein 5.7 L (6.3-8.2) g/dL Albumin 2.8 L (3.5-5.0) g/dL Calcium panel 03/29/18 03/30/18 Range/Units 21:43 04:22 Calcium 8.1 L 8.0 L (8.4-10.2) mg/dL Phosphorus 3.6 (2.5-4.5) mg/dL Albumin 2.8 L (3.5-5.0) g/dL Pituitary panel 03/29/18 03/30/18 Range/Units 21:43 04:22 Sodium 134 L 133 L (137-145) mmol/L Potassium 4.7 4.1 (3.5-5.1) mmol/L Chloride 108 H 105 (98-107) mmol/L Carbon Dioxide 20 L 20 L (22-30) mmol/L BUN 14 15 (9-20) mg/dL Creatinine 1.12 1.38 H (0.66-1.25) mg/dL Glucose 207 H 180 H (74-99) mg/dL Calcium 8.1 L 8.0 L (8.4-10.2) mg/dL Adrenal panel 03/29/18 03/30/18 Range/Units 21:43 04:22 Sodium 134 L 133 L (137-145) mmol/L Potassium 4.7 4.1 (3.5-5.1) mmol/L Chloride 108 H 105 (98-107) mmol/L Carbon Dioxide 20 L 20 L (22-30) mmol/L BUN 14 15 (9-20) mg/dL Creatinine 1.12 1.38 H (0.66-1.25) mg/dL Glucose 207 H 180 H (74-99) mg/dL Calcium 8.1 L 8.0 L (8.4-10.2) mg/dL Total Bilirubin 0.7 (0.2-1.3) mg/dL AST 22 (17-59) U/L ALT 29 (21-72) U/L Alkaline Phosphatase 62 (38-126) U/L Total Protein 5.7 L (6.3-8.2) g/dL Albumin 2.8 L (3.5-5.0) g/dL - Imaging Chest x-ray: report reviewed, image reviewed CT scan - chest: report reviewed Assessment and Plan (1) Urinary retention Current Visit: Yes Status: Acute Code(s): R33.9 - RETENTION OF URINE, UNSPECIFIED SNOMED Code(s): 062884353 (2) Constipation Current Visit: Yes Status: Acute Code(s): K59.00 - CONSTIPATION, UNSPECIFIED SNOMED Code(s): 60919252 (3) NSTEMI (non-ST elevated myocardial infarction) Current Visit: Yes Status: Acute Code(s): I21.4 - NON-ST ELEVATION (NSTEMI) MYOCARDIAL INFARCTION SNOMED Code(s): 707247542 (4) COPD (chronic obstructive pulmonary disease) Current Visit: No Status: Chronic Code(s): J44.9 - CHRONIC OBSTRUCTIVE PULMONARY DISEASE, UNSPECIFIED SNOMED Code(s): 34279988 (5) Coronary artery disease Current Visit: No Status: Chronic Code(s): I25.10 - ATHSCL HEART DISEASE OF [place] CORONARY ARTERY W/O ANG PCTRS SNOMED Code(s): 18165145 (6) Diabetes mellitus Current Visit: No Status: Chronic Code(s): E11.9 - TYPE 2 DIABETES MELLITUS WITHOUT COMPLICATIONS SNOMED Code(s): 19298247 (7) EtOH dependence Current Visit: No Status: Chronic Code(s): F10.20 - ALCOHOL DEPENDENCE, UNCOMPLICATED SNOMED Code(s): 77158758 (8) Hyperlipidemia Current Visit: No Status: Chronic Code(s): E78.5 - HYPERLIPIDEMIA, UNSPECIFIED SNOMED Code(s): 37351153 (9) Hypertension Current Visit: No Status: Chronic Code(s): I10 - ESSENTIAL (PRIMARY) HYPERTENSION SNOMED Code(s): 92542844 (10) Obesity (BMI 30-39.9) Current Visit: No Status: Chronic Code(s): E66.9 - OBESITY, UNSPECIFIED SNOMED Code(s): 874887511 (11) Tobacco dependence in remission Current Visit: No Status: Resolved Code(s): F17.201 - NICOTINE DEPENDENCE, UNSPECIFIED, IN REMISSION SNOMED Code(s): 606724254 Plan: The patient was seen and examined. His chart and diagnostics were reviewed. The patient was also seen and examined by Dr. Campos from cardiothoracic surgery. He was restarted on his aspirin 325 mg by mouth daily, Lipitor, Plavix , metoprolol 25 mg by mouth twice a day and Flomax per his home dosing. GI and DVT prophylaxis in place with subcu heparin, SCDs to his bilateral lower extremities and home dose of Protonix. Medical and diabetes management per primary care service. Cardiology to pathology management recommendations per Dr. High. Consult urology for urinary retention recommendations as he is known to Dr. Ellsworth. Consult physical and occupational therapy. Physical therapy recommendations noted and appreciated. Increase activity as tolerated. Dulcolax suppository 1 now for constipation restart home Senokot dose. Thank you for this consult and we look forward to working with you in the care of your patient. Time with Patient: Greater than 30
[2018-03-30] MEDS: PANTOPRAZOLE 40 MG TABLET PO SCH (14:24)
[2018-03-30] MEDS: ASPIRIN 325 MG TAB PO SCH (14:24)
[2018-03-30] MEDS: TAMSULOSIN 0.4 MG CAP.ER.24H PO SCH (14:24)
--- NOTE | 2018-03-30 14:52 | P.CNPUL ---
History of Present Illness Consult date: 03/30/18 Requesting physician: Naveen Shanks Reason for consult: dyspnea, abnormal CXR/CT (Bilateral pleural effusion) Chief complaint: Weakness, fever, shortness of breath History of present illness: This is a very pleasant 72-year-old gentleman who follows with Dr. Trent Shafer as his primary care physician. He has a history of diabetes mellitus, hypertension, hyperlipidemia, daily alcohol use, previous tobacco dependence and mild chronic obstructive pulmonary disease with an FEV1 value 72% of predicted.. He had also recently been discharged from here after being found to have significant coronary artery disease and had undergone coronary artery bypass grafting on 03/20/2018. He did have ongoing issues with urinary retention and was discharged home without any swelling catheter. That was removed on March 28. He had been complaining of inability to urinate as well as constipation and was seen at [facility] and was subsequently transferred here. CAT scan of his chest did demonstrate bilateral pleural effusions with bilateral lower lobe atelectasis. There is also noted mild thickening of the urinary bladder with cystitis and right renal cyst cannot be totally excluded.. The emergency room asked evening they did place a indwelling Valdovinos catheter in 1900 ML's of fluid was returned. His x-ray did reveal bilateral pleural effusions. No acute heart failure. Mild cardiomegaly. The fluid was felt to be slightly increased from previous on 03/2018. He is seen today in consultation on the selective care unit. He is currently sitting up in a chair at the bedside. He is awake and alert in no acute distress. He is maintaining O2 saturations in the 90s on room air. T- max of 100. Hemodynamically stable. Urine culture is pending. Influenza screen negative. White count 19.6. Hemoglobin 7.5. MCV 101.4. Sodium 133. Creatinine 1.3. ProBNP 4870. Currently being diuresed with Lasix 40 mg IV daily 12 hours. Resumed DuoNeb inhalations. Initiated on antibiotics in the form of Zosyn and Levaquin. Review of Systems A 14 point review of systems was completed and all negative except for as mentioned in the HPI. Past Medical History Past Medical History: Coronary Artery Disease (CAD), COPD, Diabetes Mellitus, Hyperlipidemia, Hypertension, Myocardial Infarction (non Q-wave), Prostate Disorder Additional Past Medical History / Comment(s): IDDM type II History of Any Multi-Drug Resistant Organisms: None Reported Past Surgical History: Coronary Bypass/CABG, Heart Catheterization Additional Past Surgical History / Comment(s): Vasectomy Past Anesthesia/Blood Transfusion Reactions: No Reported Reaction Past Psychological History: No Psychological Hx Reported Additional Psychological History / Comment(s): Pt resides with his spouse. He was independent prior to CABG procedure. Smoking Status: Former smoker (He started smoking in 2 and quit in 1977) Past Alcohol Use History: Abuse Additional Past Alcohol Use History / Comment(s): Patient states he drinks daily - 2 or 3 beers, has never gone through withdrawal. Past Drug Use History: None Reported - Past Family History Father Family Medical History: Cancer Additional Family Medical History / Comment(s): Father of lung cancer with metastasis Mother Family Medical History: No Reported History Additional Family Medical History / Comment(s): Mother was healthy and lived to be 86 or 87yrs. Medications and Allergies Home Medications Medication Instructions Recorded Confirmed Type Insulin Detemir [Levemir Flextouch] 45 units SQ HS 03/19/18 03/29/18 History metFORMIN HCL [metFORMIN HCL ER] 1,000 mg PO BID 03/19/18 03/29/18 History Acetaminophen Tab [Tylenol] 325 mg PO Q4HR PRN tab 03/25/18 03/29/18 Rx Aspirin 325 mg PO DAILY #30 tab 03/25/18 03/29/18 Rx Atorvastatin [Lipitor] 80 mg PO HS #30 tab 03/25/18 03/29/18 Rx Clopidogrel [Plavix] 75 mg PO DAILY #30 tab 03/25/18 03/29/18 Rx Insulin Aspart [NovoLOG Flexpen] See Protocol SQ TID-W/MEALS #1 box 03/25/18 Rx Lisinopril [Zestril] 2.5 mg PO DAILY #30 tab 03/25/18 03/29/18 Rx Metoprolol Tartrate [Lopressor] 25 mg PO BID #60 tab 03/25/18 03/29/18 Rx Pantoprazole [Protonix] 40 mg PO AC-BRKFST #30 tablet. 03/25/18 03/29/18 Rx Sennosides-Docusate Sodium 2 each PO HS PRN tab 03/25/18 03/29/18 Rx [Senokot-S] Tamsulosin [Flomax] 0.4 mg PO PC-BRKFST #30 cap.er.24h 03/25/18 03/29/18 Rx Allergies Allergy/AdvReac Type Severity Reaction Status Date / Time No Known Allergies Allergy Verified 03/29/18 21:46 Physical Exam Vitals: Vital Signs Temp Pulse Pulse Pulse Resp BP BP 03/30/18 12:23 92 03/30/18 12:13 88 03/30/18 12:00 99.9 F H 86 19 114/58 03/30/18 09:16 94 03/30/18 09:05 90 03/30/18 08:00 100 F H 92 20 123/58 03/30/18 04:00 98.9 F 88 17 108/52 03/30/18 00:52 99.5 F 88 20 105/56 03/30/18 00:01 97 114/57 03/29/18 23:00 93 120/58 03/29/18 22:00 117/52 03/29/18 21:29 99.8 F H 91 16 117/52 Pulse Ox 03/30/18 12:23 03/30/18 12:13 03/30/18 12:00 97 03/30/18 09:16 03/30/18 09:05 96 03/30/18 08:00 95 03/30/18 04:00 98 03/30/18 00:52 98 03/30/18 00:01 03/29/18 23:00 99 03/29/18 22:00 03/29/18 21:29 99 Intake and Output 03/29/18 03/30/18 03/30/18 22:59 06:59 14:59 Intake Total 240 Output Total 2700 Balance -2700 240 Intake: Oral 240 Output: Urine 2700 Uretheral (Valdovinos) 1100 Other: Voiding Method Indwelling Catheter Indwelling Catheter Weight 105.687 kg 105 kg GENERAL EXAM: Alert, pleasant 72-year-old white male, comfortable in no apparent distress. Sitting up in the recliner, he has a heart harness on HEAD: Normocephalic/atraumatic. EYES: Normal reaction of pupils, equal size. Conjunctiva pink, sclera white. NOSE: Clear with pink turbinates. THROAT: No erythema or exudates. NECK: No masses, no JVD, no thyroid enlargement, no adenopathy. CHEST: No chest wall deformity. Symmetrical expansion. Midsternal incision is clean dry and intact, approximated, sternum is stable LUNGS: Diminished breath sounds, crackles bilaterally. CVS: Regular rate and rhythm, normal S1 and S2, no gallops, no murmurs, no rubs ABDOMEN: Soft, nontender. No hepatosplenomegaly, normal bowel sounds, no guarding or rigidity. EXTREMITIES: No clubbing, no cyanosis, 2+ pulses and upper and lower extremities. Mild nonpitting edema noted in upper and lower extremities. MUSCULOSKELETAL: Muscle strength and tone normal. Right radial puncture is clean dry and intact, soft. SPINE: No scoliosis or deformity SKIN: No rashes CENTRAL NERVOUS SYSTEM: Alert and oriented -3. No focal deficits, tone is normal in all 4 extremities. PSYCHIATRIC: Alert and oriented -3. Appropriate affect. Intact judgment and insight. Results - Laboratory Findings CBC and BMP: 03/30/18 04:22 03/30/18 04:22 PT/INR, D-dimer PT 11.8 sec (9.0-12.0) 03/29/18 21:43 INR 1.2 (<1.2) H 03/29/18 21:43 Abnormal lab findings: Abnormal Labs 03/29/18 03/29/18 03/29/18 21:43 21:43 21:43 WBC 19.3 H RBC 2.64 L Hgb 8.5 L Hct 26.9 L MCV 101.8 H Neutrophils # 17.7 H Lymphocytes # 0.7 L INR Sodium 134 L Chloride 108 H Carbon Dioxide 20 L Creatinine Glucose 207 H Calcium 8.1 L Magnesium 1.3 L Total Creatine Kinase 35 L Troponin I 0.108 H* Total Protein 5.7 L Albumin 2.8 L Ur Specific [place] Urine Glucose (UA) Ur Leukocyte Esterase Uric Acid Crystals Urine Bacteria Hyaline Casts Urine Mucus 03/29/18 03/30/18 03/30/18 21:43 02:25 04:22 WBC RBC Hgb Hct MCV Neutrophils # Lymphocytes # INR 1.2 H Sodium Chloride Carbon Dioxide Creatinine Glucose Calcium Magnesium Total Creatine Kinase Troponin I 0.185 H* Total Protein Albumin Ur Specific [place] 1.040 H Urine Glucose (UA) 1+ H Ur Leukocyte Esterase Small H Uric Acid Crystals Many H Urine Bacteria Few H Hyaline Casts 4 H Urine Mucus Rare H 03/30/18 03/30/18 03/30/18 04:22 04:22 09:39 WBC 19.6 H RBC 2.37 L Hgb 7.5 L Hct 24.0 L MCV 101.4 H Neutrophils # Lymphocytes # INR Sodium 133 L Chloride Carbon Dioxide 20 L Creatinine 1.38 H Glucose 180 H Calcium 8.0 L Magnesium Total Creatine Kinase Troponin I 0.141 H* Total Protein Albumin Ur Specific [place] Urine Glucose (UA) Ur Leukocyte Esterase Uric Acid Crystals Urine Bacteria Hyaline Casts Urine Mucus - Diagnostic Findings Chest x-ray: image reviewed Assessment and Plan Assessment: Impression: #1 Urinary retention, immediate return of 900 ML's following Valdovinos catheter insertion. #2 Constipation. #3 Dyspnea secondary to bilateral pleural effusions. #4 Recently discharged following a non-ST elevated SD, multivessel coronary artery disease, patient underwent cardiac catheterization which showed RCA stenosis of 70%, circumflex was 90%, proximal LAD of 99%, mid LAD of 90%, status post three-vessel coronary artery bypass grafting, with LYNN to LAD, SVG to the RCA, and SVG to the ramus, #5 Postoperative acute blood loss anemia, an expected outcome of cardiothoracic surgery #6 Acute klidney injury, improved #7 Ischemic cardiomyopathy, ejection fraction of 35% #8 Diabetes mellitus type 2 #9 Hypertension, hyperlipidemia #10 Previous history of nicotine dependence, patient carries [id number] smoking history, quit smoking 40 years ago, but prior to that smoked for 20 years 3 packs a day #11 Daily EtOH use Plan: The patient was seen and evaluated by Dr. Randolph. Chest x-ray and labs were reviewed. We have again encourage the increased use of the use of the incentive spirometer and cough and deep breathing exercises. He has been initiated on IV diuretics. His main issue is urinary retention. He did have 900 MLS removed following a Valdovinos catheter insertion. Urine culture pending. Currently on Zosyn and Levaquin. We'll simplify antibiotics in the next 24 hours. Increase his activity as tolerated. We'll continue to follow and make further recommendations based on his clinical status. I, the cosigning physician, performed a history & physical examination of the patient. Lungs sounds with faint crackles in the bilateral posterior bases. Maintaining good O2 saturations in the 90s on room air. I discussed the assessment and plan of care with my nurse practitioner, Katia Parikh. I attest to the above note as dictated by her.
--- NOTE | 2018-03-30 15:31 | P.GSCN ---
History of Present Illness Consult date: 03/30/18 History of present illness: The patient is in the hospital for pneumonia. He was found to be in urine retention[900ml]. He is known to Dr Ellsworth for this problem He was seen recently in the office and placed on intermittent catherization. Just after that he ended up in the hospital with coronary bypass grafting. He never really did the intermittent catheterization. At the time Dr. Ellsworth saw him and option of intermittent catheterization, indwelling catheter, TURP were discussed. He was to go on Flomax twice a day but never did. Review of Systems - Constitutional Reports lethargy - Respiratory Reports as per HPI - Gastrointestinal Reports constipation - Genitourinary Reports as per HPI Past Medical History Past Medical History: Coronary Artery Disease (CAD), COPD, Diabetes Mellitus, Hyperlipidemia, Hypertension, Myocardial Infarction (non Q-wave), Prostate Disorder Additional Past Medical History / Comment(s): IDDM type II History of Any Multi-Drug Resistant Organisms: None Reported Past Surgical History: Coronary Bypass/CABG, Heart Catheterization Additional Past Surgical History / Comment(s): Vasectomy Past Anesthesia/Blood Transfusion Reactions: No Reported Reaction Past Psychological History: No Psychological Hx Reported Additional Psychological History / Comment(s): Pt resides with his spouse. He was independent prior to CABG procedure. Smoking Status: Former smoker (He started smoking in 1961 and quit in 1977) Past Alcohol Use History: Abuse Additional Past Alcohol Use History / Comment(s): Patient states he drinks daily - 2 or 3 beers, has never gone through withdrawal. Past Drug Use History: None Reported - Past Family History Father Family Medical History: Cancer Additional Family Medical History / Comment(s): Father of lung cancer with metastasis Mother Family Medical History: No Reported History Additional Family Medical History / Comment(s): Mother was healthy and lived to be 86 or 87yrs. Medications and Allergies Home Medications Medication Instructions Recorded Confirmed Type Insulin Detemir [Levemir Flextouch] 45 units SQ HS 03/19/18 03/29/18 History metFORMIN HCL [metFORMIN HCL ER] 1,000 mg PO BID 03/19/18 03/29/18 History Acetaminophen Tab [Tylenol] 325 mg PO Q4HR PRN tab 03/25/18 03/29/18 Rx Aspirin 325 mg PO DAILY #30 tab 03/25/18 03/29/18 Rx Atorvastatin [Lipitor] 80 mg PO HS #30 tab 03/25/18 03/29/18 Rx Clopidogrel [Plavix] 75 mg PO DAILY #30 tab 03/25/18 03/29/18 Rx Insulin Aspart [NovoLOG Flexpen] See Protocol SQ TID-W/MEALS #1 box 03/25/18 Rx Lisinopril [Zestril] 2.5 mg PO DAILY #30 tab 03/25/18 03/29/18 Rx Metoprolol Tartrate [Lopressor] 25 mg PO BID #60 tab 03/25/18 03/29/18 Rx Pantoprazole [Protonix] 40 mg PO AC-BRKFST #30 tablet.dr 03/25/18 03/29/18 Rx Sennosides-Docusate Sodium 2 each PO HS PRN tab 03/25/18 03/29/18 Rx [Senokot-S] Tamsulosin [Flomax] 0.4 mg PO PC-BRKFST #30 cap.er.24h 03/25/18 03/29/18 Rx Allergies Allergy/AdvReac Type Severity Reaction Status Date / Time No Known Allergies Allergy Verified 03/29/18 21:46 Surgical - Exam Vital Signs Temp Pulse Resp BP Pulse Ox 99.8 F H 91 16 117/52 99 03/29/18 21:29 03/29/18 21:29 03/29/18 21:29 03/29/18 21:29 03/29/18 21:29 Results - Labs 03/30/18 04:22 03/30/18 04:22 Abnormal Lab Results - Last 24 Hours (Table) 03/29/18 03/29/18 03/29/18 Range/Units 21:43 21:43 21:43 WBC 19.3 H (3.8-10.6) k/uL RBC 2.64 L (4.30-5.90) m/uL Hgb 8.5 L (13.0-17.5) gm/dL Hct 26.9 L (39.0-53.0) % MCV 101.8 H (80.0-100.0) fL Neutrophils # 17.7 H (1.3-7.7) k/uL Lymphocytes # 0.7 L (1.0-4.8) k/uL INR (<1.2) Sodium 134 L (137-145) mmol/L Chloride 108 H (98-107) mmol/L Carbon Dioxide 20 L (22-30) mmol/L Creatinine (0.66-1.25) mg/dL Glucose 207 H (74-99) mg/dL Calcium 8.1 L (8.4-10.2) mg/dL Magnesium 1.3 L (1.6-2.3) mg/dL Total Creatine Kinase 35 L (55-170) U/L Troponin I 0.108 H* (0.000-0.034) ng/mL Total Protein 5.7 L (6.3-8.2) g/dL Albumin 2.8 L (3.5-5.0) g/dL Ur Specific [place] (1.001-1.035) Urine Glucose (UA) (Negative) Ur Leukocyte Esterase (Negative) Uric Acid Crystals (None) /hpf Urine Bacteria (None) /hpf Hyaline Casts (0-2) /lpf Urine Mucus (None) /hpf 03/29/18 03/30/18 03/30/18 Range/Units 21:43 02:25 04:22 WBC (3.8-10.6) k/uL RBC (4.30-5.90) m/uL Hgb (13.0-17.5) gm/dL Hct (39.0-53.0) % MCV (80.0-100.0) fL Neutrophils # (1.3-7.7) k/uL Lymphocytes # (1.0-4.8) k/uL INR 1.2 H (<1.2) Sodium (137-145) mmol/L Chloride (98-107) mmol/L Carbon Dioxide (22-30) mmol/L Creatinine (0.66-1.25) mg/dL Glucose (74-99) mg/dL Calcium (8.4-10.2) mg/dL Magnesium (1.6-2.3) mg/dL Total Creatine Kinase (55-170) U/L Troponin I 0.185 H* (0.000-0.034) ng/mL Total Protein (6.3-8.2) g/dL Albumin (3.5-5.0) g/dL Ur Specific [place] 1.040 H (1.001-1.035) Urine Glucose (UA) 1+ H (Negative) Ur Leukocyte Esterase Small H (Negative) Uric Acid Crystals Many H (None) /hpf Urine Bacteria Few H (None) /hpf Hyaline Casts 4 H (0-2) /lpf Urine Mucus Rare H (None) /hpf 03/30/18 03/30/18 03/30/18 Range/Units 04:22 04:22 09:39 WBC 19.6 H (3.8-10.6) k/uL RBC 2.37 L (4.30-5.90) m/uL Hgb 7.5 L (13.0-17.5) gm/dL Hct 24.0 L (39.0-53.0) % MCV 101.4 H (80.0-100.0) fL Neutrophils # (1.3-7.7) k/uL Lymphocytes # (1.0-4.8) k/uL INR (<1.2) Sodium 133 L (137-145) mmol/L Chloride (98-107) mmol/L Carbon Dioxide 20 L (22-30) mmol/L Creatinine 1.38 H (0.66-1.25) mg/dL Glucose 180 H (74-99) mg/dL Calcium 8.0 L (8.4-10.2) mg/dL Magnesium (1.6-2.3) mg/dL Total Creatine Kinase (55-170) U/L Troponin I 0.141 H* (0.000-0.034) ng/mL Total Protein (6.3-8.2) g/dL Albumin (3.5-5.0) g/dL Ur Specific [place] (1.001-1.035) Urine Glucose (UA) (Negative) Ur Leukocyte Esterase (Negative) Uric Acid Crystals (None) /hpf Urine Bacteria (None) /hpf Hyaline Casts (0-2) /lpf Urine Mucus (None) /hpf Microbiology - Last 24 Hours (Table) 03/30/18 02:25 Urine Culture - Preliminary Urine,Catheterized Diabetes panel 03/29/18 03/30/18 Range/Units 21:43 04:22 Sodium 134 L 133 L (137-145) mmol/L Potassium 4.7 4.1 (3.5-5.1) mmol/L Chloride 108 H 105 (98-107) mmol/L Carbon Dioxide 20 L 20 L (22-30) mmol/L BUN 14 15 (9-20) mg/dL Creatinine 1.12 1.38 H (0.66-1.25) mg/dL Glucose 207 H 180 H (74-99) mg/dL Calcium 8.1 L 8.0 L (8.4-10.2) mg/dL AST 22 (17-59) U/L ALT 29 (21-72) U/L Alkaline Phosphatase 62 (38-126) U/L Total Protein 5.7 L (6.3-8.2) g/dL Albumin 2.8 L (3.5-5.0) g/dL Calcium panel 03/29/18 03/30/18 Range/Units 21:43 04:22 Calcium 8.1 L 8.0 L (8.4-10.2) mg/dL Phosphorus 3.6 (2.5-4.5) mg/dL Albumin 2.8 L (3.5-5.0) g/dL Pituitary panel 03/29/18 03/30/18 Range/Units 21:43 04:22 Sodium 134 L 133 L (137-145) mmol/L Potassium 4.7 4.1 (3.5-5.1) mmol/L Chloride 108 H 105 (98-107) mmol/L Carbon Dioxide 20 L 20 L (22-30) mmol/L BUN 14 15 (9-20) mg/dL Creatinine 1.12 1.38 H (0.66-1.25) mg/dL Glucose 207 H 180 H (74-99) mg/dL Calcium 8.1 L 8.0 L (8.4-10.2) mg/dL Adrenal panel 03/29/18 03/30/18 Range/Units 21:43 04:22 Sodium 134 L 133 L (137-145) mmol/L Potassium 4.7 4.1 (3.5-5.1) mmol/L Chloride 108 H 105 (98-107) mmol/L Carbon Dioxide 20 L 20 L (22-30) mmol/L BUN 14 15 (9-20) mg/dL Creatinine 1.12 1.38 H (0.66-1.25) mg/dL Glucose 207 H 180 H (74-99) mg/dL Calcium 8.1 L 8.0 L (8.4-10.2) mg/dL Total Bilirubin 0.7 (0.2-1.3) mg/dL AST 22 (17-59) U/L ALT 29 (21-72) U/L Alkaline Phosphatase 62 (38-126) U/L Total Protein 5.7 L (6.3-8.2) g/dL Albumin 2.8 L (3.5-5.0) g/dL Assessment and Plan Assessment: Impression: Urinary retention and acute and chronic. Pneumonia. Coronary artery disease. Recommendations this patient has had problems voiding for some time. He may need a TURP in the future. I will increase his Flomax to twice a day. I would leave indwelling catheter until the pneumonia has been stabilized and treated. He'll be given a voiding trial at that point in time. If he is still unable to void adequately he probably would need a TURP in the future. I will notify Dr. Ellsworth of his admission
--- NOTE | 2018-03-30 17:32 | P.HPIM ---
History of Present Illness H&P Date: 03/30/18 Chief Complaint: Generalized weakness, constipation nausea The patient is a 72-year-old male with past medical history of coronary artery disease with NSTEMI status post three-vessel CABG on 03/20/18 who presents to the ER after being transferred from [facility] yesterday where he presented with complaints of nausea lightheadedness and chills. The patient reports problems moving his bowels over the last week along with ongoing issues with urinary retention. Apparently the patient's postoperative course was complicated by urinary retention where he subsequently had a Valdovinos catheter placed that was recently discontinued on this past Monday. The patient reports dyspnea and exertion denies any chest pain or lower extremity swelling. The patient reports decreased appetite, increased weakness and decreased ability to get around. He denies any subjective fevers chills night sweats or cough. Workup at [facility] included a CT chest which demonstrated bilateral pleural effusions and bilateral lobe atelectasis, mild thickening of the urinary bladder with cystitis not excluded and a right renal cyst. EKG showed normal sinus rhythm with PACs, leukocytosis of 19.6, hemoglobin of 7.5, serum sodium of 133 and creatinine of 1.38, serum troponin 0.185. Urinalysis was suggestive for urine culture to be sent, apparently the patient was noted to have urinary retention with bladder scan showing 900ccs. patient was noted to have low-grade fever with blood pressure 114/57 Review of Systems Pertinent positive as per HPI all other review of systems otherwise negative Past Medical History Past Medical History: Coronary Artery Disease (CAD), COPD, Diabetes Mellitus, Hyperlipidemia, Hypertension, Myocardial Infarction (non Q-wave), Prostate Disorder Additional Past Medical History / Comment(s): IDDM type II History of Any Multi-Drug Resistant Organisms: None Reported Past Surgical History: Coronary Bypass/CABG, Heart Catheterization Additional Past Surgical History / Comment(s): Vasectomy Past Anesthesia/Blood Transfusion Reactions: No Reported Reaction Past Psychological History: No Psychological Hx Reported Additional Psychological History / Comment(s): Pt resides with his spouse. He was independent prior to CABG procedure. Smoking Status: Former smoker (He started smoking in 1961 and quit in 1977) Past Alcohol Use History: Abuse Additional Past Alcohol Use History / Comment(s): Patient states he drinks daily - 2 or 3 beers, has never gone through withdrawal. Past Drug Use History: None Reported - Past Family History Father Family Medical History: Cancer Additional Family Medical History / Comment(s): Father of lung cancer with metastasis Mother Family Medical History: No Reported History Additional Family Medical History / Comment(s): Mother was healthy and lived to be 86 or 87yrs. Medications and Allergies Home Medications Medication Instructions Recorded Confirmed Type Insulin Detemir [Levemir Flextouch] 45 units SQ HS 03/19/18 03/29/18 History metFORMIN HCL [metFORMIN HCL ER] 1,000 mg PO BID 03/19/18 03/29/18 History Acetaminophen Tab [Tylenol] 325 mg PO Q4HR PRN tab 03/25/18 03/29/18 Rx Aspirin 325 mg PO DAILY #30 tab 03/25/18 03/29/18 Rx Atorvastatin [Lipitor] 80 mg PO HS #30 tab 03/25/18 03/29/18 Rx Clopidogrel [Plavix] 75 mg PO DAILY #30 tab 03/25/18 03/29/18 Rx Insulin Aspart [NovoLOG Flexpen] See Protocol SQ TID-W/MEALS #1 box 03/25/18 Rx Lisinopril [Zestril] 2.5 mg PO DAILY #30 tab 03/25/18 03/29/18 Rx Metoprolol Tartrate [Lopressor] 25 mg PO BID #60 tab 03/25/18 03/29/18 Rx Pantoprazole [Protonix] 40 mg PO AC-BRKFST #30 tablet.dr 03/25/18 03/29/18 Rx Sennosides-Docusate Sodium 2 each PO HS PRN tab 03/25/18 03/29/18 Rx [Senokot-S] Tamsulosin [Flomax] 0.4 mg PO PC-BRKFST #30 cap.er.24h 03/25/18 03/29/18 Rx Allergies Allergy/AdvReac Type Severity Reaction Status Date / Time No Known Allergies Allergy Verified 03/29/18 21:46 Physical Exam Vitals: Vital Signs Temp Pulse Pulse Pulse Resp BP BP 03/30/18 16:24 83 14 03/30/18 16:13 92 16 03/30/18 12:23 92 03/30/18 12:13 88 03/30/18 12:00 99.9 F H 86 19 114/58 03/30/18 09:16 94 03/30/18 09:05 90 03/30/18 08:00 100 F H 92 20 123/58 03/30/18 04:00 98.9 F 88 17 108/52 03/30/18 00:52 99.5 F 88 20 105/56 03/30/18 00:35 100.4 F H 96 16 132/60 03/30/18 00:01 97 114/57 03/29/18 23:00 93 120/58 03/29/18 22:00 117/52 03/29/18 21:29 99.8 F H 91 16 117/52 Pulse Ox 03/30/18 16:24 03/30/18 16:13 94 L 03/30/18 12:23 03/30/18 12:13 03/30/18 12:00 97 03/30/18 09:16 03/30/18 09:05 96 03/30/18 08:00 95 03/30/18 04:00 98 03/30/18 00:52 98 03/30/18 00:35 97 03/30/18 00:01 03/29/18 23:00 99 03/29/18 22:00 03/29/18 21:29 99 Intake and Output 03/30/18 03/30/18 03/30/18 06:59 14:59 22:59 Intake Total 240 Output Total 2700 Balance -2700 240 Intake: Oral 240 Output: Urine 2700 Uretheral (Valdovinos) 1100 Other: Voiding Method Indwelling Catheter Indwelling Catheter Weight 105 kg 105 kg Constitutional: No acute distress, conversant, pleasant Eyes: Anicteric sclerae, moist conjunctiva, no lid-lag, PERRLA ENMT: NC/AT,Oropharynx clear, no erythema, exudates Neck:Supple, FROM, no masses, or JVD, No carotid bruits; No thyromegaly Lungs: Clear to auscultation, diminished in the bases bilaterally, Clear to percussion, Normal respiratory effort, no accessory muscle use with good saturations on 2L nasal cannula at 98% Cardiovascular: Heart regular in rate and rhythm, No murmurs, gallops, or rubs , +1 bilateral lower extremity pitting edema Abdominal: Soft Nontender, nom distended, no guarding, no rebound or rigidity, Normoactive bowel sounds No hepatomegaly, No splenomegaly, No palpable mass No abdominal wall hernia noted Skin: Normal temperature, tone, texture, turgor, No induration No subcutaneous nodules, No rash, lesions, No ulcers Extremities:No digital cyanosis No clubbing, Pedal pulses intact and symmetrical Radial pulses intact and symmetrical Normal gait and station, No calf tenderness Psychiatric: Alert and oriented to person, place and time, Appropriate affect Intact judgement Neuro: Muscles Strength 5/5 in all 4 extremities, Sensation to light touch grossly present throughout, Cranial nerves II-XII grossly intact. No focal sensory deficits Results CBC & Chem 7: 03/30/18 04:22 03/30/18 04:22 Labs: Abnormal Lab Results - Last 24 Hours (Table) 03/29/18 03/29/18 03/29/18 Range/Units 21:43 21:43 21:43 WBC 19.3 H (3.8-10.6) k/uL RBC 2.64 L (4.30-5.90) m/uL Hgb 8.5 L (13.0-17.5) gm/dL Hct 26.9 L (39.0-53.0) % MCV 101.8 H (80.0-100.0) fL Neutrophils # 17.7 H (1.3-7.7) k/uL Lymphocytes # 0.7 L (1.0-4.8) k/uL INR (<1.2) Sodium 134 L (137-145) mmol/L Chloride 108 H (98-107) mmol/L Carbon Dioxide 20 L (22-30) mmol/L Creatinine (0.66-1.25) mg/dL Glucose 207 H (74-99) mg/dL Calcium 8.1 L (8.4-10.2) mg/dL Magnesium 1.3 L (1.6-2.3) mg/dL Total Creatine Kinase 35 L (55-170) U/L Troponin I 0.108 H* (0.000-0.034) ng/mL Total Protein 5.7 L (6.3-8.2) g/dL Albumin 2.8 L (3.5-5.0) g/dL Ur Specific [place] (1.001-1.035) Urine Glucose (UA) (Negative) Ur Leukocyte Esterase (Negative) Uric Acid Crystals (None) /hpf Urine Bacteria (None) /hpf Hyaline Casts (0-2) /lpf Urine Mucus (None) /hpf 03/29/18 03/30/18 03/30/18 Range/Units 21:43 02:25 04:22 WBC (3.8-10.6) k/uL RBC (4.30-5.90) m/uL Hgb (13.0-17.5) gm/dL Hct (39.0-53.0) % MCV (80.0-100.0) fL Neutrophils # (1.3-7.7) k/uL Lymphocytes # (1.0-4.8) k/uL INR 1.2 H (<1.2) Sodium (137-145) mmol/L Chloride (98-107) mmol/L Carbon Dioxide (22-30) mmol/L Creatinine (0.66-1.25) mg/dL Glucose (74-99) mg/dL Calcium (8.4-10.2) mg/dL Magnesium (1.6-2.3) mg/dL Total Creatine Kinase (55-170) U/L Troponin I 0.185 H* (0.000-0.034) ng/mL Total Protein (6.3-8.2) g/dL Albumin (3.5-5.0) g/dL Ur Specific [place] 1.040 H (1.001-1.035) Urine Glucose (UA) 1+ H (Negative) Ur Leukocyte Esterase Small H (Negative) Uric Acid Crystals Many H (None) /hpf Urine Bacteria Few H (None) /hpf Hyaline Casts 4 H (0-2) /lpf Urine Mucus Rare H (None) /hpf 03/30/18 03/30/18 03/30/18 Range/Units 04:22 04:22 09:39 WBC 19.6 H (3.8-10.6) k/uL RBC 2.37 L (4.30-5.90) m/uL Hgb 7.5 L (13.0-17.5) gm/dL Hct 24.0 L (39.0-53.0) % MCV 101.4 H (80.0-100.0) fL Neutrophils # (1.3-7.7) k/uL Lymphocytes # (1.0-4.8) k/uL INR (<1.2) Sodium 133 L (137-145) mmol/L Chloride (98-107) mmol/L Carbon Dioxide 20 L (22-30) mmol/L Creatinine 1.38 H (0.66-1.25) mg/dL Glucose 180 H (74-99) mg/dL Calcium 8.0 L (8.4-10.2) mg/dL Magnesium (1.6-2.3) mg/dL Total Creatine Kinase (55-170) U/L Troponin I 0.141 H* (0.000-0.034) ng/mL Total Protein (6.3-8.2) g/dL Albumin (3.5-5.0) g/dL Ur Specific [place] (1.001-1.035) Urine Glucose (UA) (Negative) Ur Leukocyte Esterase (Negative) Uric Acid Crystals (None) /hpf Urine Bacteria (None) /hpf Hyaline Casts (0-2) /lpf Urine Mucus (None) /hpf Microbiology - Last 24 Hours (Table) 03/30/18 02:25 Urine Culture - Preliminary Urine,Catheterized Thrombosis Risk Factor Assmnt - Choose All That Apply Any of the Below Risk Factors Present?: Yes Each Factor Represents 1 point: Heart failure (<1month), History of prior major surgery (<1month), Medical pt on bed rest, Obesity (BMI >25), Swollen legs ( current) Other Risk Factors: Yes Each Risk Factor Represents 2 Points: Age 61-74 years, Major surgery Other congenital or acquired thrombophilia - If yes, enter type in comment: No Thrombosis Risk Factor Assessment Total Risk Factor Score: 9 Thrombosis Risk Factor Assessment Level: High Risk Assessment and Plan (1) Fever Current Visit: Yes Status: Acute Code(s): R50.9 - FEVER, UNSPECIFIED SNOMED Code(s): 686413477 (2) Leukocytosis Current Visit: Yes Status: Acute Code(s): D72.829 - ELEVATED WHITE BLOOD CELL COUNT, UNSPECIFIED SNOMED Code(s): 300103645 (3) Debility Current Visit: Yes Status: Acute Code(s): R53.81 - OTHER MALAISE SNOMED Code(s): 65942653 (4) Dyspnea Narrative/Plan: * Secondary to bilateral pleural effusion superimposed ischemic cardiomyopathy Current Visit: Yes Status: Acute Code(s): R06.00 - DYSPNEA, UNSPECIFIED SNOMED Code(s): 244217653 (5) Constipation Current Visit: Yes Status: Acute Code(s): K59.00 - CONSTIPATION, UNSPECIFIED SNOMED Code(s): 92602775 (6) Urinary retention Current Visit: Yes Status: Acute Code(s): R33.9 - RETENTION OF URINE, UNSPECIFIED SNOMED Code(s): 016470840 (7) COPD (chronic obstructive pulmonary disease) Current Visit: No Status: Chronic Code(s): J44.9 - CHRONIC OBSTRUCTIVE PULMONARY DISEASE, UNSPECIFIED SNOMED Code(s): 17504977 (8) Coronary artery disease Current Visit: No Status: Chronic Code(s): I25.10 - ATHSCL HEART DISEASE OF [place] CORONARY ARTERY W/O ANG PCTRS SNOMED Code(s): 79858272 (9) Diabetes mellitus Current Visit: No Status: Chronic Code(s): E11.9 - TYPE 2 DIABETES MELLITUS WITHOUT COMPLICATIONS SNOMED Code(s): 26556665 (10) Hypertension Current Visit: No Status: Chronic Code(s): I10 - ESSENTIAL (PRIMARY) HYPERTENSION SNOMED Code(s): 59172530 (11) Postoperative anemia Narrative/Plan: * Expected outcome of cardiac thoracic surgery, no transfusions at this time Current Visit: Yes Status: Acute Code(s): D64.9 - ANEMIA, UNSPECIFIED SNOMED Code(s): 664965013 (12) CHF (congestive heart failure) Narrative/Plan: * Ischemic cardiomyopathy ejection fraction of 35% Current Visit: Yes Status: Acute Code(s): I50.9 - HEART FAILURE, UNSPECIFIED SNOMED Code(s): 12050999 Plan: The patient is placed in observation anticipate a less than 2 midnight stay with acute on chronic urinary retention, dyspnea, generalized weakness and debility post CABG surgery. With fever leukocytosis possible concern for sepsis with underlying UTI with Ct suggesting cystitis urine cultures are pending, agree to continue empiric IV antibiotic regimen with Levaquin/zosyn pending urine culture results. Patient seen by urology recommended keeping catheter in place and started patient on Flomax 3 times a day. Patient he would have medically stable continue home antihypertensive regimen. Diabetic regimen was resumed with Levemir 45 u sqqhs with correctional scale coverage and Accu-Cheks. We'll plan to consult Dr. Heller for rehab assessment/ placement. Appreciate consultants' continue to follow with this patient. Surrogate decision-maker: CODE STATUS:Full-code Discussed with: Patient Anticipated discharge date: 04/[address]: REhab A total of 60 minutes was spent on the care of this complex patient more than 50 % of the time was spent in counseling and care coordination
[2018-03-30] MEDS ORDERED: HYDROcodone/APAP 5-325MG 1 EACH TAB PO PRN (20:05)
[2018-03-30] MEDS ORDERED: ALBUTEROL NEBULIZED 2.5 MG/3 ML INHALATION PRN (20:05)
[2018-03-30 20:33] LABS: Glucose,Whole Blood 332 mg/dL (75-99)
[2018-03-30] MEDS: METOPROLOL TARTRATE 25 MG TAB PO SCH (21:06)
[2018-03-30] MEDS: ATORVASTATIN 80 MG TAB PO SCH (21:06)
[2018-03-30] MEDS: INSULIN ASPART 100 UNIT/ML 1 ML 10 ML VIAL SQ SCH (21:07)
[2018-03-30] MEDS: HEPARIN SODIUM,PORCINE 5,000 UNIT/ML 1 ML VIAL SQ SCH (21:07)
[2018-03-30] MEDS: INSULIN DETEMIR 100 UNIT/ML 10 ML VIAL SQ SCH (21:10)
[2018-03-31 02:02] LABS: Glucose,Whole Blood 193 mg/dL (75-99)
[2018-03-31 05:55] LABS: Glucose,Whole Blood 135 mg/dL (75-99)
[2018-03-31] MEDS: PANTOPRAZOLE 40 MG TABLET PO SCH (06:21)
[2018-03-31 06:31] LABS: Basophils % (A) 0 %; Eosinophils # (A) 0.2 k/uL (0-0.7); Eosinophils % (A) 1 %; HGB 7.9 gm/dL (13.0-17.5); Hypochromasia Slight; Lymphocytes # (A) 1.2 k/uL (1.0-4.8); Lymphocytes % (A) 8 %; MCH 32.9 pg (25.0-35.0); MCHC 32.9 g/dL (31.0-37.0); MCV 99.9 fL (80.0-100.0); Monocytes # (A) 0.5 k/uL (0-1.0); Monocytes % (A) 3 %; Neutrophils # (A) 13.7 k/uL (1.3-7.7); Neutrophils % (A) 87 %; Platelet Count 332 k/uL (150-450); RDW 13.1 % (11.5-15.5); WBC 15.8 k/uL (3.8-10.6)
[2018-03-31 06:42] LABS: Albumin 2.8 g/dL (3.5-5.0); Calcium 8.4 mg/dL (8.4-10.2); Potassium 3.7 mmol/L (3.5-5.1); Total Bilirubin 0.6 mg/dL (0.2-1.3); Total Protein 5.7 g/dL (6.3-8.2)
--- NOTE | 2018-03-31 06:56 | XR ---
EXAMINATION TYPE: XR chest 2V DATE OF EXAM: 03/31/2018 HISTORY: pneumonia. REFERENCE: Previous study dated 03/29/2018. FINDINGS: There has been a midline sternotomy. The heart is enlarged. There is a small amount of atel ectasis or consolidation at the left lung base. There is a small left effusion. IMPRESSION: 1. CARDIOMEGALY. 2. MINIMAL LEFT BASILAR AIRSPACE DISEASE. 3. SMALL LEFT EFFUSION.
[2018-03-31] MEDS: INSULIN ASPART 100 UNIT/ML 1 ML 10 ML VIAL SQ SCH ×7 (07:30→21:32)
[2018-03-31] MEDS: IPRATROPIUM-ALBUTEROL 3 ML NEB INHALATION SCH ×4 (07:35→20:12)
[2018-03-31] MEDS: HEPARIN SODIUM,PORCINE 5,000 UNIT/ML 1 ML VIAL SQ SCH ×3 (09:46→23:35)
[2018-03-31] MEDS: CLOPIDOGREL 75 MG TAB PO SCH (09:46)
[2018-03-31] MEDS: FUROSEMIDE 40 MG TAB PO SCH (09:46)
[2018-03-31] MEDS: ASPIRIN 325 MG TAB PO SCH (09:46)
[2018-03-31] MEDS: LISINOPRIL 2.5 MG TAB PO SCH (09:46)
[2018-03-31] MEDS: METOPROLOL TARTRATE 25 MG TAB PO SCH ×2 (09:46→21:32)
[2018-03-31] MEDS: TAMSULOSIN 0.4 MG CAP.ER.24H PO SCH ×3 (09:48→21:32)
[2018-03-31 12:16] LABS: Glucose,Whole Blood 156 mg/dL (75-99)
--- NOTE | 2018-03-31 12:20 | P.PN ---
Subjective Progress Note Date: 03/31/18 The patient is a 72 yo M w/ the PMH of CAD s/p CABG on 03/20/18 who presented to the ED as a transfer from [facility] where he had presented w/ c/o nausea, lightheadedness, and chills. The patient noted that post-operatively, he had urinary retention and was discharged on a cali catheter which was removed on 03/28/18. After the removal, he was able to void 3-4 times but endorsed lethargy, anorexia, and inability to ambulate well. He subsequently developed dizziness while using he toilet and his activated EMS. [facility] workup included a CT chest which demonstrated bilateral pleural effusions and bilateral lower lobe atelectasis, mild thickening of the urinary bladder with cystitis not excluded and a right renal cyst. The patient also underwent an extensive w/u here in the ED which revealed luekocytosis of 19.6, Hgb 7.5, w/ Troponin 0.185. UA was positive for small LE , and few bacteria. He also had a bladder scan which revealed 900 ccs of urine. A cali catheter was placed w/ drainage of 900 ccs of urine. The patient was admitted for further management of sepsis secondary to UTI. He was started on Zosyn and Levaquin and Urology and Cardiology were consulted. Urology recommended to c/o the cali catheter for now w/ a trial of flomax. The patient was seen and examined at the bedside. He notes that this morning he had another episode of nausea and some dizziness which resolved spontaneously. He also endorsed episodes of chills overnight which also haven't recurred since the morning. He had incisional chest pain but denied SOB, vomiting, headaches, abdominal pain, dysuria, cough, palpitations, or visual changes. Objective - Vital Signs Vital signs: Vital Signs Temp 100.2 F H 03/31/18 08:00 Pulse 81 03/31/18 08:00 Resp 17 03/31/18 04:00 BP 119/58 03/31/18 08:00 Pulse Ox 96 03/31/18 08:00 Intake & Output 03/30/18 03/31/18 03/31/18 18:59 06:59 18:59 Intake Total 480 230 Output Total 1375 825 Balance -895 -825 230 Weight 105 kg 102.9 kg Intake: Oral 480 230 Output: Urine 1375 825 Uretheral (Cali) 1375 Other: Voiding Method Indwelling Catheter Indwelling Catheter Indwelling Catheter - Exam General: Non-toxic, in no acute distress, appears stated age HEENT: NC/AT, anicteric sclerae, moist conjunctiva, no lid-lag, PERRLA Cardiovascular: S1/S2 wnl, no murmurs, rubs, or gallops, post-surgical chest, chest hugger in place Lungs: Mild bibasilar rales, normal respiratory effort, no accessory muscle use Abdominal: Soft, nontender, non-distended, no guarding, rebound, or rigidity, cali catheter in place, draining dark yelllow urine Skin: Warm, dry Extremities: No edema or contractures, compression boots in place Psychiatric: Alert and oriented to person, place and time, appropriate affect, Intact judgment Neuro: CN II-XII grossly intact, Strength 4/5 in all 4 extremities, Speech intact, Sensation to light touch grossly intact throughout - Labs CBC & Chem 7: 03/31/18 05:50 03/31/18 05:50 Labs: Abnormal Lab Results - Last 24 Hours (Table) 03/30/18 03/31/18 03/31/18 Range/Units 20:32 02:00 05:50 WBC 15.8 H (3.8-10.6) k/uL RBC 2.40 L (4.30-5.90) m/uL Hgb 7.9 L (13.0-17.5) gm/dL Hct 24.0 L (39.0-53.0) % Neutrophils # 13.7 H (1.3-7.7) k/uL Sodium (137-145) mmol/L Creatinine (0.66-1.25) mg/dL Glucose (74-99) mg/dL POC Glucose (mg/dL) 332 H 193 H (75-99) mg/dL AST (17-59) U/L Total Protein (6.3-8.2) g/dL Albumin (3.5-5.0) g/dL 03/31/18 03/31/18 Range/Units 05:50 05:52 WBC (3.8-10.6) k/uL RBC (4.30-5.90) m/uL Hgb (13.0-17.5) gm/dL Hct (39.0-53.0) % Neutrophils # (1.3-7.7) k/uL Sodium 135 L (137-145) mmol/L Creatinine 1.38 H (0.66-1.25) mg/dL Glucose 125 H (74-99) mg/dL POC Glucose (mg/dL) 135 H (75-99) mg/dL AST 14 L (17-59) U/L Total Protein 5.7 L (6.3-8.2) g/dL Albumin 2.8 L (3.5-5.0) g/dL Microbiology - Last 24 Hours (Table) 03/30/18 02:25 Urine Culture - Final Urine,Catheterized 03/29/18 21:43 Blood Culture - Preliminary Blood No Growth after 24 hours Assessment and Plan Plan: Sepsis secondary to UTI w/ urinary retention - Urology recs appreciated - C/w Zosyn and Levaquin for now - F/u Urine cultures - C/w Flomax and urinary catheter for now. Will consider voiding trial tomorrow HTN - C/w home meds Lisinopril 2.5 mg po qd, Lopressor 25 mg po bid CAD s/p CABG w/ CHF - C/w Aspirin, Statin, Plavix, Lasix 40 mg po qd - [place] for pain control DM - C/w Insulin home dose: Levemir 45 U qhs, Aspart 10 U BIDAC and 15 U w/ dinner Debility - PT/OT Consult Post-operative anemia - Will monitor for now DVT//GI prophylaxis - Heparin - Protonix Discussed with: Patient Anticipated discharge date: 04/03/[address]: Rehab A total of 35 minutes was spent on the care of this complex patient more than 50 % of the time was spent in counseling and care coordination.
--- NOTE | 2018-03-31 12:42 | P.PN ---
Subjective This is a pleasant 72-year-old male recently discharged from the hospital status post coronary artery bypass grafting. He initially presented to the hospital with symptoms of urinary retention. Cali catheter was placed and he had a significant amount of initial output. Chest x-ray obtained on admission reveals evidence of bilateral pleural effusion pneumonia cannot be entirely excluded. He is seen and examined resting comfortably laying down in the chair. He states he is having lower back discomfort and is unable to sit up secondary to the pain. He is laying essentially flat in the chair in the recumbent position. He denies significant shortness of breath although he does feel mildly short of breath when he gets up and tries to exert himself. He denies chest pain, dizziness or palpitations. He complains of significant discomfort secondary to the cali. Repeat chest x-ray this morning shows a minimal left basilar airspace disease with a small left effusion noted. Currently maintained on aspirin 325 mg daily, atorvastatin 80 mg daily, Plavix 75 mg daily, Lasix 40 mg daily, metoprolol 25 mg twice a day and lisinopril 2.5 mg daily. He is also receiving IV antibiotics. Initially on admission he was receiving Lasix 40 mg IV twice a day which has been changed to oral this morning. Laboratory data reviewed, WBC 15.8, hemoglobin 7.9, platelets 332, sodium 135, potassium 3.7, creatinine 1.38, NT proBNP 4870. He is running a mild low-grade temperature this morning 100.2F, blood pressure 119/58 and heart rate 81. He is maintaining oxygen saturation on room air without difficulty. GENERAL: Well-appearing, well-nourished and in no acute distress. NECK: Supple with mild JVD noted , no thyromegaly. LUNGS: Faint bibasilar rales appreciated with no wheezes or rhonchi. Respiration equal and unlabored. HEART: Regular rate and rhythm without murmurs, rubs or gallops. S1 and S2 heard. Incision to mid-sternal region clean, dry and intact with steri-strips in place. EXTREMITIES: Normal range of motion, trace bilateral lower extremity nonpitting edema. No clubbing or cyanosis. Peripheral pulses intact. ASSESSMENT Urinary retention Pleural effusion Leukocytosis Febrile illness Acute on chronic systolic heart failure, ejection fraction on last admission 30- 35%. Chronic ischemic cardiomyopathy Coronary artery disease status post bypass grafting PLAN Continue current medical regimen. Symptoms are related to a small degree of acute systolic heart failure as well as the possibility of urinary tract infection and pneumonia. We will continue to follow and make recommendations appropriately. Nurse Practitioner note has been reviewed, I agree with a documented findings and plan of care. Patient was seen and examined. Objective - Vital Signs Vital signs: Vital Signs Temp 100.2 F H 03/31/18 08:00 Pulse 81 03/31/18 08:00 Resp 17 03/31/18 04:00 BP 119/58 03/31/18 08:00 Pulse Ox 96 03/31/18 08:00 Intake & Output 03/30/18 03/31/18 03/31/18 18:59 06:59 18:59 Intake Total 480 230 Output Total 1375 825 Balance -895 -825 230 Weight 105 kg 102.9 kg Intake: Oral 480 230 Output: Urine 1375 825 Uretheral (Cali) 1375 Other: Voiding Method Indwelling Catheter Indwelling Catheter Indwelling Catheter - Labs CBC & Chem 7: 03/31/18 05:50 03/31/18 05:50 Labs: Abnormal Lab Results - Last 24 Hours (Table) 03/30/18 03/30/18 03/31/18 Range/Units 09:39 20:32 02:00 WBC (3.8-10.6) k/uL RBC (4.30-5.90) m/uL Hgb (13.0-17.5) gm/dL Hct (39.0-53.0) % Neutrophils # (1.3-7.7) k/uL Sodium (137-145) mmol/L Creatinine (0.66-1.25) mg/dL Glucose (74-99) mg/dL POC Glucose (mg/dL) 332 H 193 H (75-99) mg/dL AST (17-59) U/L Troponin I 0.141 H* (0.000-0.034) ng/mL Total Protein (6.3-8.2) g/dL Albumin (3.5-5.0) g/dL 03/31/18 03/31/18 03/31/18 Range/Units 05:50 05:50 05:52 WBC 15.8 H (3.8-10.6) k/uL RBC 2.40 L (4.30-5.90) m/uL Hgb 7.9 L (13.0-17.5) gm/dL Hct 24.0 L (39.0-53.0) % Neutrophils # 13.7 H (1.3-7.7) k/uL Sodium 135 L (137-145) mmol/L Creatinine 1.38 H (0.66-1.25) mg/dL Glucose 125 H (74-99) mg/dL POC Glucose (mg/dL) 135 H (75-99) mg/dL AST 14 L (17-59) U/L Troponin I (0.000-0.034) ng/mL Total Protein 5.7 L (6.3-8.2) g/dL Albumin 2.8 L (3.5-5.0) g/dL Microbiology - Last 24 Hours (Table) 03/29/18 21:43 Blood Culture - Preliminary Blood No Growth after 24 hours 03/30/18 02:25 Urine Culture - Preliminary Urine,Catheterized
[2018-03-31] MEDS: PIPERACILLIN-TAZOBACTAM 3.375 GM in SODIUM CHLORIDE 0.9% 100 ML IVPB SCH ×3 (12:45→23:35)
--- NOTE | 2018-03-31 13:24 | P.PN ---
Subjective Progress Note Date: 03/31/18 Principal diagnosis: Recent coronary artery bypass grafting surgery 3 vessels on 03/20/2018, Coronary artery disease, recent non-STEMI, history of uncontrolled insulin diabetes mellitus with a preoperative hemoglobin A1c of 8.1%, hypertension, hyperlipidemia, obesity with a BMI of 32.6 kg/m, history of kidney stones, history of tobacco dependence, COPD with a preoperative FEV1 of 72% of predicted value, daily EtOH use, history of preoperative nasal swab positive for MSSA, history of postoperative urinary retention requiring reinsertion of Valdovinos which is being followed by Dr. Ellsworth on an outpatient basis and history of vasectomy. Currently the patient is sitting up to the bedside chair. He is in no acute distress. He denies any complaints of pain or shortness of breath this time. A Valdovinos catheter was placed yesterday for urinary retention and a consult was placed for Dr. Mccord from urology. Urology increase the Flomax to twice a day and is recommending the patient be discharged with the Valdovinos catheter in placed and will be followed on an outpatient basis. His T-max temperature in the last 24 hours was 100.5F. He reports that he did have an episode of nausea last evening which has resolved. He reports that he did have a bowel movement yesterday after receiving a Dulcolax suppository. No further complaints of constipation. He remains complaining of generalized weakness and is agreeable to being discharged to a inpatient rehab facility upon discharge. Dr. Heller has been consulted. Objective - Vital Signs Vital signs: Vital Signs Temp 100.2 F H 03/31/18 08:00 Pulse 81 03/31/18 08:00 Resp 17 03/31/18 04:00 BP 119/58 03/31/18 08:00 Pulse Ox 96 03/31/18 08:00 Intake & Output 03/30/18 03/31/18 03/31/18 18:59 06:59 18:59 Intake Total 480 230 Output Total 1375 825 Balance -895 -825 230 Weight 105 kg 102.9 kg Intake: Oral 480 230 Output: Urine 1375 825 Uretheral (Valdovinos) 1375 Other: Voiding Method Indwelling Catheter Indwelling Catheter Indwelling Catheter - Constitutional General appearance: Present: cooperative, no acute distress, obese - Respiratory Details: Lung sounds are essentially clear throughout, diminished to his bilateral bases. Respirations are symmetrical and nonlabored. Oxygen saturation are 97% on room air. He is achieving 1500 mL on his incentive spirometry with encouragement. - Cardiovascular Details: Regular rhythm and rate. S1 and S2 present, negative for S3, gallop or murmur. Remote telemetry showing normal sinus rhythm heart rate 78. No edema is present. Knee-high RAYMUNDO hose and sequential compression devices in place to his bilateral lower extremities. Heart hugger is in place and he is demonstrating appropriate use. - Gastrointestinal Gastrointestinal Comment(s): Abdomen soft, nontender and nondistended. Active bowel sounds to all 4 abdominal quadrants. Tolerating minimal oral intake. Bowel movement yesterday 03/30/2018. - Genitourinary Genitourinary Comment(s): Valdovinos catheter for accurate I&O and urinary retention. Draining clear yellow urine. 825 mL output in the last 8 hours. - Integumentary Integumentary Comment(s): Skin is warm and dry. No clubbing or cyanosis present. Midline sternal incision clean dry and approximated. No redness or drainage present. Left leg EVH site clean and dry and approximated. No drainage or redness present. - Neurologic Neurologic: Present: CNII-XII intact - Musculoskeletal Musculoskeletal: Present: gait normal, generalized weakness, strength equal bilaterally - Psychiatric Psychiatric: Present: A&O x's 3, appropriate affect, intact judgment & insight - Allied health notes Allied health notes reviewed: nursing - Labs CBC & Chem 7: 03/31/18 05:50 03/31/18 05:50 Labs: Abnormal Lab Results - Last 24 Hours (Table) 03/30/18 03/31/18 03/31/18 Range/Units 20:32 02:00 05:50 WBC 15.8 H (3.8-10.6) k/uL RBC 2.40 L (4.30-5.90) m/uL Hgb 7.9 L (13.0-17.5) gm/dL Hct 24.0 L (39.0-53.0) % Neutrophils # 13.7 H (1.3-7.7) k/uL Sodium (137-145) mmol/L Creatinine (0.66-1.25) mg/dL Glucose (74-99) mg/dL POC Glucose (mg/dL) 332 H 193 H (75-99) mg/dL AST (17-59) U/L Total Protein (6.3-8.2) g/dL Albumin (3.5-5.0) g/dL 03/31/18 03/31/18 03/31/18 Range/Units 05:50 05:52 11:58 WBC (3.8-10.6) k/uL RBC (4.30-5.90) m/uL Hgb (13.0-17.5) gm/dL Hct (39.0-53.0) % Neutrophils # (1.3-7.7) k/uL Sodium 135 L (137-145) mmol/L Creatinine 1.38 H (0.66-1.25) mg/dL Glucose 125 H (74-99) mg/dL POC Glucose (mg/dL) 135 H 156 H (75-99) mg/dL AST 14 L (17-59) U/L Total Protein 5.7 L (6.3-8.2) g/dL Albumin 2.8 L (3.5-5.0) g/dL Microbiology - Last 24 Hours (Table) 03/30/18 02:25 Urine Culture - Final Urine,Catheterized 03/29/18 21:43 Blood Culture - Preliminary Blood No Growth after 24 hours - Imaging and Cardiology Chest x-ray: report reviewed, image reviewed Assessment and Plan (1) Urinary retention Current Visit: Yes Status: Acute Code(s): R33.9 - RETENTION OF URINE, UNSPECIFIED SNOMED Code(s): 898611260 (2) Constipation Current Visit: Yes Status: Acute Code(s): K59.00 - CONSTIPATION, UNSPECIFIED SNOMED Code(s): 70396190 (3) NSTEMI (non-ST elevated myocardial infarction) Current Visit: Yes Status: Acute Code(s): I21.4 - NON-ST ELEVATION (NSTEMI) MYOCARDIAL INFARCTION SNOMED Code(s): 492714210 (4) COPD (chronic obstructive pulmonary disease) Current Visit: No Status: Chronic Code(s): J44.9 - CHRONIC OBSTRUCTIVE PULMONARY DISEASE, UNSPECIFIED SNOMED Code(s): 31207169 (5) Coronary artery disease Current Visit: No Status: Chronic Code(s): I25.10 - ATHSCL HEART DISEASE OF [place] CORONARY ARTERY W/O ANG PCTRS SNOMED Code(s): 88400297 (6) Diabetes mellitus Current Visit: No Status: Chronic Code(s): E11.9 - TYPE 2 DIABETES MELLITUS WITHOUT COMPLICATIONS SNOMED Code(s): 48051839 (7) EtOH dependence Current Visit: No Status: Chronic Code(s): F10.20 - ALCOHOL DEPENDENCE, UNCOMPLICATED SNOMED Code(s): 75657083 (8) Hyperlipidemia Current Visit: No Status: Chronic Code(s): E78.5 - HYPERLIPIDEMIA, UNSPECIFIED SNOMED Code(s): 95572296 (9) Hypertension Current Visit: No Status: Chronic Code(s): I10 - ESSENTIAL (PRIMARY) HYPERTENSION SNOMED Code(s): 94537206 (10) Obesity (BMI 30-39.9) Current Visit: No Status: Chronic Code(s): E66.9 - OBESITY, UNSPECIFIED SNOMED Code(s): 582412218 (11) Tobacco dependence in remission Current Visit: No Status: Resolved Code(s): F17.201 - NICOTINE DEPENDENCE, UNSPECIFIED, IN REMISSION SNOMED Code(s): 354942453 Plan: 1. Continue aspirin, statin, Plavix, beta nica and ASIA inhibitor. 2. Encourage use of his incentive spirometry every hour while awake. 3. GI and DVT prophylaxis in place. 4. Pulmonary management recommendations per Dr. Randolph. 5. Encourage increased in activity and ambulation as tolerated. Out of bed for all meals. Physical and occupational therapy following. 6. Dr. Heller has been consulted for possible inpatient rehab placement upon discharge. 7. Increase Flomax to 0.4 mg by mouth twice a day as per urology recommendations. 8. Continue Valdovinos catheter per urology recommendations. 9. Medical management recommendations per primary care service. 10. More recommendations to follow based on patient's clinical course. Time with Patient: Greater than 30
--- NOTE | 2018-03-31 15:58 | P.PN ---
Subjective Progress Note Date: 03/31/18 Principal diagnosis: Urinary retention, weakness, constipation This is a very pleasant 72-year-old gentleman who follows with Dr. Trent Shafer as his primary care physician. He has a history of diabetes mellitus, hypertension, hyperlipidemia, daily alcohol use, previous tobacco dependence and mild chronic obstructive pulmonary disease with an FEV1 value 72% of predicted.. He had also recently been discharged from here after being found to have significant coronary artery disease and had undergone coronary artery bypass grafting on 03/20/2018. He did have ongoing issues with urinary retention and was discharged home without any swelling catheter. That was removed on March 28. He had been complaining of inability to urinate as well as constipation and was seen at [facility] and was subsequently transferred here. CAT scan of his chest did demonstrate bilateral pleural effusions with bilateral lower lobe atelectasis. There is also noted mild thickening of the urinary bladder with cystitis and right renal cyst cannot be totally excluded.. The emergency room asked evening they did place a indwelling Valdovinos catheter in 1900 ML's of fluid was returned. His x-ray did reveal bilateral pleural effusions. No acute heart failure. Mild cardiomegaly. The fluid was felt to be slightly increased from previous on 03/2018. He is seen today in consultation on the selective care unit. He is currently sitting up in a chair at the bedside. He is awake and alert in no acute distress. He is maintaining O2 saturations in the 90s on room air. T- max of 100. Hemodynamically stable. Urine culture is pending. Influenza screen negative. White count 19.6. Hemoglobin 7.5. MCV 101.4. Sodium 133. Creatinine 1.3. ProBNP 4870. Currently being diuresed with Lasix 40 mg IV daily 12 hours. Resumed DuoNeb inhalations. Initiated on antibiotics in the form of Zosyn and Levaquin. The patient is seen today 03/31/2018 in follow-up on the regular medical floor. He is currently sitting up in a chair at the bedside. He is awake and alert in no acute distress. Valdovinos catheter remains in place. He has been seen by urology who is recommending continuing with the catheter. He's now on Flomax. He denies any chest pain or palpitations. No dizziness or lightheadedness. He denies any worsening shortness of breath cough or congestion. He is maintaining good O2 saturations in the mid 90s on room air. Current temperature 100.2. Blood culture reveals no growth to date. Urine culture reveals no growth to date. White count 15.8. Hemoglobin 7.9. Creatinine 1.38. He remains on Zosyn and Levaquin. Objective - Vital Signs Vital signs: Vital Signs Temp 100.2 F H 03/31/18 08:00 Pulse 93 03/31/18 12:00 Resp 17 03/31/18 04:00 BP 117/59 03/31/18 12:00 Pulse Ox 96 03/31/18 12:00 Intake & Output 03/30/18 03/31/18 03/31/18 18:59 06:59 18:59 Intake Total 480 330 Output Total 1375 825 Balance -895 -825 330 Weight 105 kg 102.9 kg Intake: Intake, IV Titration 100 Amount Piperacillin-Tazobactam 3 100 .375 gm In Sodium Chloride 0.9% 100 ml @ 25 mls/hr IVPB Q8HR [facility] Rx# :[id number] Oral 480 230 Output: Urine 1375 825 Uretheral (Valdovinos) 1375 Other: Voiding Method Indwelling Catheter Indwelling Catheter Indwelling Catheter - Exam GENERAL EXAM: Alert, pleasant 72-year-old white male, comfortable in no apparent distress. Sitting up in the recliner, he has a heart harness on HEAD: Normocephalic/atraumatic. EYES: Normal reaction of pupils, equal size. Conjunctiva pink, sclera white. NOSE: Clear with pink turbinates. THROAT: No erythema or exudates. NECK: No masses, no JVD, no thyroid enlargement, no adenopathy. CHEST: No chest wall deformity. Symmetrical expansion. Midsternal incision is clean dry and intact, approximated, sternum is stable LUNGS: Diminished breath sounds, crackles bilaterally. CVS: Regular rate and rhythm, normal S1 and S2, no gallops, no murmurs, no rubs ABDOMEN: Soft, nontender. No hepatosplenomegaly, normal bowel sounds, no guarding or rigidity. EXTREMITIES: No clubbing, no cyanosis, 2+ pulses and upper and lower extremities. Mild nonpitting edema noted in upper and lower extremities. MUSCULOSKELETAL: Muscle strength and tone normal. Right radial puncture is clean dry and intact, soft. SPINE: No scoliosis or deformity SKIN: No rashes CENTRAL NERVOUS SYSTEM: Alert and oriented -3. No focal deficits, tone is normal in all 4 extremities. PSYCHIATRIC: Alert and oriented -3. Appropriate affect. Intact judgment and insight. - Labs CBC & Chem 7: 03/31/18 05:50 03/31/18 05:50 Labs: Abnormal Lab Results - Last 24 Hours (Table) 03/30/18 03/31/18 03/31/18 Range/Units 20:32 02:00 05:50 WBC 15.8 H (3.8-10.6) k/uL RBC 2.40 L (4.30-5.90) m/uL Hgb 7.9 L (13.0-17.5) gm/dL Hct 24.0 L (39.0-53.0) % Neutrophils # 13.7 H (1.3-7.7) k/uL Sodium (137-145) mmol/L Creatinine (0.66-1.25) mg/dL Glucose (74-99) mg/dL POC Glucose (mg/dL) 332 H 193 H (75-99) mg/dL AST (17-59) U/L Total Protein (6.3-8.2) g/dL Albumin (3.5-5.0) g/dL 03/31/18 03/31/18 03/31/18 Range/Units 05:50 05:52 11:58 WBC (3.8-10.6) k/uL RBC (4.30-5.90) m/uL Hgb (13.0-17.5) gm/dL Hct (39.0-53.0) % Neutrophils # (1.3-7.7) k/uL Sodium 135 L (137-145) mmol/L Creatinine 1.38 H (0.66-1.25) mg/dL Glucose 125 H (74-99) mg/dL POC Glucose (mg/dL) 135 H 156 H (75-99) mg/dL AST 14 L (17-59) U/L Total Protein 5.7 L (6.3-8.2) g/dL Albumin 2.8 L (3.5-5.0) g/dL Microbiology - Last 24 Hours (Table) 03/30/18 02:25 Urine Culture - Final Urine,Catheterized 03/29/18 21:43 Blood Culture - Preliminary Blood No Growth after 24 hours Assessment and Plan Assessment: Impression: #1 Urinary retention, immediate return of 900 ML's following Valdovinos catheter insertion. Initiated on Flomax. #2 Constipation. #3 Dyspnea secondary to bilateral pleural effusions. #4 Recently discharged following a non-ST elevated [place], multivessel coronary artery disease, patient underwent cardiac catheterization which showed RCA stenosis of 70%, circumflex was 90%, proximal LAD of 99%, mid LAD of 90%, status post three-vessel coronary artery bypass grafting, with LYNN to LAD, SVG to the RCA, and SVG to the ramus, #5 Postoperative acute blood loss anemia, an expected outcome of cardiothoracic surgery #6 Acute klidney injury, improved #7 Ischemic cardiomyopathy, ejection fraction of 35% #8 Diabetes mellitus type 2 #9 Hypertension, hyperlipidemia #10 Previous history of nicotine dependence, patient carries [id number] smoking history, quit smoking 40 years ago, but prior to that smoked for 20 years 3 packs a day #11 Daily EtOH use Plan: The patient was seen and evaluated by Dr. Randolph. The patient did have a Valdovinos catheter placed yesterday and has been seen by urology who recommends keeping that in place. He's been initiated on Flomax. No pulmonary complaints. We have again encourage the increased use of the use of the incentive spirometer and cough and deep breathing exercises. Increase his activity as tolerated. We'll continue to follow and make further recommendations based on his clinical status. I, the cosigning physician, performed a history & physical examination of the patient. Lungs sounds with faint crackles in the bilateral posterior bases. Maintaining good O2 saturations in the 90s on room air. I discussed the assessment and plan of care with my nurse practitioner, Katia Parikh. I attest to the above note as dictated by her.
[2018-03-31 17:27] LABS: Glucose,Whole Blood 153 mg/dL (75-99)
[2018-03-31 21:27] LABS: Glucose,Whole Blood 209 mg/dL (75-99)
[2018-03-31] MEDS: ATORVASTATIN 80 MG TAB PO SCH (21:32)
[2018-03-31] MEDS: SENNOSIDES-DOCUSATE SODIUM 1 EACH TAB PO SCH (21:32)
[2018-03-31] MEDS: INSULIN DETEMIR 100 UNIT/ML 10 ML VIAL SQ SCH (21:32)
[2018-04-01] MEDS ORDERED: LEVOFLOXACIN 750MG-D5W PMX 750 MG in DEXTROSE/WATER 1 150ML.BAG IVPB SCH (03:00)
[2018-04-01] MEDS: INSULIN ASPART 100 UNIT/ML 1 ML 10 ML VIAL SQ SCH ×7 (06:20→21:05)
[2018-04-01 06:35] LABS: Glucose,Whole Blood 80 mg/dL (75-99)
[2018-04-01] MEDS: PANTOPRAZOLE 40 MG TABLET PO SCH (06:41)
[2018-04-01 06:53] LABS: HCT 24.2 % (39.0-53.0); HGB 7.8 gm/dL (13.0-17.5); Hypochromasia Moderate; MCH 32.3 pg (25.0-35.0); MCHC 32.4 g/dL (31.0-37.0); MCV 99.8 fL (80.0-100.0); Mean Platelet Volume 6.9; Platelet Count 390 k/uL (150-450); RBC 2.42 m/uL (4.30-5.90); RDW 13.1 % (11.5-15.5); WBC 10.1 k/uL (3.8-10.6)
[2018-04-01 07:21] LABS: Albumin 2.6 g/dL (3.5-5.0); Calcium 8.3 mg/dL (8.4-10.2); Potassium 3.8 mmol/L (3.5-5.1); Total Bilirubin 0.5 mg/dL (0.2-1.3); Total Protein 5.5 g/dL (6.3-8.2)
--- NOTE | 2018-04-01 07:23 | XR ---
EXAMINATION TYPE: XR chest 1V portable DATE OF EXAM: 04/01/2018 HISTORY: Postoperative CABG. REFERENCE: Previous study dated 03/31/2018. FINDINGS: Mildly enlarged. There is some worsening left basilar airspace disease. I could not exclude a small l eft effusion. IMPRESSION: 1. CARDIOMEGALY. 2. MINIMAL LEFT BASILAR AIRSPACE DISEASE. 3. SMALL, LEFT EFFUSION.
[2018-04-01] MEDS: IPRATROPIUM-ALBUTEROL 3 ML NEB INHALATION SCH ×4 (07:45→19:39)
[2018-04-01] MEDS: ASPIRIN 325 MG TAB PO SCH (08:13)
[2018-04-01] MEDS: LISINOPRIL 2.5 MG TAB PO SCH (08:13)
[2018-04-01] MEDS: HEPARIN SODIUM,PORCINE 5,000 UNIT/ML 1 ML VIAL SQ SCH ×3 (08:13→21:11)
[2018-04-01] MEDS: CLOPIDOGREL 75 MG TAB PO SCH (08:13)
[2018-04-01] MEDS: TAMSULOSIN 0.4 MG CAP.ER.24H PO SCH ×2 (08:13→21:10)
[2018-04-01] MEDS: FUROSEMIDE 40 MG TAB PO SCH (08:13)
[2018-04-01] MEDS: PIPERACILLIN-TAZOBACTAM 3.375 GM in SODIUM CHLORIDE 0.9% 100 ML IVPB SCH ×3 (08:13→23:23)
[2018-04-01] MEDS: METOPROLOL TARTRATE 25 MG TAB PO SCH ×2 (08:14→21:10)
[2018-04-01] MEDS ORDERED: POTASSIUM CHLORIDE ER 20 MEQ TAB.ER PO SCH (09:00)
--- NOTE | 2018-04-01 11:17 | P.PN ---
Subjective Progress Note Date: 04/01/18 Principal diagnosis: Urinary retention, weakness, constipation This is a very pleasant 72-year-old gentleman who follows with Dr. Trent Shafer as his primary care physician. He has a history of diabetes mellitus, hypertension, hyperlipidemia, daily alcohol use, previous tobacco dependence and mild chronic obstructive pulmonary disease with an FEV1 value 72% of predicted.. He had also recently been discharged from here after being found to have significant coronary artery disease and had undergone coronary artery bypass grafting on 03/20/2018. He did have ongoing issues with urinary retention and was discharged home without any swelling catheter. That was removed on March 28. He had been complaining of inability to urinate as well as constipation and was seen at [facility] and was subsequently transferred here. CAT scan of his chest did demonstrate bilateral pleural effusions with bilateral lower lobe atelectasis. There is also noted mild thickening of the urinary bladder with cystitis and right renal cyst cannot be totally excluded.. The emergency room asked evening they did place a indwelling Valdovinos catheter in 1900 ML's of fluid was returned. His x-ray did reveal bilateral pleural effusions. No acute heart failure. Mild cardiomegaly. The fluid was felt to be slightly increased from previous on 03/2018. He is seen today in consultation on the selective care unit. He is currently sitting up in a chair at the bedside. He is awake and alert in no acute distress. He is maintaining O2 saturations in the 90s on room air. T- max of 100. Hemodynamically stable. Urine culture is pending. Influenza screen negative. White count 19.6. Hemoglobin 7.5. MCV 101.4. Sodium 133. Creatinine 1.3. ProBNP 4870. Currently being diuresed with Lasix 40 mg IV daily 12 hours. Resumed DuoNeb inhalations. Initiated on antibiotics in the form of Zosyn and Levaquin. The patient is seen today 03/31/2018 in follow-up on the regular medical floor. He is currently sitting up in a chair at the bedside. He is awake and alert in no acute distress. Valdovinos catheter remains in place. He has been seen by urology who is recommending continuing with the catheter. He's now on Flomax. He denies any chest pain or palpitations. No dizziness or lightheadedness. He denies any worsening shortness of breath cough or congestion. He is maintaining good O2 saturations in the mid 90s on room air. Current temperature 100.2. Blood culture reveals no growth to date. Urine culture reveals no growth to date. White count 15.8. Hemoglobin 7.9. Creatinine 1.38. He remains on Zosyn and Levaquin. On 04/01/2018 patient seen in follow-up on Selective care unit., Resting in bed , in no acute distress. Room air pulse ox 98%, no fever no chills, hemodynamically stable. Remains in sinus rhythm. Today's chest x-ray showed minimal left basilar airspace disease, possible atelectasis, and small left pleural effusion. Valdovinos remains in place, he remains on Flomax. Blood and urine cultures remain negative, he was on Zosyn and Levaquin for empiric and abiotic coverage. No dyspnea, no cough, no chest congestion. Objective - Vital Signs Vital signs: Vital Signs Temp 96.1 F L 04/01/18 08:00 Pulse 83 04/01/18 08:00 Resp 17 04/01/18 03:52 BP 106/58 04/01/18 08:00 Pulse Ox 98 04/01/18 08:00 Intake & Output 03/31/18 04/01/18 04/01/18 18:59 06:59 18:59 Intake Total 740 Output Total 750 Balance 740 -750 Weight 103.1 kg Intake: Intake, IV Titration 100 Amount Piperacillin-Tazobactam 3 100 .375 gm In Sodium Chloride 0.9% 100 ml @ 25 mls/hr IVPB Q8HR [facility] Rx# :[id number] Oral 640 Output: Urine 750 Other: Voiding Method Indwelling Catheter Indwelling Catheter Indwelling Catheter - Exam GENERAL EXAM: Alert, pleasant 72-year-old white male, comfortable in no apparent distress. Sitting up in the recliner, he has a heart harness on HEAD: Normocephalic/atraumatic. EYES: Normal reaction of pupils, equal size. Conjunctiva pink, sclera white. NOSE: Clear with pink turbinates. THROAT: No erythema or exudates. NECK: No masses, no JVD, no thyroid enlargement, no adenopathy. CHEST: No chest wall deformity. Symmetrical expansion. Midsternal incision is clean dry and intact, approximated, sternum is stable LUNGS: Diminished breath sounds, no rhonchi, no wheezes CVS: Regular rate and rhythm, normal S1 and S2, no gallops, no murmurs, no rubs ABDOMEN: Soft, nontender. No hepatosplenomegaly, normal bowel sounds, no guarding or rigidity. EXTREMITIES: No clubbing, no cyanosis, 2+ pulses and upper and lower extremities. Mild nonpitting edema noted in upper and lower extremities. MUSCULOSKELETAL: Muscle strength and tone normal. Right radial puncture is clean dry and intact, soft. SPINE: No scoliosis or deformity SKIN: No rashes CENTRAL NERVOUS SYSTEM: Alert and oriented -3. No focal deficits, tone is normal in all 4 extremities. PSYCHIATRIC: Alert and oriented -3. Appropriate affect. Intact judgment and insight. - Labs CBC & Chem 7: 04/01/18 05:51 04/01/18 05:51 Labs: Abnormal Lab Results - Last 24 Hours (Table) 03/31/18 03/31/18 03/31/18 Range/Units 11:58 17:09 21:16 RBC (4.30-5.90) m/uL Hgb (13.0-17.5) gm/dL Hct (39.0-53.0) % Chloride (98-107) mmol/L Creatinine (0.66-1.25) mg/dL Glucose (74-99) mg/dL POC Glucose (mg/dL) 156 H 153 H 209 H (75-99) mg/dL Calcium (8.4-10.2) mg/dL Total Protein (6.3-8.2) g/dL Albumin (3.5-5.0) g/dL 04/01/18 04/01/18 Range/Units 05:51 05:51 RBC 2.42 L (4.30-5.90) m/uL Hgb 7.8 L (13.0-17.5) gm/dL Hct 24.2 L (39.0-53.0) % Chloride 108 H (98-107) mmol/L Creatinine 1.33 H (0.66-1.25) mg/dL Glucose 66 L (74-99) mg/dL POC Glucose (mg/dL) (75-99) mg/dL Calcium 8.3 L (8.4-10.2) mg/dL Total Protein 5.5 L (6.3-8.2) g/dL Albumin 2.6 L (3.5-5.0) g/dL Microbiology - Last 24 Hours (Table) 03/29/18 21:43 Blood Culture - Preliminary Blood No Growth after 48 hours 03/30/18 02:25 Urine Culture - Final Urine,Catheterized Assessment and Plan Plan: #1 Urinary retention, immediate return of 900 ML's following Valdovinos catheter insertion. Initiated on Flomax. #2 Constipation. #3 Dyspnea secondary to bilateral pleural effusions. #4 Recently discharged following a non-ST elevated PA, multivessel coronary artery disease, patient underwent cardiac catheterization which showed RCA stenosis of 70%, circumflex was 90%, proximal LAD of 99%, mid LAD of 90%, status post three-vessel coronary artery bypass grafting, with LYNN to LAD, SVG to the RCA, and SVG to the ramus, #5 Postoperative acute blood loss anemia, an expected outcome of cardiothoracic surgery #6 Acute klidney injury, improved #7 Ischemic cardiomyopathy, ejection fraction of 35% #8 Diabetes mellitus type 2 #9 Hypertension, hyperlipidemia #10 Previous history of nicotine dependence, patient carries 23-wfoj-olys smoking history, quit smoking 40 years ago, but prior to that smoked for 20 years 3 packs a day #11 Daily EtOH use Plan: Continue current medical treatment, antibiotics, nebulized bronchodilators on as -needed basis. From pulmonary perspective patient is stable, no dyspnea, no chest pain, no cough or phlegm production. Afebrile, hemodynamically stable, on room air. Extra has been reviewed by Dr. Randolph, and showed small left pleural effusion, and possible atelectasis the left base. Encourage deep breathing and coughing, ambulation. No pulmonary complaints. We'll see the patient on as-needed basis, I performed a history & physical examination of the patient and discussed their management with my nurse practitioner, Rosa Rm. I reviewed the nurse practitioner's note and agree with the documented findings and plan of care. Lung sounds are minimal bibasilar crackles. The findings and the impression was discussed with the patient. I attest to the documentation by the nurse practitioner. Lauren Cisneros statement Time with Patient: Less than 30
[2018-04-01 11:45] LABS: Glucose,Whole Blood 142 mg/dL (75-99)
--- NOTE | 2018-04-01 13:10 | P.PN ---
Subjective Progress Note Date: 04/01/18 This is a pleasant 72-year-old male recently discharged from the hospital status post coronary artery bypass grafting. He initially presented to the hospital with symptoms of urinary retention. Cali catheter was placed and he had a significant amount of initial output. Chest x-ray obtained on admission reveals evidence of bilateral pleural effusion pneumonia cannot be entirely excluded. He is seen and examined resting comfortably laying down in the chair. He states he is having lower back discomfort and is unable to sit up secondary to the pain. He is laying essentially flat in the chair in the recumbent position. He denies significant shortness of breath although he does feel mildly short of breath when he gets up and tries to exert himself. He denies chest pain, dizziness or palpitations. He complains of significant discomfort secondary to the cali. Repeat chest x-ray this morning shows a minimal left basilar airspace disease with a small left effusion noted. Currently maintained on aspirin 325 mg daily, atorvastatin 80 mg daily, Plavix 75 mg daily, Lasix 40 mg daily, metoprolol 25 mg twice a day and lisinopril 2.5 mg daily. He is also receiving IV antibiotics. Initially on admission he was receiving Lasix 40 mg IV twice a day which has been changed to oral this morning. Laboratory data reviewed, WBC 15.8, hemoglobin 7.9, platelets 332, sodium 135, potassium 3.7, creatinine 1.38, NT proBNP 4870. He is running a mild low-grade temperature this morning 100.2F, blood pressure 119/58 and heart rate 81. He is maintaining oxygen saturation on room air without difficulty. 04/01: Patient states that he has been ambulating around in the godfrey and back. He is planning to go to [facility] for inpatient rehab tomorrow. He is complaining of itchiness to the wound on his chest but denies any chest pain. No shortness of breath. He has been afebrile, vital signs stable, hemoglobin is 7.8 and creatinine 1.33. Telemetry has been a sinus rhythm. GENERAL: Well-appearing, well-nourished and in no acute distress. NECK: Supple with mild JVD noted , no thyromegaly. LUNGS: Faint bibasilar rales appreciated with no wheezes or rhonchi. Respiration equal and unlabored. HEART: Regular rate and rhythm with Murmur noted, systolic ejection at the base. . S1 and S2 heard. Incision to mid-sternal region clean, dry and intact with steri-strips in place. EXTREMITIES: Normal range of motion, trace bilateral lower extremity nonpitting edema. No clubbing or cyanosis. Peripheral pulses intact. ASSESSMENT Urinary retention Pleural effusion Leukocytosis Febrile illness Acute on chronic systolic heart failure, ejection fraction on last admission 30- 35%. Chronic ischemic cardiomyopathy Coronary artery disease status post bypass grafting PLAN Continue current medical regimen. Symptoms are related to a small degree of acute systolic heart failure as well as the possibility of urinary tract infection and pneumonia. We will continue to follow and make recommendations appropriately. Nurse Practitioner note has been reviewed, I agree with a documented findings and plan of care. Patient was seen and examined. Objective - Vital Signs Vital signs: Vital Signs Temp 96.1 F L 04/01/18 08:00 Pulse 83 04/01/18 08:00 Resp 17 04/01/18 03:52 BP 106/58 04/01/18 08:00 Pulse Ox 98 04/01/18 08:00 Intake & Output 03/31/18 04/01/18 04/01/18 18:59 06:59 18:59 Intake Total 740 Output Total 750 Balance 740 -750 Weight 103.1 kg Intake: Intake, IV Titration 100 Amount Piperacillin-Tazobactam 3 100 .375 gm In Sodium Chloride 0.9% 100 ml @ 25 mls/hr IVPB Q8HR [facility] Rx# :[id number] Oral 640 Output: Urine 750 Other: Voiding Method Indwelling Catheter Indwelling Catheter Indwelling Catheter - Labs CBC & Chem 7: 04/01/18 05:51 04/01/18 05:51 Labs: Abnormal Lab Results - Last 24 Hours (Table) 03/31/18 03/31/18 03/31/18 Range/Units 11:58 17:09 21:16 RBC (4.30-5.90) m/uL Hgb (13.0-17.5) gm/dL Hct (39.0-53.0) % Chloride (98-107) mmol/L Creatinine (0.66-1.25) mg/dL Glucose (74-99) mg/dL POC Glucose (mg/dL) 156 H 153 H 209 H (75-99) mg/dL Calcium (8.4-10.2) mg/dL Total Protein (6.3-8.2) g/dL Albumin (3.5-5.0) g/dL 04/01/18 04/01/18 Range/Units 05:51 05:51 RBC 2.42 L (4.30-5.90) m/uL Hgb 7.8 L (13.0-17.5) gm/dL Hct 24.2 L (39.0-53.0) % Chloride 108 H (98-107) mmol/L Creatinine 1.33 H (0.66-1.25) mg/dL Glucose 66 L (74-99) mg/dL POC Glucose (mg/dL) (75-99) mg/dL Calcium 8.3 L (8.4-10.2) mg/dL Total Protein 5.5 L (6.3-8.2) g/dL Albumin 2.6 L (3.5-5.0) g/dL Microbiology - Last 24 Hours (Table) 03/29/18 21:43 Blood Culture - Preliminary Blood No Growth after 48 hours 03/30/18 02:25 Urine Culture - Final Urine,Catheterized
--- NOTE | 2018-04-01 14:47 | P.PN ---
Subjective Progress Note Date: 04/01/18 Principal diagnosis: Recent coronary artery bypass grafting surgery 3 vessels on 03/20/2018, Coronary artery disease, recent non-STEMI, history of uncontrolled insulin diabetes mellitus with a preoperative hemoglobin A1c of 8.1%, hypertension, hyperlipidemia, obesity with a BMI of 32.6 kg/m, history of kidney stones, history of tobacco dependence, COPD with a preoperative FEV1 of 72% of predicted value, daily EtOH use, history of preoperative nasal swab positive for MSSA, history of postoperative urinary retention requiring reinsertion of Valdovinos which is being followed by Dr. Ellsworth on an outpatient basis and history of vasectomy. The patient is sitting up to bedside chair. He is in no acute distress. He denies any complaints of pain or shortness of breath at this time. The patient reports that he is feeling somewhat improved today and is anxious to get to inpatient rehab. His T-max temperature in the last 24 hours was 100.2F. Which is trending down and is 10.1 today. He reports that he has been up ambulating in the hallway with minimal assistance with the nurse and physical therapy. Objective - Vital Signs Vital signs: Vital Signs Temp 96.1 F L 04/01/18 08:00 Pulse 82 04/01/18 12:00 Resp 17 04/01/18 03:52 BP 111/64 04/01/18 12:00 Pulse Ox 98 04/01/18 12:00 Intake & Output 03/31/18 04/01/18 04/01/18 18:59 06:59 18:59 Intake Total 740 100 Output Total 750 Balance 740 -750 100 Weight 103.1 kg Intake: Intake, IV Titration 100 100 Amount Piperacillin-Tazobactam 3 100 100 .375 gm In Sodium Chloride 0.9% 100 ml @ 25 mls/hr IVPB Q8HR [facility] Rx# :[id number] Oral 640 Output: Urine 750 Other: Voiding Method Indwelling Catheter Indwelling Catheter Indwelling Catheter - Constitutional General appearance: Present: cooperative, no acute distress, obese - Respiratory Details: Lung sounds are essentially clear throughout, diminished to his bilateral bases right greater than left. Respirations are symmetrical and nonlabored. Oxygen saturation are 96% on room air. He is achieving 1850 mL on his incentive spirometry with encouragement. - Cardiovascular Details: regular rhythm and rate. S1 and S2 present, negative for S3, gallop or murmur. Remote telemetry showing normal sinus rhythm heart rate 83. Knee-high RAYMUNDO hose and sequential compression devices in place to his bilateral lower extremities. Heart hugger remains intact and he is demonstrating appropriate use. No edema present. - Gastrointestinal Gastrointestinal Comment(s): Abdomen is soft, nontender and nondistended. Active bowel sounds to all 4 abdominal quadrants. Tolerating oral intake. Last bowel movement 03/30/2018. - Genitourinary Genitourinary Comment(s): Valdovinos catheter for accurate I&O and history of urinary retention. Draining clear yellow urine. 750 mL output in the last 8 hours. - Integumentary Integumentary Comment(s): Skin is warm and dry. No clubbing or cyanosis present. Midline sternal incision clean dry and approximated. No redness or drainage present. Left leg EVH site clean and dry and approximated. No drainage or redness present. - Neurologic Neurologic: Present: CNII-XII intact - Musculoskeletal Musculoskeletal: Present: gait normal, generalized weakness, strength equal bilaterally - Psychiatric Psychiatric: Present: A&O x's 3, appropriate affect, intact judgment & insight - Allied health notes Allied health notes reviewed: nursing - Labs CBC & Chem 7: 04/01/18 05:51 04/01/18 05:51 Labs: Abnormal Lab Results - Last 24 Hours (Table) 03/31/18 03/31/18 04/01/18 Range/Units 17:09 21:16 05:51 RBC 2.42 L (4.30-5.90) m/uL Hgb 7.8 L (13.0-17.5) gm/dL Hct 24.2 L (39.0-53.0) % Chloride (98-107) mmol/L Creatinine (0.66-1.25) mg/dL Glucose (74-99) mg/dL POC Glucose (mg/dL) 153 H 209 H (75-99) mg/dL Calcium (8.4-10.2) mg/dL Total Protein (6.3-8.2) g/dL Albumin (3.5-5.0) g/dL 04/01/18 04/01/18 Range/Units 05:51 11:29 RBC (4.30-5.90) m/uL Hgb (13.0-17.5) gm/dL Hct (39.0-53.0) % Chloride 108 H (98-107) mmol/L Creatinine 1.33 H (0.66-1.25) mg/dL Glucose 66 L (74-99) mg/dL POC Glucose (mg/dL) 142 H (75-99) mg/dL Calcium 8.3 L (8.4-10.2) mg/dL Total Protein 5.5 L (6.3-8.2) g/dL Albumin 2.6 L (3.5-5.0) g/dL Microbiology - Last 24 Hours (Table) 03/29/18 21:43 Blood Culture - Preliminary Blood No Growth after 48 hours 03/30/18 02:25 Urine Culture - Final Urine,Catheterized - Imaging and Cardiology Chest x-ray: report reviewed, image reviewed Assessment and Plan (1) Urinary retention Current Visit: Yes Status: Acute Code(s): R33.9 - RETENTION OF URINE, UNSPECIFIED SNOMED Code(s): 354672418 (2) Constipation Current Visit: Yes Status: Acute Code(s): K59.00 - CONSTIPATION, UNSPECIFIED SNOMED Code(s): 28162572 (3) NSTEMI (non-ST elevated myocardial infarction) Current Visit: Yes Status: Acute Code(s): I21.4 - NON-ST ELEVATION (NSTEMI) MYOCARDIAL INFARCTION SNOMED Code(s): 713348848 (4) COPD (chronic obstructive pulmonary disease) Current Visit: No Status: Chronic Code(s): J44.9 - CHRONIC OBSTRUCTIVE PULMONARY DISEASE, UNSPECIFIED SNOMED Code(s): 81911701 (5) Coronary artery disease Current Visit: No Status: Chronic Code(s): I25.10 - ATHSCL HEART DISEASE OF [place] CORONARY ARTERY W/O ANG PCTRS SNOMED Code(s): 51705428 (6) Diabetes mellitus Current Visit: No Status: Chronic Code(s): E11.9 - TYPE 2 DIABETES MELLITUS WITHOUT COMPLICATIONS SNOMED Code(s): 81435604 (7) EtOH dependence Current Visit: No Status: Chronic Code(s): F10.20 - ALCOHOL DEPENDENCE, UNCOMPLICATED SNOMED Code(s): 13668434 (8) Hyperlipidemia Current Visit: No Status: Chronic Code(s): E78.5 - HYPERLIPIDEMIA, UNSPECIFIED SNOMED Code(s): 04949936 (9) Hypertension Current Visit: No Status: Chronic Code(s): I10 - ESSENTIAL (PRIMARY) HYPERTENSION SNOMED Code(s): 77573310 (10) Obesity (BMI 30-39.9) Current Visit: No Status: Chronic Code(s): E66.9 - OBESITY, UNSPECIFIED SNOMED Code(s): 618061356 (11) Tobacco dependence in remission Current Visit: No Status: Resolved Code(s): F17.201 - NICOTINE DEPENDENCE, UNSPECIFIED, IN REMISSION SNOMED Code(s): 994408741 Plan: 1. Continue aspirin, statin, Plavix, beta nica and ASIA inhibitor. 2. Encourage use of his incentive spirometry every hour while awake. 3. GI and DVT prophylaxis in place. 4. Pulmonary management recommendations per Dr. Randolph. 5. Encourage increased in activity and ambulation as tolerated. Out of bed for all meals. Physical and occupational therapy following. 6. Dr. Heller has been consulted for possible inpatient rehab placement upon discharge. Recommendations pending. 7. Continue Flomax to 0.4 mg by mouth twice a day as per urology recommendations. 8. Continue Valdovinos catheter per urology recommendations. Will be discharged home with catheter in place. 9. Medical management recommendations per primary care service. 10. More recommendations to follow based on patient's clinical course. Time with Patient: Greater than 30
--- NOTE | 2018-04-01 15:02 | P.PN ---
Subjective Progress Note Date: 04/01/18 The patient is a 72 yo M w/ the PMH of CAD s/p CABG on 03/20/18 who presented to the ED as a transfer from [facility] where he had presented w/ c/o nausea, lightheadedness, and chills. The patient noted that post-operatively, he had urinary retention and was discharged on a cali catheter which was removed on 03/28/18. After the removal, he was able to void 3-4 times but endorsed lethargy, anorexia, and inability to ambulate well. He subsequently developed dizziness while using he toilet and his activated EMS. [facility] workup included a CT chest which demonstrated bilateral pleural effusions and bilateral lower lobe atelectasis, mild thickening of the urinary bladder with cystitis not excluded and a right renal cyst. The patient also underwent an extensive w/u here in the ED which revealed luekocytosis of 19.6, Hgb 7.5, w/ Troponin 0.185. UA was positive for small LE , and few bacteria. He also had a bladder scan which revealed 900 ccs of urine. A cali catheter was placed w/ drainage of 900 ccs of urine. The patient was admitted for further management of sepsis secondary to UTI. He was started on Zosyn and Levaquin and Urology and Cardiology were consulted. Urology recommended to c/o the cali catheter for now w/ a trial of flomax. The patient was seen and examined at the bedside on 04/01/18. He notes he's feeling better and has been ambulating with assistance. He denied any further episodes of fever, chills, cough, SOB, dizzines, nausea, or abdominal pain. Objective - Vital Signs Vital signs: Vital Signs Temp 96.1 F L 04/01/18 08:00 Pulse 82 04/01/18 12:00 Resp 17 04/01/18 03:52 BP 111/64 04/01/18 12:00 Pulse Ox 98 04/01/18 12:00 Intake & Output 03/31/18 04/01/18 04/01/18 18:59 06:59 18:59 Intake Total 740 100 Output Total 750 Balance 740 -750 100 Weight 103.1 kg Intake: Intake, IV Titration 100 100 Amount Piperacillin-Tazobactam 3 100 100 .375 gm In Sodium Chloride 0.9% 100 ml @ 25 mls/hr IVPB Q8HR [facility] Rx# :[id number] Oral 640 Output: Urine 750 Other: Voiding Method Indwelling Catheter Indwelling Catheter Indwelling Catheter - Exam General: Non-toxic, in no acute distress, appears stated age HEENT: NC/AT, anicteric sclerae, moist conjunctiva, no lid-lag, PERRLA Cardiovascular: S1/S2 wnl, no murmurs, rubs, or gallops, post-surgical chest, chest hugger in place Lungs: Mild bibasilar rales, normal respiratory effort, no accessory muscle use Abdominal: Soft, nontender, non-distended, no guarding, rebound, or rigidity, cali catheter in place, draining dark yelllow urine Skin: Warm, dry Extremities: No edema or contractures, compression boots in place Psychiatric: Alert and oriented to person, place and time, appropriate affect, Intact judgment Neuro: CN II-XII grossly intact, Strength 4/5 in all 4 extremities, Speech intact, Sensation to light touch grossly intact throughout - Labs CBC & Chem 7: 04/01/18 05:51 04/01/18 05:51 Labs: Abnormal Lab Results - Last 24 Hours (Table) 03/31/18 03/31/18 04/01/18 Range/Units 17:09 21:16 05:51 RBC 2.42 L (4.30-5.90) m/uL Hgb 7.8 L (13.0-17.5) gm/dL Hct 24.2 L (39.0-53.0) % Chloride (98-107) mmol/L Creatinine (0.66-1.25) mg/dL Glucose (74-99) mg/dL POC Glucose (mg/dL) 153 H 209 H (75-99) mg/dL Calcium (8.4-10.2) mg/dL Total Protein (6.3-8.2) g/dL Albumin (3.5-5.0) g/dL 04/01/18 04/01/18 Range/Units 05:51 11:29 RBC (4.30-5.90) m/uL Hgb (13.0-17.5) gm/dL Hct (39.0-53.0) % Chloride 108 H (98-107) mmol/L Creatinine 1.33 H (0.66-1.25) mg/dL Glucose 66 L (74-99) mg/dL POC Glucose (mg/dL) 142 H (75-99) mg/dL Calcium 8.3 L (8.4-10.2) mg/dL Total Protein 5.5 L (6.3-8.2) g/dL Albumin 2.6 L (3.5-5.0) g/dL Microbiology - Last 24 Hours (Table) 03/29/18 21:43 Blood Culture - Preliminary Blood No Growth after 48 hours 03/30/18 02:25 Urine Culture - Final Urine,Catheterized Assessment and Plan Plan: Sepsis secondary to UTI w/ urinary retention - Urology recs appreciated - Will c/w Zosyn and levaquin for now. Will consider switching to Cipro tomorrow after 48 hrs of being afebrile. - F/u Urine cultures - C/w Flomax and urinary catheter for now as per Urology HTN - C/w home meds Lisinopril 2.5 mg po qd, Lopressor 25 mg po bid CAD s/p CABG w/ CHF - C/w Aspirin, Statin, Plavix, Lasix 40 mg po qd - [place] for pain control DM - Patient had episode of hypoglycemia this am. Will decrease Levemir to 40 U qhs and increase Prandial coverage to 12 U TIDAC and 15 U w/ dinner. Debility - PT/OT Consult Post-operative anemia - Will monitor for now DVT//GI prophylaxis - Heparin - Protonix Discussed with: Patient Anticipated discharge date: 04/03/[address]: Rehab A total of 35 minutes was spent on the care of this complex patient more than 50 % of the time was spent in counseling and care coordination.
[2018-04-01 17:03] LABS: Glucose,Whole Blood 126 mg/dL (75-99)
[2018-04-01 20:44] LABS: Glucose,Whole Blood 164 mg/dL (75-99)
[2018-04-01] MEDS ORDERED: INSULIN DETEMIR 100 UNIT/ML 10 ML VIAL SQ SCH (21:00)
[2018-04-01] MEDS: SENNOSIDES-DOCUSATE SODIUM 1 EACH TAB PO SCH (21:05)
[2018-04-01] MEDS: ATORVASTATIN 80 MG TAB PO SCH (21:10)
[2018-04-02 00:28] LABS: Glucose,Whole Blood 178 mg/dL (75-99)
[2018-04-02 01:54] LABS: Glucose,Whole Blood 192 mg/dL (75-99)
[2018-04-02 05:37] LABS: Glucose,Whole Blood 114 mg/dL (75-99)
--- NOTE | 2018-04-02 06:38 | P.CONS ---
History of Present Illness - Chief Complaint Cardiac debility - History of Present Illness I had the opportunity see patient for inpatient rehab consultation with regard to cardiac debility. He was admitted to [facility] March 30 for CABG 3 vessel. Seen in consultation by medical, Dr. rome as well as Dr. Erik Galvez for known bladder problem requiring intermittent catheterization and pulmonary. Chest x-rays followed for cardiomegaly, left pleural effusion and airspace disease. PT reports minimal assistance for mobility and gait 120 feet with IV pole, shortness of breath. OT prescribed. Previous functional history as elicited from patient: 72-year-old right-handed white male who is lives and 2 floor home with . Retired. does cooking and laundry. Patient independent with driving, standing shower and gait without device. Dr. lacy Shafer, [place], regular doctor. Paster history of smoking remote past and a 12 pack per week. Family history father with cancer. Review of Systems Review of systems: ENT: Denies sneezes or discharge. Eyes: Denies discharge or photophobia. Cardiac: Denies chest pain or palpitation. Pulmonary: At least mild shortness of breath. Gastrointestinal: Denies nausea, emesis, constipation, diarrhea. Genitourinary: Denies discharge or frequency. Musculoskeletal: Denies muscle or bone aches. Neurologic: Ports generalized weakness. Endocrine: Denies shakes or sweats. Oncology: Denies cancers. Dermatologic: Denies rash, itching, pruritus. ALLERGY/immunology: Denies sneezes, rashes. Past Medical History Past Medical History: Coronary Artery Disease (CAD), COPD, Diabetes Mellitus, Hyperlipidemia, Hypertension, Myocardial Infarction (non Q-wave), Prostate Disorder Additional Past Medical History / Comment(s): IDDM type II History of Any Multi-Drug Resistant Organisms: None Reported Past Surgical History: Coronary Bypass/CABG, Heart Catheterization Additional Past Surgical History / Comment(s): Vasectomy Past Anesthesia/Blood Transfusion Reactions: No Reported Reaction Past Psychological History: No Psychological Hx Reported Additional Psychological History / Comment(s): Pt resides with his spouse. He was independent prior to CABG procedure. Smoking Status: Former smoker (He started smoking in 2 and quit in 1977) Past Alcohol Use History: Abuse Additional Past Alcohol Use History / Comment(s): Patient states he drinks daily - 2 or 3 beers, has never gone through withdrawal. Past Drug Use History: None Reported - Past Family History Father Family Medical History: Cancer Additional Family Medical History / Comment(s): Father of lung cancer with metastasis Mother Family Medical History: No Reported History Additional Family Medical History / Comment(s): Mother was healthy and lived to be 86 or 87yrs. Medications and Allergies Home Medications Medication Instructions Recorded Confirmed Type Insulin Detemir [Levemir Flextouch] 45 units SQ HS 03/19/18 03/29/18 History metFORMIN HCL [metFORMIN HCL ER] 1,000 mg PO BID 03/19/18 03/29/18 History Acetaminophen Tab [Tylenol] 325 mg PO Q4HR PRN tab 03/25/18 03/29/18 Rx Aspirin 325 mg PO DAILY #30 tab 03/25/18 03/29/18 Rx Atorvastatin [Lipitor] 80 mg PO HS #30 tab 03/25/18 03/29/18 Rx Clopidogrel [Plavix] 75 mg PO DAILY #30 tab 03/25/18 03/29/18 Rx Insulin Aspart [NovoLOG Flexpen] See Protocol SQ TID-W/MEALS #1 box 03/25/18 Rx Lisinopril [Zestril] 2.5 mg PO DAILY #30 tab 03/25/18 03/29/18 Rx Metoprolol Tartrate [Lopressor] 25 mg PO BID #60 tab 03/25/18 03/29/18 Rx Pantoprazole [Protonix] 40 mg PO AC-BRKFST #30 tablet.dr 03/25/18 03/29/18 Rx Sennosides-Docusate Sodium 2 each PO HS PRN tab 03/25/18 03/29/18 Rx [Senokot-S] Tamsulosin [Flomax] 0.4 mg PO PC-BRKFST #30 cap.er.24h 03/25/18 03/29/18 Rx Allergies Allergy/AdvReac Type Severity Reaction Status Date / Time No Known Allergies Allergy Verified 03/29/18 21:46 Physical Exam Vitals: Vital Signs Temp Pulse Pulse Resp BP Pulse Ox 04/02/18 04:00 98.9 F 95 18 126/70 94 L 04/01/18 23:53 98.5 F 88 18 124/66 96 04/01/18 23:52 90 04/01/18 20:00 98.8 F 90 18 120/69 95 04/01/18 16:00 87 133/73 99 04/01/18 12:00 82 111/64 98 04/01/18 11:58 80 04/01/18 11:49 80 04/01/18 08:00 96.1 F L 83 106/58 98 04/01/18 07:54 76 04/01/18 07:45 76 Intake and Output 04/01/18 04/01/18 04/02/18 14:59 22:59 06:59 Intake Total 510 230 50 Output Total 1600 300 Balance 510 -5502 -436 Intake: Intake, IV Titration 100 50 Amount Piperacillin-Tazobactam 3 100 50 .375 gm In Sodium Chloride 0.9% 100 ml @ 25 mls/hr IVPB Q8HR [facility] Rx# :[id number] Oral 410 230 Output: Urine 1600 300 Other: Voiding Method Indwelling Catheter Indwelling Catheter Indwelling Catheter # Bowel Movements 1 3 Skin: Good color, texture, turgor. General: Medium build and comfortable appearance. Head: Normocephalic, atraumatic. Eyes: Symmetric. Pupils equal round. Ears: Symmetric. Hearing within normal limits. Mouth: Clear. Neck: Supple. Carotid without bruit. Cardiac: Regular rate and rhythm. Midline sternotomy scar well approximated without redness or discharge. Lungs: Clear anteriorly and posteriorly. Abdomen: Soft active nontender. Extremities: Normal tone. Neurological: Mental status: Alert, cooperative, pleasant. Cranial nerves: Symmetric facial tone and trapezius. Motor: Normal strength and isolation all 4 limbs. Sensation: Intact throughout. DTRs: Symmetric and equal throughout. Mobility: Ports assistance for mobility and room, with nursing staff. Results CBC & Chem 7: 04/01/18 05:51 04/01/18 05:51 Labs: Abnormal Lab Results - Last 24 Hours (Table) 04/01/18 04/01/18 04/01/18 Range/Units 05:51 05:51 11:29 RBC 2.42 L (4.30-5.90) m/uL Hgb 7.8 L (13.0-17.5) gm/dL Hct 24.2 L (39.0-53.0) % Chloride 108 H (98-107) mmol/L Creatinine 1.33 H (0.66-1.25) mg/dL Glucose 66 L (74-99) mg/dL POC Glucose (mg/dL) 142 H (75-99) mg/dL Calcium 8.3 L (8.4-10.2) mg/dL Total Protein 5.5 L (6.3-8.2) g/dL Albumin 2.6 L (3.5-5.0) g/dL 04/01/18 04/01/18 04/02/18 Range/Units 16:52 20:43 00:27 RBC (4.30-5.90) m/uL Hgb (13.0-17.5) gm/dL Hct (39.0-53.0) % Chloride (98-107) mmol/L Creatinine (0.66-1.25) mg/dL Glucose (74-99) mg/dL POC Glucose (mg/dL) 126 H 164 H 178 H (75-99) mg/dL Calcium (8.4-10.2) mg/dL Total Protein (6.3-8.2) g/dL Albumin (3.5-5.0) g/dL 04/02/18 04/02/18 Range/Units 01:53 05:34 RBC (4.30-5.90) m/uL Hgb (13.0-17.5) gm/dL Hct (39.0-53.0) % Chloride (98-107) mmol/L Creatinine (0.66-1.25) mg/dL Glucose (74-99) mg/dL POC Glucose (mg/dL) 192 H 114 H (75-99) mg/dL Calcium (8.4-10.2) mg/dL Total Protein (6.3-8.2) g/dL Albumin (3.5-5.0) g/dL Microbiology - Last 24 Hours (Table) 03/29/18 21:43 Blood Culture - Preliminary Blood No Growth after 72 hours Assessment and Plan (1) CHF (congestive heart failure) Current Visit: Yes Status: Acute Code(s): I50.9 - HEART FAILURE, UNSPECIFIED SNOMED Code(s): 61701710 Plan: Impression: 1. Cardiac debility. 2. Status post three-vessel coronary bypass. 4. CHF. 4. Coronary disease with history of UT. 5. Hypertension. 6. Dyslipidemia. 7. Diabetes. 8. COPD. 9. Prostate disorder. comments and plan: At this time PT ongoing and OT prescribed. Follow therapies with yourself for possible need and benefit of inpatient rehab. At this time, patient anticipating need.
[2018-04-02] MEDS: PANTOPRAZOLE 40 MG TABLET PO SCH (07:04)
[2018-04-02] MEDS: INSULIN ASPART 100 UNIT/ML 1 ML 10 ML VIAL SQ SCH ×2 (07:05→11:38)
[2018-04-02] MEDS ORDERED: INSULIN ASPART 100 UNIT/ML 1 ML 10 ML VIAL SQ SCH ×2 (07:30→12:30)
[2018-04-02] MEDS: IPRATROPIUM-ALBUTEROL 3 ML NEB INHALATION SCH ×2 (07:49→10:48)
[2018-04-02] MEDS: TAMSULOSIN 0.4 MG CAP.ER.24H PO SCH (08:17)
[2018-04-02] MEDS: FUROSEMIDE 40 MG TAB PO SCH (08:17)
[2018-04-02] MEDS: HEPARIN SODIUM,PORCINE 5,000 UNIT/ML 1 ML VIAL SQ SCH (08:17)
[2018-04-02] MEDS: CLOPIDOGREL 75 MG TAB PO SCH (08:17)
[2018-04-02] MEDS: ASPIRIN 325 MG TAB PO SCH (08:17)
[2018-04-02] MEDS: LISINOPRIL 2.5 MG TAB PO SCH (08:22)
[2018-04-02] MEDS: METOPROLOL TARTRATE 25 MG TAB PO SCH (08:22)
[2018-04-02 09:33] LABS: Basophils % (A) 0 %; Eosinophils # (A) 0.4 k/uL (0-0.7); Eosinophils % (A) 5 %; HCT 27.9 % (39.0-53.0); Hypochromasia Moderate; Lymphocytes # (A) 1.2 k/uL (1.0-4.8); Lymphocytes % (A) 17 %; MCHC 32.2 g/dL (31.0-37.0); MCV 99.5 fL (80.0-100.0); Mean Platelet Volume 6.9; Monocytes # (A) 0.3 k/uL (0-1.0); Monocytes % (A) 5 %; Neutrophils # (A) 4.9 k/uL (1.3-7.7); Neutrophils % (A) 69 %; Platelet Count 475 k/uL (150-450); Poikilocytosis Slight; RDW 13.3 % (11.5-15.5); WBC 7.1 k/uL (3.8-10.6)
[2018-04-02 10:01] LABS: Albumin 3.1 g/dL (3.5-5.0); Calcium 9.1 mg/dL (8.4-10.2); Potassium 4.2 mmol/L (3.5-5.1); Total Bilirubin 0.5 mg/dL (0.2-1.3); Total Protein 6.3 g/dL (6.3-8.2)
[2018-04-02] MEDS: PIPERACILLIN-TAZOBACTAM 3.375 GM in SODIUM CHLORIDE 0.9% 100 ML IVPB SCH (10:33)
[2018-04-02 11:17] VITALS: BP 125/69; PULSE 79; RESP 20; TEMP 97.2
[2018-04-02 11:18] LABS: Glucose,Whole Blood 147 mg/dL (75-99)
--- NOTE | 2018-04-02 11:25 | P.PN ---
Subjective Progress Note Date: 04/02/18 The patient is in the hospital status post coronary bypass graft. He has acute and chronic urine retention. He has been seen by for this problem prior to the surgery. He was placed on intermittent catheterization but could not do this. He has an indwelling catheter which she will have to go home with. He'll need follow-up and a probable TURP in the future. Patient understands this. I'll notify Dr. Ellsworth when he returns. Objective - Vital Signs Vital signs: Vital Signs Temp 97.2 F L 04/02/18 11:13 Pulse 79 04/02/18 11:13 Resp 20 04/02/18 11:13 BP 125/69 04/02/18 11:13 Pulse Ox 98 04/02/18 11:13 Intake & Output 04/01/18 04/02/18 04/02/18 18:59 06:59 18:59 Intake Total 740 50 Output Total 1600 300 Balance -860 -250 Weight 101.8 kg Intake: Intake, IV Titration 100 50 Amount Piperacillin-Tazobactam 3 100 50 .375 gm In Sodium Chloride 0.9% 100 ml @ 25 mls/hr IVPB Q8HR [facility] Rx# :[id number] Oral 640 Output: Urine 1600 300 Other: Voiding Method Indwelling Catheter Indwelling Catheter Indwelling Catheter # Bowel Movements 3 1 - Labs CBC & Chem 7: 04/02/18 08:43 04/02/18 08:43 Labs: Abnormal Lab Results - Last 24 Hours (Table) 04/01/18 04/01/18 04/01/18 Range/Units 11:29 16:52 20:43 RBC (4.30-5.90) m/uL Hgb (13.0-17.5) gm/dL Hct (39.0-53.0) % Plt Count (150-450) k/uL Creatinine (0.66-1.25) mg/dL Glucose (74-99) mg/dL POC Glucose (mg/dL) 142 H 126 H 164 H (75-99) mg/dL Albumin (3.5-5.0) g/dL 04/02/18 04/02/18 04/02/18 Range/Units 00:27 01:53 05:34 RBC (4.30-5.90) m/uL Hgb (13.0-17.5) gm/dL Hct (39.0-53.0) % Plt Count (150-450) k/uL Creatinine (0.66-1.25) mg/dL Glucose (74-99) mg/dL POC Glucose (mg/dL) 178 H 192 H 114 H (75-99) mg/dL Albumin (3.5-5.0) g/dL 04/02/18 04/02/18 04/02/18 Range/Units 08:43 08:43 11:17 RBC 2.80 L (4.30-5.90) m/uL Hgb 9.0 L (13.0-17.5) gm/dL Hct 27.9 L (39.0-53.0) % Plt Count 475 H (150-450) k/uL Creatinine 1.33 H (0.66-1.25) mg/dL Glucose 123 H (74-99) mg/dL POC Glucose (mg/dL) 147 H (75-99) mg/dL Albumin 3.1 L (3.5-5.0) g/dL Microbiology - Last 24 Hours (Table) 03/29/18 21:43 Blood Culture - Preliminary Blood No Growth after 72 hours
--- NOTE | 2018-04-02 12:25 | P.DS ---
Providers Date of admission: 03/31/18 14:29 Expected date of discharge: 04/02/18 Attending physician: Naveen Shanks MD Consults: 03/30/18 10:01 Consult Physician Routine Consulting Provider: Sandy Randolph Consult Reason/Comments: pulmonary management Do you want consulting provider notified?: Yes 03/30/18 10:02 Consult Physician Routine Consulting Provider: Brent High Consult Reason/Comments: Cardiology management Do you want consulting provider notified?: Yes 03/30/18 12:29 Consult Physician Routine Consulting Provider: Erlin Mccord Consult Reason/Comments: Urine retention, known to service Do you want consulting provider notified?: Yes 03/30/18 15:22 Consult Physician Routine Consulting Provider: Akira Heller Consult Reason/Comments: evaluate for inpatient reahb Do you want consulting provider notified?: Yes Primary care physician: Baljit Shafer MD Hospital Course: The patient is a 72 yo M w/ the PMH of CAD s/p CABG on 03/20/18 who presented to the ED as a transfer from [facility] where he had presented w/ c/o nausea, lightheadedness, and chills. The patient noted that post-operatively, he had urinary retention and was discharged on a cali catheter which was removed on 03/28/18. After the removal, he was able to void 3-4 times but endorsed lethargy, anorexia, and inability to ambulate well. He subsequently developed dizziness while using he toilet and his activated EMS. [facility] workup included a CT chest which demonstrated bilateral pleural effusions and bilateral lower lobe atelectasis, mild thickening of the urinary bladder with cystitis not excluded and a right renal cyst. The patient also underwent an extensive w/u here in the ED which revealed luekocytosis of 19.6, Hgb 7.5, w/ Troponin 0.185. UA was positive for small LE , and few bacteria. He also had a bladder scan which revealed 900 ccs of urine. A cali catheter was placed w/ drainage of 900 ccs of urine. The patient was admitted for further management of sepsis secondary to UTI. He was started on Zosyn and Levaquin and Urology and Cardiology were consulted. The patient's WBC count improved and the sepsis resolved. He remained afebrile for > 48 hours and was switched to oral Ciprofloxacin (for total 10 day course -- will need additional 8 days). Urology recommended that the patient will need to continue with the indwelling cali catheter on discharge with likely TURP in the future. Pulmonary evaluated the patient and recommended continued incentive spirometry for atalectasis on CXR. The patient was evaluated by PT/OT and was recommended for inpatient rehab and subsequently accepted to [facility]. He is presently stable and ready for discharge. Physical Examination General: Non-toxic, in no acute distress, appears stated age HEENT: NC/AT, anicteric sclerae, moist conjunctiva, no lid-lag, PERRLA Cardiovascular: S1/S2 wnl, no murmurs, rubs, or gallops, post-surgical chest Lungs: Mild bibasilar rales, normal respiratory effort, no accessory muscle use Abdominal: Soft, nontender, non-distended, no guarding, rebound, or rigidity, cali catheter in place, draining dark yelllow urine Skin: Warm, dry Extremities: No edema or contractures, compression boots in place Psychiatric: Alert and oriented to person, place and time, appropriate affect, Intact judgment Neuro: CN II-XII grossly intact, Strength 4/5 in all 4 extremities, Speech intact, Sensation to light touch grossly intact throughout Discharge diagnosis: UTI, DM Type 2 Poorly controlled, Debility, HTN, CAD s/p CABG, CHF, Post-operative anemia Resolved: Sepsis A total of 60 minutes of time were spent preparing this complex discharge summary. Patient Condition at Discharge: Fair Plan - Discharge Summary Discharge Rx Participant: No New Discharge Prescriptions: New Ciprofloxacin HCl [Cipro] 500 mg PO BID 8 Days tab Furosemide [Lasix] 40 mg PO DAILY tab Insulin Aspart [NovoLOG (formulary)] 12 unit SQ AC-LUNCH vial Insulin Aspart [NovoLOG (formulary)] 12 unit SQ AC-BRKFST vial Insulin Aspart [NovoLOG (formulary)] 15 unit SQ AC-SUPPER vial Continue metFORMIN HCL [metFORMIN HCL ER] 1,000 mg PO BID Insulin Detemir [Levemir Flextouch] 45 units SQ HS Insulin Aspart [NovoLOG Flexpen] See Protocol SQ TID-W/MEALS #1 box Acetaminophen Tab [Tylenol] 325 mg PO Q4HR PRN tab PRN Reason: Fever and/ or Mild Pain Aspirin 325 mg PO DAILY #30 tab Clopidogrel [Plavix] 75 mg PO DAILY #30 tab Lisinopril [Zestril] 2.5 mg PO DAILY #30 tab Metoprolol Tartrate [Lopressor] 25 mg PO BID #60 tab Pantoprazole [Protonix] 40 mg PO AC-BRKFST #30 tablet.dr Horan-Docusate Sodium [Senokot-S] 2 each PO HS PRN tab PRN Reason: Constipation Tamsulosin [Flomax] 0.4 mg PO PC-BRKFST #30 cap.er.24h Atorvastatin [Lipitor] 80 mg PO HS #30 tab Discharge Medication List Insulin Detemir [Levemir Flextouch] 45 units SQ HS 03/19/18 [History] metFORMIN HCL [metFORMIN HCL ER] 1,000 mg PO BID 03/19/18 [History] Acetaminophen Tab [Tylenol] 325 mg PO Q4HR PRN tab 03/25/18 [Rx] Aspirin 325 mg PO DAILY #30 tab 03/25/18 [Rx] Atorvastatin [Lipitor] 80 mg PO HS #30 tab 03/25/18 [Rx] Clopidogrel [Plavix] 75 mg PO DAILY #30 tab 03/25/18 [Rx] Insulin Aspart [NovoLOG Flexpen] See Protocol SQ TID-W/MEALS #1 box 03/25/18 [Rx ] Lisinopril [Zestril] 2.5 mg PO DAILY #30 tab 03/25/18 [Rx] Metoprolol Tartrate [Lopressor] 25 mg PO BID #60 tab 03/25/18 [Rx] Pantoprazole [Protonix] 40 mg PO AC-BRKFST #30 tablet. 03/25/18 [Rx] Sennosides-Docusate Sodium [Senokot-S] 2 each PO HS PRN tab 03/25/18 [Rx] Tamsulosin [Flomax] 0.4 mg PO PC-BRKFST #30 cap.er.24h 03/25/18 [Rx] Ciprofloxacin HCl [Cipro] 500 mg PO BID 8 Days tab 04/02/18 [Rx] Furosemide [Lasix] 40 mg PO DAILY tab 04/02/18 [Rx] Insulin Aspart [NovoLOG (formulary)] 12 unit SQ AC-BRKFST vial 04/02/18 [Rx] Insulin Aspart [NovoLOG (formulary)] 12 unit SQ AC-LUNCH vial 04/02/18 [Rx] Insulin Aspart [NovoLOG (formulary)] 15 unit SQ AC-SUPPER vial 04/02/18 [Rx] Follow up Appointment(s)/Referral(s): Baljit Shafer MD [Primary Care Provider] - 1-2 days Discharge Disposition: TRANSFER TO SNF/ECF
--- NOTE | 2018-04-02 12:36 | P.PN ---
Subjective Progress Note Date: 04/02/18 Principal diagnosis: Urinary retention, weakness, constipation This is a very pleasant 72-year-old gentleman who follows with Dr. Trent Shafer as his primary care physician. He has a history of diabetes mellitus, hypertension, hyperlipidemia, daily alcohol use, previous tobacco dependence and mild chronic obstructive pulmonary disease with an FEV1 value 72% of predicted.. He had also recently been discharged from here after being found to have significant coronary artery disease and had undergone coronary artery bypass grafting on 03/20/2018. He did have ongoing issues with urinary retention and was discharged home without any swelling catheter. That was removed on March 28. He had been complaining of inability to urinate as well as constipation and was seen at [facility] and was subsequently transferred here. CAT scan of his chest did demonstrate bilateral pleural effusions with bilateral lower lobe atelectasis. There is also noted mild thickening of the urinary bladder with cystitis and right renal cyst cannot be totally excluded.. The emergency room asked evening they did place a indwelling Valdovinos catheter in 1900 ML's of fluid was returned. His x-ray did reveal bilateral pleural effusions. No acute heart failure. Mild cardiomegaly. The fluid was felt to be slightly increased from previous on 03/2018. He is seen today in consultation on the selective care unit. He is currently sitting up in a chair at the bedside. He is awake and alert in no acute distress. He is maintaining O2 saturations in the 90s on room air. T- max of 100. Hemodynamically stable. Urine culture is pending. Influenza screen negative. White count 19.6. Hemoglobin 7.5. MCV 101.4. Sodium 133. Creatinine 1.3. ProBNP 4870. Currently being diuresed with Lasix 40 mg IV daily 12 hours. Resumed DuoNeb inhalations. Initiated on antibiotics in the form of Zosyn and Levaquin. The patient is seen today 03/31/2018 in follow-up on the regular medical floor. He is currently sitting up in a chair at the bedside. He is awake and alert in no acute distress. Valdovinos catheter remains in place. He has been seen by urology who is recommending continuing with the catheter. He's now on Flomax. He denies any chest pain or palpitations. No dizziness or lightheadedness. He denies any worsening shortness of breath cough or congestion. He is maintaining good O2 saturations in the mid 90s on room air. Current temperature 100.2. Blood culture reveals no growth to date. Urine culture reveals no growth to date. White count 15.8. Hemoglobin 7.9. Creatinine 1.38. He remains on Zosyn and Levaquin. On 04/01/2018 patient seen in follow-up on Selective care unit., Resting in bed , in no acute distress. Room air pulse ox 98%, no fever no chills, hemodynamically stable. Remains in sinus rhythm. Today's chest x-ray showed minimal left basilar airspace disease, possible atelectasis, and small left pleural effusion. Valdovinos remains in place, he remains on Flomax. Blood and urine cultures remain negative, he was on Zosyn and Levaquin for empiric and abiotic coverage. No dyspnea, no cough, no chest congestion. On 04/02/2018 patient seen in follow-up on selective care unit, no acute events overnight, no specific complaints, no shortness of breath or chest pain. Valdovinos remains in place, draining clear yellow urine. Patient has been ambulating to the bathroom, tolerating activity well. Incentive spirometry effort is 1500 today. His lab work has been reviewed, WBC 7.1, hemoglobin is 9.0, electrolytes are within normal limits, creatinine is 1.3. Pulse ox 98%, no new chest x-rays today, urine and blood cultures showed no growth. Anticipate discharge to subacute rehab today Objective - Vital Signs Vital signs: Vital Signs Temp 97.2 F L 04/02/18 11:13 Pulse 79 04/02/18 11:13 Resp 20 04/02/18 11:13 BP 125/69 04/02/18 11:13 Pulse Ox 98 04/02/18 11:13 Intake & Output 04/01/18 04/02/18 04/02/18 18:59 06:59 18:59 Intake Total 740 50 Output Total 1600 300 Balance -860 -250 Weight 101.8 kg Intake: Intake, IV Titration 100 50 Amount Piperacillin-Tazobactam 3 100 50 .375 gm In Sodium Chloride 0.9% 100 ml @ 25 mls/hr IVPB Q8HR [facility] Rx# :[id number] Oral 640 Output: Urine 1600 300 Other: Voiding Method Indwelling Catheter Indwelling Catheter Indwelling Catheter # Bowel Movements 3 1 - Exam GENERAL EXAM: Alert, pleasant 72-year-old white male, comfortable in no apparent distress. Sitting up in the recliner, he has a heart harness on HEAD: Normocephalic/atraumatic. EYES: Normal reaction of pupils, equal size. Conjunctiva pink, sclera white. NOSE: Clear with pink turbinates. THROAT: No erythema or exudates. NECK: No masses, no JVD, no thyroid enlargement, no adenopathy. CHEST: No chest wall deformity. Symmetrical expansion. Midsternal incision is clean dry and intact, approximated, sternum is stable LUNGS: Diminished breath sounds, no rhonchi, no wheezes CVS: Regular rate and rhythm, normal S1 and S2, no gallops, no murmurs, no rubs ABDOMEN: Soft, nontender. No hepatosplenomegaly, normal bowel sounds, no guarding or rigidity. EXTREMITIES: No clubbing, no cyanosis, 2+ pulses and upper and lower extremities. Mild nonpitting edema noted in upper and lower extremities. MUSCULOSKELETAL: Muscle strength and tone normal. Right radial puncture is clean dry and intact, soft. SPINE: No scoliosis or deformity SKIN: No rashes CENTRAL NERVOUS SYSTEM: Alert and oriented -3. No focal deficits, tone is normal in all 4 extremities. PSYCHIATRIC: Alert and oriented -3. Appropriate affect. Intact judgment and insight. - Labs CBC & Chem 7: 04/02/18 08:43 04/02/18 08:43 Labs: Abnormal Lab Results - Last 24 Hours (Table) 04/01/18 04/01/18 04/02/18 Range/Units 16:52 20:43 00:27 RBC (4.30-5.90) m/uL Hgb (13.0-17.5) gm/dL Hct (39.0-53.0) % Plt Count (150-450) k/uL Creatinine (0.66-1.25) mg/dL Glucose (74-99) mg/dL POC Glucose (mg/dL) 126 H 164 H 178 H (75-99) mg/dL Albumin (3.5-5.0) g/dL 04/02/18 04/02/18 04/02/18 Range/Units 01:53 05:34 08:43 RBC 2.80 L (4.30-5.90) m/uL Hgb 9.0 L (13.0-17.5) gm/dL Hct 27.9 L (39.0-53.0) % Plt Count 475 H (150-450) k/uL Creatinine (0.66-1.25) mg/dL Glucose (74-99) mg/dL POC Glucose (mg/dL) 192 H 114 H (75-99) mg/dL Albumin (3.5-5.0) g/dL 04/02/18 04/02/18 Range/Units 08:43 11:17 RBC (4.30-5.90) m/uL Hgb (13.0-17.5) gm/dL Hct (39.0-53.0) % Plt Count (150-450) k/uL Creatinine 1.33 H (0.66-1.25) mg/dL Glucose 123 H (74-99) mg/dL POC Glucose (mg/dL) 147 H (75-99) mg/dL Albumin 3.1 L (3.5-5.0) g/dL Microbiology - Last 24 Hours (Table) 03/29/18 21:43 Blood Culture - Preliminary Blood No Growth after 72 hours Assessment and Plan Plan: #1 Urinary retention, immediate return of 900 ML's following Valdovinos catheter insertion. Initiated on Flomax. #2 Constipation. #3 Dyspnea secondary to bilateral pleural effusions. #4 Recently discharged following a non-ST elevated MN, multivessel coronary artery disease, patient underwent cardiac catheterization which showed RCA stenosis of 70%, circumflex was 90%, proximal LAD of 99%, mid LAD of 90%, status post three-vessel coronary artery bypass grafting, with LYNN to LAD, SVG to the RCA, and SVG to the ramus, #5 Postoperative acute blood loss anemia, an expected outcome of cardiothoracic surgery #6 Acute klidney injury, improved #7 Ischemic cardiomyopathy, ejection fraction of 35% #8 Diabetes mellitus type 2 #9 Hypertension, hyperlipidemia #10 Previous history of nicotine dependence, patient carries [id number] smoking history, quit smoking 40 years ago, but prior to that smoked for 20 years 3 packs a day #11 Daily EtOH use Plan: Patient remains stable from pulmonary/critical care standpoint, no acute events overnight, no fever or chills, no pulmonary complaints. Continue encouraging incentive spirometry use, deep breathing and coughing, Valdovinos remains in place, draining clear yellow urine. Anticipate discharge to subacute rehab today. Follow-up with Dr. iNxon in one week I performed a history & physical examination of the patient and discussed their management with my nurse practitioner, Rosa Rm. I reviewed the nurse practitioner's note and agree with the documented findings and plan of care. Lung sounds are minimal bibasilar crackles. The findings and the impression was discussed with the patient. I attest to the documentation by the nurse practitioner. Lauren Cisneros statement Time with Patient: Less than 30
--- NOTE | 2018-04-02 14:02 | P.PN ---
Subjective Progress Note Date: 04/02/18 Principal diagnosis: Recent coronary artery bypass grafting surgery 3 vessels on 03/20/2018, Coronary artery disease, recent non-STEMI, history of uncontrolled insulin diabetes mellitus with a preoperative hemoglobin A1c of 8.1%, hypertension, hyperlipidemia, obesity with a BMI of 32.6 kg/m, history of kidney stones, history of tobacco dependence, COPD with a preoperative FEV1 of 72% of predicted value, daily EtOH use, history of preoperative nasal swab positive for MSSA, history of postoperative urinary retention requiring reinsertion of Valdovinos which is being followed by Dr. Ellsworth on an outpatient basis and history of vasectomy. The patient is sitting up to bedside chair. He is in no acute distress. He denies any complaints of pain or shortness of breath at this time. The patient reports that he is feeling much improved today. He was afebrile the last 24 hours. He reports that he has been up ambulating in the hallway with minimal assistance with the nurse and physical therapy. His son-in-law is at his bedside. His questions answered to the best of my ability. Valdovinos catheter remains in place due to urinary retention. Objective - Vital Signs Vital signs: Vital Signs Temp 97.2 F L 04/02/18 11:13 Pulse 79 04/02/18 11:13 Resp 20 04/02/18 11:13 BP 125/69 04/02/18 11:13 Pulse Ox 98 04/02/18 11:13 Intake & Output 04/01/18 04/02/18 04/02/18 18:59 06:59 18:59 Intake Total 740 50 Output Total 1600 300 Balance -860 -250 Weight 101.8 kg Intake: Intake, IV Titration 100 50 Amount Piperacillin-Tazobactam 3 100 50 .375 gm In Sodium Chloride 0.9% 100 ml @ 25 mls/hr IVPB Q8HR [facility] Rx# :[id number] Oral 640 Output: Urine 1600 300 Other: Voiding Method Indwelling Catheter Indwelling Catheter Indwelling Catheter # Bowel Movements 3 1 - Constitutional General appearance: Present: cooperative, no acute distress, obese - Respiratory Details: Lung sounds are essentially clear throughout, diminished to his bilateral bases right greater than left. Respirations are symmetrical and nonlabored. Oxygen saturation are 94% on room air. He is achieving 2000 mL on his incentive spirometry with encouragement. - Cardiovascular Details: Regular rhythm and rate. S1 and S2 present, negative for history, gallop or murmur. Sternum is stable. Remote telemetry showing normal sinus rhythm heart rate 82. No edema present. Heart hugger is in place and he is demonstrating appropriate use. Knee-high RAYMUNDO hose and sequential compression devices in place to his bilateral lower extremities. - Gastrointestinal Gastrointestinal Comment(s): Abdomen is soft, nontender and nondistended. Active bowel sounds all 4 abdominal quadrants. Tolerating oral intake. Bowel movement this a.m. - Genitourinary Genitourinary Comment(s): Valdovinos catheter for urinary retention. Draining clear yellow urine. 300 mL output in the last 8 hours. - Integumentary Integumentary Comment(s): Skin is warm and dry. No clubbing or cyanosis present. Midline sternal incision is clean, dry and intact. No drainage or redness present. Gauze dressing is clean dry and intact. Left leg EVH harvest sites clean, dry and intact. No drainage or redness present. - Neurologic Neurologic: Present: CNII-XII intact - Musculoskeletal Musculoskeletal: Present: gait normal, generalized weakness, strength equal bilaterally - Psychiatric Psychiatric: Present: A&O x's 3, appropriate affect, intact judgment & insight - Labs CBC & Chem 7: 04/02/18 08:43 04/02/18 08:43 Labs: Abnormal Lab Results - Last 24 Hours (Table) 04/01/18 04/01/18 04/02/18 Range/Units 16:52 20:43 00:27 RBC (4.30-5.90) m/uL Hgb (13.0-17.5) gm/dL Hct (39.0-53.0) % Plt Count (150-450) k/uL Creatinine (0.66-1.25) mg/dL Glucose (74-99) mg/dL POC Glucose (mg/dL) 126 H 164 H 178 H (75-99) mg/dL Albumin (3.5-5.0) g/dL 04/02/18 04/02/18 04/02/18 Range/Units 01:53 05:34 08:43 RBC 2.80 L (4.30-5.90) m/uL Hgb 9.0 L (13.0-17.5) gm/dL Hct 27.9 L (39.0-53.0) % Plt Count 475 H (150-450) k/uL Creatinine (0.66-1.25) mg/dL Glucose (74-99) mg/dL POC Glucose (mg/dL) 192 H 114 H (75-99) mg/dL Albumin (3.5-5.0) g/dL 04/02/18 04/02/18 Range/Units 08:43 11:17 RBC (4.30-5.90) m/uL Hgb (13.0-17.5) gm/dL Hct (39.0-53.0) % Plt Count (150-450) k/uL Creatinine 1.33 H (0.66-1.25) mg/dL Glucose 123 H (74-99) mg/dL POC Glucose (mg/dL) 147 H (75-99) mg/dL Albumin 3.1 L (3.5-5.0) g/dL Microbiology - Last 24 Hours (Table) 03/29/18 21:43 Blood Culture - Preliminary Blood No Growth after 72 hours - Imaging and Cardiology Chest x-ray: report reviewed, image reviewed Assessment and Plan (1) Urinary retention Current Visit: Yes Status: Acute Code(s): R33.9 - RETENTION OF URINE, UNSPECIFIED SNOMED Code(s): 392678224 (2) Constipation Current Visit: Yes Status: Acute Code(s): K59.00 - CONSTIPATION, UNSPECIFIED SNOMED Code(s): 15712043 (3) NSTEMI (non-ST elevated myocardial infarction) Current Visit: Yes Status: Acute Code(s): I21.4 - NON-ST ELEVATION (NSTEMI) MYOCARDIAL INFARCTION SNOMED Code(s): 260210205 (4) COPD (chronic obstructive pulmonary disease) Current Visit: No Status: Chronic Code(s): J44.9 - CHRONIC OBSTRUCTIVE PULMONARY DISEASE, UNSPECIFIED SNOMED Code(s): 90912730 (5) Coronary artery disease Current Visit: No Status: Chronic Code(s): I25.10 - ATHSCL HEART DISEASE OF [place] CORONARY ARTERY W/O ANG PCTRS SNOMED Code(s): 68509490 (6) Diabetes mellitus Current Visit: No Status: Chronic Code(s): E11.9 - TYPE 2 DIABETES MELLITUS WITHOUT COMPLICATIONS SNOMED Code(s): 19342055 (7) EtOH dependence Current Visit: No Status: Chronic Code(s): F10.20 - ALCOHOL DEPENDENCE, UNCOMPLICATED SNOMED Code(s): 43128108 (8) Hyperlipidemia Current Visit: No Status: Chronic Code(s): E78.5 - HYPERLIPIDEMIA, UNSPECIFIED SNOMED Code(s): 16295289 (9) Hypertension Current Visit: No Status: Chronic Code(s): I10 - ESSENTIAL (PRIMARY) HYPERTENSION SNOMED Code(s): 15292869 (10) Obesity (BMI 30-39.9) Current Visit: No Status: Chronic Code(s): E66.9 - OBESITY, UNSPECIFIED SNOMED Code(s): 099509668 (11) Tobacco dependence in remission Current Visit: No Status: Resolved Code(s): F17.201 - NICOTINE DEPENDENCE, UNSPECIFIED, IN REMISSION SNOMED Code(s): 605499614 Plan: 1. Continue aspirin, statin, Plavix, beta nica and ASIA inhibitor. 2. Encourage use of his incentive spirometry every hour while awake. 3. GI and DVT prophylaxis in place. 4. Pulmonary management recommendations per Dr. Dillard. 5. Encourage increased in activity and ambulation as tolerated. Out of bed for all meals. Physical and occupational therapy following. 6. Dr. Heller consult noted and appreciated. The patient will be discharged to inpatient rehab at [facility] today. 7. Continue Flomax to 0.4 mg by mouth twice a day as per urology recommendations. 8. Continue Valdovinos catheter per urology recommendations. Will be discharged with catheter in place. 9. Medical management recommendations per primary care service. 10. More recommendations to follow based on patient's clinical course. Time with Patient: Greater than 30
--- NOTE | 2018-04-02 14:16 | XR ---
EXAMINATION TYPE: XR chest 1V portable DATE OF EXAM: 04/02/2018 Comparison: 04/01/2018 Clinical History: 72-year-old male Postop CABG Findings: Median sternotomy wires are present with post-CABG clips in the mediastinum. Heart is upper limits of normal in size. Hazy lower lung densities with new small left pleural effusion and retrocardiac opac ity. Impression: Borderline heart size with increased small left pleural effusion with adjacent atelectasis and/or con solidation.
[2018-04-02] MEDS ORDERED: CIPROFLOXACIN HCL 500 MG TAB PO SCH (21:00)
[2018-04-03] MEDS ORDERED: ASPIRIN 81 MG PO SCH (09:00)
== END 2018-04-02 13:54 | DRG 871 ==
LOC: EC 21:24 → 3SCARD 03-30 00:35 → OBSVTOIN 03-31 14:29
PROVIDERS: ADMIT Internal Medicine; ATTEND Internal Medicine
DX: A41.9 Sepsis, unspecified organism (principal); I50.23 Acute on chronic systolic (congestive) heart failure; J18.9 Pneumonia, unspecified organism; I21.4 Non-ST elevation (NSTEMI) myocardial infarction; N17.9 Acute kidney failure, unspecified; D62 Acute posthemorrhagic anemia; J44.0 Chronic obstructive pulmonary disease with (acute) lower respiratory infection; E86.0 Dehydration; I25.10 Atherosclerotic heart disease of native coronary artery without angina pectoris; R53.81 Other malaise; E66.9 Obesity, unspecified; K59.00 Constipation, unspecified; I11.0 Hypertensive heart disease with heart failure; J44.9 Chronic obstructive pulmonary disease, unspecified; I25.5 Ischemic cardiomyopathy; R33.9 Retention of urine, unspecified; F17.211 Nicotine dependence, cigarettes, in remission; E78.5 Hyperlipidemia, unspecified; F10.20 Alcohol dependence, uncomplicated; N28.1 Cyst of kidney, acquired; N30.90 Cystitis, unspecified without hematuria; N42.9 Disorder of prostate, unspecified; Z95.1 Presence of aortocoronary bypass graft; Z68.32 Body mass index [BMI] 32.0-32.9, adult; Z79.02 Long term (current) use of antithrombotics/antiplatelets; Z79.4 Long term (current) use of insulin; Z79.82 Long term (current) use of aspirin; Z79.899 Other long term (current) drug therapy; Z80.1 Family history of malignant neoplasm of trachea, bronchus and lung; Z87.442 Personal history of urinary calculi
CPT/HCPCS: 36415; 71045; 71046; 80048; 80053; 81001; 82550; 82553; 83605; 83735; 83880; 84100; 84484; 85025; 85027; 85610; 85730; 87040; 87086; 87502; 94640; 94760; 96361; 96365; 96375; 99291